=== PATIENT | female | born 1945 | race Caucasian/White ===

== ENCOUNTER → 2016-06-15 | Outpatient (CLI) | payer OTHER ==
[~2016-06-15] MED LIST: ADVIN25050 INH; ALL180 PO; ASPCH81X PO; ATOR-54 PO; CALCTAB5 PO; CIPR-255 PO; DULA0.5I INJ; FIBER CAP; GLC/500 PO; GLC500 PO; IPRA1AER2 INH; LOSA50TA6 PO; METR-163 PO; MULT-506 PO; OMEP40CA41 PO; OXYC-57 PO; PRLSR20 PO; PROM25TA PO; SERT-234 PO; SERT50TA PO; SIMV80TA2 PO; SULF800T23 PO; TEMA15CA4 PO; TEMA30CA4 PO; VITAMIN B 12
--- NOTE | 2016-06-15 08:51 | DIAGNOSTIC IMAGING REPORT ---
ABDOMEN COMPLETE (US) CLINICAL HISTORY: Abdominal pain diarrhea and bloating COMPARISON STUDY: 06/21/2009 FINDINGS: The pancreas appears normal as visualized. The gallbladder appears sonographically normal. There is a 5 mm cyst within the right hepatic lobe. The liver appears otherwise normal. There is minimal dilatation of the common bile duct which measures 7 mm. The spleen measures 9.1 cm in length. The right kidney measures 10.7 cm. The left kidney measures 10.8 cm. There is no hydronephrosis. There is an equivocal 5 mm hypoechoic focus within the upper pole the left kidney. There is no evidence of abdominal aortic dilatation. The IVC appear patent. IMPRESSION: 1. 7 mm common bile duct 2. Ultrasonographically normal gallbladder and pancreas Electronically signed by: Jagdeep Bridges M.D. 06/15/2016 8:49 AM Dictated Date/Time: 06/15/2016 8:46 AM
== END | disposition home or self-care (01) ==
LOC: C.ULTR 08:04
PROVIDERS: ATTEND Internal Medicine
DX: R10.9 Unspecified abdominal pain (principal); R14.0 Abdominal distension (gaseous); R19.7 Diarrhea, unspecified

== ENCOUNTER → 2016-07-07 | Outpatient (CLI) | payer OTHER ==
[~2016-07-07] MED LIST changes: +MethylPREDNISolone HOME PACK 16 MG TAB PO SCH; +OPTIRAY 320 IV PRN
--- NOTE | 2016-07-07 15:11 | DIAGNOSTIC IMAGING REPORT ---
CT SCAN OF THE ABDOMEN AND PELVIS WITH IV CONTRAST CLINICAL HISTORY: Generalized abdominal pain. Change in bowel habits. COMPARISON STUDY: Abdominal CT dated 05/11/2014. TECHNIQUE: Following the IV administration of 119 cc of Optiray 320, CT scan of the abdomen and pelvis is performed from the lung bases to the proximal femora. Images are reviewed in the axial, sagittal, and coronal planes. IV contrast was administered without complication. Automated dose control exposure was utilized. CT DOSE: 314.88 mGy.cm FINDINGS: Lung bases: The heart is normal in size and without pericardial effusion. There are coronary artery calcifications. The lung bases are clear. Liver: The contrast-enhanced liver is normal in size, contour, and attenuation. A subcentimeter hypodensity in the right lobe on image #144 likely represents a cyst but is too small for definitive characterization. There is no intrahepatic biliary ductal dilatation. The hepatic veins and portal veins are patent. Gallbladder: Unremarkable. Spleen: Normal in size and attenuation. Pancreas: Unremarkable. Adrenal glands: Unremarkable. Kidneys: The contrast enhanced kidneys demonstrate cortical atrophy and are without hydronephrosis. The kidneys enhance symmetrically. A subcentimeter cortical hypodensity in the left upper pole likely represents a cyst but is too small for definitive characterization. Abdominal vasculature: The abdominal aorta is normal in course and caliber noting moderate atherosclerotic calcification. Stomach and bowel: There is a large hiatal hernia, with approximately half of the stomach located in the thoracic cavity. The duodenum is normal in configuration. No bowel obstruction is seen. There is advanced colonic diverticulosis without CT evidence of acute diverticulitis. Mild diffuse wall thickening of the sigmoid colon is likely related to chronic diverticular disease. The appendix is well-visualized and normal. Peritoneum: There is no intraperitoneal free air or abdominal ascites. There is a small fat-containing umbilical hernia. Lymphadenopathy: None. Pelvic viscera: The bladder, uterus, and adnexa are normal as visualized. Skeletal structures: The skeletal structures are osteopenic. There is mild lumbosacral spondylosis. No lytic or blastic lesions are seen. IMPRESSION: 1. There are no acute infectious or inflammatory findings in the abdomen or pelvis. 2. Advanced colonic diverticulosis without CT evidence of acute diverticulitis. 3. Large hiatal hernia. 4. Additional findings as above. Electronically signed by: Ed Lobo M.D. 07/07/2016 3:10 PM Dictated Date/Time: 07/07/2016 2:52 PM
== END | disposition home or self-care (01) ==
LOC: C.CTS 13:41
PROVIDERS: ATTEND Internal Medicine
DX: R10.9 Unspecified abdominal pain (principal); R19.4 Change in bowel habit; K44.9 Diaphragmatic hernia without obstruction or gangrene; K57.30 Diverticulosis of large intestine without perforation or abscess without bleeding

== ENCOUNTER → 2016-07-17 | Outpatient (CLI) | payer OTHER ==
[~2016-07-17] MED LIST changes: -ADVIN25050 INH; -ALL180 PO; -CALCTAB5 PO; -FIBER CAP; -GLC500 PO; -MULT-506 PO; -MethylPREDNISolone HOME PACK 16 MG TAB PO SCH; -OPTIRAY 320 IV PRN; -OXYC-57 PO; -PRLSR20 PO; -PROM25TA PO; -SERT50TA PO; -SIMV80TA2 PO; -TEMA30CA4 PO; -VITAMIN B 12
--- NOTE | 2016-07-18 13:02 | MAMMOGRAPHY REPORT ---
BILATERAL DIGITAL SCREENING MAMMOGRAM WITH CAD: 07/17/2016 CLINICAL HISTORY: Routine screening. Patient has no complaints. TECHNIQUE: Bilateral CC and MLO views were obtained. Current study was also evaluated with a Comput er Aided Detection (CAD) system. COMPARISON: Comparison is made to exam dated: 05/01/2014 mammogram - [facility]. BREAST COMPOSITION: The tissue of both breasts is heterogeneously dense, which may obscure small ma sses. FINDINGS: There is stable asymmetry in the medial left breast. Benign appearing coarse calcificatio ns bilaterally. No new suspicious mass, architectural distortion or suspicious microcalcifications are seen. IMPRESSION: ACR BI-RADS CATEGORY 1: NEGATIVE There is no mammographic evidence of malignancy. A 1 year screening mammogram is recommended. The p atient will receive written notification of the results. Approximately 10% of breast cancers are not detected with mammography. A negative mammographic repor t should not delay biopsy if a clinically suggestive mass is present. Joslyn Moreau M.D. ay/:07/17/2016 15:08:01 Taper Machine: Marie Matais RT(R)(M)(BD), [facility] letter sent: Normal 1/2 BI-RADS Code: ACR BI-RADS Category 1: Negative
== END | disposition home or self-care (01) ==
LOC: C.MAMM 14:27
PROVIDERS: ATTEND Internal Medicine
DX: Z12.31 Encounter for screening mammogram for malignant neoplasm of breast (principal)

== ENCOUNTER → 2016-07-26 | Day surgery (SDC) | payer OTHER ==
[2016-07-13 08:56] VITALS: BMI 25.0
[~2016-07-26] VITALS: Ht 162.6 cm; Wt 68.2 kg
[~2016-07-26] MED LIST changes: +LIDOCAINE HCL 2% 2 ML VIAL (20MG/ML) ONE; +MIDAZOLAM HCL 1 MG/ML 2ML VIAL ONE; +ONDANSETRON INJ 2 MG/ML 2 ML VIAL ONE; +PROPOFOL IV EMULSION 10 MG/ML 20 ML VIAL IV ONE
[2016-07-26 08:22] VITALS: Ht 162.6 cm; Wt 68.2 kg
--- NOTE | 2016-07-26 08:43 | Endo History and Physical ---
History & Physical Date of Service: Jul 26, 2016. Chief Complaint: ABD. PAIN AND CHANGE IN BOWEL HABITS Referring Physician: DR. PADILLA History of Present Illness 70 yo CF who presents for Colonoscopy secondary to abdominal pain and change in bowel habits. Past Surgical History Hx Cardiac Surgery: No Hx Internal Defibrillator: No Hx Pacemaker: No Hx Abdominal Surgery: Yes (, TUBAL SX, COLON SURGERY ( REMOVAL OF POLYPS)) Hx of Implantable Prosthesis: No Hx Cancer Surgery: No Hx Thoracic Surgery: No Hx Orthopedic: Yes (RT ELBOW SX) Hx Urinary Tract Surgery: No Family History Colon CA, Esophogeal CA, Polyp Social History Smoking Status: Current Every Day Smoker Hx Substance Use: No Hx Alcohol Use: No Allergies Coded Allergies: No Known Allergies (Unverified , 07/26/16) Current Medications Reported Home Medications Medications Dose Route/Sig Max Daily Dose Days Date Category Combivent Respimat (Ipratropium-Albuterol) 1 Aer Aer 2 Puffs INH QID PRN 07/13/16 Reported Zoloft (Sertraline HCl) 100 Mg Tab 100 Mg PO QAM 07/13/16 Reported Aspirin Chewable (Aspirin) 81 Mg Chew 81 Mg PO QAM 07/13/16 Reported Lipitor (Atorvastatin) 20 Mg Tab 20 Mg PO HS 07/13/16 Reported Cozaar (Losartan Potassium) 50 Mg Tab 50 Mg PO QAM 07/13/16 Reported Glucophage (Metformin Hcl) 500 Mg Tab 2 Tab PO BID 07/13/16 Reported Prilosec (Omeprazole) 40 Mg Cap 40 Mg PO BID 07/13/16 Reported Restoril (Temazepam) 15 Mg Cap 15 Mg PO HS 07/13/16 Reported Vital Signs Weight (Kilograms): 68.18 Height (Feet): 5 Height (Inches): 4 Date Time Temp Pulse Resp B/P Pulse Ox O2 Delivery O2 Flow Rate FiO2 07/26/16 08:23 37.8 79 18 141/71 93 Room Air Physical Exam General Appearance: WD/WN, no apparent distress Respiratory/Chest: Auscultation: breath sounds normal Cardiovascular: Heart Auscultation: RRR Abdomen: Bowel Sounds: normal Inspection & Palpation: soft, non-distended, no tenderness, guarding & rebound Assessment and Plan Assessment: 70 yo CF who presents for Colonoscopy secondary to abdominal pain and change in bowel habits. Plan: Proceed with colonoscopy.
--- NOTE | 2016-07-26 10:11 | Discharge Instructions ---
Endoscopy Patient Instructions Date / Procedure(s) Performed Jul 26, 2016. Colonoscopy Allergy Information Coded Allergies: No Known Allergies (Unverified , 07/26/16) Discharge Date / Findings Jul 26, 2016. Colon polyps Diverticulosis Internal hemorrhoids Medication Instructions Stopped Medication(s): STOPPED METFORMIN AND ASPIRIN 3 DAYS AGO. OK to resume all medications today as prescribed Reported Home Medications Medications Dose Route/Sig Max Daily Dose Days Date Category Combivent Respimat (Ipratropium-Albuterol) 1 Aer Aer 2 Puffs INH QID PRN 07/13/16 Reported Zoloft (Sertraline HCl) 100 Mg Tab 100 Mg PO QAM 07/13/16 Reported Aspirin Chewable (Aspirin) 81 Mg Chew 81 Mg PO QAM 07/13/16 Reported Lipitor (Atorvastatin) 20 Mg Tab 20 Mg PO HS 07/13/16 Reported Cozaar (Losartan Potassium) 50 Mg Tab 50 Mg PO QAM 07/13/16 Reported Glucophage (Metformin Hcl) 500 Mg Tab 2 Tab PO BID 07/13/16 Reported Prilosec (Omeprazole) 40 Mg Cap 40 Mg PO BID 07/13/16 Reported Restoril (Temazepam) 15 Mg Cap 15 Mg PO HS 07/13/16 Reported Provider Instructions Activity Restrictions - No exercising or heavy lifting for 24 hours. - Do not drink alcohol the day of the procedure. - Do not drive a car or operate machinery until the day after the procedure. - Do not make any important decisions or sign important papers in 24 hours after the procedure. Following Day: - Return to full activity which may include returning to work/school. Diet Start your diet with liquids and light foods (jello, soup, juice, toast). Then eat your usual diet if not nauseated. Treatment For Common After Affects For mild abdominal pain, bloating, or excessive gas: - Rest - Eat lightly - Lie on right side Follow-Up Information Follow-up with DR. PADILLA as scheduled Anesthesia Information What You Should Know You have had a procedure that required some medicine to reduce anxiety and discomfort. This treatment is called moderate sedation. After receiving the treatment, you may be sleepy, but you will be able to breathe on your own. The effects of the treatment may last for several hours. Follow these instructions along with Activity/Diet recommendations noted above: * Do NOT do anything where dizziness or clumsiness would be dangerous. * Rest quietly at home today, then you can be up and about tomorrow. * Have a responsible person stay with you the rest of today. * You may have had an I.V. today. If so, you may take the dressing off later today. Recommendations Call your doctor if: * Trouble breathing * Continuous vomiting for more than 24 hours * Temperature above 101 degrees * Severe abdominal pain or bloating * Pain not relieved by pain medicine ordered * There is increased drainage or redness from any incision * A large amount of rectal bleeding greater than 2-3 tablespoons. (If you had a polyp/s removed or have hemorrhoids, a small amount of blood - from the rectum is to be expected.) * You have any unanswered questions or concerns. IN THE EVENT OF A SERIOUS EMERGENCY, GO TO THE NEAREST EMERGENCY ROOM Your discharge instructions were prepared by provider Isidoro London. Patient Instructions Signature Page Angeliquemai Romero Patient (or Guardian) Signature/Date: I have read and understand the instructions given to me by my caregivers. Caregiver/RN/Doctor Signature/Date: The above-named patient and/or guardian has received patient instructions on this date. + Original Patient Signature Page (only) stays with chart. Please make copy for patient.
--- NOTE | 2016-07-26 10:16 | GI REPORT ---
Procedure Date: 07/26/2016 9:33 AM Procedure: Colonoscopy Indications: Generalized abdominal pain, Change in bowel habits Medicines: Monitored Anesthesia Care Complications: No immediate complications. Estimated Blood Loss: Estimated blood loss: none. Procedure: Pre-Anesthesia Assessment: - Prior to the procedure, a History and Physical was performed, and patient medications and allergies were reviewed. The patient's tolerance of previous anesthesia was also reviewed. The risks and benefits of the procedure and the sedation options and risks were discussed with the patient. All questions were answered, and informed consent was obtained. Prior Anticoagulants: The patient has taken aspirin, last dose was 3 days prior to procedure. ASA Grade Assessment: III - A patient with severe systemic disease. After reviewing the risks and benefits, the patient was deemed in satisfactory condition to undergo the procedure. After I obtained informed consent, the scope was passed under direct vision. Throughout the procedure, the patient's blood pressure, pulse, and oxygen saturations were monitored continuously. The scope was introduced through the anus and advanced to the cecum, identified by appendiceal orifice and ileocecal valve. The colonoscopy was performed without difficulty. The patient tolerated the procedure well. The quality of the bowel preparation was fair. The ileocecal valve, appendiceal orifice, and rectum were photographed. Findings: Two sessile polyps were found in the sigmoid colon and in the transverse colon. The polyps were 5 to 7 mm in size. These polyps were removed with a hot snare. Resection and retrieval were complete. Multiple small-mouthed diverticula were found in the sigmoid colon. Non-bleeding internal hemorrhoids were found during retroflexion. The hemorrhoids were small. Impression: - Two 5 to 7 mm polyps in the sigmoid colon and in the transverse colon, removed with a hot snare. Resected and retrieved. - Diverticulosis in the sigmoid colon. - Non-bleeding internal hemorrhoids. Recommendation: - Resume previous diet. - Continue present medications. - Use original regular Metamucil one teaspoon PO daily. - Repeat colonoscopy for surveillance based on pathology results. - Return to primary care physician as previously scheduled. Isidoro London DO 07/26/2016 10:16:39 AM This report has been signed electronically. Note Initiated On: 07/26/2016 9:33 AM I attest to the content of the Intraoperative Record and orders documented therein, exceptions below
[2016-07-26 10:42] VITALS: BP 156/84; PULSE 87; O2SAT 93
--- NOTE | 2016-07-26 12:32 | Anesthesiology Progress Note ---
Anesthesia Post Op Note Date & Time Jul 26, 2016 at 12:32 Vital Signs Pain Intensity: 0 Vital Signs Past 12 Hours Date Time Temp Pulse Resp B/P Pulse Ox O2 Delivery O2 Flow Rate FiO2 07/26/16 10:42 87 18 156/84 93 Room Air 07/26/16 10:24 83 18 149/84 95 Room Air 07/26/16 10:09 86 18 132/71 92 Mask 9 07/26/16 08:23 37.8 79 18 141/71 93 Room Air Notes Mental Status: alert / awake / arousable Nausea / Vomiting: adequately controlled Pain: adequately controlled Airway Patency, RR, SpO2: stable & adequate BP & HR: stable & adequate Hydration State: stable & adequate Anesthetic Complications: no major complications apparent
== END | disposition home or self-care (01) ==
LOC: C.GI 08:04
PROVIDERS: ATTEND Internal Medicine
DX: R19.4 Change in bowel habit (principal); D12.3 Benign neoplasm of transverse colon; K63.5 Polyp of colon; K57.30 Diverticulosis of large intestine without perforation or abscess without bleeding; Z80.0 Family history of malignant neoplasm of digestive organs; K64.8 Other hemorrhoids; Z98.51 Tubal ligation status; F17.210 Nicotine dependence, cigarettes, uncomplicated; Z79.82 Long term (current) use of aspirin

== ENCOUNTER → 2016-08-25 | Outpatient (CLI) | payer OTHER ==
[~2016-08-25] MED LIST changes: -LIDOCAINE HCL 2% 2 ML VIAL (20MG/ML) ONE; -MIDAZOLAM HCL 1 MG/ML 2ML VIAL ONE; -ONDANSETRON INJ 2 MG/ML 2 ML VIAL ONE; -PROPOFOL IV EMULSION 10 MG/ML 20 ML VIAL IV ONE
== END | disposition home or self-care (01) ==
LOC: C.PAPS 14:41
PROVIDERS: ATTEND Obstetrics & Gynecology
DX: Z01.419 Encounter for gynecological examination (general) (routine) without abnormal findings (principal)

== ENCOUNTER → 2016-08-29 | Outpatient (CLI) | payer OTHER ==
[2016-08-29 12:22] LABS: ESTIMATED AVERAGE GLUCOSE 148 mg/dl; HA1C FLAG Normal (Normal)
[2016-08-29 12:36] LABS: BLOOD UREA NITROGEN 14 mg/dl (7-18); BUN/CREATININE RATIO 20.4 (10-20); CALCIUM 9.1 mg/dl (8.5-10.1); CARBON DIOXIDE 30 mmol/L (21-32); CHLORIDE 102 mmol/L (98-107); CREATININE 0.67 mg/dl (0.60-1.20); GLUCOSE 96 mg/dl (70-99); POTASSIUM 3.7 mmol/L (3.5-5.1); SODIUM 139 mmol/L (136-145)
[2016-08-29 13:22] LABS: RATIO 36.5 mcg/mg (0-30.0)
--- NOTE | 2016-09-05 08:50 | CODING QUERY MEDICAL NECESSITY ---
SUPPORTING DIAGNOSIS NEEDED Dr. Sampson, A supporting diagnosis is required for the test/procedure performed on this patient in order for us to be reimbursed by the patient's insurance. Please provide a supporting diagnosis for the following test/procedure listed below next to the test name along with your signature. *If there is no additional diagnosis for this patient that would support the following test/procedure please document that below next to the test/procedure. Test(s)/Procedure(s) that require a supporting diagnosis: * ([id number]) VITAMIN D ASSAY DIAGNOSIS: DATE OF SERVICE: 08/29/16 Provider Signature: Date: Thank you Brandyn Solo [facility] Information Management Once completed, please kindly fax back to [phone] For questions please call [phone]
== END | disposition home or self-care (01) ==
LOC: C.LAB1850 11:13
PROVIDERS: ATTEND Nurse Practitioner Adult Health
DX: E11.9 Type 2 diabetes mellitus without complications (principal); I10 Essential (primary) hypertension; E55.9 Vitamin D deficiency, unspecified

== ENCOUNTER → 2016-12-20 | Outpatient (CLI) | payer OTHER ==
[2016-12-20 09:44] LABS: BLOOD UREA NITROGEN 12 mg/dl (7-18); BUN/CREATININE RATIO 16.4 (10-20); CALCIUM 9.3 mg/dl (8.5-10.1); CARBON DIOXIDE 29 mmol/L (21-32); CHLORIDE 103 mmol/L (98-107); CREATININE 0.74 mg/dl (0.60-1.20); GLUCOSE 94 mg/dl (70-99); SODIUM 138 mmol/L (136-145)
[2016-12-20 09:57] LABS: ESTIMATED AVERAGE GLUCOSE 131 mg/dl; HA1C FLAG Normal (Normal)
== END | disposition home or self-care (01) ==
LOC: C.LAB 06:47
PROVIDERS: ATTEND Nurse Practitioner Adult Health
DX: E11.9 Type 2 diabetes mellitus without complications (principal); I10 Essential (primary) hypertension; M54.2 Cervicalgia; E55.9 Vitamin D deficiency, unspecified

== ENCOUNTER 2017-01-11 13:50 | Emergency (ER) | payer OTHER ==
[~2017-01-11] VITALS: Ht 162.6 cm; Wt 70.3 kg
[~2017-01-11 13:50] MED LIST changes: -CIPR-255 PO; -DULA0.5I INJ; -METR-163 PO; -SULF800T23 PO
[2017-01-11 13:55] VITALS: TEMP 36.9; Ht 162.6 cm; Wt 70.3 kg
[2017-01-11] MEDS ORDERED: SODIUM CHLORIDE 0.9% 1000ML 1,000 ML IV STA (15:13)
[2017-01-11] MEDS ORDERED: OPTIRAY 320 IV PRN (15:30)
--- NOTE | 2017-01-11 15:31 | EMERGENCY ROOM VISIT NOTE ---
History First contact with patient: 15:04 Chief Complaint: ABDOMINAL PAIN Stated Complaint: DIZZY, LEFT SIDE STOMACH PAIN, N, HEART RACING Nursing Triage Summary: pt states she has diverticultis and "I know when it flares up". Called office but they told her to go to ED. Associated nausea. LLQ pain 5/10 at rest History of Present Illness The patient is a 71 year old female who presents to the Emergency Room with complaints of left lower quadrant pain that started early this morning around 6 AM, woke her up from sleep. Patient states she has history of diverticulitis and this feels like previous times that has flared up. She did call her PCP today but they told her to come to the emergency department for further evaluation. She has not taken anything for the pain. She states she has chronic diarrhea, but denies any changes in her bowel habits, denies any bloody , coffee-ground, or black stools. She has some associated lightheadedness, chills, and nausea, but no vomiting. She denies any fevers, headache, chest pain, shortness of breath, urinary symptoms, or rash. She last ate at 12 PM today. Review of Systems A complete 10 point review of systems was reviewed with the patient with pertinent positives and negatives as per history of present illness. All else were negative. Social History Smoking Status: Current Every Day Smoker Current/Historical Medications Scheduled Aspirin (Aspirin Chewable), 81 MG PO QAM Atorvastatin (Lipitor), 20 MG PO HS Ciprofloxacin Hcl (Cipro), 500 MG PO BID Dulaglutide (Trulicity), 1 DOSE INJ WK Losartan Potassium (Cozaar), 50 MG PO QAM Metformin Hcl (Glucophage), 2 TAB PO BID Metronidazole (Flagyl), 500 MG PO TID Omeprazole (Prilosec), 40 MG PO BID Sertraline (Zoloft), 100 MG PO QAM Temazepam (Restoril), 15 MG PO HS Scheduled PRN Ipratropium-Albuterol (Combivent Respimat), 2 PUFFS INH QID PRN for Shortness of Breath Physical Exam Vital Signs Date Time Temp Pulse Resp B/P (MAP) Pulse Ox O2 Delivery O2 Flow Rate FiO2 01/11/17 19:01 88 16 121/72 98 01/11/17 17:45 72 14 134/76 99 Room Air 01/11/17 15:49 82 16 137/72 99 Room Air 01/11/17 13:55 36.9 106 18 111/59 99 Room Air Physical Exam CONSTITUTIONAL: No acute distress. Mildly dehydrated, but otherwise well appearing and well nourished. Alert and oriented X 4 with normal affect. HEENT: Normocephalic, atraumatic. Pupils equal, round and reactive to light, EOMI. TMs normal. Pharynx normal. Tacky mucous membranes. NECK: Supple, full active range of motion without discomfort. RESPIRATORY: Clear to auscultation bilaterally with no wheezing, crackles, rhonchi or stridor. Equal expansion bilaterally. CARDIOVASCULAR: Regular rate and rhythm with no murmurs, rubs or gallops. Normal peripheral perfusion. No edema. GASTROINTESTINAL: Moderate tenderness in the left lower quadrant and suprapubic region, positive guarding but no rebound tenderness. Soft, nondistended. Bowel sounds present in all quadrants. No CVA tenderness. MUSCULOSKELETAL: Full range of motion of all joints without discomfort. INTEGUMENTARY: No rash or other significant dermatologic conditions noted. NEUROLOGIC: Cranial nerves II-XII grossly intact. No focal neurologic deficits noted. Medical Decision & Procedures ER Provider Diagnostic Interpretation: ABD/PELVIS IV AND ORAL CONT CLINICAL HISTORY: 71 years-old Female presenting with LLQ and hx of diverticulitis. TECHNIQUE: Multidetector CT of the abdomen and pelvis was performed after the administration of oral and intravenous contrast. IV contrast: 118 mL of Optiray 320. A dose lowering technique was used consistent with the principles of ALARA (as low as reasonably achievable). COMPARISON: 07/07/2016. CT DOSE (mGy.cm): The estimated cumulative dose is 337.18 mGy.cm. 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 Lung bases: Lung bases clear. No pericardial or pleural effusion. Liver: Normal morphology. Subcentimeter hypodensity at the inferior right hepatic lobe, indeterminate but likely hepatic cyst or hamartoma. Patent hepatic vasculature. Biliary: No intrahepatic or extrahepatic biliary ductal dilatation. Normal gallbladder. Pancreas: Mild parenchymal atrophy. Spleen: Normal. Adrenal glands: Nonspecific nodular thickening of the left adrenal gland. Kidneys and ureters: No nephrolithiasis. No hydronephrosis. Subcentimeter hypodensity at the left upper pole indeterminate but likely simple cyst. Normal ureters. Bladder: Incompletely evaluated secondary to underdistention. Pelvic organs: Uterus and ovaries normal. Bowel: Noel colonic diverticulosis. Focal pericolonic inflammatory change at the junction of the descending and sigmoid colon consistent with diverticulitis. No convincing evidence of associated extraluminal gas. No adjacent fluid collection or gross evidence of fistulization. Normal appendix. No bowel obstruction. Large hiatal hernia. Peritoneal cavity: No free fluid or intraperitoneal gas. Vasculature: Atherosclerosis of the normal caliber abdominal aorta. IVC patent. Lymph nodes: No enlarged lymph nodes in the abdomen or pelvis. Abdominal wall: Normal. Musculoskeletal: Degenerative changes of the spine. IMPRESSION: 1. Evidence of uncomplicated diverticulitis at the junction of the descending and sigmoid colon. No evidence of perforation or associated abscess. Laboratory Results 01/11/17 15:30 Red Blood Count 4.26, Mean Corpuscular Volume 89.7, Mean Corpuscular Hemoglobin 31.5, Mean Corpuscular Hemoglobin Concent 35.1, Mean Platelet Volume 10.0, Neutrophils (%) (Auto) 75.3, Lymphocytes (%) (Auto) 17.6, Monocytes (%) (Auto) 6.0, Eosinophils (%) (Auto) 0.3, Basophils (%) (Auto) 0.3, Neutrophils # (Auto) 10.04, Lymphocytes # (Auto) 2.34, Monocytes # (Auto) 0.80, Eosinophils # (Auto) 0.04, Basophils # (Auto) 0.04 01/11/17 15:30 Test 01/11/17 00:00 01/11/17 15:30 01/11/17 15:45 Urine Color YELLOW Urine Appearance CLEAR (CLEAR) Urine pH 7.5 (4.5-7.5) Urine Specific [place] 1.016 (1.000-1.030) Urine Protein NEG (NEG) Urine Glucose (UA) NEG (NEG) Urine Ketones TRACE (NEG) Urine Occult Blood TRACE (NEG) Urine Nitrite NEG (NEG) Urine Bilirubin NEG (NEG) Urine Urobilinogen NEG (NEG) Urine Leukocyte Esterase TRACE (NEG) Urine WBC (Auto) 1-5 /hpf (0-5) Urine RBC (Auto) 5-10 /hpf (0-4) Urine Hyaline Casts (Auto) 1-5 /lpf (0-5) Urine Epithelial Cells (Auto) 20-30 /lpf (0-5) Urine Bacteria (Auto) NEG (NEG) White Blood Count 13.32 K/uL (4.8-10.8) Red Blood Count 4.26 M/uL (4.2-5.4) Hemoglobin 13.4 g/dL (12.0-16.0) Hematocrit 38.2 % (37-47) Mean Corpuscular Volume 89.7 fL (80-100) Mean Corpuscular Hemoglobin 31.5 pg (25-34) Mean Corpuscular Hemoglobin Concent 35.1 g/dl (32-36) Platelet Count 250 K/uL (130-400) Mean Platelet Volume 10.0 fL (7.4-10.4) Neutrophils (%) (Auto) 75.3 % Lymphocytes (%) (Auto) 17.6 % Monocytes (%) (Auto) 6.0 % Eosinophils (%) (Auto) 0.3 % Basophils (%) (Auto) 0.3 % Neutrophils # (Auto) 10.04 K/uL (1.4-6.5) Lymphocytes # (Auto) 2.34 K/uL (1.2-3.4) Monocytes # (Auto) 0.80 K/uL (0.11-0.59) Eosinophils # (Auto) 0.04 K/uL (0-0.5) Basophils # (Auto) 0.04 K/uL (0-0.2) RDW Standard Deviation 45.3 fL (36.4-46.3) RDW Coefficient of Variation 13.8 % (11.5-14.5) Immature Granulocyte % (Auto) 0.5 % Immature Granulocyte # (Auto) 0.06 K/uL (0.00-0.02) Anion Gap 6.0 mmol/L (3-11) Est Creatinine Clear Calc Drug Dose 59.4 ml/min Estimated GFR () 79.9 Estimated GFR (Non- 68.9 BUN/Creatinine Ratio 14.8 (10-20) Calcium Level 9.4 mg/dl (8.5-10.1) Total Bilirubin 0.3 mg/dl (0.2-1) Direct Bilirubin 0.1 mg/dl (0-0.2) Aspartate Amino Transf (AST/SGOT) 18 U/L (15-37) Alanine Aminotransferase (ALT/SGPT) 17 U/L (12-78) Alkaline Phosphatase 80 U/L (45-117) Total Protein 7.0 gm/dl (6.4-8.2) Albumin 3.4 gm/dl (3.4-5.0) Lipase 125 U/L (73-393) Bedside Lactic Acid Venous 1.25 mmol/L (0.90-1.70) Medications Administered Medications (Trade) Dose Ordered Sig/Chris Route Start Time Stop Time Status Last Admin Dose Admin Sodium Chloride 1,000 ml @ 999 mls/hr Q1H1M STAT IV 01/11/17 15:13 01/11/17 16:13 DC 01/11/17 15:49 999 MLS/HR Medical Decision CC: Patient presenting with complaint of left lower quadrant abdominal pain Interpretation of Labs: Leukocytosis with left shift, no anemia, normal platelets, no significant electrolyte abnormalities, normal renal function, normal liver enzymes and lipase, lactic acid within normal limits. No UTI. Differential Diagnosis: Includes, but not limited to diverticulitis, diverticulosis, intra-abdominal abscess, colitis, constipation, dehydration Medication Reconciliation: I attest that I have personally reviewed the patient' s current medication list. Vital signs review: I reviewed the patient's vital signs and interpret them as follows: T: Afebrile; BP: Normotensive; HR: Tachycardic; RR: Within normal limits; Pulse Ox: The normal limits on room air. Blood pressure screening: The patient was found to have normal blood pressure on screening and does not require follow-up for repeat blood pressure check. Summary: Patient was evaluated at bedside, history of physical exam performed. Patient is alert and in no acute distress, resting comfortably in the stretcher. Moderate tenderness in the left lower quadrant on abdominal exam. Orders were placed at bedside for labs, UA, IV fluids for hydration, CT abdomen/ pelvis with contrast to evaluate for diverticulitis and other intra-abdominal etiology. Patient was offered morphine for pain, which she declines. Patient discussed with Dr. Argueta, who also evaluated the patient and agrees with my assessment and plan. Labs reviewed as above, significant for leukocytosis. CT reviewed, shows acute diverticulitis without complication. Patient reassessed multiple times throughout ED stay, she states she feels much improved after IV fluids, tachycardia resolved. Her pain remains tolerable and she continues to decline anything for pain at this time. Patient was updated on all results and plan for discharge home on antibiotics. Patient is anxious to be discharged and did not wish to wait for her first dose of antibiotics here. Prescription was sent to the pharmacy for ciprofloxacin and Flagyl. Patient was instructed to follow closely with her PCP, and to return to the emergency department if her symptoms worsened in any way she verbalized understanding. Patient stable at time of discharge and ambulatory. Impression Primary Impression: Acute diverticulitis Departure Information Dispostion Home / Self-Care Condition GOOD Prescriptions Metronidazole (Flagyl) 500 Mg Tab 500 MG PO TID for Pain for 10 Days, #30 TAB For Initial Treatment Prov: Yessenia Jasmine CRNP 01/11/17 Ciprofloxacin Hcl (CIPRO) 500 Mg Tab 500 MG PO BID for 10 Days, #20 TAB Prov: Yessenia Jasmine CRNP 01/11/17 Referrals Sebastián Moise M.D. (PCP) Patient Instructions ED Diverticulitis, [facility] Additional Instructions You have been treated in the Emergency Department your Abdominal Pain. Laboratory results and imaging studies have ruled out any emergent causes for your abdominal pain which would warrant admission or surgery. Your CT scan today shows diverticulitis, which is an inflammation and infection of your bowels. You have been prescribed Ciprofloxacin and Flagyl to be taken for the next 10 days. These medications are antibiotics. All antibiotics have the potential to cause diarrhea. Stop this medication and contact a medical provider if you were to develop any significant adverse side effects including: wheezing, shortness of breath, passing out, vomiting, or a diffuse rash. Always take antibiotics as directed and COMPLETE the ENTIRE course regardless of the improvement of your symptoms. Do not drink any alcohol while you're taking his medications. For pain control, you can use the following [id number] medicines (if >12 yo): - Regular strength (325mg/tab) Tylenol (acetaminophen) 2 tabs every 6 hours as needed. Do not exceed 10 tablets in a 24 hour period. Avoid taking more than 3 grams (3000 mg) of Tylenol per day. This includes any other sources of acetaminophen you may take on a regular basis. - Regular strength (200 mg/tab) Advil (ibuprofen) 1-2 tabs every 4-6 hours as needed. Do not exceed a dose of 3200 mg per day. Drink plenty of water and stay well hydrated. As with any trip to the Emergency Department, you should follow-up with your Primary Care Provider in the next few days from today's visit. Return to the emergency department if your symptoms persist despite treatment plan outlined above or if the following symptoms occur: Severe worsening abdominal pain, fevers or chills, persistent nausea/vomiting or unable to keep down fluids, blood in your stool, or any other concerns.
[2017-01-11] MEDS ORDERED: DULA0.5I INJ (15:44)
[2017-01-11 15:46] LABS: BASO % 0.3 %; BASO ABS # 0.04 K/uL (0-0.2); COMPLETE YES; EOS % 0.3 %; HEMATOCRIT 38.2 % (37-47); IG% 0.5 %; LYMPH % 17.6 %; LYMPH ABS # 2.34 K/uL (1.2-3.4); MEAN CELL VOLUME 89.7 fL (80-100); MEAN CORPUSCULAR HEMOGLOBIN 31.5 pg (25-34); MEAN CORPUSCULAR HGB CONC 35.1 g/dl (32-36); NEUT % 75.3 %; PLATELET COUNT 250 K/uL (130-400); RED BLOOD COUNT 4.26 M/uL (4.2-5.4); WHITE BLOOD COUNT 13.32 K/uL (4.8-10.8)
[2017-01-11 15:51] LABS: URINE APPEARANCE CLEAR (CLEAR); URINE BILIRUBIN NEG (NEG); URINE COLOR YELLOW; URINE EPITHELIAL CELL AUTO 20-30 /lpf (0-5); URINE NITRITE NEG (NEG); URINE PH 7.5 (4.5-7.5); URINE SPECIFIC GRAVITY 1.016 (1.000-1.030); UROBILINOGEN NEG (NEG)
[2017-01-11 15:52] LABS: MANUAL MICROSCOPIC REQUIRED? NO; REVIEW REQ? NO; SULFASALICYLIC ACID NEG (NEG)
[2017-01-11 16:03] LABS: BUN/CREATININE RATIO 14.8 (10-20); CALCIUM 9.4 mg/dl (8.5-10.1); CREATININE 0.86 mg/dl (0.60-1.20)
--- NOTE | 2017-01-11 17:59 | DIAGNOSTIC IMAGING REPORT ---
ABD/PELVIS IV AND ORAL CONT CLINICAL HISTORY: 71 years-old Female presenting with LLQ and hx of diverticulitis. TECHNIQUE: Multidetector CT of the abdomen and pelvis was performed after the administration of oral and intravenous contrast. IV contrast: 118 mL of Optiray 320. A dose lowering technique was used consistent with the principles of ALARA (as low as reasonably achievable). COMPARISON: 07/07/2016. CT DOSE (mGy.cm): The estimated cumulative dose is 337.18 mGy.cm. FINDINGS: Insurance Sales Executive topogram: Unremarkable. Lung bases: Lung bases clear. No pericardial or pleural effusion. Liver: Normal morphology. Subcentimeter hypodensity at the inferior right hepatic lobe, indeterminate but likely hepatic cyst or hamartoma. Patent hepatic vasculature. Biliary: No intrahepatic or extrahepatic biliary ductal dilatation. Normal gallbladder. Pancreas: Mild parenchymal atrophy. Spleen: Normal. Adrenal glands: Nonspecific nodular thickening of the left adrenal gland. Kidneys and ureters: No nephrolithiasis. No hydronephrosis. Subcentimeter hypodensity at the left upper pole indeterminate but likely simple cyst. Normal ureters. Bladder: Incompletely evaluated secondary to underdistention. Pelvic organs: Uterus and ovaries normal. Bowel: Noel colonic diverticulosis. Focal pericolonic inflammatory change at the junction of the descending and sigmoid colon consistent with diverticulitis. No convincing evidence of associated extraluminal gas. No adjacent fluid collection or gross evidence of fistulization. Normal appendix. No bowel obstruction. Large hiatal hernia. Peritoneal cavity: No free fluid or intraperitoneal gas. Vasculature: Atherosclerosis of the normal caliber abdominal aorta. IVC patent. Lymph nodes: No enlarged lymph nodes in the abdomen or pelvis. Abdominal wall: Normal. Musculoskeletal: Degenerative changes of the spine. IMPRESSION: 1. Evidence of uncomplicated diverticulitis at the junction of the descending and sigmoid colon. No evidence of perforation or associated abscess. Electronically signed by: George Kerns M.D. 01/11/2017 5:58 PM Dictated Date/Time: 01/11/2017 5:50 PM
[2017-01-11] MEDS ORDERED: CIPR-255 PO (18:44)
[2017-01-11] MEDS ORDERED: METR-163 PO (18:44)
[2017-01-11 19:01] VITALS: BP 121/72; PULSE 88; O2SAT 98
--- NOTE | 2017-01-11 20:50 | EMERGENCY ROOM VISIT NOTE ---
ED Visit Note First contact with patient: 15:04 71-year-old female with abdominal pain was fully evaluated by Yessenia Jasmine NP. Please see her note. I also independently evaluated the patient. The patient appears to have diverticulitis. She is a good candidate for outpatient therapy. She will need to follow-up with her family physician.
== END 2017-01-11 19:01 | disposition home or self-care (01) ==
LOC: C.EDB 13:51 → C.EDC 19:01
DX: K57.92 Diverticulitis of intestine, part unspecified, without perforation or abscess without bleeding (principal); F17.210 Nicotine dependence, cigarettes, uncomplicated; Z79.82 Long term (current) use of aspirin; Z79.899 Other long term (current) drug therapy

== ENCOUNTER 2017-01-28 05:09 | Emergency (ER) | payer OTHER ==
[~2017-01-28] VITALS: Ht 162.6 cm; Wt 71.3 kg
[~2017-01-28 05:09] MED LIST changes: +CIPR-255 PO; +DULA0.5I INJ
[2017-01-28 05:11] VITALS: TEMP 36.7; Ht 162.6 cm; Wt 71.3 kg
[2017-01-28 06:02] LABS: BASO % 0.2 %; BASO ABS # 0.03 K/uL (0-0.2); COMPLETE YES; EOS % 1.3 %; HEMATOCRIT 37.2 % (37-47); IG% 0.3 %; LYMPH % 19.7 %; LYMPH ABS # 2.48 K/uL (1.2-3.4); MEAN CELL VOLUME 90.1 fL (80-100); MEAN CORPUSCULAR HEMOGLOBIN 30.3 pg (25-34); MEAN CORPUSCULAR HGB CONC 33.6 g/dl (32-36); MEAN PLATELET VOLUME 9.5 fL (7.4-10.4); MONO % 6.8 %; NEUT % 71.7 %; PLATELET COUNT 302 K/uL (130-400); RED BLOOD COUNT 4.13 M/uL (4.2-5.4); WHITE BLOOD COUNT 12.57 K/uL (4.8-10.8)
[2017-01-28 06:05] LABS: URINE APPEARANCE CLEAR (CLEAR); URINE BILIRUBIN NEG (NEG); URINE COLOR ORANGE; URINE EPITHELIAL CELL AUTO 20-30 /lpf (0-5); URINE NITRITE NEG (NEG); URINE PH 7.5 (4.5-7.5); UROBILINOGEN NEG (NEG)
[2017-01-28 06:09] LABS: CALCIUM 8.9 mg/dl (8.5-10.1); CREATININE 0.58 mg/dl (0.60-1.20); POTASSIUM 3.7 mmol/L (3.5-5.1)
[2017-01-28 06:22] LABS: MANUAL MICROSCOPIC REQUIRED? NO; REVIEW REQ? NO; SULFASALICYLIC ACID POS (NEG)
[2017-01-28] MEDS ORDERED: SULFAMETHOXAZOLE/TRIMETHOPRIM DS 800/160MG TAB PO STA (06:26)
[2017-01-28 06:29] VITALS: BP 167/82; PULSE 87; O2SAT 97
[2017-01-28] MEDS ORDERED: SULF800T23 PO (06:33)
--- NOTE | 2017-01-28 06:36 | EMERGENCY ROOM VISIT NOTE ---
History Report prepared by Kay: Fer Bronson Under the Supervision of: Dr. Vickie Swartz D.O. First contact with patient: 05:18 Chief Complaint: URINARY SYMPTOMS Stated Complaint: URINATING BLOOD,PAIN/BURNING History of Present Illness The patient is a 71 year old female who presents to the Emergency Room with complaints of persistent urinary symptoms beginning today. Her symptoms include hematuria, and burning with urination. She has a history of UTIs but has not had one for around 40 years. The patient also complains of chills, and back pain. She was seen in the ED recently and was diagnosed with diverticulitis. She was placed on Cipro and Flagyl which she finished about a week ago. The patient denies any abdominal pain, SOB, or cough. She states that she was drinking a large amount of water today and has been urinating frequently. She states that she has had some leg cramping but that this is normal for her. Source of History: patient Onset: Today Quality: other (urinary symptoms) Timing: other (persistent) Associated Symptoms: + chills, + back pain, No cough, No SOB, No abdominal pain Review of Systems See HPI for pertinent positives & negatives. A total of 10 systems reviewed and were otherwise negative. Past Medical & Surgical Medical Problems: (1) COPD (chronic obstructive pulmonary disease) (2) Diverticulitis (3) HTN (hypertension) Family History No pertinent family history stated. Social History Smoking Status: Current Some Day Smoker Alcohol Use: none Housing Status: lives with family Current/Historical Medications Scheduled Aspirin (Aspirin Chewable), 81 MG PO QAM Atorvastatin (Lipitor), 20 MG PO HS Dulaglutide (Trulicity), 1 DOSE INJ WK Losartan Potassium (Cozaar), 50 MG PO QAM Metformin Hcl (Glucophage), 2 TAB PO BID Omeprazole (Prilosec), 40 MG PO BID Sertraline (Zoloft), 100 MG PO QAM Sulfamethoxazole-Trimethoprim (Bactrim Ds 800MG/160MG), 1 TAB PO BID Temazepam (Restoril), 15 MG PO HS Scheduled PRN Ipratropium-Albuterol (Combivent Respimat), 2 PUFFS INH QID PRN for Shortness of Breath Allergies Coded Allergies: No Known Allergies (Unverified , 07/26/16) Physical Exam Vital Signs Date Time Temp Pulse Resp B/P (MAP) Pulse Ox O2 Delivery O2 Flow Rate FiO2 01/28/17 06:29 87 16 167/82 97 Room Air 01/28/17 05:11 36.7 86 19 150/91 95 Room Air Physical Exam HEENT: Head - normocephalic and atraumatic Pupils are equal, round, and reactive to light. Extraocular eye muscles are intact, and sclera are anicteric. Nose - moist nasal mucosa without discharge. Mouth - moist buccal mucosa. Oropharynx is nonerythematous and there is no tonsillar exudate or edema noted. Neck: Supple; no JVD, nuchal rigidity, cervical lymphadenopathy. Heart: Regular rate and rhythm. There is a normal S1 and S2 with no murmurs, clicks, or gallops appreciated. Lungs: Clear to auscultation bilaterally with no wheezes, rales, or rhonchi. Abdomen: Soft, completely nontender, nondistended, with good bowel sounds. There are no palpable pulsatile masses or hepatosplenomegaly. There is no guarding, rigidity, or rebound noted. Extremities: No evidence of cyanosis, clubbing, or edema. There are easily palpable peripheral pulses. Skin: warm and dry with good turgor and no rashes. Medical Decision & Procedures Laboratory Results 01/28/17 05:42 Red Blood Count 4.13, Mean Corpuscular Volume 90.1, Mean Corpuscular Hemoglobin 30.3, Mean Corpuscular Hemoglobin Concent 33.6, Mean Platelet Volume 9.5, Neutrophils (%) (Auto) 71.7, Lymphocytes (%) (Auto) 19.7, Monocytes (%) (Auto) 6.8, Eosinophils (%) (Auto) 1.3, Basophils (%) (Auto) 0.2, Neutrophils # (Auto) 9.01, Lymphocytes # (Auto) 2.48, Monocytes # (Auto) 0.85, Eosinophils # (Auto) 0.16, Basophils # (Auto) 0.03 01/28/17 05:42 Test 01/28/17 05:25 01/28/17 05:42 Urine Color ORANGE Urine Appearance CLEAR (CLEAR) Urine pH 7.5 (4.5-7.5) Urine Specific [place] 1.010 (1.000-1.030) Urine Protein 1+ (NEG) Urine Glucose (UA) NEG (NEG) Urine Ketones NEG (NEG) Urine Occult Blood 3+ (NEG) Urine Nitrite NEG (NEG) Urine Bilirubin NEG (NEG) Urine Urobilinogen NEG (NEG) Urine Leukocyte Esterase SMALL (NEG) Urine WBC (Auto) 10-30 /hpf (0-5) Urine RBC (Auto) 10-30 /hpf (0-4) Urine Hyaline Casts (Auto) 1-5 /lpf (0-5) Urine Epithelial Cells (Auto) 20-30 /lpf (0-5) Urine Bacteria (Auto) NEG (NEG) White Blood Count 12.57 K/uL (4.8-10.8) Red Blood Count 4.13 M/uL (4.2-5.4) Hemoglobin 12.5 g/dL (12.0-16.0) Hematocrit 37.2 % (37-47) Mean Corpuscular Volume 90.1 fL (80-100) Mean Corpuscular Hemoglobin 30.3 pg (25-34) Mean Corpuscular Hemoglobin Concent 33.6 g/dl (32-36) Platelet Count 302 K/uL (130-400) Mean Platelet Volume 9.5 fL (7.4-10.4) Neutrophils (%) (Auto) 71.7 % Lymphocytes (%) (Auto) 19.7 % Monocytes (%) (Auto) 6.8 % Eosinophils (%) (Auto) 1.3 % Basophils (%) (Auto) 0.2 % Neutrophils # (Auto) 9.01 K/uL (1.4-6.5) Lymphocytes # (Auto) 2.48 K/uL (1.2-3.4) Monocytes # (Auto) 0.85 K/uL (0.11-0.59) Eosinophils # (Auto) 0.16 K/uL (0-0.5) Basophils # (Auto) 0.03 K/uL (0-0.2) RDW Standard Deviation 45.2 fL (36.4-46.3) RDW Coefficient of Variation 13.7 % (11.5-14.5) Immature Granulocyte % (Auto) 0.3 % Immature Granulocyte # (Auto) 0.04 K/uL (0.00-0.02) Anion Gap 6.0 mmol/L (3-11) Est Creatinine Clear Calc Drug Dose 88.7 ml/min Estimated GFR () 109.0 Estimated GFR (Non- 94.0 BUN/Creatinine Ratio 21.0 (10-20) Calcium Level 8.9 mg/dl (8.5-10.1) Laboratory results per my review. Medications Administered Medications (Trade) Dose Ordered Sig/Chris Route Start Time Stop Time Status Last Admin Dose Admin Trimethoprim/ Sulfamethoxazole (Septra Ds 800/ 160MG Tab) 1 tab NOW STAT PO 01/28/17 06:26 01/28/17 06:28 DC 01/28/17 06:35 1 TAB Procedure Medications ordered: Septra Ds Tab PO. ED Course 0522: Past medical records reviewed. The patient was evaluated in room B6. A complete history and physical exam was performed. A urine specimen was obtained and labs were drawn as above. 0625: Upon reevaluation, the patient is resting comfortably. I discussed findings and results with her. She verbalized agreement of the treatment plan. She was given a dose of Bactrim prior to discharge. The patient was discharged home. Medical Decision The patient is a 71 year old female who presents to the ED with urinary symptoms. Differential diagnosis includes diverticular abscess, recurrent diverticulitis, sepsis, pyelonephritis, and cystitis . Laboratory Studies: Urine has 3+ blood, small leukocyte esterase, 10-30 white blood cells, 10-30 red blood cells, 20-30 epithelial cells. Normal renal function. Glucose 79. Mild leukocytosis with a white count of 12.5. Stable H&H. This is a 71-year-old female patient presents to the emergency department with dysuria and occasional flank pain. She recently finished a course of Cipro and Flagyl after diagnosis of diverticulitis. The abdominal pain associated with the diverticulitis has completely resolved and now she has developed urinary symptoms. The patient has slight leukocytosis on laboratory testing. She is afebrile. She has a normal appetite. The urine was sent for culture. She'll be started on oral Bactrim. She was encouraged to return to the emergency department immediately if she developed a fever, loss of appetite and vomiting. She was started on oral Bactrim and we will await the culture. Medication Reconcilliation Current Medication List: was personally reviewed by me Blood Pressure Screening Patient's blood pressure: Elevated blood pressure Blood pressure disposition: Referred to PCP Impression Primary Impression: Hemorrhagic cystitis Scribe Attestation The scribe's documentation has been prepared under my direction and personally reviewed by me in its entirety. I confirm that the note above accurately reflects all work, treatment, procedures, and medical decision making performed by me. Departure Information Dispostion Home / Self-Care Prescriptions Sulfamethoxazole-Trimethoprim (Bactrim Ds 800MG/160MG) 1 Tab Tab 1 TAB PO BID for 10 Days, #20 TAB Prov: Vickie Swartz D.O. 01/28/17 Referrals Sebastián Moise M.D. (PCP) Forms HOME CARE DOCUMENTATION FORM, IMPORTANT VISIT INFORMATION Patient Instructions [facility] Additional Instructions Rest. Take plenty of clear liquids Bactrim every 12 hours Return to the ER for worsening pain, fever, or vomiting
--- NOTE | 2017-01-30 12:08 | Pharmacy Progress Note ---
ED Pharmacist Culture FollowUp Date of Service: Jan 30, 2017. Patient was sent home with a prescription for Bactrim, which should cover the E. coli growing from the patient's urine culture.
== END 2017-01-28 06:38 | disposition home or self-care (01) ==
LOC: C.EDB 05:10
DX: N30.91 Cystitis, unspecified with hematuria (principal); Z87.440 Personal history of urinary (tract) infections; K57.92 Diverticulitis of intestine, part unspecified, without perforation or abscess without bleeding; J44.9 Chronic obstructive pulmonary disease, unspecified; I10 Essential (primary) hypertension; F17.210 Nicotine dependence, cigarettes, uncomplicated; Z79.82 Long term (current) use of aspirin; Z79.899 Other long term (current) drug therapy

== ENCOUNTER → 2017-09-05 | Outpatient (CLI) | payer OTHER ==
[~2017-09-05] MED LIST changes: +CHOL1000 PO; -CIPR-255 PO; +SACC250C11 PO
[2017-09-05 14:31] LABS: BASO % 0.3 %; BASO ABS # 0.03 K/uL (0-0.2); EOS % 1.9 %; EOS ABS # 0.18 K/uL (0-0.5); HEMATOCRIT 38.8 % (37-47); IG# 0.04 K/uL (0.00-0.02); LYMPH % 28.9 %; LYMPH ABS # 2.78 K/uL (1.2-3.4); MEAN CELL VOLUME 89.4 fL (80-100); MEAN CORPUSCULAR HGB CONC 33.5 g/dl (32-36); MEAN PLATELET VOLUME 9.5 fL (7.4-10.4); MONO % 7.7 %; MONO ABS # 0.74 K/uL (0.11-0.59); NEUT % 60.8 %; NEUT ABS # 5.86 K/uL (1.4-6.5); PLATELET COUNT 252 K/uL (130-400); RED CELL DISTRIBUTION WIDTH CV 14.3 % (11.5-14.5); RED CELL DISTRIBUTION WIDTH SD 47.2 fL (36.4-46.3); WHITE BLOOD COUNT 9.63 K/uL (4.8-10.8)
[2017-09-05 15:02] LABS: ALBUMIN 3.7 gm/dl (3.4-5.0); ALT/SGPT 18 U/L (12-78); BLOOD UREA NITROGEN 16 mg/dl (7-18); CALCIUM 8.6 mg/dl (8.5-10.1); CARBON DIOXIDE 30 mmol/L (21-32); CHOLESTEROL 170 mg/dl (0-200); CREATININE 0.76 mg/dl (0.60-1.20); GLUCOSE 82 mg/dl (70-99); POTASSIUM 3.6 mmol/L (3.5-5.1); SODIUM 139 mmol/L (136-145)
[2017-09-05 15:12] LABS: ALKALINE PHOSPHATASE 96 U/L (45-117); AST/SGOT 22 U/L (15-37); LDL CHOLESTEROL CALCULATED 89 mg/dl; TOTAL PROTEIN 7.2 gm/dl (6.4-8.2)
[2017-09-06 06:40] LABS: HEMOGLOBIN A1C 6.3 % (4.5-5.6)
== END | disposition home or self-care (01) ==
LOC: C.LAB1850 13:42
PROVIDERS: ATTEND Internal Medicine
DX: E11.9 Type 2 diabetes mellitus without complications (principal); E55.9 Vitamin D deficiency, unspecified

== ENCOUNTER → 2017-09-05 | Outpatient (CLI) | payer OTHER ==
--- NOTE | 2017-09-06 07:58 | MAMMOGRAPHY REPORT ---
BILATERAL DIGITAL SCREENING MAMMOGRAM TOMOSYNTHESIS WITH CAD: 09/05/2017 CLINICAL HISTORY: Routine screening. Patient has no complaints. TECHNIQUE: Breast tomosynthesis in addition to standard 2D mammography was performed. Current study was also evaluated with a Computer Aided Detection (CAD) system. COMPARISON: Comparison is made to exams dated: 07/17/2016 mammogram, 05/01/2014 mammogram - [facility], 01/23/2007, and 01/28/2008. BREAST COMPOSITION: The tissue of both breasts is heterogeneously dense, which may obscure small mas ses. FINDINGS: No suspicious masses, calcifications, or areas of architectural distortion are noted in ei ther breast. There has been no significant interval change compared to prior exams. Bilateral benign -appearing calcifications are again noted. IMPRESSION: ACR BI-RADS CATEGORY 2: BENIGN There is no mammographic evidence of malignancy. A 1 year screening mammogram is recommended. The pa tient will receive written notification of the results. Approximately 10% of breast cancers are not detected with mammography. A negative mammographic report should not delay biopsy if a clinically suggestive mass is present. Tawanna Austin M.D. /:09/05/2017 15:03:58 Sheet Metal Smith: Tisha TONYR, M, [facility] letter sent: Normal 1/2 BI-RADS Code: ACR BI-RADS Category 2: Benign
== END | disposition home or self-care (01) ==
LOC: C.MAMM 13:06
PROVIDERS: ATTEND Internal Medicine
DX: Z12.31 Encounter for screening mammogram for malignant neoplasm of breast (principal)

== ENCOUNTER 2017-10-15 09:54 | Inpatient (IN) | payer OTHER ==
[~2017-10-15] VITALS: Ht 160 cm; Wt 71.9 kg
[2017-10-15] MEDS ORDERED: ALBUT/IPRATROP 3MG/0.5MG NEB 3 ML VIAL INH ONE ×2 (10:15→14:15)
[2017-10-15] MEDS ORDERED: SODIUM CHLORIDE 0.9% 1000ML 1,000 ML IV STA (10:15)
[2017-10-15] MEDS ORDERED: DEXAMETHASONE **PF** INJ 10 MG/ML VIAL IV ONE (10:15)
--- NOTE | 2017-10-15 10:30 | EMERGENCY ROOM VISIT NOTE ---
History Report prepared by Kay: Tyrone Diaz Under the Supervision of: Dr. Shin Diaz M.D. First contact with patient: 10:12 Chief Complaint: SHORTNESS OF BREATH Stated Complaint: SOB, LUNG INFECTION History of Present Illness The patient is a 71 year old female who presents to the Emergency Room with complaints of persistent shortness of breath for the past week. The patient states that she was recently diagnosed with bronchitis, and she was prescribed with a Z pack, prednisone, and an inhaler, and she finished the medications a week ago. She states that she ran out of her inhaler. The patient reports that she has been wheezing, coughing up thick yellow sputum, and she had some chills. She denies any fevers or abdominal pain. The patient is a former smoker 6 months ago, and she states that she has COPD, emphysema, diverticulitis, and she is diabetic. The patient is not currently on any blood thinners, and she has no history of heart attacks. Source of History: patient Onset: a week ago Position: other (generalized) Quality: other (shortness of breath ) Timing: other (persistent) Associated Symptoms: + chills, + cough, No fevers, No abdominal pain Review of Systems See HPI for pertinent positives and negatives. A total of ten systems were reviewed and were otherwise negative. Past Medical & Surgical Medical Problems: (1) COPD (chronic obstructive pulmonary disease) (2) Diverticulitis (3) HTN (hypertension) Social History Smoking Status: Former Smoker Alcohol Use: none Housing Status: lives with family Current/Historical Medications Scheduled Aspirin (Aspirin Chewable), 81 MG PO QAM Atorvastatin (Lipitor), 20 MG PO HS Cholecalciferol (Vitamin D3), 1 TAB PO QAM Dulaglutide (Trulicity), 1 DOSE INJ WK Esomeprazole Magnesium (Nexium), 1 CAP PO DAILY Losartan Potassium (Cozaar), 50 MG PO QAM Metformin Hcl (Glucophage), 2 TAB PO BID Omeprazole (Prilosec), 40 MG PO BID Saccharomyces Boulardii (Probiotic), 1 TAB PO BID Sertraline (Zoloft), 100 MG PO QAM Temazepam (Restoril), 15 MG PO HS Scheduled PRN Ipratropium-Albuterol (Combivent Respimat), 2 PUFFS INH QID PRN for Shortness of Breath Allergies Uncoded Allergies: ADHESIVE TAPE (Allergy, Unknown, unknown, 10/15/17) BEXTRA TABLETS (Allergy, Unknown, unknown, 10/15/17) IODINE SOLUTION (Allergy, Unknown, unknown, 10/15/17) Physical Exam Vital Signs Date Time Temp Pulse Resp B/P (MAP) Pulse Ox O2 Delivery O2 Flow Rate FiO2 10/15/17 16:39 110 24 130/68 95 Nasal Cannula 2.0 10/15/17 14:51 118 20 85 Room Air 10/15/17 13:57 94 18 91 Nasal Cannula 2.0 10/15/17 13:45 101 10/15/17 13:38 114 83 10/15/17 13:06 90 Nasal Cannula 2.0 10/15/17 12:54 85 Room Air 10/15/17 12:54 101 20 146/81 90 10/15/17 11:20 82 18 93 Room Air 10/15/17 10:52 88 10/15/17 09:59 37.0 98 20 147/87 99 Room Air Physical Exam GENERAL: Awake, alert, mildly dyspneic-appearing, in no distress HENT: Normocephalic, atraumatic. Oropharynx unremarkable. EYES: Normal conjunctiva. Sclera non-icteric. NECK: Supple. No nuchal rigidity. FROM. No JVD. RESPIRATORY: Diffuse wheezes and rhonchi. CARDIAC: Regular rate, normal rhythm. Extremities warm and well perfused. Pulses equal. ABDOMEN: Soft, non-distended. No tenderness to palpation. No rebound or guarding. No masses. RECTAL: Deferred. MUSCULOSKELETAL: Chest examination reveals no tenderness. The back is symmetrical on inspection without obvious abnormality. There is no CVA tenderness to palpation. No joint edema. LOWER EXTREMITIES: Calves are equal size bilaterally and non-tender. No edema. No discoloration. NEURO: Normal sensorium. No sensory or motor deficits noted. SKIN: No rash or jaundice noted. Medical Decision & Procedures ER Provider Diagnostic Interpretation: Radiology results as stated below per my review and radiologist interpretation: SINGLE VIEW CHEST CLINICAL HISTORY: Atypical chest pain. FINDINGS: An AP, portable, upright chest radiograph is compared to study dated 08/25/2013. The cardiomediastinal heart is top normal for projection. A hiatal hernia is noted. There is mild bibasilar atelectasis. No airspace consolidation or large pleural effusion is identified. No pneumothorax is seen. The skeletal structures are osteopenic. The bony thorax is grossly intact. IMPRESSION: No acute cardiopulmonary abnormality. Electronically signed by: Ed Lobo M.D. 10/15/2017 10:41 AM Dictated Date/Time: 10/15/2017 10:40 AM Laboratory Results 10/15/17 10:47 Red Blood Count 4.26, Mean Corpuscular Volume 88.5, Mean Corpuscular Hemoglobin 29.3, Mean Corpuscular Hemoglobin Concent 33.2, Mean Platelet Volume 9.1, Neutrophils (%) (Auto) 72.8, Lymphocytes (%) (Auto) 17.2, Monocytes (%) (Auto) 6.7, Eosinophils (%) (Auto) 2.7, Basophils (%) (Auto) 0.2, Neutrophils # (Auto) 6.79, Lymphocytes # (Auto) 1.60, Monocytes # (Auto) 0.62, Eosinophils # (Auto) 0.25, Basophils # (Auto) 0.02 10/15/17 10:47 Test 10/15/17 10:47 White Blood Count 9.32 K/uL (4.8-10.8) Red Blood Count 4.26 M/uL (4.2-5.4) Hemoglobin 12.5 g/dL (12.0-16.0) Hematocrit 37.7 % (37-47) Mean Corpuscular Volume 88.5 fL (80-100) Mean Corpuscular Hemoglobin 29.3 pg (25-34) Mean Corpuscular Hemoglobin Concent 33.2 g/dl (32-36) Platelet Count 319 K/uL (130-400) Mean Platelet Volume 9.1 fL (7.4-10.4) Neutrophils (%) (Auto) 72.8 % Lymphocytes (%) (Auto) 17.2 % Monocytes (%) (Auto) 6.7 % Eosinophils (%) (Auto) 2.7 % Basophils (%) (Auto) 0.2 % Neutrophils # (Auto) 6.79 K/uL (1.4-6.5) Lymphocytes # (Auto) 1.60 K/uL (1.2-3.4) Monocytes # (Auto) 0.62 K/uL (0.11-0.59) Eosinophils # (Auto) 0.25 K/uL (0-0.5) Basophils # (Auto) 0.02 K/uL (0-0.2) RDW Standard Deviation 44.3 fL (36.4-46.3) RDW Coefficient of Variation 13.6 % (11.5-14.5) Immature Granulocyte % (Auto) 0.4 % Immature Granulocyte # (Auto) 0.04 K/uL (0.00-0.02) Anion Gap 5.0 mmol/L (3-11) Est Creatinine Clear Calc Drug Dose 74.2 ml/min Estimated GFR () 103.4 Estimated GFR (Non- 89.2 BUN/Creatinine Ratio 13.1 (10-20) Calcium Level 9.0 mg/dl (8.5-10.1) Magnesium Level 2.1 mg/dl (1.8-2.4) Total Bilirubin 0.4 mg/dl (0.2-1) Direct Bilirubin < 0.1 mg/dl (0-0.2) Aspartate Amino Transf (AST/SGOT) 14 U/L (15-37) Alanine Aminotransferase (ALT/SGPT) 13 U/L (12-78) Alkaline Phosphatase 87 U/L (45-117) Troponin I < 0.015 ng/ml (0-0.045) Total Protein 7.3 gm/dl (6.4-8.2) Albumin 3.0 gm/dl (3.4-5.0) Lipase 146 U/L (73-393) Laboratory results reviewed by me Medications Administered Medications (Trade) Dose Ordered Sig/Chris Route Start Time Stop Time Status Last Admin Dose Admin Sodium Chloride 1,000 ml @ 999 mls/hr Q1H1M STAT IV 10/15/17 10:15 10/15/17 11:15 DC 10/15/17 11:08 999 MLS/HR Dexamethasone Sodium Phosphate (Dexamethasone Inj Pf) 10 mg NOW ONCE IV 10/15/17 10:15 10/15/17 10:20 DC 10/15/17 11:08 10 MG Albuterol/ Ipratropium (Duoneb) 12 ml ONE ONCE INH 10/15/17 10:15 10/15/17 10:20 DC 10/15/17 11:20 12 ML Azithromycin (Zithromax Tab) 500 mg NOW STAT PO 10/15/17 12:18 10/15/17 12:19 DC 10/15/17 12:51 500 MG Albuterol/ Ipratropium (Duoneb) 12 ml ONE ONCE INH 10/15/17 14:15 10/15/17 14:16 DC 10/15/17 13:55 12 ML Nicotine (Nicoderm Cq 21MG Patch) 1 patch QAM STAT TD 10/15/17 16:11 10/15/17 16:12 DC 10/15/17 16:25 1 PATCH ECG Per My Interpretation Indication: SOB/dyspnea Rate (beats per minute): 85 Rhythm: normal sinus Findings: no acute ischemic change, other (normal axis, non-specific T-wave abnormality) ED Course 1012: The patient was evaluated in room A4. A complete history and physical exam was performed. 1234: I reevaluated the patient, and she was doing okay. 1555: Upon reexamination, the patient was doing okay. I discussed the test results and treatment plan with her. The patient will be evaluated for further management. 1608: I discussed the patient with Dr. Kuldeep OKEEFE Hospitalist - she will evaluate the patient for further treatment. Medical Decision I reviewed the patient's past medical history, medications, and the nursing notes as described above. Differential diagnosis: Etiologies such as infections, reactive airway disease, pneumonia, pneumothorax , COPD, CHF, cardiac ischemia, pulmonary embolism, musculoskeletal, gastrointestinal, as well as others were entertained. The patient is a 71-year-old woman with a past medical history of COPD who presents emergency department with worsening cough congestion shortness of breath in the setting of being treated for bronchitis last month per hpi. On arrival the patient is mildly dyspneic but no acute distress, afebrile stable vital signs. Chest x-ray negative for pneumonia. WBC within normal limits. Given the patient's productive sputum will treat with azithromycin. The patient was given steroids and continuous DuoNeb with some improvement however still dyspneic and then hypoxic on RA and would desaturate to the low 80s on room air with ambulation. I recommended admission for severe COPD exacerbation to the patient at this time however the patient was persistent that she did not want admission. We agreed to attempt another trial of the continuous neb with repeat ambulation. Subsequent repeat ambulation after her second hour of continuous DuoNeb again with desaturation to low 80s and symptomatic with dyspnea and lightheadedness. She was subsequently agreeable for admission. Case was discussed with [employer] hospitalist will evaluate the patient for admission. Medication Reconcilliation Current Medication List: was personally reviewed by me Blood Pressure Screening Patient's blood pressure: Elevated blood pressure Monitored by the hospitalist Consults Time Called: 1602 Consulting Physician: Dr. Kuldeep YU Hospitalist Returned Call: 1608 I discussed the patient with Dr. Kuldeep YU Hospitalist - she will evaluate the patient for further treatment. Impression Primary Impression: COPD with acute exacerbation Critical Care I have personally spent greater than 35 minutes of critical care time in the direct management of this patient. This includes bedside care, interpretation of diagnostic studies, and testing, discussion with consultants, patient, and family members, and other required patient management activities. This 35 minutes is in excess of all separately billable procedures. Scribe Attestation The scribe's documentation has been prepared under my direction and personally reviewed by me in its entirety. I confirm that the note above accurately reflects all work, treatment, procedures, and medical decision making performed by me. Departure Information Dispostion Being Evaluated By Hospitalist Referrals Sebastián Moise M.D. (PCP) Patient Instructions My [facility]
--- NOTE | 2017-10-15 10:42 | DIAGNOSTIC IMAGING REPORT ---
SINGLE VIEW CHEST CLINICAL HISTORY: Atypical chest pain. FINDINGS: An AP, portable, upright chest radiograph is compared to study dated 08/25/2013. The cardiomediastinal heart is top normal for projection. A hiatal hernia is noted. There is mild bibasilar atelectasis. No airspace consolidation or large pleural effusion is identified. No pneumothorax is seen. The skeletal structures are osteopenic. The bony thorax is grossly intact. IMPRESSION: No acute cardiopulmonary abnormality. Electronically signed by: Ed Lobo M.D. 10/15/2017 10:41 AM Dictated Date/Time: 10/15/2017 10:40 AM
[2017-10-15] MEDS ORDERED: ESOM20CA PO (10:45)
[2017-10-15 11:02] LABS: BASO % 0.2 %; BASO ABS # 0.02 K/uL (0-0.2); EOS % 2.7 %; EOS ABS # 0.25 K/uL (0-0.5); HEMATOCRIT 37.7 % (37-47); HEMOGLOBIN 12.5 g/dL (12.0-16.0); IG# 0.04 K/uL (0.00-0.02); LYMPH % 17.2 %; MEAN CELL VOLUME 88.5 fL (80-100); MEAN CORPUSCULAR HEMOGLOBIN 29.3 pg (25-34); MEAN CORPUSCULAR HGB CONC 33.2 g/dl (32-36); MEAN PLATELET VOLUME 9.1 fL (7.4-10.4); MONO % 6.7 %; MONO ABS # 0.62 K/uL (0.11-0.59); NEUT % 72.8 %; NEUT ABS # 6.79 K/uL (1.4-6.5); PLATELET COUNT 319 K/uL (130-400); RED CELL DISTRIBUTION WIDTH CV 13.6 % (11.5-14.5); RED CELL DISTRIBUTION WIDTH SD 44.3 fL (36.4-46.3); WHITE BLOOD COUNT 9.32 K/uL (4.8-10.8)
[2017-10-15 11:20] VITALS: PULSE 82; O2SAT 93
[2017-10-15 11:29] LABS: ALKALINE PHOSPHATASE 87 U/L (45-117); ALT/SGPT 13 U/L (12-78); AST/SGOT 14 U/L (15-37); BLOOD UREA NITROGEN 9 mg/dl (7-18); CARBON DIOXIDE 30 mmol/L (21-32); CREATININE 0.68 mg/dl (0.60-1.20); GLUCOSE 97 mg/dl (70-99); LIPASE 146 U/L (73-393); POTASSIUM 3.6 mmol/L (3.5-5.1); SODIUM 137 mmol/L (136-145); TOTAL PROTEIN 7.3 gm/dl (6.4-8.2)
[2017-10-15] MEDS ORDERED: AZITHROMYCIN 250 MG TAB PO STA (12:18)
[2017-10-15 13:57] VITALS: PULSE 94; O2SAT 91
[2017-10-15] MEDS ORDERED: NICOTINE 21 MG/24 HR TDSY TD STA (16:11)
--- NOTE | 2017-10-15 16:36 | History and Physical ---
History & Physical Date & Time of Service: October 15, 2017 at 16:31 Chief Complaint: Sob, Lung Infection Primary Care Physician: Sebastián Moise M.D. History of Present Illness Source: patient 71 yo female reports that she was at her usual state of health until 3 weeks ago. She was in [place] at the time and noticed some shortness of breath and wheezing, patient went to the Urgent Care in [place]. She was diagnosed with bronchitis. She was treated with z pack for 5 days. She noticed an improvement, and was able to drive back to her home. She then noticed that about 1 week and a half ago she again became ill. She states that she continues to smoke. She states she no longer has been taking long acting bronchodilators as they have caused thrush. She states she again is short of breath at rest, no sputum. No fever, chills. She decided to come to the hospital. Past Medical/Surgical History Medical Problems: (1) Acute diverticulitis (2) COPD (chronic obstructive pulmonary disease) (3) Diverticulitis (4) Hemorrhagic cystitis (5) HTN (hypertension) Family History 1. Family history of CABG in Father 2. Family history of Colon Cancer 3. Family history of cardiac disorder (Z82.49) 4. Family history of diabetes mellitus (Z83.3) 5. Family history of hypertension (Z82.49) 6. Family history of malignant neoplasm of breast (Z80.3) 7. Family history of Hyperlipidemia 8. Family history of prostate cancer (Z80.42) 9. Family history of Colon Cancer Social History Smoking Status: Current Every Day Smoker (5 pack year history) Alcohol Use: occasionally Drug Use: none Marital Status: single Housing status: lives alone Immunizations History of Influenza Vaccine: Unknown History of Tetanus Vaccine?: Unknown History of Pneumococcal: Unknown History of Hepatitis B Vaccine: Unknown Allergies Coded Allergies: Iodine (Verified Allergy, Unknown, Unknown reaction to iodine solution, ) Valdecoxib (Verified Allergy, Unknown, Unknown reaction, 10/15/17) Adhesives (Verified Adverse Reaction, Unknown, Tape - unknown reaction, ) Home Medications Scheduled Aspirin (Aspirin Chewable), 81 MG PO QAM Atorvastatin (Lipitor), 20 MG PO HS Cholecalciferol (Vitamin D3), 1 TAB PO QAM Dulaglutide (Trulicity), 1 DOSE INJ WK Esomeprazole Magnesium (Nexium), 1 CAP PO DAILY Losartan Potassium (Cozaar), 50 MG PO QAM Metformin Hcl (Glucophage), 2 TAB PO BID Omeprazole (Prilosec), 40 MG PO BID Saccharomyces Boulardii (Probiotic), 1 TAB PO BID Sertraline (Zoloft), 100 MG PO QAM Temazepam (Restoril), 15 MG PO HS Scheduled PRN Ipratropium-Albuterol (Combivent Respimat), 2 PUFFS INH QID PRN for Shortness of Breath Review of Systems Constitutional: No fever, No chills Eyes: No worsening of vision ENT: No hearing loss Respiratory: + cough, + wheezing, + dyspnea at rest Cardiovascular: No chest pain Abdomen: No pain Musculoskeletal: No joint pain Neurologic: No memory loss Psychiatric: No depression symptoms Endocrine: No fatigue Hematologic / Lymphatic: No abnormal bleeding/bruising Integumentary: No rash Allergic / Immunologic: No environmental allergies Physical Exam Vital Signs Date Time Temp Pulse Resp B/P (MAP) Pulse Ox O2 Delivery O2 Flow Rate FiO2 10/15/17 14:51 118 20 85 Room Air 10/15/17 13:57 94 18 91 Nasal Cannula 2.0 10/15/17 13:45 101 10/15/17 13:38 114 83 10/15/17 13:06 90 Nasal Cannula 2.0 10/15/17 12:54 85 Room Air 10/15/17 12:54 101 20 146/81 90 10/15/17 11:20 82 18 93 Room Air 10/15/17 10:52 88 10/15/17 09:59 37.0 98 20 147/87 99 Room Air General Appearance: WD/WN, no apparent distress Head: normocephalic Eyes: normal inspection ENT: normal ENT inspection Neck: supple, no adenopathy Respiratory/Chest: chest non-tender, + accessory muscle use, + wheezing Cardiovascular: regular rate, rhythm, no JVD Abdomen/GI: normal bowel sounds, non tender, soft Back: normal inspection, no CVA tenderness Extremities/Musculoskelatal: normal inspection Neurologic/Psych: alert, oriented x 3 Skin: normal color Lymphatic: no adenopathy Diagnostics Laboratory Results Results Past 24 Hours Test 10/15/17 10:47 Range/Units White Blood Count 9.32 4.8-10.8 K/uL Red Blood Count 4.26 4.2-5.4 M/uL Hemoglobin 12.5 12.0-16.0 g/dL Hematocrit 37.7 37-47 % Mean Corpuscular Volume 88.5 80-100 fL Mean Corpuscular Hemoglobin 29.3 25-34 pg Mean Corpuscular Hemoglobin Concent 33.2 32-36 g/dl Platelet Count 319 130-400 K/uL Mean Platelet Volume 9.1 7.4-10.4 fL Neutrophils (%) (Auto) 72.8 % Lymphocytes (%) (Auto) 17.2 % Monocytes (%) (Auto) 6.7 % Eosinophils (%) (Auto) 2.7 % Basophils (%) (Auto) 0.2 % Neutrophils # (Auto) 6.79 1.4-6.5 K/uL Lymphocytes # (Auto) 1.60 1.2-3.4 K/uL Monocytes # (Auto) 0.62 0.11-0.59 K/uL Eosinophils # (Auto) 0.25 0-0.5 K/uL Basophils # (Auto) 0.02 0-0.2 K/uL RDW Standard Deviation 44.3 36.4-46.3 fL RDW Coefficient of Variation 13.6 11.5-14.5 % Immature Granulocyte % (Auto) 0.4 % Immature Granulocyte # (Auto) 0.04 0.00-0.02 K/uL Sodium Level 137 136-145 mmol/L Potassium Level 3.6 3.5-5.1 mmol/L Chloride Level 102 98-107 mmol/L Carbon Dioxide Level 30 21-32 mmol/L Anion Gap 5.0 3-11 mmol/L Blood Urea Nitrogen 9 7-18 mg/dl Creatinine 0.68 0.60-1.20 mg/dl Est Creatinine Clear Calc Drug Dose 74.2 ml/min Estimated GFR () 103.4 Estimated GFR (Non- 89.2 BUN/Creatinine Ratio 13.1 10-20 Random Glucose 97 70-99 mg/dl Calcium Level 9.0 8.5-10.1 mg/dl Magnesium Level 2.1 1.8-2.4 mg/dl Total Bilirubin 0.4 0.2-1 mg/dl Direct Bilirubin < 0.1 0-0.2 mg/dl Aspartate Amino Transf (AST/SGOT) 14 15-37 U/L Alanine Aminotransferase (ALT/SGPT) 13 12-78 U/L Alkaline Phosphatase 87 45-117 U/L Troponin I < 0.015 0-0.045 ng/ml Total Protein 7.3 6.4-8.2 gm/dl Albumin 3.0 3.4-5.0 gm/dl Lipase 146 73-393 U/L Diagnostic Radiology SINGLE VIEW CHEST CLINICAL HISTORY: Atypical chest pain. FINDINGS: An AP, portable, upright chest radiograph is compared to study dated 08/25/2013. The cardiomediastinal heart is top normal for projection. A hiatal hernia is noted. There is mild bibasilar atelectasis. No airspace consolidation or large pleural effusion is identified. No pneumothorax is seen. The skeletal structures are osteopenic. The bony thorax is grossly intact. IMPRESSION: No acute cardiopulmonary abnormality. EKG Normal sinus rhythm Nonspecific T wave abnormality Abnormal ECG When compared with ECG of 25-AUG-2013 13:15, No significant change was found Confirmed by DIDIER KILPATRICK MD ([id number]) on 10/15/2017 4:38:12 PM Impression Assessment and Plan COPD exacerbation in a 71 yo female who is noncompliant with her medication and has a 55 pack year history of smoking. 1. COPD She states she will try to quit while in the hospital. Will restart a long acting beta agonist. Will continue short acting beta agonist. Will continue antibiotics. Given diagnosis of COPD, will hold off steroid inhaler but will continue with systemic steroids. will admit to [facility]. Will have likely need low dose ct scan as outpatient. 2. Hypercholesterolemia (E78.00) Atorvastatin will be continued 3. Hypertension (I10) will resume home meds and monitor 4. Type 2 diabetes mellitus (E11.9) will place on sliding scale with card ratio replacement. will hold off trulicty while here. 5. Vitamin D deficiency (E55.9) Takes once a week dosing. 6. 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 She states that she quit... today. Will try nicotine patches 21 mg daily. 7. DVT lovenox. Resuscitation Status VTE Prophylaxis Will order VTE Prophylaxis: Yes
[2017-10-15] MEDS ORDERED: GLUCAGON FOR INJ 1 MG VIAL SQ PRN (17:15)
[2017-10-15] MEDS ORDERED: DEXTROSE 50% 50 ML SYR IV PRN (17:15)
[2017-10-15] MEDS ORDERED: CARBOHYDRATES FOR HYPOGLYCEMIA PO PRN (17:15)
[2017-10-15] MEDS ORDERED: GLUCOSE 40% GEL 15 GM TUBE PO PRN (17:15)
[2017-10-15] MEDS ORDERED: GLUCOSE 10 TABS/TUBE PO PRN (17:15)
[2017-10-15 17:59] LABS: PTT PATIENT 26.8 SECONDS (21.0-31.0)
[2017-10-15 18:16] VITALS: BP 130/68; TEMP 37; O2SAT 94; Ht 160 cm; Wt 71.9 kg
[2017-10-15] MEDS ORDERED: PNEUMOCOCCAL POLYSACCHARIDES 25 MCG/0.5 ML VIAL/SYR IM. ONE (18:30)
[2017-10-15] MEDS ORDERED: PNEUMOCOCCAL ADMINISTRATION CHARGE ONE (18:30)
[2017-10-15 18:31] VITALS: BP 137/70; PULSE 111; TEMP 37.2; O2SAT 91
[2017-10-15] MEDS: CEFTRIAXONE SOD INJ 1 GM in DEXTROSE 5% ADD-VANTAGE 50ML 50 ML IV SCH (18:37)
[2017-10-15] MEDS: SACCHAROMYCES BOUL (FLORASTOR) 250 MG CAP PO SCH (20:27)
[2017-10-15] MEDS: ENOXAPARIN 40 MG/0.4 ML SYR SQ SCH (20:27)
[2017-10-15] MEDS: SALMETEROL XINAFOATE 50MCG 28 BLISTER INH INH SCH (20:28)
[2017-10-15] MEDS: PANTOprazole SOD 40 MG TAB PO SCH (20:28)
[2017-10-15] MEDS: ATORVASTATIN 20 MG TAB PO SCH (20:29)
[2017-10-15] MEDS: TEMAZEPAM 15 MG CAP PO SCH (20:31)
[2017-10-15] MEDS: INSULIN ASPART 100 UNITS/ML 3 ML PEN SC SCH (21:33)
[2017-10-16] VITALS: BP 139/74; PULSE 79; TEMP 36.9; O2SAT 93
[2017-10-16] MEDS: LEValbuterol HFA 15GM INHALER INH PRN ×2 (06:41→16:22)
[2017-10-16 07:36] VITALS: BP 154/77; PULSE 64; TEMP 36.9; O2SAT 95
[2017-10-16] MEDS: SERTRALINE HCL 100 MG TAB PO SCH (07:57)
[2017-10-16] MEDS: SALMETEROL XINAFOATE 50MCG 28 BLISTER INH INH SCH ×2 (07:57→20:13)
[2017-10-16] MEDS: AZITHROMYCIN 250 MG TAB PO SCH (07:58)
[2017-10-16] MEDS: SACCHAROMYCES BOUL (FLORASTOR) 250 MG CAP PO SCH ×2 (07:58→20:11)
[2017-10-16] MEDS: ASPIRIN 81 MG CHEW PO SCH (07:58)
[2017-10-16] MEDS: PANTOprazole SOD 40 MG TAB PO SCH ×2 (07:58→20:10)
[2017-10-16] MEDS: LOSARTAN POTASSIUM 50 MG TAB PO SCH (07:58)
[2017-10-16] MEDS ORDERED: ESOMEPRAZOLE MAGNESIUM PO SCH (08:00)
[2017-10-16] MEDS ORDERED: METHYLPREDNISOLONE IV 40 MG in SYRINGE 0 ML IV ONE (08:00)
[2017-10-16] MEDS: INSULIN ASPART 100 UNITS/ML 3 ML PEN SC SCH ×4 (08:05→21:00)
[2017-10-16] MEDS: NICOTINE 21 MG/24 HR TDSY TD SCH (08:53)
[2017-10-16 15:10] VITALS: BP 135/72; PULSE 88; TEMP 36.8; O2SAT 94
[2017-10-16 16:45] VITALS: O2SAT 95
[2017-10-16] MEDS: CEFTRIAXONE SOD INJ 1 GM in DEXTROSE 5% ADD-VANTAGE 50ML 50 ML IV SCH (17:27)
[2017-10-16] MEDS: ENOXAPARIN 40 MG/0.4 ML SYR SQ SCH (18:07)
[2017-10-16] MEDS: ATORVASTATIN 20 MG TAB PO SCH (20:10)
[2017-10-16] MEDS: TEMAZEPAM 15 MG CAP PO SCH (20:16)
--- NOTE | 2017-10-16 20:36 | Progress Note ---
Subjective Date of Service: October 16, 2017. Subjective Pt evaluation today including: conversation w/ patient, physical exam 71 yo female reports feeling better today. She noticed some wheezing in the morning but the steroid IV helped. Patient reports that she is close to her baseline Problem List Medical Problems: (1) Acute diverticulitis Status: Acute (2) COPD with acute exacerbation Status: Acute (3) Hemorrhagic cystitis Status: Acute Review of Systems Constitutional: No fever Eyes: No worsening of vision ENT: No hearing loss Respiratory: + cough, No wheezing, No shortness of breath Cardiac: No chest pain Abdomen: No pain Neurologic: No memory loss Psychiatric: No depression symptoms Endo: + fatigue Skin: No rash All Other Systems: Reviewed and Negative Medications Current Inpatient Medications Medications (Trade) Dose Ordered Sig/Chris Route Start Time Stop Time Status Last Admin Dose Admin Azithromycin (Zithromax Tab) 500 mg QAM PO 10/16/17 08:00 10/23/17 08:59 10/16/17 07:58 500 MG Ceftriaxone Sodium 1 gm/ Dextrose 50 ml @ 100 mls/hr Q24H IV 10/15/17 18:30 10/22/17 18:29 10/16/17 17:27 100 MLS/HR Salmeterol Xinafoate (Serevent Diskus Inh) 1 puffs BID INH 10/15/17 20:00 11/14/17 20:59 10/16/17 20:13 1 PUFFS Levalbuterol (Xopenex Hfa Inhaler) 2 puffs Q4H PRN INH 10/15/17 17:15 11/14/17 17:14 10/16/17 16:22 2 PUFFS Enoxaparin Sodium (Lovenox Inj) 40 mg Q24H SQ 10/15/17 19:00 11/14/17 18:59 10/16/17 18:07 40 MG Aspirin (Aspirin Chew) 81 mg QAM PO 10/16/17 08:00 11/15/17 08:59 10/16/17 07:58 81 MG Atorvastatin Calcium (Lipitor Tab) 20 mg HS PO 10/15/17 21:00 11/14/17 20:59 10/16/17 20:10 20 MG Losartan Potassium (coZAAR TAB) 50 mg QAM PO 10/16/17 08:00 6/21/18 08:59 10/16/17 07:58 50 MG Saccharomyces Boulardii (Florastor Cap) 250 mg BID PO 10/15/17 20:00 11/14/17 20:59 10/16/17 20:11 250 MG Sertraline HCl (Zoloft Tab) 100 mg QAM PO 10/16/17 08:00 11/15/17 08:59 10/16/17 07:57 100 MG Temazepam (Restoril Cap) 15 mg HS PO 10/15/17 21:00 11/14/17 20:59 10/16/17 20:16 15 MG Pantoprazole Sodium (Protonix Tab) 40 mg BID PO 10/15/17 20:00 11/14/17 20:59 10/16/17 20:10 40 MG Insulin Aspart (novoLOG ASPART) SLIDING SCALE If C... ACHS SC 10/15/17 21:00 11/14/17 20:59 10/16/17 17:30 9 UNITS Glucose (Glucose 40% Gel) 15-30 GRAMS 15 GRAMS... UD PRN PO 10/15/17 17:15 11/14/17 17:14 Glucose (Glucose Chew Tab) 4-8 Tablets 4 Tabl... UD PRN PO 10/15/17 17:15 11/14/17 17:14 Dextrose (Dextrose 50% 50ML Syringe) 25-50ML 25ML FOR ... UD PRN IV 10/15/17 17:15 11/14/17 17:14 Glucagon (Glucagon Inj) 1 mg UD PRN SQ 10/15/17 17:15 11/14/17 17:14 Carbohydrates (Carbohydrates For Hypoglycemia) 15-30 GRAMS 15 grams if BSG 54-69... UD PRN PO 10/15/17 17:15 11/14/17 17:14 Nicotine (Nicoderm Cq 21MG Patch) 1 patch QAM TD 10/16/17 08:00 11/15/17 07:59 10/16/17 08:53 1 PATCH Miscellaneous (Remove Nicoderm Patch) 1 ea HS N/A 10/16/17 21:00 11/15/17 20:59 10/16/17 20:12 1 EA Objective Vital Signs Date Time Temp Pulse Resp B/P (MAP) Pulse Ox O2 Delivery O2 Flow Rate FiO2 10/16/17 16:45 95 Room Air 10/16/17 16:00 Nasal Cannula 2.0 10/16/17 15:10 36.8 88 18 135/72 (93) 94 Nasal Cannula 2.0 10/16/17 08:30 Nasal Cannula 2.0 10/16/17 07:36 36.9 64 16 154/77 (102) 95 Nasal Cannula 2.0 10/16/17 00:10 Nasal Cannula 2.0 10/16/17 00:00 36.9 79 20 139/74 (95) 93 2.0 Physical Exam Comments: General Appearance: WD/WN, no apparent distress Head: normocephalic Eyes: normal inspection ENT: normal ENT inspection Neck: supple, no adenopathy Respiratory/Chest: chest non-tender, decreased wheezing Cardiovascular: regular rate, rhythm, no JVD Abdomen/GI: normal bowel sounds, non tender, soft Back: normal inspection, no CVA tenderness Extremities/Musculoskelatal: normal inspection Neurologic/Psych: alert, oriented x 3 Skin: normal color Lymphatic: no adenopathy Laboratory Results Last 24 Hours Test 10/15/17 20:33 10/16/17 07:47 10/16/17 11:47 10/16/17 16:38 Bedside Glucose 280 mg/dl 128 mg/dl 167 mg/dl 212 mg/dl Assessment and Plan COPD exacerbation in a 71 yo female who is noncompliant with her medication and has a 55 pack year history of smoking. 1. COPD exacerbation She states she will try to quit while in the hospital. Will continue a long acting beta agonist. Will continue short acting beta agonist. Will continue antibiotics. Given diagnosis of COPD, will hold off steroid inhaler but will continue with systemic steroids. Gave 40mg of solu-medrol today. This appeared to help with her symptoms. Her exam shows improvement. Patient will likely be discharged in AM. PATIENT ALSO CONTINUES TO require oxygen. May need 2 step in AM 2. Hypercholesterolemia (E78.00) Atorvastatin will be continued 3. Hypertension (I10) will resume home meds and monitor 4. Type 2 diabetes mellitus (E11.9) will place on sliding scale with card ratio replacement. will hold off trulicty while here. blood sugar appears to be controlled 5. Vitamin D deficiency (E55.9) Takes once a week dosing. 6. 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 She states that she quit...day of admission Will try nicotine patches 21 mg daily. 7. DVT lovenox. Continued [facility] stay due to: other (wheezing and shortness of breath)
[2017-10-17 00:39] VITALS: BP 134/67; PULSE 87; TEMP 36.8; O2SAT 93
[2017-10-17] MEDS: PANTOprazole SOD 40 MG TAB PO SCH (08:02)
[2017-10-17] MEDS: SALMETEROL XINAFOATE 50MCG 28 BLISTER INH INH SCH (08:02)
[2017-10-17] MEDS: LOSARTAN POTASSIUM 50 MG TAB PO SCH (08:02)
[2017-10-17] MEDS: SERTRALINE HCL 100 MG TAB PO SCH (08:03)
[2017-10-17] MEDS: SACCHAROMYCES BOUL (FLORASTOR) 250 MG CAP PO SCH (08:03)
[2017-10-17] MEDS: ASPIRIN 81 MG CHEW PO SCH (08:03)
[2017-10-17] MEDS: AZITHROMYCIN 250 MG TAB PO SCH (08:03)
[2017-10-17] MEDS: NICOTINE 21 MG/24 HR TDSY TD SCH (08:03)
[2017-10-17 08:14] VITALS: BP 155/91; PULSE 75; TEMP 36.8; O2SAT 92
[2017-10-17 08:30] VITALS: O2SAT 92
[2017-10-17] MEDS: INSULIN ASPART 100 UNITS/ML 3 ML PEN SC SCH ×2 (08:43→12:45)
[2017-10-17] MEDS ORDERED: AZIT-57 PO (12:15)
[2017-10-17] MEDS ORDERED: NICO21DI4 TD (12:15)
[2017-10-17] MEDS ORDERED: PRED10TA PO (12:15)
[2017-10-17] MEDS ORDERED: SRVDIN50 INH (12:15)
--- NOTE | 2017-10-17 12:19 | Discharge Instructions ---
Discharge Instructions Date of Service October 17, 2017. Admission Reason for Admission: Copd With Acute Exacerbation Discharge Discharge Diagnosis / Problem: COPD with acute exacerbation Discharge Goals Goal(s): Decrease discomfort, Improve function Activity Recommendations Activity Limitations: resume your previous activity . Instructions / Follow-Up Instructions / Follow-Up Followup with Pulmonary in next 1-2 weeks Followup with PCP in next 1-2 weeks Continue the antibiotic until finished. Continue standard breathing treatment as needed. Try not to smoke as that will make you likely to get sick and come back to hospital. Remember to keep on trying to quit. Current Hospital Diet Patient's current hospital diet: Diabetes Type 2 Diet Discharge Diet Recommended Diet: Diabetes Type 2 Diet Pending Studies Studies pending at discharge: no Laboratory Results Hemoglobin A1c Test 09/05/17 13:48 Range/Units Estimated Average Glucose 134 mg/dl Hemoglobin A1c 6.3 H 4.5-5.6 % Lipid Panel Test 09/05/17 13:48 Range/Units Triglycerides Level 111 0-150 mg/dl Cholesterol Level 170 0-200 mg/dl HDL Cholesterol 59 mg/dl Cholesterol/HDL Ratio 2.9 LDL Cholesterol, Calculated 89 mg/dl Medical Emergencies . Who to Call and When: Medical Emergencies: If at any time you feel your situation is an emergency, please call 911 immediately. . Non-Emergent Contact Non-Emergency issues call your: Primary Care Provider Call Non-Emergent contact if: you have any medication questions . . "Provider Documentation" section prepared by Vitor Fan. .
[2017-10-17 12:30] VITALS: BP 155/91; PULSE 75; TEMP 36.8; O2SAT 92
--- NOTE | 2017-10-17 20:59 | Discharge Summary ---
Discharge Summary Date of Service October 17, 2017. Discharge Summary Admission Date: October 15, 2017 at 17:11 Discharge Date: October 17, 2017 Immunizations: Have You Had Influenza Vaccine: Unknown History of Tetanus Vaccine?: Unknown History of Pneumococcal: Unknown History of Hepatitis B Vaccine: Unknown Hospital Course COPD exacerbation in a 71 yo female who is noncompliant with her medication and has a 55 pack year history of smoking. 1. COPD exacerbation She states she will try to quit while in the hospital. Will continue a long acting beta agonist. Will continue short acting beta agonist. Will continue antibiotics. Given diagnosis of COPD, will hold off steroid inhaler but will continue with systemic steroids. Gave 40mg of solu-medrol today. This appeared to help with her symptoms. Her exam shows improvement. Patient will likely be discharged in AM. PATIENT ALSO CONTINUES TO require oxygen. May need 2 step in AM 2. Hypercholesterolemia (E78.00) Atorvastatin will be continued 3. Hypertension (I10) will resume home meds and monitor 4. Type 2 diabetes mellitus (E11.9) will place on sliding scale with card ratio replacement. will hold off trulicty while here. blood sugar appears to be controlled 5. Vitamin D deficiency (E55.9) Takes once a week dosing. 6. 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 She states that she quit... today. Will try nicotine patches 21 mg daily. 7. DVT lovenox. This includes examination of the patient, discharge planning, medication reconciliation, and communication with other providers. Discharge Instructions Please refer to the electronic Patient Visit Report (Discharge Instructions) for additional information.
== END 2017-10-17 12:50 | disposition home or self-care (01) | DRG 192 ==
LOC: C.EDB 09:55 → C.4E 17:11 → ENRESERV 17:32
PROVIDERS: ADMIT Internal Medicine Sports Medicine; ATTEND Internal Medicine Sports Medicine
DX: J44.1 Chronic obstructive pulmonary disease with (acute) exacerbation (principal); I10 Essential (primary) hypertension; E78.00 Pure hypercholesterolemia, unspecified; E11.9 Type 2 diabetes mellitus without complications; E55.9 Vitamin D deficiency, unspecified; F17.200 Nicotine dependence, unspecified, uncomplicated; Z79.82 Long term (current) use of aspirin; Z79.84 Long term (current) use of oral hypoglycemic drugs; Z79.899 Other long term (current) drug therapy; Z91.14 Patient's other noncompliance with medication regimen; Z82.49 Family history of ischemic heart disease and other diseases of the circulatory system; Z83.3 Family history of diabetes mellitus

== ENCOUNTER → 2017-12-17 | Outpatient (CLI) | payer OTHER ==
[~2017-12-17] MED LIST changes: +AZIT-57 PO; +ESOM20CA PO; +NICO21DI4 TD; +SRVDIN50 INH
--- NOTE | 2017-12-24 07:56 | POLYSOMNOGRAPH REPORT ---
CLINICAL DATA: The patient is a 71-year-old female with a history of snoring and excessive daytime somnolence. Her [place] sleepiness scale score was 20. She has a history of COPD. Her BMI is 27.55. On the evening of 12/17/2017, a home sleep apnea test was performed using the [employer] type 3 monitor. RECORDING RESULTS: Total recording time was 10 hours. The patient's estimated sleep time was 9.1 hours. RESPIRATORY DATA: The patient had a total of 205 respiratory events including 25 obstructive apneas, 1 central apnea, and 179 hypopneas. Hypopneas were scored according to the 4% desaturation rule. The maximum respiratory event was 46 seconds. The RENATE was 22.5. This represents moderate sleep apnea. OXIMETRY DATA: The mean saturation for the night was 90%. The minimum saturation was 76%. There was a total of 113 minutes with saturations less than 89%. HEART RATE DATA: The lowest heart rate was 38. This may be technical. The mean heart rate was 73 beats per minute. SNORING DATA: Snoring was present throughout the test. IMPRESSION: Moderate obstructive sleep apnea. RECOMMENDATIONS: 1. It is suggested that the patient be given a trial of nasal CPAP. This could be done by auto CPAP or by referral to the sleep lab for an in-lab titration. 2. It is advised that the patient avoid sleeping in the supine position. Typically, there are more respiratory events while supine. 3. Weight loss is advised in light of the mild elevation of body mass index at 27.55. 4. The patient should be advised of the appropriate principles of sleep hygiene including having a regular sleep-wake schedule and allowing approximately 7.5-8 hours of sleep time per night.
== END | disposition home or self-care (01) ==
LOC: C.NEUR 09:58
PROVIDERS: ATTEND Physician Assistant
DX: G47.19 Other hypersomnia (principal); Z87.891 Personal history of nicotine dependence

== ENCOUNTER 2021-07-17 15:49 | Inpatient (IN) ==
--- NOTE | 2021-07-17 16:05 | Emergency Department Note ---
Impression & Plan Hypoxia ADMIT ED Provider Note HPI: The patient is a 75-year-old female who presents to the emergency department with a chief complaint of upper back pain, diminished appetite, states she was diagnosed with COVID-19 4 days ago. Patient states that overnight she developed some chills, states she had nausea, states she had some upper back pain and coughing that has worsened acutely. Patient states she did have some shortness of breath. On arrival here to the ED the patient has borderline oxygen saturations at 91%, she does not display any increased work of breathing, she has had a dry cough. Patient states she is vaccinated against COVID-19 x3. Patient denies any nausea or vomiting, she is otherwise hemodynamically stable on arrival. ROS: -Pulmonary: Cough, COVID-19 infection -General: Generalized weakness -GI: Diminished appetite -MSK: Upper back pain *10 point review systems was conducted and is otherwise negative unless stated above *Outpatient medications and allergy history reviewed PE: General: Alert, NAD HEENT: Normocephalic, atraumatic Eyes: Extraocular eye movement is intact, no scleral erythema Pulmonary: Diminished air movement bilaterally without wheezing or crackles Cardio: Regular rate and rhythm GI: Abdomen is soft, nontender : No suprapubic tenderness MSK: No evidence of trauma or malformation of the extremities, no edema Skin: No evidence of rash Neuro: Alert, no focal deficits Psychiatric: Cooperative fiscal manager: - An order was placed for continuous cardiac monitoring - Patient was noted to be in sinus rhythm with rate of 95 EKG: Rate: 98 Rhythm: Sinus rhythm Intervals: Within normal limits ST changes: No ST elevation Time: 1606 Medical Decision Making: Patient presented to the emergency department with diminished appetite, generalized weakness, she has had some upper back pain. On arrival to the ED the patient has some borderline oxygen saturations, she has a cough and some mild shortness of breath. IV was established, lab work obtained, patient has some slight leukopenia on her lab work, procalcitonin is mildly elevated, CT angiography of the chest does not show any evidence of dissection or pulmonary embolism, there is evidence of multiple groundglass opacities throughout the bilateral lung garibay consistent with a viral pneumonia. I suspect this is the source of her symptoms as well as her shortness of breath. While here in the ED the patient did have a desaturation to 85% was placed on 2 L nasal cannula oxygen with good improvement. I suspect that her hypoxia is secondary to COVID- 19 pneumonia. Patient is vaccinated x3, not considered a candidate for monoclon al antibody therapy at this time. Case was discussed with the on-call hospitalist, Dr. Skinner, and the patient was admitted to the hospitalist service for further care for hypoxia and COVID-19 pneumonia. * CRITICAL CARE TIME: ( 35 ) minutes -Stabilization of hypoxia requiring supplemental oxygen to maintain oxygen saturations greater than 90%, time spent at the bedside, interpretation of diagnostic studies, discussion with other physicians and arrangement of admi ssion Diagnosis: 1. Hypoxia 2. COVID-19 pneumonia 3. Hypokalemia 4. History of smoking/tobacco cessation counseling 5. Upper back pain Disposition: Admission Cyrus Cooney DO Emergency Medicine Past Med/Surg History Medical History Anemia Atherosclerosis of aorta Atherosclerosis of arteries of extremities Depression Diabetes mellitus, type 2 Diverticulitis of colon GERD (gastroesophageal reflux disease) Hiatal hernia History of anesthesia reaction History of bronchitis History of colon polyps Hyperlipidemia Hypertension Multiple pulmonary nodules Obstructive sleep apnea of adult Osteoarthritis Pulmonary emphysema Restless legs Sensorineural hearing loss (SNHL) of both ears Urinary incontinence Surgical History History of bilateral tubal ligation History of carpal tunnel release of both wrists History of section x2 History of colonoscopy 07/26/2016, sigmoid tics and tubular adenoma, recheck rec 1 year due to fair prep History of dilatation and curettage History of esophagogastroduodenoscopy (EGD) History of open reduction and internal fixation (ORIF) procedure left wrist--hardware removed History of phacoemulsification of cataract of both eyes with intraocular lens implantation History of tooth extraction all upper teeth removed History of vocal cord polypectomy x2 Family History Mother Family hx of colon cancer Family history of diabetes mellitus Hyperlipemia Hypertension Diabetes Colorectal cancer Family history of CABG Myocardial infarction Brother Family hx of colon cancer Liver cancer Colorectal cancer Father No problems noted. Other Breast cancer Lung cancer No family history of adverse response to anesthesia Prostate cancer Denies family history of Ovarian cancer Social History Smoking Status: Current every day smoker Tobacco Type: Cigarettes Age Started Using Tobacco: 17; packs per day: 0.5; Years Smoked: 56; Cigarettes Per Day: 10, using patch and trying to quit; Second Hand Exposure: Yes (IN CHILDHOOD); Hx Alcohol Use: No Hx Substance Use: No Preferred Language: Frisian Communication Ability: Effective Visual Impairment: No Limitations Hearing Ability: Normal Geotechnical Laboratory Technician Required: No Beliefs That Will Affect Care: None marital status: Current Living Situation: Family Current Living Situation Comment: Son lives with her current occupational status: retired current occupation: retired from career with [employer], assisted living Feels Safe at Home: Yes Childhood Exposure to Second-Hand Smoke: Yes Dental Care, Regularly: No Physical Activity Frequency: Does not Exercise Seatbelt Use: always Sunscreen Use: No Assistive Devices: Denture - Upper and Nebulizer Allergies Allergies Allergy/AdvReac Type Severity Reaction Status Date / Time No Known Allergies Allergy Verified 07/17/21 16:48 Home Meds Home Medications Medication Instructions Recorded Confirmed Lactobacills gasseri-Bifidobac 1 cap PO QAM 12/11/18 07/17/21 bifidum,longum 1.5 billion cell capsule (Probiotic Colon Care) aspirin 81 mg tablet,delayed 81 mg PO QAM 12/11/18 07/17/21 release ascorbic acid (vitamin C) 500 mg 500 mg PO Q2D 07/29/19 07/17/21 tablet (Vitamin C) cholecalciferol (vitamin D3) 50 2,000 units PO Q2D tab 07/29/19 07/17/21 mcg (2,000 unit) tablet semaglutide (Ozempic) 0.5 mg SUBCUT WK 07/17/21 07/17/21 Previous Rx's Medication Instructions Recorded ipratropium 0.5 mg-albuterol 3 mg 3 ml INH Q4 PRN #180 ml 04/02/20 (2.5 mg base)/3 mL nebulization soln metformin 500 mg tablet,extended 1,000 mg PO BID #360 tab 06/15/20 release 24 hr duloxetine 60 mg capsule,delayed 60 mg PO DAILY #90 cap 07/26/20 release atorvastatin 40 mg tablet 40 mg PO DAILY #90 tab 09/24/20 esomeprazole magnesium 40 mg 40 mg PO BID PRN #180 cap 09/24/20 capsule,delayed release albuterol sulfate 90 mcg/actuation 1 inh INH QID PRN #18 gm 09/28/20 aerosol inhaler (ProAir HFA) umeclidinium 62.5 mcg-vilanterol 1 inh INHALATION DAILY #3 inhaler 09/30/20 25 mcg/actuation powdr for inhalation (Anoro Ellipta) losartan 100 mg tablet 100 mg PO QAM #90 tab 12/08/20 nicotine 21 mg/24 hr daily 1 patch TRANSDERMAL DAILY #28 ea 01/13/21 transdermal patch metoprolol succinate 25 mg 25 mg PO DAILY #90 tab 02/09/21 tablet,extended release 24 hr potassium chloride 10 mEq 10 meq PO DAILY #90 tab 02/09/21 tablet,extended release Accu-Chek Carmen Plus test strp #100 ea NS 03/16/21 (blood sugar diagnostic) ferrous sulfate 325 mg (65 mg 325 mg PO Q OTHER DAY #30 tab 03/16/21 iron) tablet CPAP Supplies #1 ea 04/11/21 molnupiravir 200 mg capsule (EUA) 800 mg PO Q12H 5 Days #40 cap 07/14/21 Results & Data (ED) Vital Signs Vital Signs - 24 hr 07/17/21 16:16 07/17/21 17:27 Temperature 37.2 C Temperature Source Oral Pulse Rate 91 H Respiratory Rate 20 Blood Pressure 114/78 Blood Pressure Mean 90 Blood Pressure Position Sitting Pulse Oximetry 92 85 L Oxygen Delivery Method Room Air Room Air Sepsis Recent Fever Within 48 Hours Yes Sepsis New/Unexplained Change in Mental Status No Sepsis Action Taken by Nursing No Action Required Oxygen Flow Rate - Titration 3 Pulse Oximetry Post Tiitration 95 Laboratory Data Result diagrams: 07/17/21 16:06 07/17/21 16:06 Lab Results 07/17/21 07/17/21 07/17/21 Range/Units 16:06 16:06 16:06 WBC 4.67 L (4.8-10.8) K/uL RBC 4.99 (4.2-5.4) M/uL Hgb 15.4 (12.0-16.0) g/dL Hct 45.1 (37-47) % MCV 90.4 (80-100) fL MCH 30.9 (25-34) pg MCHC 34.1 (32-36) g/dL RDW Std Deviation 45.1 (36.4-46.3) fL RDW Coeff of Robert 13.6 (11.5-14.5) % Plt Count 177 (130-400) K/uL MPV 10.5 H (7.4-10.4) fL Immature Gran % (Auto) 0.2 % Neut % (Auto) 76.1 % Lymph % (Auto) 14.3 % Rosebud % (Auto) 9.2 % Eos % (Auto) 0.0 % Baso % (Auto) 0.2 % Neut # (Auto) 3.55 (1.4-6.5) K/uL Lymph # (Auto) 0.67 L (1.2-3.4) K/uL Rosebud # (Auto) 0.43 (0.11-0.59) K/uL Eos # (Auto) 0.00 (0-0.5) K/uL Baso # (Auto) 0.01 (0-0.2) K/uL Immature Gran # (Auto) 0.01 (0.00-0.02) K/uL PT 9.8 (9.0-12.0) Seconds INR 1.0 (0.9-1.1) APTT 24.2 (21.0-31.0) Seconds PTT Ratio 0.9 VBG pH (7.36-7.41) VBG pCO2 (38-50) mmHg VBG pO2 mmHg VBG HCO3 mmol/L VBG O2 Saturation % VBG Base Excess mEq/L Barometric Pressure mm/Hg Sodium 133 L (136-145) mmol/L Potassium 3.3 L (3.5-5.1) mmol/L Chloride 97 L (98-107) mmol/L Carbon Dioxide 27 (21-32) mmol/L Anion Gap 9 (3-11) BUN 15 (6-23) mg/dl Creatinine 0.89 (0.6-1.2) mg/dl Est Cr Clr Drug Dosing Not Reportable Est GFR ( Amer) 74.5 ml/min Est GFR (Non-Af Amer) 64.3 ml/min BUN/Creatinine Ratio 16.9 (10-20) Glucose 138 H (70-99(Fasting)) mg/dl Calcium 8.5 (8.5-10.1) mg/dl Total Bilirubin 0.3 (0.2-1.0) mg/dl AST 20 (13-39) U/L ALT 9 (7-52) U/L Alkaline Phosphatase 70 (34-104) U/L Troponin I < 0.03 (0-0.04) ng/ml Total Protein 7.1 (6.0-8.3) gm/dl Albumin 4.0 (3.4-5.0) gm/dl Globulin 3.1 (2.5-4.0) gm/dl Albumin/Globulin Ratio 1.3 (0.9-2) Lipase 21 (11-82) U/L Procalcitonin (0-0.5) ng/ml 07/17/21 07/17/21 Range/Units 16:06 16:22 WBC (4.8-10.8) K/uL RBC (4.2-5.4) M/uL Hgb (12.0-16.0) g/dL Hct (37-47) % MCV (80-100) fL MCH (25-34) pg MCHC (32-36) g/dL RDW Std Deviation (36.4-46.3) fL RDW Coeff of Robert (11.5-14.5) % Plt Count (130-400) K/uL MPV (7.4-10.4) fL Immature Gran % (Auto) % Neut % (Auto) % Lymph % (Auto) % Rosebud % (Auto) % Eos % (Auto) % Baso % (Auto) % Neut # (Auto) (1.4-6.5) K/uL Lymph # (Auto) (1.2-3.4) K/uL Rosebud # (Auto) (0.11-0.59) K/uL Eos # (Auto) (0-0.5) K/uL Baso # (Auto) (0-0.2) K/uL Immature Gran # (Auto) (0.00-0.02) K/uL PT (9.0-12.0) Seconds INR (0.9-1.1) APTT (21.0-31.0) Seconds PTT Ratio VBG pH 7.41 (7.36-7.41) VBG pCO2 49 (38-50) mmHg VBG pO2 23 mmHg VBG HCO3 30 mmol/L VBG O2 Saturation < 60.0 % VBG Base Excess 4.4 mEq/L Barometric Pressure 736.3 mm/Hg Sodium (136-145) mmol/L Potassium (3.5-5.1) mmol/L Chloride (98-107) mmol/L Carbon Dioxide (21-32) mmol/L Anion Gap (3-11) BUN (6-23) mg/dl Creatinine (0.6-1.2) mg/dl Est Cr Clr Drug Dosing Est GFR ( Amer) ml/min Est GFR (Non-Af Amer) ml/min BUN/Creatinine Ratio (10-20) Glucose (70-99(Fasting)) mg/dl Calcium (8.5-10.1) mg/dl Total Bilirubin (0.2-1.0) mg/dl AST (13-39) U/L ALT (7-52) U/L Alkaline Phosphatase (34-104) U/L Troponin I (0-0.04) ng/ml Total Protein (6.0-8.3) gm/dl Albumin (3.4-5.0) gm/dl Globulin (2.5-4.0) gm/dl Albumin/Globulin Ratio (0.9-2) Lipase (11-82) U/L Procalcitonin 0.38 (0-0.5) ng/ml Administered Medications Discontinued Medications Ioversol (Optiray 320 125ml) 120 ml IV ONCE ONE Stop: 07/17/21 17:09 Last Admin: 07/17/21 17:09 Dose: 120 ml Documented by: [id number] Imaging Data Radiologist's Impression: Chest CTA 07/17/21 16:03 CT angio chest PE protocol CT DOSE: 307.36 mGy.cm HISTORY: 75 years-old Female with PE. Acute shortness of breath with cough. COVID Positive. TECHNIQUE: Multiple CTA images of the chest were obtained after the intravenous administration of 120 ml Optiray. Coronal and sagittal MIPS were obtained from the axial data set and were submitted for review. All measurements were obtained according to NASCET criteria. A dose lowering technique was utilized adhering to the principles of ALARA. COMPARISON: Chest CT 12/15/2020 FINDINGS: CTA: The heart is upper limits of normal in size. No pericardial effusion. Moderate coronary artery calcifications. Atherosclerosis of the thoracic aorta without aneurysm. Calcified plaque at the origin of the left subclavian artery results in greater than 50% stenosis. Unremarkable pulmonary artery. No pulmonary emboli are identified. CT CHEST: Unremarkable pulmonary artery. No adenopathy. Unchanged ill-defined 8 mm groundglass nodule of the left upper lobe on image 200. No pneumothorax, pleural effusion or overt pulmonary edema. 2.8 cm thin-walled cyst of the left lower lobe. Mild patchy subpleural predominant bilateral groundglass opacities. Mild bibasilar mucous plugging. Large hiatal hernia with mid to distal esophageal wall thickening. Adrenal hyperplasia. Colonic diverticulosis. Hepatic steatosis. No acute fracture. Degenerative changes of the shoulders and spine. IMPRESSION: 1. No pulmonary emboli. 2. Mild patchy bilateral subpleural predominant groundglass opacities are suggestive of viral pneumonia. 3. Large hiatal hernia. 4. Atherosclerotic plaque at the origin of the left subclavian artery results in greater than 50% stenosis. 5. Additional findings as above. ACT 112: Negative or not required by law. The above report was generated using voice recognition software. It may contain grammatical, syntax or spelling errors. Electronically signed by: Sam Palacio M.D. 07/17/2021 5:24 PM Discharge Plan Visit Data Chief Complaint: Back Injury/Pain Stated Complaint: Back Pain ED Provider: Cyrus Cooney Discharge Problem: Hypoxia Forms Stand Alone Forms: [facility] Prescriptions Prescriptions: No Action metformin 500 mg tablet extended release 24 hr 1,000 mg PO BID Qty: 360 RF: 3 duloxetine 60 mg capsule,delayed release(DR/EC) 60 mg PO DAILY Qty: 90 RF: 3 atorvastatin 40 mg tablet 40 mg PO DAILY Qty: 90 RF: 3 esomeprazole magnesium 40 mg capsule,delayed release(DR/EC) 40 mg PO BID PRN (Reason: Heartburn) Qty: 180 RF: 3 albuterol sulfate [ProAir HFA] 90 mcg/actuation HFA aerosol inhaler 1 inh INH QID PRN (Reason: shortness of breath or wheezing) Qty: 18 RF: 11 Anoro Ellipta 62.5-25 mcg/actuation blister with device 1 inh inhalation DAILY Qty: 3 RF: 3 losartan 100 mg tablet 100 mg PO QAM Qty: 90 RF: 3 nicotine 21 mg/24 hr patch 24 hour 1 patch transdermal DAILY Qty: 28 RF: 1 ferrous sulfate 325 mg (65 mg iron) tablet 325 mg PO Q OTHER DAY Qty: 30 RF: 6 (DME) Accu-Chek Carmen Plus test strp Strip See Rx Instructions .Route Qty: 100 RF: 3 (DME) CPAP Supplies Misc See Rx Instructions .Route Qty: 1 RF: 0 molnupiravir 200 mg capsule 800 mg PO Q12H 5 Days Qty: 40 RF: 0 cholecalciferol (vitamin D3) 50 mcg (2,000 unit) tablet 2,000 units PO Q2D RF: 0 ipratropium-albuterol 0.5 mg-3 mg(2.5 mg base)/3 mL solution for nebulization 3 ml INH Q4 PRN (Reason: Shortness Of Breath) Qty: 180 RF: 3 metoprolol succinate 25 mg tablet extended release 24 hr 25 mg PO DAILY Qty: 90 RF: 3 potassium chloride 10 mEq tablet extended release 10 meq PO DAILY Qty: 90 RF: 3 aspirin 81 mg Tablet,Delayed Release (Dr/Ec) 81 mg PO QAM RF: 0 Probiotic Colon Care 1.5 billion cell Capsule 1 cap PO QAM RF: 0 ascorbic acid (vitamin C) [Vitamin C] 500 mg tablet 500 mg PO Q2D RF: 0 Ozempic 0.25 mg or 0.5 mg(2 mg/1.5 mL) pen injector 0.5 mg subcut WK RF: 0 Referrals Referrals: Alta Valencia CRNP [Primary Care Provider] -
[2021-07-17 16:14] LABS: Basophils # (auto) 0.01 K/uL (0-0.2); Basophils % (auto) 0.2 %; Hematocrit (blood only) 45.1 % (37-47); Hemoglobin 15.4 g/dL (12.0-16.0); Immature Granulocytes # (auto) 0.01 K/uL (0.00-0.02); Immature Granulocytes % (auto) 0.2 %; Lymphocytes # (auto) 0.67 K/uL (1.2-3.4); Lymphocytes % (auto) 14.3 %; Mean Corpuscular Hemoglobin 30.9 pg (25-34); Mean Corpuscular Hgb Conc 34.1 g/dL (32-36); Mean Corpuscular Volume 90.4 fL (80-100); Mean Platelet Volume 10.5 fL (7.4-10.4); Monocytes # (auto) 0.43 K/uL (0.11-0.59); Monocytes % (auto) 9.2 %; Neutrophils # (auto) 3.55 K/uL (1.4-6.5); Neutrophils % (auto) 76.1 %; Platelet Count 177 K/uL (130-400); RDW Coefficient of Variation 13.6 % (11.5-14.5); RDW Standard Deviation 45.1 fL (36.4-46.3); Red Blood Count 4.99 M/uL (4.2-5.4); White Blood Count 4.67 K/uL (4.8-10.8)
[2021-07-17 16:27] LABS: Partial Thromboplastin Ratio 0.9; Partial Thromboplastin Time 24.2 Seconds (21.0-31.0); Prothrombin Time 9.8 Seconds (9.0-12.0)
[2021-07-17 16:32] LABS: Base Excess VBG 4.4 mEq/L; HCO3 VBG 30 mmol/L; PCO2 VBG 49 mmHg (38-50); PO2 VBG 23 mmHg; pH VBG 7.41 (7.36-7.41)
[2021-07-17 16:33] LABS: Oxygen Saturation VBG < 60.0 %
[2021-07-17 16:34] LABS: Troponin I < 0.03 ng/ml (0-0.04)
[2021-07-17 16:35] LABS: Alanine Aminotransferase 9 U/L (7-52); Albumin Globulin Ratio 1.3 (0.9-2); Alkaline Phosphatase 70 U/L (34-104); Anion Gap 9 (3-11); Aspartate Aminotransferase 20 U/L (13-39); BUN Creatinine Ratio 16.9 (10-20); Bilirubin,Total 0.3 mg/dl (0.2-1.0); Blood Urea Nitrogen 15 mg/dl (6-23); Calcium 8.5 mg/dl (8.5-10.1); Carbon Dioxide 27 mmol/L (21-32); Chloride 97 mmol/L (98-107); Est GFR (African American) 74.5 ml/min; Est GFR (Non-African American) 64.3 ml/min; Globulin 3.1 gm/dl (2.5-4.0); Glucose 138 mg/dl (70-99(Fasting)); Lipase 21 U/L (11-82); Potassium 3.3 mmol/L (3.5-5.1); Sodium 133 mmol/L (136-145); Total Protein 7.1 gm/dl (6.0-8.3)
[2021-07-17] MEDS ORDERED: OPTIRAY 320 125ml IV ONE (17:08)
--- NOTE | 2021-07-17 17:25 | CT Scan Report ---
CT angio chest PE protocol CT DOSE: 307.36 mGy.cm HISTORY: 75 years-old Female with PE. Acute shortness of breath with cough. COVID Positive. TECHNIQUE: Multiple CTA images of the chest were obtained after the intravenous administration of 120 ml Optiray. Coronal and sagittal MIPS were obtained from the axial data set and were submitted for review. All measurements were obtained according to NASCET criteria. A dose lowering technique was u tilized adhering to the principles of ALARA. COMPARISON: Chest CT 12/15/2020 FINDINGS: CTA: The heart is upper limits of normal in size. No pericardial effusion. Moderate coronary artery calcif ications. Atherosclerosis of the thoracic aorta without aneurysm. Calcified plaque at the origin of t he left subclavian artery results in greater than 50% stenosis. Unremarkable pulmonary artery. No pul monary emboli are identified. CT CHEST: Unremarkable pulmonary artery. No adenopathy. Unchanged ill-defined 8 mm groundglass nodule of the le ft upper lobe on image 200. No pneumothorax, pleural effusion or overt pulmonary edema. 2.8 cm thin-w alled cyst of the left lower lobe. Mild patchy subpleural predominant bilateral groundglass opacities . Mild bibasilar mucous plugging. Large hiatal hernia with mid to distal esophageal wall thickening. Adrenal hyperplasia. Colonic diverticulosis. Hepatic steatosis. No acute fracture. Degenerative walsh es of the shoulders and spine. IMPRESSION: 1. No pulmonary emboli. 2. Mild patchy bilateral subpleural predominant groundglass opacities are suggestive of viral pneumon ia. 3. Large hiatal hernia. 4. Atherosclerotic plaque at the origin of the left subclavian artery results in greater than 50% el nosis. 5. Additional findings as above. ACT 112: Negative or not required by law. The above report was generated using voice recognition software. It may contain grammatical, syntax o r spelling errors. Electronically signed by: Sam Palacio M.D. 07/17/2021 5:24 PM
[2021-07-17] MEDS ORDERED: dexAMETHasone 8 MG in SYRINGE 0 ML IV ONE (17:35)
[2021-07-17] MEDS ORDERED: POTASSIUM CHLORIDE PWD 20 MEQ PACK PO ONE (17:36)
--- NOTE | 2021-07-17 18:03 | History & Physical Report ---
Date of Service July 17, 2021 Assessment & Plan (1) Pneumonia due to COVID-19 virus: Plan: Diagnosed with Covid on 07/13, symptoms first started on 07/12 with fever/chills, cough, shortness of breath, nausea/vomiting/diarrhea, poor appetite She is fully vaccinated and boosted, but has underlying DM 2, COPD, HTN as risk factors for severe disease She took 3 days of Molnupiravir prior to admission Presented with mid back pain had CTA of the chest which was negative for PE but did show some mostly subpleural multifocal pneumonia consistent with viral pneumonia Procalcitonin negative, with leukopenia and acute respiratory failure with hypoxia, requiring 3 L nasal cannula keep pulse ox greater than 90% -Admit to medical floor with telemetry on Covid precautions -Continue dexamethasone 6 mg IV once daily x10-day course, first dose given in ER -Stop Molnupiravir as there is not yet any evidence of benefit in hospitalized patients -Start Remdesivir x5-day course -Start DuoNebs scheduled every 6 hours -Start incentive spirometry and flutter valve -Continue supplemental O2 to keep pulse ox greater than 90% -Prone positioning as able to at least 3 times a day -Acetaminophen as needed for fevers or back pain (2) Hypoxia: Plan: As above, with acute respiratory failure with hypoxia secondary to Covid-19 pneumonia as well as COPD exacerbation Pulse ox 85% on room air on arrival Continue steroids, supplemental O2, pulmonary toilet (3) Hyponatremia: Plan: Secondary to dehydration from nausea/vomiting/diarrhea Give 1 L of normal saline +20 mEq potassium chloride Follow BMP in the morning (4) Nausea vomiting and diarrhea: Plan: Secondary to Covid-19 Antiemetics as needed Give IV fluid hydration x1 L as above Make PPI scheduled rather than as needed as on home medication reconciliation (5) Back pain: Plan: No abnormalities of spine and CT chest negative for PE Now completely resolved Could be musculoskeletal? Check UA for blood or infection Tylenol as needed (6) Hypokalemia: Plan: Secondary to GI losses, but also has chronic hypokalemia for which she takes potassium chloride at home Was given 40 mEq p.o. potassium chloride in the ER and will continue replacement and her IV fluids Follow BMP, magnesium in the morning (7) COPD, moderate: Plan: With acute exacerbation secondary to COVID-19 pneumonia Continue dexamethasone, scheduled nebulizers, home Umeclidinium/Vilanterol inhaler Flutter valve (8) HTN (hypertension): Plan: Blood pressures here are controlled Continue home losartan and metoprolol (9) Hypercholesteremia: Plan: Continue home statin (10) Obstructive sleep apnea of adult: Plan: Uses nasal prong CPAP-asked her to bring this in from home (11) Iron deficiency anemia: Plan: Continue home ferrous sulfate Hemoglobin here is normal (12) Smoking: Plan: She is currently trying to quit and is wearing a nicotine patch Continue nicotine patch 21 mg daily Encouraged smoking cessation (13) Type 2 diabetes mellitus: Plan: Last hemoglobin A1c several days ago on outpatient labs very well controlled at 6.6% Is on home Ozempic and Metformin-both will be held this admission Will be on steroids Start NPH 6 units once daily in the morning with her dexamethasone Start NovoLog supplemental insulin Accu-Cheks before meals and at bedtime ADA diet (14) Vitamin D deficiency: Plan: Continue home vitamin D supplement (15) Anxiety and depression: Plan: Stable Continue home duloxetine Plan: DVT prophylaxis-Lovenox 40 mg SQ once daily, SCDs Disposition-admit to medical floor telemetry, Covid unit Her decision makers would be her son and her [id number] DNR/DNI as per discussion with patient History of Present Illness Chief Complaint: Shortness of breath, generalized weakness, upper back pain, Covid-19 Primary Care Provider: KAIT Grimm This patient is a 75-year-old female with history of COPD, HTN, DM 2, hyperlipidemia, depression with anxiety, CAMRYN, current smoker, who was recently diagnosed with Covid-19 four days ago after having fevers and chest pressure, headache, dizziness, and scratchy throat. She has also been having nonbloody emesis as well as frequent loose stools that are also nonbloody, no melena. She has not eaten much at all in the last 3 to 4 days. She is fully vaccinated and boosted. She was prescribed Molnupiravir as an outpatient by her PCP for the Covid which she took for 3 days, but then stopped as she thought perhaps it was causing her the significant diarrhea. She presents back to the ER today with complaint of 24 hours of mid back pain that was constant and severe, low appetite, shortness of breath, and was found to be hypoxic with a pulse ox of 85% on room air. She had a CT angiogram of the chest which was negative for PE or dissection but did show bilateral viral appearing pneumonia. She was placed on 2 L nasal cannula and had improvement in her oxygen saturation. At the time I saw her, she reported that the back pain was now completely resolved. Her labs were notable for mild hyponatremia and hypokalemia, and leukopenia with lymphopenia. A procalcitonin was negative, lipase negative, troponin negative, LFTs normal. A VBG was also performed and was normal. In the ER, she was given a dose of IV dexamethasone as well as potassium chloride 40 mEq p.o. x1. She will be admitted for Covid-19 pneumonia, and acute respiratory failure with hypoxia. Allergies Allergy/AdvReac Type Severity Reaction Status Date / Time No Known Allergies Allergy Verified 07/17/21 16:48 Home Medications Medication Instructions Recorded Confirmed Type Lactobacills gasseri-Bifidobac 1 cap PO QAM 12/11/18 07/17/21 History bifidum,longum 1.5 billion cell capsule (Probiotic Colon Care) aspirin 81 mg tablet,delayed 81 mg PO QAM 12/11/18 07/17/21 History release ascorbic acid (vitamin C) 500 mg 500 mg PO Q2D 07/29/19 07/17/21 History tablet (Vitamin C) cholecalciferol (vitamin D3) 50 2,000 units PO Q2D tab 07/29/19 07/17/21 Histor y mcg (2,000 unit) tablet ipratropium 0.5 mg-albuterol 3 mg 3 ml INH Q4 PRN #180 ml 04/02/20 07/17/21 Rx (2.5 mg base)/3 mL nebulization soln metformin 500 mg tablet,extended 1,000 mg PO BID #360 tab 06/15/20 07/17/21 Rx release 24 hr duloxetine 60 mg capsule,delayed 60 mg PO DAILY #90 cap 07/26/20 07/17/21 Rx release atorvastatin 40 mg tablet 40 mg PO DAILY #90 tab 09/24/20 07/17/21 Rx esomeprazole magnesium 40 mg 40 mg PO BID PRN #180 cap 09/24/20 07/17/21 Rx capsule,delayed release albuterol sulfate 90 mcg/actuation 1 inh INH QID PRN #18 gm 09/28/20 07/17/21 Rx aerosol inhaler (ProAir HFA) umeclidinium 62.5 mcg-vilanterol 1 inh INHALATION DAILY #3 inhaler 09/30/20 07/17/21 Rx 25 mcg/actuation powdr for inhalation (Anoro Ellipta) losartan 100 mg tablet 100 mg PO QAM #90 tab 12/08/20 07/17/21 Rx nicotine 21 mg/24 hr daily 1 patch TRANSDERMAL DAILY #28 ea 01/13/21 07/17/21 Rx transdermal patch metoprolol succinate 25 mg 25 mg PO DAILY #90 tab 02/09/21 07/17/21 Rx tablet,extended release 24 hr potassium chloride 10 mEq 10 meq PO DAILY #90 tab 02/09/21 07/17/21 Rx tablet,extended release Accu-Chek Carmen Plus test strp #100 ea NS 03/16/21 07/12/21 Rx (blood sugar diagnostic) ferrous sulfate 325 mg (65 mg 325 mg PO Q OTHER DAY #30 tab 03/16/21 07/17/21 Rx iron) tablet CPAP Supplies #1 ea 04/11/21 07/12/21 Rx molnupiravir 200 mg capsule (EUA) 800 mg PO Q12H 5 Days #40 cap 07/14/21 07/17/21 Rx semaglutide (Ozempic) 0.5 mg SUBCUT WK 07/17/21 07/17/21 History Past Med/Surg History Medical History Anemia Atherosclerosis of aorta Atherosclerosis of arteries of extremities Depression Diabetes mellitus, type 2 Diverticulitis of colon GERD (gastroesophageal reflux disease) Hiatal hernia History of anesthesia reaction difficulty waking History of bronchitis last winter 2018 History of colon polyps Hyperlipidemia Hypertension Multiple pulmonary nodules Obstructive sleep apnea of adult cpap Osteoarthritis Pulmonary emphysema Restless legs Sensorineural hearing loss (SNHL) of both ears Urinary incontinence Surgical History History of bilateral tubal ligation History of carpal tunnel release of both wrists History of section x2 History of colonoscopy 07/26/2016, sigmoid tics and tubular adenoma, recheck rec 1 year due to fair prep History of dilatation and curettage History of esophagogastroduodenoscopy (EGD) History of open reduction and internal fixation (ORIF) procedure left wrist--hardware removed History of phacoemulsification of cataract of both eyes with intraocular lens implantation History of tooth extraction all upper teeth removed History of vocal cord polypectomy x2 Family History Mother Family hx of colon cancer Family history of diabetes mellitus Hyperlipemia Hypertension Diabetes Colorectal cancer Family history of CABG Myocardial infarction Brother Family hx of colon cancer 2 Liver cancer Colorectal cancer Father No problems noted. Other Breast cancer Lung cancer No family history of adverse response to anesthesia Prostate cancer Denies family history of Ovarian cancer Social History Smoking Status: Current every day smoker Tobacco Type: Cigarettes Age Started Using Tobacco: 17; packs per day: 0.5; Years Smoked: 56; Cigarettes Per Day: 10, using patch and trying to quit; Second Hand Exposure: Yes (IN CHILDHOOD); Hx Alcohol Use: No Hx Substance Use: No Preferred Language: Romanian Communication Ability: Effective Visual Impairment: No Limitations Hearing Ability: Normal Computer Forensics Technician Required: No Beliefs That Will Affect Care: None marital status: Current Living Situation: Family Current Living Situation Comment: Son lives with her current occupational status: retired current occupation: retired from career with [employer], assisted living Feels Safe at Home: Yes Childhood Exposure to Second-Hand Smoke: Yes Dental Care, Regularly: No Physical Activity Frequency: Does not Exercise Seatbelt Use: always Sunscreen Use: No Assistive Devices: Denture - Upper and Nebulizer Review of Systems Review of Systems: All systems reviewed & are unremarkable except as noted in HPI & below Positive fevers and chills, sore throat, no chest pain, mild shortness of breath and cough. Positive nausea/vomiting/diarrhea, all nonbloody. Physical Exam Constitutional: WD/WN, vitals as above Eyes: PERRL, conjunctivae normal, anicteric sclerae ENMT: external ear and nose normal, oropharynx normal (Except dry mucous membranes) Neck: trachea midline, no thyromegaly Respiratory: normal respiratory effort and + cough Cardiovascular: RRR, no murmur, no edema Vessels: dorsalis pedis pulses present Chest (Breasts): Chest: normal inspection of chest Gastrointestinal (Abdomen): normal bowel sounds, soft, nontender, no hepatosplenomegaly Musculoskeletal: Extremities: extremities normal to inspection; no cyanosis and no clubbing Skin: no rashes, warm and dry Neurologic: moves all extremities and awake; no focal motor deficits Psychiatric: A+Ox3, euthymic affect Lymphatic: no lymphedema Results & Data Results & Data ([facility]) Vital Signs (Past 12 Hours) Vital Signs Temp Pulse Resp BP Pulse Ox 07/17/21 17:27 85 L 07/17/21 16:16 37.2 C 91 H 20 114/78 92 Laboratory Results 07/17/21 07/17/21 07/17/21 Range/Units 16:22 16:06 16:06 WBC (4.8-10.8) K/uL RBC (4.2-5.4) M/uL Hgb (12.0-16.0) g/dL Hct (37-47) % MCV (80-100) fL MCH (25-34) pg MCHC (32-36) g/dL RDW Std Deviation (36.4-46.3) fL RDW Coeff of Robert (11.5-14.5) % Plt Count (130-400) K/uL MPV (7.4-10.4) fL Immature Gran % (Auto) % Neut % (Auto) % Lymph % (Auto) % Caswell % (Auto) % Eos % (Auto) % Baso % (Auto) % Neut # (Auto) (1.4-6.5) K/uL Lymph # (Auto) (1.2-3.4) K/uL Caswell # (Auto) (0.11-0.59) K/uL Eos # (Auto) (0-0.5) K/uL Baso # (Auto) (0-0.2) K/uL Immature Gran # (Auto) (0.00-0.02) K/uL PT (9.0-12.0) Seconds INR (0.9-1.1) APTT (21.0-31.0) Seconds PTT Ratio VBG pH 7.41 (7.36-7.41) VBG pCO2 49 (38-50) mmHg VBG pO2 23 mmHg VBG HCO3 30 mmol/L VBG O2 Saturation < 60.0 % VBG Base Excess 4.4 mEq/L Barometric Pressure 736.3 mm/Hg Sodium 133 L (136-145) mmol/L Potassium 3.3 L (3.5-5.1) mmol/L Chloride 97 L (98-107) mmol/L Carbon Dioxide 27 (21-32) mmol/L Anion Gap 9 (3-11) BUN 15 (6-23) mg/dl Creatinine 0.89 (0.6-1.2) mg/dl Est Cr Clr Drug Dosing Not Reportable Est GFR ( Amer) 74.5 ml/min Est GFR (Non-Af Amer) 64.3 ml/min BUN/Creatinine Ratio 16.9 (10-20) Glucose 138 H (70-99(Fasting)) mg/dl Calcium 8.5 (8.5-10.1) mg/dl Total Bilirubin 0.3 (0.2-1.0) mg/dl AST 20 (13-39) U/L ALT 9 (7-52) U/L Alkaline Phosphatase 70 (34-104) U/L Troponin I < 0.03 (0-0.04) ng/ml Total Protein 7.1 (6.0-8.3) gm/dl Albumin 4.0 (3.4-5.0) gm/dl Globulin 3.1 (2.5-4.0) gm/dl Albumin/Globulin Ratio 1.3 (0.9-2) Lipase 21 (11-82) U/L Procalcitonin 0.38 (0-0.5) ng/ml 07/17/21 07/17/21 Range/Units 16:06 16:06 WBC 4.67 L (4.8-10.8) K/uL RBC 4.99 (4.2-5.4) M/uL Hgb 15.4 (12.0-16.0) g/dL Hct 45.1 (37-47) % MCV 90.4 (80-100) fL MCH 30.9 (25-34) pg MCHC 34.1 (32-36) g/dL RDW Std Deviation 45.1 (36.4-46.3) fL RDW Coeff of Robert 13.6 (11.5-14.5) % Plt Count 177 (130-400) K/uL MPV 10.5 H (7.4-10.4) fL Immature Gran % (Auto) 0.2 % Neut % (Auto) 76.1 % Lymph % (Auto) 14.3 % Caswell % (Auto) 9.2 % Eos % (Auto) 0.0 % Baso % (Auto) 0.2 % Neut # (Auto) 3.55 (1.4-6.5) K/uL Lymph # (Auto) 0.67 L (1.2-3.4) K/uL Caswell # (Auto) 0.43 (0.11-0.59) K/uL Eos # (Auto) 0.00 (0-0.5) K/uL Baso # (Auto) 0.01 (0-0.2) K/uL Immature Gran # (Auto) 0.01 (0.00-0.02) K/uL PT 9.8 (9.0-12.0) Seconds INR 1.0 (0.9-1.1) APTT 24.2 (21.0-31.0) Seconds PTT Ratio 0.9 VBG pH (7.36-7.41) VBG pCO2 (38-50) mmHg VBG pO2 mmHg VBG HCO3 mmol/L VBG O2 Saturation % VBG Base Excess mEq/L Barometric Pressure mm/Hg Sodium (136-145) mmol/L Potassium (3.5-5.1) mmol/L Chloride (98-107) mmol/L Carbon Dioxide (21-32) mmol/L Anion Gap (3-11) BUN (6-23) mg/dl Creatinine (0.6-1.2) mg/dl Est Cr Clr Drug Dosing Est GFR ( Amer) ml/min Est GFR (Non-Af Amer) ml/min BUN/Creatinine Ratio (10-20) Glucose (70-99(Fasting)) mg/dl Calcium (8.5-10.1) mg/dl Total Bilirubin (0.2-1.0) mg/dl AST (13-39) U/L ALT (7-52) U/L Alkaline Phosphatase (34-104) U/L Troponin I (0-0.04) ng/ml Total Protein (6.0-8.3) gm/dl Albumin (3.4-5.0) gm/dl Globulin (2.5-4.0) gm/dl Albumin/Globulin Ratio (0.9-2) Lipase (11-82) U/L Procalcitonin (0-0.5) ng/ml Diagnostic Findings Chest CTA 07/17/21 16:03 CT angio chest PE protocol CT DOSE: 307.36 mGy.cm HISTORY: 75 years-old Female with PE. Acute shortness of breath with cough. COVID Positive. TECHNIQUE: Multiple CTA images of the chest were obtained after the intravenous administration of 120 ml Optiray. Coronal and sagittal MIPS were obtained from the axial data set and were submitted for review. All measurements were obtained according to NASCET criteria. A dose lowering technique was utilized adhering to the principles of ALARA. COMPARISON: Chest CT 12/15/2020 FINDINGS: CTA: The heart is upper limits of normal in size. No pericardial effusion. Moderate coronary artery calcifications. Atherosclerosis of the thoracic aorta without aneurysm. Calcified plaque at the origin of the left subclavian artery results in greater than 50% stenosis. Unremarkable pulmonary artery. No pulmonary emboli are identified. CT CHEST: Unremarkable pulmonary artery. No adenopathy. Unchanged ill-defined 8 mm groundglass nodule of the left upper lobe on image 200. No pneumothorax, pleural effusion or overt pulmonary edema. 2.8 cm thin-walled cyst of the left lower lobe. Mild patchy subpleural predominant bilateral groundglass opacities. Mild bibasilar mucous plugging. Large hiatal hernia with mid to distal esophageal wall thickening. Adrenal hyperplasia. Colonic diverticulosis. Hepatic steatosis. No acute fracture. Degenerative changes of the shoulders and spine. IMPRESSION: 1. No pulmonary emboli. 2. Mild patchy bilateral subpleural predominant groundglass opacities are suggestive of viral pneumonia. 3. Large hiatal hernia. 4. Atherosclerotic plaque at the origin of the left subclavian artery results in greater than 50% stenosis. 5. Additional findings as above. ACT 112: Negative or not required by law. The above report was generated using voice recognition software. It may contain grammatical, syntax or spelling errors. Electronically signed by: Sam Palacio M.D. 07/17/2021 5:24 PM ECG Additional Comments: ECG on 07/17/2021 at 1606 with sinus rhythm with PACs, rate 98, Q waves in inferior leads unchanged from previous Code Status & VTE Plan Code Status DNR/DNI as per discussion with patient at the time of admission VTE Prophylaxis Plan VTE Prophylaxis will be ordered: Yes PG Care Time/CCT Total # of Minutes Spent Total Time Spent with Patient: Total time spent is greater than 50% in coordination of care (as documented) at patient's floor/unit and/or counseling patient: Coding Level of Care Code 90007 Initial Inpt Care Lvl 3 Diagnoses Anxiety and depression F41.9; F32.9 COPD, moderate J44.9 HTN (hypertension) I10 Hypercholesteremia E78.00 Hypokalemia E87.6 Hypoxia R09.02 Obstructive sleep apnea of adult G47.33 Iron deficiency anemia D50.9 Smoking F17.200 Type 2 diabetes mellitus E11.9 Vitamin D deficiency E55.9 Pneumonia due to COVID-19 virus U07.1; J12.82 Hyponatremia E87.1 Back pain M54.9 Nausea vomiting and diarrhea R11.2; R19.7
[2021-07-17] MEDS ORDERED: REMDESIVIR 200 MG in SODIUM CHLORIDE 0.9% 210 ML IV STA (18:30)
[2021-07-17] MEDS ORDERED: ALBUT/IPRATROP 3MG/0.5MG NEB 3 ML VIAL NEB STA (18:57)
[2021-07-17] MEDS ORDERED: NSS + 20MEQ KCL 20 MEQ/1,000 ML BAG IV SCH (19:01)
[2021-07-17] MEDS ORDERED: GLUCOSE 40% GEL 15 GM TUBE PO PRN (19:47)
[2021-07-17] MEDS ORDERED: GLUCOSE 10 TABS/TUBE PO PRN (19:47)
[2021-07-17] MEDS ORDERED: CARBOHYDRATES FOR HYPOGLYCEMIA PO PRN (19:47)
[2021-07-17] MEDS ORDERED: ONDANSETRON INJ 2 MG/ML 2 ML VIAL IV PRN (19:47)
[2021-07-17] MEDS ORDERED: DEXTROSE 50% 50 ML SYRINGE IV PRN (19:47)
[2021-07-17] MEDS ORDERED: GLUCAGON FOR INJ 1 MG VIAL SQ PRN (19:47)
[2021-07-17] MEDS ORDERED: ACETAMINOPHEN 325 MG TAB PO PRN (19:47)
[2021-07-17] MEDS ORDERED: POLYETHYLENE (MIRALAX) 17 GM PACK PO PRN (19:47)
[2021-07-17] MEDS ORDERED: ASCORBIC ACID 500 MG TAB PO SCH (20:00)
[2021-07-17] MEDS ORDERED: FERROUS SULFATE 325 MG TAB PO SCH (20:00)
[2021-07-17] MEDS ORDERED: CHOLECALCIFEROL 1,000 UNITS 25 MCG TAB PO SCH (20:00)
[2021-07-17] MEDS: ALBUT/IPRATROP 3MG/0.5MG NEB 3 ML VIAL INH SCH (20:06)
[2021-07-17] MEDS: INSULIN ASPART PER UNIT SC SCH (20:13)
[2021-07-17 20:39] LABS: Appearance Urine Clear (Clear); Bacteria Urine Automated Negative (Negative); Bilirubin Urine Negative (Negative); Blood Urine 1+ (Negative); Color Urine Yellow; Epithelial Cell Urine Auto >30 /lpf (0-5); Glucose Urine UA Negative (Negative); Ketones Urine Trace (Negative); Leukocyte Esterase Urine Negative (Negative); Nitrite Urine Negative (Negative); Protein Urine 1+ (Negative); Specific Gravity Urine > 1.045 (1.000-1.030); Urobilinogen Urine Negative (Negative); pH Urine 6.5 (4.5-7.5)
[2021-07-17] MEDS: PANTOprazole 40 MG TAB PO SCH (21:22)
[2021-07-17] MEDS: ENOXAPARIN INJ 40 MG/0.4 ML SYR SQ SCH (21:22)
[2021-07-18] MEDS: ALBUT/IPRATROP 3MG/0.5MG NEB 3 ML VIAL INH SCH ×4 (00:29→19:30)
[2021-07-18 06:34] LABS: Hematocrit (blood only) 41.9 % (37-47); Immature Granulocytes # (auto) 0.01 K/uL (0.00-0.02); Immature Granulocytes % (auto) 0.3 %; Lymphocytes # (auto) 0.86 K/uL (1.2-3.4); Lymphocytes % (auto) 29.8 %; Mean Corpuscular Hemoglobin 30.4 pg (25-34); Mean Corpuscular Hgb Conc 33.4 g/dL (32-36); Mean Corpuscular Volume 90.9 fL (80-100); Monocytes % (auto) 6.9 %; Neutrophils # (auto) 1.82 K/uL (1.4-6.5); Platelet Count 162 K/uL (130-400); RDW Coefficient of Variation 13.7 % (11.5-14.5); RDW Standard Deviation 45.5 fL (36.4-46.3); Red Blood Count 4.61 M/uL (4.2-5.4); White Blood Count 2.89 K/uL (4.8-10.8)
[2021-07-18 07:10] LABS: Albumin Globulin Ratio 1.2 (0.9-2); Albumin Level 3.5 gm/dl (3.4-5.0); BUN Creatinine Ratio 24.7 (10-20); Bilirubin,Total 0.2 mg/dl (0.2-1.0); C Reactive Protein 2.68 mg/dl (0-0.5); Est GFR (African American) 94.7 ml/min; Est GFR (Non-African American) 81.7 ml/min; Globulin 2.9 gm/dl (2.5-4.0); Magnesium 1.9 mg/dl (1.7-2.4); Potassium 4.1 mmol/L (3.5-5.1); Total Protein 6.4 gm/dl (6.0-8.3)
--- NOTE | 2021-07-18 07:51 | Hospitalist Progress Note ---
Date of Service July 18, 2021 Assessment & Plan (1) Pneumonia due to COVID-19 virus: Plan: Diagnosed with Covid on 07/13, symptoms first started on 07/12 with fever/chills, cough, shortness of breath, nausea/vomiting/diarrhea, poor appetite She is fully vaccinated and boosted, but has underlying DM 2, COPD, HTN as risk factors for severe disease She took 3 days of Molnupiravir prior to admission Presented with mid back pain had CTA of the chest which was negative for PE but did show some mostly subpleural multifocal pneumonia consistent with viral pneumonia Procalcitonin negative, with leukopenia and acute respiratory failure with hypoxia, requiring 3 L nasal cannula keep pulse ox greater than 90% -Admit to medical floor with telemetry on Covid precautions -Continue dexamethasone 6 mg IV once daily x10-day course, first dose given in ER 07/17/21 -Stop Molnupiravir as there is not yet any evidence of benefit in hospitalized patients -Start Remdesivir x5-day course LD 07/21/21 -Start DuoNebs scheduled every 6 hours -Start incentive spirometry and flutter valve -Continue supplemental O2 to keep pulse ox greater than 90% -Prone positioning as able to at least 3 times a day -Acetaminophen as needed for fevers or back pain (2) Hypoxia: Plan: acute respiratory failure with hypoxia secondary to Covid-19 pneumonia as well as COPD exacerbation Pulse ox 85% on room air on arrival Continue steroids, supplemental O2, pulmonary toilet (3) Hyponatremia: Plan: Secondary to dehydration from nausea/vomiting/diarrhea Give 1 L of normal saline +20 mEq potassium chloride Follow BMP in the morning (4) Nausea vomiting and diarrhea: Plan: Secondary to Covid-19 Antiemetics as needed Give IV fluid hydration x1 L as above Make PPI scheduled rather than as needed as on home medication reconciliation (5) Back pain: Plan: No abnormalities of spine and CT chest negative for PE Now completely resolved Could be musculoskeletal? urine culture will be ordered Tylenol as needed (6) Hypokalemia: Plan: Secondary to GI losses, but also has chronic hypokalemia for which she takes potassium chloride at home Was given 40 mEq p.o. potassium chloride in the ER and will continue replacement and her IV fluids replete (7) COPD, moderate: Plan: With acute exacerbation secondary to COVID-19 pneumonia Continue dexamethasone, scheduled nebulizers, home Umeclidinium/Vilanterol inhaler Flutter valve (8) HTN (hypertension): Plan: Blood pressures here are controlled Continue home losartan and metoprolol (9) Hypercholesteremia: Plan: Continue home statin (10) Obstructive sleep apnea of adult: Plan: Uses nasal prong CPAP-asked her to bring this in from home (11) Iron deficiency anemia: Plan: Continue home ferrous sulfate Hemoglobin is normal (12) Smoking: Plan: She is currently trying to quit and is wearing a nicotine patch Continue nicotine patch 21 mg daily Encouraged smoking cessation (13) Type 2 diabetes mellitus: Plan: Last hemoglobin A1c several days ago on outpatient labs very well controlled at 6.6% Is on home Ozempic and Metformin-both will be held this admission Will be on steroids Start NPH 6 units once daily in the morning with her dexamethasone Start NovoLog supplemental insulin Accu-Cheks before meals and at bedtime ADA diet (14) Vitamin D deficiency: Plan: Continue home vitamin D supplement (15) Anxiety and depression: Plan: Stable Continue home duloxetine Plan: DVT prophylaxis-Lovenox 40 mg SQ once daily, SCDs Disposition-admit to medical floor telemetry, Covid unit Her decision makers would be her son and her [id number] DNR/DNI as per discussion with patient Admission and Anticipated Discharge Date Admission Date: July 17, 2021 Subjective pt is fatigued and tired, she is on room air but is very short of breath walking across the room. Review of Systems Review of Systems: Mild distress and marked fatigue no headache, no visual changes no speech or swallowing issues no chest pain, pressure or palpitations no shortness of breath, cough or wheezes no abdominal pain, nausea or vomiting, diarrhea or constipation no dysuria, hematuria or frequency no focal joint pain or swelling no back pain, CVA tenderness or radicular pain no bruising, bleeding or rashes no focal signs of weakness or numbness or altered sensation no complaints of anxiety or depression.. Results & Data Results & Data ([facility]) Vital Signs (Past 12 Hours) Vital Signs Temp Pulse Pulse Resp BP BP Pulse Ox 07/18/21 07:30 72 16 98 07/18/21 03:53 168/79 H 07/18/21 03:37 97.9 F 69 13 94 07/18/21 03:13 76 15 95 02/21/22 00:33 74 18 92 07/17/21 23:14 97.7 F 77 16 144/77 H 96 07/17/21 22:19 94 H 07/17/21 22:15 99 H 18 95 07/17/21 20:07 88 18 95 07/17/21 19:48 99.1 F 95 H 24 137/77 143/102 H 94 PG Care Time/CCT Total # of Minutes Spent Total Time Spent with Patient: Total time spent is greater than 50% in coordination of care (as documented) at patient's floor/unit and/or counseling patient: Coding Level of Care Code 70805 Subseq Hosp Care Lvl 2 Diagnoses Pneumonia due to COVID-19 virus U07.1; J12.82 Hypoxia R09.02 Hyponatremia E87.1 Nausea vomiting and diarrhea R11.2; R19.7 Back pain M54.9 Hypokalemia E87.6 COPD, moderate J44.9 HTN (hypertension) I10 Hypercholesteremia E78.00 Obstructive sleep apnea of adult G47.33 Iron deficiency anemia D50.9 Smoking F17.200 Type 2 diabetes mellitus E11.9 Vitamin D deficiency E55.9 Anxiety and depression F41.9; F32.9
[2021-07-18] MEDS: INSULIN ASPART PER UNIT SC SCH ×4 (08:24→20:40)
[2021-07-18] MEDS: ASPIRIN 81 MG ECTAB PO SCH (08:34)
[2021-07-18] MEDS: POTASSIUM CHLORIDE 10 MEQ TABCR PO SCH (08:34)
[2021-07-18] MEDS: PANTOprazole 40 MG TAB PO SCH ×2 (08:35→20:18)
[2021-07-18] MEDS: LOSARTAN POTASSIUM 50 MG TAB PO SCH (08:35)
[2021-07-18] MEDS: ADVANCED PROBIOTIC 1250 MG CAPSULE PO SCH (08:35)
[2021-07-18] MEDS: ATORVASTATIN 40 MG TAB PO SCH (08:35)
[2021-07-18] MEDS: METOPROLOL SUCC 25MG EXT REL TAB PO SCH (08:35)
[2021-07-18] MEDS: DULoxetine HCL 60 MG CAP PO SCH (08:35)
[2021-07-18] MEDS: dexAMETHasone 6 MG in SYRINGE 0 ML IV SCH (08:36)
[2021-07-18] MEDS: UMECLIDINIUM/VILANTEROL 62.5/25MCG 7 PUFFS/INHALER INH SCH (08:36)
[2021-07-18] MEDS: NICOTINE 21 MG/24 HR TDSY TD SCH (08:36)
[2021-07-18] MEDS: INSULIN HUMAN NPH SC SCH (09:30)
--- NOTE | 2021-07-18 10:25 | Electrocardiogram Report ---
Test Reason : Blood Pressure : / mmHG Vent. Rate : 098 BPM Atrial Rate : 098 BPM P-R Int : 176 ms QRS Dur : 080 ms QT Int : 384 ms P-R-T Axes : 018 010 092 degrees QTc Int : 490 ms Sinus rhythm with Premature atrial complexes and Premature ventricular complexes possible Inferior infarct , age undetermined Nonspecific ST abnormality Abnormal ECG When compared with ECG of 14-MAR-2021 14:03, Premature ventricular complexes are now Present Premature atrial complexes are now Present Confirmed by Saad Dong ([id number]) on 07/18/2021 10:25:24 AM Referred By: REFERRED SELF Confirmed By:Dangelo Dong
[2021-07-18] MEDS ORDERED: REMDESIVIR 100 MG in SODIUM CHLORIDE 0.9% 230 ML IV SCH (20:00)
[2021-07-18] MEDS: ENOXAPARIN INJ 40 MG/0.4 ML SYR SQ SCH (20:17)
[2021-07-19] MEDS: ALBUT/IPRATROP 3MG/0.5MG NEB 3 ML VIAL INH SCH ×2 (00:30→07:41)
[2021-07-19] MEDS: INSULIN ASPART PER UNIT SC SCH ×2 (08:20→12:39)
[2021-07-19] MEDS: dexAMETHasone 6 MG in SYRINGE 0 ML IV SCH (08:35)
[2021-07-19] MEDS: POTASSIUM CHLORIDE 10 MEQ TABCR PO SCH (08:36)
[2021-07-19] MEDS: DULoxetine HCL 60 MG CAP PO SCH (08:36)
[2021-07-19] MEDS: ATORVASTATIN 40 MG TAB PO SCH (08:36)
[2021-07-19] MEDS: ADVANCED PROBIOTIC 1250 MG CAPSULE PO SCH (08:36)
[2021-07-19] MEDS: ASPIRIN 81 MG ECTAB PO SCH (08:36)
[2021-07-19] MEDS: LOSARTAN POTASSIUM 50 MG TAB PO SCH (08:36)
[2021-07-19] MEDS: NICOTINE 21 MG/24 HR TDSY TD SCH (08:36)
[2021-07-19] MEDS: PANTOprazole 40 MG TAB PO SCH (08:36)
[2021-07-19] MEDS: METOPROLOL SUCC 25MG EXT REL TAB PO SCH (08:36)
[2021-07-19] MEDS: UMECLIDINIUM/VILANTEROL 62.5/25MCG 7 PUFFS/INHALER INH SCH (08:37)
[2021-07-19] MEDS: INSULIN HUMAN NPH SC SCH (09:07)
--- NOTE | 2021-07-19 14:33 | Discharge Summary ---
Date of Service July 19, 2021 Admission HPI Per Admitting Provider This patient is a 75-year-old female with history of COPD, HTN, DM 2, hyperlipidemia, depression with anxiety, CAMRYN, current smoker, who was recently diagnosed with Covid-19 four days ago after having fevers and chest pressure, headache, dizziness, and scratchy throat. She has also been having nonbloody emesis as well as frequent loose stools that are also nonbloody, no melena. She has not eaten much at all in the last 3 to 4 days. She is fully vaccinated and boosted. She was prescribed Molnupiravir as an outpatient by her PCP for the Covid which she took for 3 days, but then stopped as she thought perhaps it was causing her the significant diarrhea. She presents back to the ER today with complaint of 24 hours of mid back pain that was constant and severe, low appetite, shortness of breath, and was found to be hypoxic with a pulse ox of 85% on room air. She had a CT angiogram of the chest which was negative for PE or dissection but did show bilateral viral appearing pneumonia. She was placed on 2 L nasal cannula and had improvement in her oxygen saturation. At the time I saw her, she reported that the back pain was now completely resolved. Her labs were notable for mild hyponatremia and hypokalemia, and leukopenia with lymphopenia. A procalcitonin was negative, lipase negative, troponin negative, LFTs normal. A VBG was also performed and was normal. In the ER, she was given a dose of IV dexamethasone as well as potassium chloride 40 mEq p.o. x1. She will be admitted for Covid-19 pneumonia, and acute respiratory failure with hypoxia. Principal Diagnosis covid pneumonia hyponatremia hypokalemia nausea/vomiting/diarrhea back pain Discharge Exam The patient appeared well Vital signs as documented. Lungs are clear to auscultation and appear unlabored Cardiac exam, Rhythm is regular.. No murmurs, rubs or gallops. Abdominal exam reveals normal bowel sounds, soft non tender, no masses Extremities are nonedematous and both pedal pulses are normal. Neurologic exam is alert and oriented, no focal loss of strength or sensation Skin is without bruises or rashes Psychologically is without concerns for anxiety or depression. Discharge Data Allergies Allergy/AdvReac Type Severity Reaction Status Date / Time No Known Allergies Allergy Verified 07/17/21 16:48 Ordered Studies 07/17/21 16:03 CT angio chest PE protocol Stat Hospital Course (1) Pneumonia due to COVID-19 virus: Diagnosed with Covid on 07/13, symptoms first started on 07/12 with fever/chills, cough, shortness of breath, nausea/vomiting/diarrhea, poor appetite She is fully vaccinated and boosted, but has underlying DM 2, COPD, HTN as risk factors for severe disease She took 3 days of Molnupiravir prior to admission Presented with mid back pain had CTA of the chest which was negative for PE but did show some mostly subpleural multifocal pneumonia consistent with viral pneumonia Procalcitonin negative, with leukopenia and acute respiratory failure with hypoxia, Pt has been off oxygen for >24 hours, doing well, no return of N/v/d and eating well, will not need remdesivir and will complete course of dexamethasone at home (2) Hypoxia: acute respiratory failure with hypoxia secondary to Covid-19 pneumonia as well as COPD exacerbation Pulse ox 85% on room air on arrival Continue steroids, no longer need for supplemental oxygen , will dc to home (3) Hyponatremia: Secondary to dehydration from nausea/vomiting/diarrhea Give 1 L of normal saline +20 mEq potassium chloride resolved (4) Nausea vomiting and diarrhea: Secondary to Covid-19 resolved (5) Back pain: greatly lessened, CT on presentation did not, musculoskeletal abnormalities or vascular abnormalities, did show changes consistent with viral pneumonia (6) Hypokalemia: resolved (7) COPD, moderate: With acute exacerbation secondary to COVID-19 pneumonia Continue dexamethasone, scheduled nebulizers, home Umeclidinium/Vilanterol inhaler Flutter valve (8) HTN (hypertension): Blood pressures here are controlled Continue home losartan and metoprolol (9) Hypercholesteremia: Continue home statin (10) Obstructive sleep apnea of adult: Uses nasal prong CPAP-asked her to bring this in from home (11) Iron deficiency anemia: Continue home ferrous sulfate Hemoglobin is normal (12) Smoking: She is currently trying to quit and is wearing a nicotine patch Continue nicotine patch 21 mg daily Encouraged smoking cessation (13) Type 2 diabetes mellitus: Last hemoglobin A1c several days ago on outpatient labs very well controlled at 6.6% Is on home Ozempic and Metformin (14) Vitamin D deficiency: Continue home vitamin D supplement (15) Anxiety and depression: Stable Continue home duloxetine Was erroneously made a DNR she wishes to be a full code Total Time Total Time Spent Total Time Spent (In Minutes): It required greater than 30 minutes to prepare this patient for discharge Discharge Plan Discharge Items Patient Disposition: Home - Self-Care Reason For Visit: COVID-19 PNA, HYPOXIA Discharge Diagnosis: covid pneumonia fatigue Activity: Per Instructions section Non-emergency contact: Primary Care Provider Call non-emergency contact if: your symptoms worsen Follow-up/Referrals: Alta Valencia CRNP [Primary Care Provider] - 08/01/21 2:00 pm Diet: Regular Addtl Attending Provider Instructions: You have been diagnosed with covid infection, it would be recommended that you quarantine yourself for 10 days from your first test or first symptoms, and if at the 10th day you have no symptoms the you can come off quarantine but use c ommon sense precautions. Quarantine means attempting to stay away from people who have not had an active covid infection in the past, and if you have to be around others to wear a mask even if you are indoors, do not share a room to sleep in with others until you are out of quarantine. If you still have symptoms at the 10th day, continue to quarantine until you are symptom free for 48 hours watch your carbohydrate(sugar) intake while on dexamethasone as it tends to make your blood sugar go up, you will only be on this for about an additional week so dietary restriction may be all you need to help control your blood sugar in addition to your home medications are usually used to control your blood sugar Congratulations on trying to stop smoking continue to give it a good effort if you can only help you in the future Pending Studies at Discharge: No Stand-Alone Forms: My [facility], Smoking Cessation Medications and DC Order Prescriptions: New dexamethasone [Decadron] 6 mg tablet 6 mg PO DAILY Qty: 8 RF: 0 Continued metformin 500 mg tablet extended release 24 hr 1,000 mg PO BID Qty: 360 RF: 3 duloxetine 60 mg capsule,delayed release(DR/EC) 60 mg PO DAILY Qty: 90 RF: 3 atorvastatin 40 mg tablet 40 mg PO DAILY Qty: 90 RF: 3 esomeprazole magnesium 40 mg capsule,delayed release(DR/EC) 40 mg PO BID PRN (Reason: Heartburn) Qty: 180 RF: 3 albuterol sulfate [ProAir HFA] 90 mcg/actuation HFA aerosol inhaler 1 inh INH QID PRN (Reason: shortness of breath or wheezing) Qty: 18 RF: 11 Anoro Ellipta 62.5-25 mcg/actuation blister with device 1 inh inhalation DAILY Qty: 3 RF: 3 losartan 100 mg tablet 100 mg PO QAM Qty: 90 RF: 3 nicotine 21 mg/24 hr patch 24 hour 1 patch transdermal DAILY Qty: 28 RF: 1 ferrous sulfate 325 mg (65 mg iron) tablet 325 mg PO Q OTHER DAY Qty: 30 RF: 6 (DME) Accu-Chek Carmen Plus test strp Strip See Rx Instructions .Route Qty: 100 RF: 3 (DME) CPAP Supplies Misc See Rx Instructions .Route Qty: 1 RF: 0 cholecalciferol (vitamin D3) 50 mcg (2,000 unit) tablet 2,000 units PO Q2D RF: 0 ipratropium-albuterol 0.5 mg-3 mg(2.5 mg base)/3 mL solution for nebulization 3 ml INH Q4 PRN (Reason: Shortness Of Breath) Qty: 180 RF: 3 metoprolol succinate 25 mg tablet extended release 24 hr 25 mg PO DAILY Qty: 90 RF: 3 potassium chloride 10 mEq tablet extended release 10 meq PO DAILY Qty: 90 RF: 3 aspirin 81 mg Tablet,Delayed Release (Dr/Ec) 81 mg PO QAM RF: 0 Probiotic Colon Care 1.5 billion cell Capsule 1 cap PO QAM RF: 0 ascorbic acid (vitamin C) [Vitamin C] 500 mg tablet 500 mg PO Q2D RF: 0 Ozempic 0.25 mg or 0.5 mg(2 mg/1.5 mL) pen injector 0.5 mg subcut WK RF: 0 Discontinued molnupiravir 200 mg capsule 800 mg PO Q12H 5 Days Qty: 40 RF: 0 Discharge Orders: Discharge Order (Routine); Ordered 07/19/21 Ordered By: Isaac Cary Admission Data Admit Date/Time: 07/17/21 18:30 Attending Provider: Isaac Cary Admit Provider: Elena Skinner Primary Care Provider: Alta Valencia Other Interventions: Discharge Summary Assessment (RN) Last Done: 07/19/21 13:54 Coding Level of Care Code D/C DAY MANAGEMENT >30 MINS Diagnoses Pneumonia due to COVID-19 virus U07.1; J12.82 Hypoxia R09.02 Hyponatremia E87.1 Nausea vomiting and diarrhea R11.2; R19.7 Back pain M54.9 Hypokalemia E87.6 COPD, moderate J44.9 HTN (hypertension) I10 Hypercholesteremia E78.00 Obstructive sleep apnea of adult G47.33 Iron deficiency anemia D50.9 Smoking F17.200 Type 2 diabetes mellitus E11.9 Vitamin D deficiency E55.9 Anxiety and depression F41.9; F32.9
== END 2021-07-19 14:47 | disposition home or self-care (01) | DRG 177 ==
LOC: ED 15:49 → 2E 18:30 → SUATTDRO 18:30 → 2E 19:10

== ENCOUNTER 2022-10-09 11:24 | Inpatient (IN) ==
--- NOTE | 2022-10-09 12:35 | Emergency Department Note ---
Impression & Plan Acute hypoxemic respiratory failure, Acute exacerbation of chronic obstructive pulmonary disease, Encounter for smoking cessation counseling, Hypomagnesemia ED Provider Note NAME: GUEVARA HARRINGTON AGE: 76 SEX: F : 1945 ARRIVES VIA: Walk-In INFORMANT: Patient, ED PROVIDER(S): David Ruiz MD CHIEF COMPLAINT: Shortness of breath, weakness MEDICAL DECISION MAKING: Patient presents due to concern for shortness of breath and associated weakness. IV was established blood work was obtained. The patient was ordered magnesium, methylprednisolone, IV fluids, and DuoNeb treatments. The patient's Blood work shows a normal white count H&H and platelet count. Kidney function is unremarkable. Mild hypokalemia 3.4 but the patient's magnesium virtually undetectable. Patient was ordered additional 2 g of magnesium per pharmacy. LFTs unremarkable. Patient's bio fire is positive for parainfluenza 3. I did reassess the patient and stated that given the patient's significant hypomagnesemia believe the patient should be admitted the patient also had associated hypoxia on 2 L nasal cannula. Patient was ordered addit ional DuoNeb treatments. I did speak the on-call hospital service William Frost PA-C and the patient was admitted by Dr. Fan I counseled patient on smoking cessation for 3 minutes. Treatment options discussed and resources provided. Patient was receptive. Prior /Outside records reviewed: I did review a diabetes visit from Myah chan from October 07 patient does have a known history of type 2 diabetes hypertension hypercholesterolemia. Differential diagnosis: Reactive airway disease, pneumonia, pneumothorax, COPD, CHF, infections, cardiac ischemia, pulmonary embolism, musculoskeletal, gastrointestinal, as well as other pathologies. Diagnostics, as interpreted by me: ECG: Sinus, rate of 86, normal intervals normal axis no ST elevations. T wave version in V2. Cardiac monitoring: An order was placed for continuous cardiac monitoring. The monitor shows a rate of 82 with sinus rhythm. Patient was placed on pulse oximetry Medical decision rules: none Imaging studies: See below I reviewed the patient's chest x-ray which shows no obvious pneumothorax. HPI: Patient presents due to concern for shortness of breath. The patient does complain of exertional dyspnea and associated weakness ongoing the last 2 days. The patient does still smoke. The patient does not use any oxygen at home. The patient has had productive cough states is relatively scant and slightly disc olored yellow. Patient denies any falls or trauma. Patient does have BAL but no orthopnea. Patient denies any leg swelling or calf pain. No history of DVT or PE. Patient did use her inhalers did have some mild improvement in symptoms but seem to be getting worse. The patient also relates that she was recently on steroids for history of sciatica and had completed this course about a day befor e she was feeling unwell. No recent falls or trauma. No nausea vomiting or diarrhea. PAST MEDICAL HISTORY: See Below PAST SURGICAL HISTORY: See Below SOCIAL HISTORY: See Below HOME MEDICATIONS: See Below ALLERGIES: See Below VITALS: See Below PHYSICAL EXAMINATION: GENERAL: NAD, wearing a mask, non-toxic. EYE EXAM: Normal conjunctiva. PERRL, no anisocoria and EOM's grossly intact w/o pain. NECK: Supple, no nuchal rigidity, no adenopathy, non-tender. No signs of meningismus. FROM of the neck with good chin to chest and neck extension. No stridor. LUNGS: Bibasilar crackles with associated scant expiratory wheezes. Normal chest wall mechanics. HEART: NSR, no MRG. ABDOMEN: Abdomen soft, non-tender, no masses, no rebound or guarding. BACK: No CVA TTP. SKIN: No rashes and no bruising. UPPER EXTREMITIES: Upper extremities are grossly normal. LOWER EXTREMITIES: Grossly normal, no edema. Negative Homans' sign bilaterally. NEURO EXAM: A&O x3, cranial nerves II-XII grossly intact, normal speech, moves all 4 extremities. Past Med/Surg History Medical History Anemia Atherosclerosis of aorta Atherosclerosis of arteries of extremities COPD (chronic obstructive pulmonary disease) PFTs 2019 with FEV1 70% Depression Diabetes mellitus, type 2 Diverticulitis of colon GERD (gastroesophageal reflux disease) Hiatal hernia History of anesthesia reaction difficulty waking History of bronchitis last winter 2018 History of colon polyps Hyperlipidemia Hypertension Multiple pulmonary nodules Obstructive sleep apnea of adult cpap Osteoarthritis Pneumonia due to COVID-19 virus Admitted [facility] 06/2021. No chronic symptoms or radiographic sequela Pulmonary emphysema Restless legs Sensorineural hearing loss (SNHL) of both ears Urinary incontinence Surgical History History of bilateral tubal ligation History of carpal tunnel release of both wrists History of section x2 History of colonoscopy 07/26/2016, sigmoid tics and tubular adenoma, recheck rec 1 year due to fair prep History of dilatation and curettage History of esophagogastroduodenoscopy (EGD) History of open reduction and internal fixation (ORIF) procedure left wrist--hardware removed History of phacoemulsification of cataract of both eyes with intraocular lens implantation History of tooth extraction all upper teeth removed History of vocal cord polypectomy x2 Family History Mother Family hx of colon cancer Family history of diabetes mellitus Hyperlipemia Hypertension Diabetes Colorectal cancer Family history of CABG Myocardial infarction Brother Family hx of colon cancer 2 Liver cancer Colorectal cancer Father No problems noted. Other Breast cancer Lung cancer No family history of adverse response to anesthesia Prostate cancer Denies family history of Ovarian cancer Social History Smoking Status: Current every day smoker Tobacco Type: Cigarettes Age Started Using Tobacco: 17; packs per day: 0.5; Cigarettes Per Day: "a couple a day"; Second Hand Exposure: Yes; Do You Dip or Chew Tobacco: No; Tobacco Cessation Education Requested by Patient: No Hx Alcohol Use: No Hx Substance Use: No Preferred Language: Macedonian Communication Ability: Effective Visual Impairment: No Limitations Hearing Ability: Normal Ent Consultant Required: No Beliefs That Will Affect Care: Buddhism Buddhism Beliefs: Christian marital status: Current Living Situation: Alone Current Living Situation Comment: Son lives with patient but he travels a lot for work there 1 week a month current occupational status: retired current occupation: retired from career with [employer], assisted living How many Children do You have: 3 Feels Safe at Home: Yes Safety Concerns: Feels Safe At This Time Childhood Exposure to Second-Hand Smoke: Yes Diet: regular Dental Care, Regularly: No Physical Activity Frequency: Does not Exercise Seatbelt Use: always Sunscreen Use: No Assistive Devices: CPAP, Denture - Upper and Glasses Allergies Allergies Allergy/AdvReac Type Severity Reaction Status Date / Time No Known Allergies Allergy Verified 10/09/22 15:17 Home Meds Home Medications Medication Instructions Recorded Confirmed Lactobacills gasseri-Bifidobac 1 cap PO QAM 12/11/18 10/09/22 bifidum,longum 1.5 billion cell capsule (Probiotic Colon Care) aspirin 81 mg tablet,delayed 81 mg PO QAM 12/11/18 10/09/22 release ascorbic acid (vitamin C) 500 mg 500 mg PO Q2D 07/29/19 10/09/22 tablet (Vitamin C) cholecalciferol (vitamin D3) 50 2,000 units PO Q2D 07/29/19 10/09/22 mcg (2,000 unit) tablet nicotine 21 mg/24 hr daily 1 patch transdermal DAILY PRN 04/27/22 10/09/22 transdermal patch Smoking Cessation Previous Rx's Medication Instructions Recorded ipratropium 0.5 mg-albuterol 3 mg 3 ml inhalation Q4 PRN Shortness 04/02/20 (2.5 mg base)/3 mL nebulization Of Breath #180 mL soln albuterol sulfate 90 mcg/actuation 1 inh inhalation QID PRN shortness 09/28/20 aerosol inhaler (ProAir HFA) of breath or wheezing #18 grams ferrous sulfate 325 mg (65 mg 325 mg PO Q OTHER DAY #30 tabs 03/16/21 iron) tablet CPAP Supplies #1 ea 04/11/21 umeclidinium 62.5 mcg-vilanterol 1 inh inhalation DAILY #3 Inhalers 10/12/21 25 mcg/actuation powdr for inhalation (Anoro Ellipta) esomeprazole magnesium 40 mg 40 mg PO BID PRN Heartburn #180 10/28/21 capsule,delayed release caps losartan 100 mg tablet 100 mg PO QAM #90 tabs 12/20/21 metformin 500 mg tablet,extended 1,000 mg PO BID #360 tabs 02/19/22 release 24 hr semaglutide 1 mg/dose (4 mg/3 mL) 1 mg (0.75 mL) subcut WK #3 mL 06/29/22 subcutaneous pen injector ezetimibe 10 mg tablet 10 mg PO DAILY #30 tabs 07/26/22 metoprolol succinate 25 mg 25 mg PO DAILY #90 tabs 08/01/22 tablet,extended release 24 hr atorvastatin 40 mg tablet 40 mg PO DAILY #90 tabs 08/11/22 Accu-Chek Guide Glucose Meter #1 ea 08/24/22 (blood-glucose meter) Accu-Chek Guide test strips (blood #100 ea 08/24/22 sugar diagnostic) gabapentin 300 mg capsule 300 mg PO TID PRN back and leg 09/28/22 pain #90 caps tizanidine 2 mg tablet 2 mg PO HS PRN muscle spasticity 09/28/22 #30 tabs Results & Data (ED) Vital Signs Vital Signs - 24 hr 10/09/22 11:58 10/09/22 13:00 10/09/22 13:50 Temperature 37.3 C Temperature Source Temporal Artery Scan Pulse Rate 96 H 92 H Pulse Rate from SpO2 Sensor Respiratory Rate 18 Respiratory Effort / Characteristics Non-Labored Spontaneous Respiratory Depth Normal Respiratory Pattern Regular Blood Pressure 144/86 H Blood Pressure Mean 105 Blood Pressure Position Sitting Pulse Oximetry 92 88 L Oxygen Delivery Method Room Air Room Air Oxygen Flow Rate 0 Sepsis Recent Fever Within 48 Hours No Sepsis New/Unexplained Change in Mental Status N/A Sepsis Action Taken by Nursing No Action Required Oxygen Flow Rate - Titration Pulse Oximetry Post Tiitration 10/09/22 13:50 10/09/22 12:58 10/09/22 13:00 Temperature Temperature Source Pulse Rate 92 H 94 H Pulse Rate from SpO2 Sensor 94 H 94 H Respiratory Rate 20 19 Respiratory Effort / Characteristics Respiratory Depth Respiratory Pattern Blood Pressure Blood Pressure Mean Blood Pressure Position Pulse Oximetry 88 L 95 95 Oxygen Delivery Method Room Air Oxygen Flow Rate 0 Sepsis Recent Fever Within 48 Hours Sepsis New/Unexplained Change in Mental Status Sepsis Action Taken by Nursing Oxygen Flow Rate - Titration 2 Pulse Oximetry Post Tiitration 94 10/09/22 13:28 10/09/22 13:28 10/09/22 13:30 Temperature Temperature Source Pulse Rate 92 H Pulse Rate from SpO2 Sensor 92 H Respiratory Rate 19 Respiratory Effort / Characteristics Respiratory Depth Respiratory Pattern Blood Pressure 140/77 147/98 H Blood Pressure Mean 98 114 Blood Pressure Position Pulse Oximetry 95 Oxygen Delivery Method Oxygen Flow Rate Sepsis Recent Fever Within 48 Hours Sepsis New/Unexplained Change in Mental Status Sepsis Action Taken by Nursing Oxygen Flow Rate - Titration Pulse Oximetry Post Tiitration 10/09/22 13:30 10/09/22 14:00 10/09/22 14:00 Temperature Temperature Source Pulse Rate 94 H 94 H Pulse Rate from SpO2 Sensor 94 H 94 H Respiratory Rate 23 24 Respiratory Effort / Characteristics Respiratory Depth Respiratory Pattern Blood Pressure 150/88 H Blood Pressure Mean 108 Blood Pressure Position Pulse Oximetry 96 94 Oxygen Delivery Method Nasal Cannula Oxygen Flow Rate Sepsis Recent Fever Within 48 Hours Sepsis New/Unexplained Change in Mental Status Sepsis Action Taken by Nursing Oxygen Flow Rate - Titration Pulse Oximetry Post Tiitration 10/09/22 14:30 10/09/22 14:30 10/09/22 15:00 Temperature Temperature Source Pulse Rate 99 H Pulse Rate from SpO2 Sensor 99 H Respiratory Rate 22 Respiratory Effort / Characteristics Respiratory Depth Respiratory Pattern Blood Pressure 155/113 H 146/68 H Blood Pressure Mean 127 94 Blood Pressure Position Pulse Oximetry 92 Oxygen Delivery Method Nasal Cannula Oxygen Flow Rate 2 Sepsis Recent Fever Within 48 Hours Sepsis New/Unexplained Change in Mental Status Sepsis Action Taken by Nursing Oxygen Flow Rate - Titration Pulse Oximetry Post Tiitration 10/09/22 15:00 Temperature Temperature Source Pulse Rate 97 H Pulse Rate from SpO2 Sensor 97 H Respiratory Rate 22 Respiratory Effort / Characteristics Respiratory Depth Respiratory Pattern Blood Pressure Blood Pressure Mean Blood Pressure Position Pulse Oximetry 97 Oxygen Delivery Method Oxygen Flow Rate Sepsis Recent Fever Within 48 Hours Sepsis New/Unexplained Change in Mental Status Sepsis Action Taken by Nursing Oxygen Flow Rate - Titration Pulse Oximetry Post Tiitration Home Medications Current Medication List: was personally reviewed by me Laboratory Data Attestation: I reviewed the patient's lab results. 10/09/22 12:19 10/09/22 12:19 Lab Results 10/09/22 10/09/22 10/09/22 Range/Units 12:14 12:19 12:19 WBC 7.34 (4.8-10.8) K/ul RBC 4.56 (4.20-5.40) M/uL Hgb 13.9 (12.0-16.0) g/dl Hct 41.6 (37.0-47.0) % MCV 91.2 (80.0-100.0) fL MCH 30.5 (25.0-34.0) pg MCHC 33.4 (32.0-36.0) g/dL RDW Std Deviation 43.9 (36.4-46.3) fL RDW Coeff of Robert 13.1 (11.5-14.5) % Plt Count 219 (130-400) K/uL MPV 9.7 (9.4-12.4) fL Immature Gran % (Auto) 0.3 % Neut % (Auto) 64.0 % Lymph % (Auto) 24.9 % [place] % (Auto) 7.8 % Eos % (Auto) 2.6 % Baso % (Auto) 0.4 % Neut # (Auto) 4.70 (1.40-6.50) K/uL Lymph # (Auto) 1.83 (1.2-3.4) K/uL [place] # (Auto) 0.57 (0.11-0.59) K/uL Eos # (Auto) 0.19 (0-0.50) K/uL Baso # (Auto) 0.03 (0-0.2) K/uL Immature Gran # (Auto) 0.02 (0.01-0.20) K/uL Sodium 136 (136-145) mmol/L Potassium 3.4 L (3.5-5.1) mmol/L Chloride 99 (98-107) mmol/L Carbon Dioxide 31 (21-32) mmol/L Anion Gap 6 (3-11) BUN 12 (6-23) mg/dl Creatinine 0.56 L (0.6-1.2) mg/dl Est Cr Clr Drug Dosing 82.6 ml/min Est GFR ( Amer) 106.5 ml/min Est GFR (Non-Af Amer) 91.9 ml/min BUN/Creatinine Ratio 21.4 H (10-20) Glucose 88 (70-99(Fasting)) mg/dl Calcium 8.6 (8.6-10.3) mg/dl Magnesium < 0.5 L* (1.7-2.4) mg/dl Total Bilirubin 0.3 (0.2-1.0) mg/dl AST 18 (13-39) U/L ALT 8 (7-52) U/L Alkaline Phosphatase 73 (34-104) U/L Total Protein 6.7 (6.0-8.3) gm/dl Albumin 3.9 (3.4-5.0) gm/dl Globulin 2.8 (2.5-4.0) gm/dl Albumin/Globulin Ratio 1.4 (0.9-2) Adenovirus (PCR) Not Detected (NotDetected) B. pertussis DNA (PCR) Not Detected (NotDetected) B.parapertussis DNA PCR Not Detected (NotDetected) C. pneumoniae DNA (PCR) Not Detected (NotDetected) Coronavirus OC43 (PCR) Not Detected (NotDetected) Coronavirus HKU1 (PCR) Not Detected (NotDetected) Coronavirus 229E (PCR) Not Detected (NotDetected) SARS-CoV-2 (PCR) Not Detected (NotDetected) Coronavirus NL63 (PCR) Not Detected (NotDetected) Human Metapneumovir PCR Not Detected (NotDetected) Influenza Type A (PCR) Not Detected (NotDetected) Influenza Type B (PCR) Not Detected (NotDetected) M. pneumoniae (PCR) Not Detected (NotDetected) Parainfluenza 1 (PCR) Not Detected (NotDetected) Parainfluenza 2 (PCR) Not Detected (NotDetected) Parainfluenza 3 (PCR) DETECTED A* (NotDetected) Parainfluenza 4 (PCR) Not Detected (NotDetected) RSV (PCR) Not Detected (NotDetected) Entero/Rhino (PCR) Not Detected (NotDetected) Administered Medications Guaifenesin (Guaifenesin Sugar Free 200 Mg/10 Ml Udc) 200 mg PO Q6H TOÑO Stop: 11/08/22 16:59 Last Admin: 10/09/22 18:27 Dose: 200 mg Documented By: OMAR Magnesium Sulfate/Dextrose (Magnesium Sulfate / D5w) 1 gm in 100 mls @ 50 mls/h r IV Q2H TOÑO Stop: 10/09/22 23:59 Last Admin: 10/09/22 18:31 Dose: 50 mls/hr Documented By: OMAR Insulin Aspart (Insulin Aspart Per Unit Charge) 0 units SC ACHS TOÑO Stop: 11/08/22 16:29 Last Admin: 10/09/22 17:08 Dose: 7 units Documented By: MARYJO Co-signed By: Discontinued Medications Albuterol (Albut/Ipratrop 3mg/0.5mg Neb 3 Ml Vial) 6 ml INH NOW STA Stop: 10/09/22 13:02 Last Admin: 10/09/22 13:28 Dose: 6 ml Documented By: MARYJO Albuterol (Albut/Ipratrop 3mg/0.5mg Neb 3 Ml Vial) 6 ml NEB NOW STA; Protocol Stop: 10/09/22 14:33 Last Admin: 10/09/22 14:59 Dose: 6 ml Documented By: MARYJO Diphenhydramine HCl (Diphenhydramine 50 Mg/Ml Vial) 25 mg IV NOW STA Stop: 10/09/22 16:01 Last Admin: 10/09/22 16:31 Dose: 25 mg Documented By: MARLENE Sodium Chloride (Nss 1000ml) 1,000 mls @ 999 mls/hr IV .Q1H1M TOÑO Stop: 10/09/22 14:15 Last Infusion: 10/09/22 15:01 Dose: 0 mls/hr Documented By: Admin: 10/09/22 13:28 Dose: 999 mls/hr Documented By: MARYJO Magnesium Sulfate/Dextrose (Magnesium Sulfate / D5w) 1 gm in 100 mls @ 200 mls/hr IV NOW STA Stop: 10/09/22 13:34 Last Infusion: 10/09/22 15:02 Dose: 0 mls/hr Documented By: Admin: 10/09/22 13:28 Dose: 200 mls/hr Documented By: MARYJO Magnesium Sulfate/Dextrose (Magnesium Sulfate / D5w) 1 gm in 100 mls @ 200 mls/hr IV NOW STA Stop: 10/09/22 14:11 Last Infusion: 10/09/22 15:01 Dose: 0 mls/hr Documented By: Admin: 10/09/22 14:10 Dose: 200 mls/hr Documented By: MARYJO Magnesium Sulfate/Dextrose (Magnesium Sulfate / D5w) 1 gm in 100 mls @ 50 mls/hr IV Q1H TOÑO Stop: 10/09/22 16:44 Last Infusion: 10/09/22 16:33 Dose: 0 mls/hr Documented By: Admin: 10/09/22 15:48 Dose: 50 mls/hr Documented By: Infusion: 10/09/22 15:48 Dose: 50 mls/hr Documented By: Admin: 10/09/22 14:59 Dose: 50 mls/hr Documented By: MARYJO Azithromycin 500 mg/ Dextrose 255 mls @ 127.5 mls/hr IV NOW STA Stop: 10/09/22 17:42 Last Infusion: 10/09/22 18:31 Dose: 0 mls/hr Documented By: Admin: 10/09/22 16:31 Dose: 127.5 mls/hr Documented By: QGV Menthol (Cough Drop (Sugar Free) Jovanny 24 Jovanny/1 Box) 1 jovanny BUCCAL NOW STA Stop: 10/09/22 17:47 Last Admin: 10/09/22 18:27 Dose: 1 jovanny Documented By: OMAR Methylprednisolone (Methylprednisolone 125 Mg/2 Ml Vial) 125 mg IV NOW STA Stop: 10/09/22 13:02 Last Admin: 10/09/22 13:28 Dose: 125 mg Documented By: MARYJO Potassium Chloride (Potassium Chloride Crtab 20 Meq Tabcr) 40 meq PO NOW STA Stop: 10/09/22 13:06 Last Admin: 10/09/22 13:28 Dose: 40 meq Documented By: MARYJO Umeclidinium/Vilanterol (Umeclidinium/Vilanterol 62.5/25mcg 7 Puffs/Inhaler) 1 puffs INH DAILY TOÑO Stop: 11/08/22 16:14 Last Admin: 10/09/22 16:33 Dose: Not Given Documented By: QGV Imaging Data Radiologist's Impression: Chest X-Ray 10/09/22 12:12 SINGLE VIEW CHEST CLINICAL HISTORY: Dyspnea FINDINGS: An AP, portable, upright chest radiograph is compared to study dated 02/13/2022 and correlated with chest CT dated 06/30/2022. The heart is mildly enlarged noting atherosclerotic calcification of the thoracic aorta. The pulmonary vasculature is noncongested. A hiatal hernia is noted. Chronic interstitial thickening similar to previous. There is bibasilar scarring/atelectasis. No airspace consolidation or large pleural effusion is identified. No pneumothorax is seen. The skeletal structures are osteopenic. The bony thorax is grossly intact. IMPRESSION: No acute cardiopulmonary abnormality. ACT 112: Negative or not required by law. Electronically signed by: Ed Lobo M.D. 10/09/2022 12:47 PM Discharge Plan Visit Data Chief Complaint: Shortness of Breath/Dyspnea Stated Complaint: SOB; VOMITING; GENERAL WEAKNESS ED Provider: David Ruiz Discharge Problem: Acute hypoxemic respiratory failure, Acute exacerbation of chronic obstructive pulmonary disease, Encounter for smoking cessation counseling, Hypomagnesemia Patient Disposition: Admitted As Inpatient Discharge Instructions Interventions: ED Discharge Assessment Last Done: 10/09/22 17:32
[2022-10-09 12:41] LABS: Basophils # (auto) 0.03 K/uL (0-0.2); Basophils % (auto) 0.4 %; Eosinophils # (auto) 0.19 K/uL (0-0.50); Eosinophils % (auto) 2.6 %; Hematocrit (blood only) 41.6 % (37.0-47.0); Hemoglobin 13.9 g/dl (12.0-16.0); Immature Granulocytes # (auto) 0.02 K/uL (0.01-0.20); Immature Granulocytes % (auto) 0.3 %; Lymphocytes # (auto) 1.83 K/uL (1.2-3.4); Lymphocytes % (auto) 24.9 %; Mean Corpuscular Hemoglobin 30.5 pg (25.0-34.0); Mean Corpuscular Hgb Conc 33.4 g/dL (32.0-36.0); Mean Corpuscular Volume 91.2 fL (80.0-100.0); Mean Platelet Volume 9.7 fL (9.4-12.4); Monocytes # (auto) 0.57 K/uL (0.11-0.59); Monocytes % (auto) 7.8 %; Platelet Count 219 K/uL (130-400); RDW Coefficient of Variation 13.1 % (11.5-14.5); RDW Standard Deviation 43.9 fL (36.4-46.3); Red Blood Count 4.56 M/uL (4.20-5.40); White Blood Count 7.34 K/ul (4.8-10.8)
--- NOTE | 2022-10-09 12:48 | XRay Report ---
SINGLE VIEW CHEST CLINICAL HISTORY: Dyspnea FINDINGS: An AP, portable, upright chest radiograph is compared to study dated 02/13/2022 and correlat ed with chest CT dated 06/30/2022. The heart is mildly enlarged noting atherosclerotic calcification of the thoracic aorta. The pulmonary vasculature is noncongested. A hiatal hernia is noted. Chronic int erstitial thickening similar to previous. There is bibasilar scarring/atelectasis. No airspace consol idation or large pleural effusion is identified. No pneumothorax is seen. The skeletal structures are osteopenic. The bony thorax is grossly intact. IMPRESSION: No acute cardiopulmonary abnormality. ACT 112: Negative or not required by law. Electronically signed by: Ed Lobo M.D. 10/09/2022 12:47 PM
[2022-10-09 12:58] LABS: Alanine Aminotransferase 8 U/L (7-52); Albumin Globulin Ratio 1.4 (0.9-2); Albumin Level 3.9 gm/dl (3.4-5.0); Alkaline Phosphatase 73 U/L (34-104); Anion Gap 6 (3-11); Aspartate Aminotransferase 18 U/L (13-39); BUN Creatinine Ratio 21.4 (10-20); Bilirubin,Total 0.3 mg/dl (0.2-1.0); Blood Urea Nitrogen 12 mg/dl (6-23); Calcium 8.6 mg/dl (8.6-10.3); Carbon Dioxide 31 mmol/L (21-32); Chloride 99 mmol/L (98-107); Creatinine Clr Calc Pharmacy 82.6 ml/min; Est GFR (African American) 106.5 ml/min; Est GFR (Non-African American) 91.9 ml/min; Globulin 2.8 gm/dl (2.5-4.0); Glucose 88 mg/dl (70-99(Fasting)); Potassium 3.4 mmol/L (3.5-5.1); Sodium 136 mmol/L (136-145); Total Protein 6.7 gm/dl (6.0-8.3)
[2022-10-09] MEDS ORDERED: ALBUT/IPRATROP 3MG/0.5MG NEB 3 ML VIAL INH STA (13:01)
[2022-10-09] MEDS ORDERED: methylPREDNISolone 125 MG/2 ML VIAL IV STA (13:01)
[2022-10-09] MEDS ORDERED: POTASSIUM CHLORIDE CRTAB 20 MEQ TABCR PO STA (13:05)
[2022-10-09] MEDS ORDERED: MAGNESIUM SULFATE / D5W 1 GM/100 ML BAG IV STA ×2 (13:05→13:42)
[2022-10-09] MEDS ORDERED: SODIUM CHLORIDE 0.9% 1000ML 1,000 ML IV SCH (13:15)
[2022-10-09 13:40] LABS: Adenovirus PCR Not Detected (NotDetected); Bordetella parapertussis PCR Not Detected (NotDetected); Bordetella pertussis PCR Not Detected (NotDetected); Chlamydia pneumoniae PCR Not Detected (NotDetected); Coronavirus 229E PCR Not Detected (NotDetected); Coronavirus CoV-2 (COVID19)PCR Not Detected (NotDetected); Coronavirus HKU1 PCR Not Detected (NotDetected); Coronavirus NL63 PCR Not Detected (NotDetected); Coronavirus OC43PCR Not Detected (NotDetected); Human Metapneumovirus PCR Not Detected (NotDetected); Influenza A PCR Not Detected (NotDetected); Influenza B PCR Not Detected (NotDetected); Mycoplasma pneumoniae PCR Not Detected (NotDetected); Parainfluenza Virus 1 PCR Not Detected (NotDetected); Parainfluenza Virus 2 PCR Not Detected (NotDetected); Parainfluenza Virus 4 PCR Not Detected (NotDetected); Respiratory Syncytial VirusPCR Not Detected (NotDetected); Rhinovirus/Enterovirus PCR Not Detected (NotDetected)
[2022-10-09 13:44] LABS: Parainfluenza Virus 3 PCR DETECTED (NotDetected)
[2022-10-09 13:45] LABS: Magnesium < 0.5 mg/dl (1.7-2.4)
[2022-10-09] MEDS ORDERED: ALBUT/IPRATROP 3MG/0.5MG NEB 3 ML VIAL NEB STA (14:32)
[2022-10-09] MEDS: MAGNESIUM SULFATE / D5W 1 GM/100 ML BAG IV SCH ×5 (14:59→23:18)
[2022-10-09] MEDS ORDERED: AZITHROMYCIN 500 MG in DEXTROSE 5% 250 ML IV STA (15:43)
[2022-10-09] MEDS ORDERED: DEXTROSE 50% 50 ML SYRINGE IV PRN (15:46)
[2022-10-09] MEDS ORDERED: GLUCAGON FOR INJ 1 MG VIAL SQ PRN (15:46)
[2022-10-09] MEDS ORDERED: GLUCOSE 40% GEL 15 GM TUBE PO PRN (15:46)
[2022-10-09] MEDS ORDERED: GLUCOSE 10 TAB/TUBE PO PRN (15:46)
[2022-10-09] MEDS ORDERED: CARBOHYDRATES FOR HYPOGLYCEMIA PO PRN (15:46)
[2022-10-09] MEDS ORDERED: diphenhydrAMINE 50 MG/ML VIAL IV STA (16:00)
--- NOTE | 2022-10-09 16:04 | History & Physical Report ---
Date of Service October 09, 2022 Assessment & Plan (1) Acute respiratory failure with hypoxia: Plan: -Admit to med/tele on pulse oximetry -Currently stable on 4L NC, typically not on home O2 -Appears that she is having an acute COPD exacerbation due to her parainfluenza virus infection and continued tobacco abuse -S/P 125 mg IV solu-medrol in the ED, will continue with 60 mg IV daily tomorrow -Will start her on daily IV azithromycin for atypical coverage, QTc WNL -Scheduled DuoNebs, will start BID formoterol and budesonide nebs, incentive spirometry, flutter therapy -PRN Robitussin -Low suspicion for PE at this time as she is without chest pain, is not tach ycardic, and has other causes for her hypoxia for now, if she does not improve or continues to decline would obtain CTA chest with PE protocol -BL SCD's and SQ lovenox for DVT PPX -AM CBC, BMP, Mag, (2) COPD exacerbation: Plan: -See acute hypoxic repiratory failure (3) Parainfluenza infection: Plan: -See acute hypoxic respiratory failure (4) Hypomagnesemia: Plan: -Noted to be < 0.5 today -Unsure of the cause at this time, she is not on diuretics, does not have a good diet/appetite per the patient, likely due to poor oral intake -S/P 4 gm IV mag-sulfate in the ED, will continue with an additional 3 bags on transfer as she is likely very depleted -Continue to monitor on tele and monitor daily mag levels, will likely need continued aggressive repletion (5) Hypokalemia: Plan: -Noted to be 3.4 today, likely due to her severe hypomagnesemia -S/P 40 meq PO KCL in the ED, monitor am K level (6) Type 2 diabetes mellitus: Plan: -Hold metformin -Monitor BSG ACHS, goal is 100-140 -5 units lantus BID, CF of 50 and CR of 15, adjust regimen as needed (7) Hypercholesteremia: Plan: -Continue statin (8) Obstructive sleep apnea of adult: Plan: -HS CPAP ordered (9) Tobacco abuse: Plan: -Continue to stress smoking cessation -Patient not interested in nicotine patch at this time Plan The patient was discussed with Dr. Fna at the time of the admission History of Present Illness Chief Complaint: SOB Primary Care Provider: KAIT Grimm Angelique 76 year old female with a history of COPD, current tobacco abuse, CAMRYN on HS CPAP, anxiety, Type II diabetes, Hypertension, and hyperlipidemia who presented to the [facility] ED on 10/09/22 with 3 days of progressive SOB/dyspnea. In the ED the patient was found to be afebrile, hemodynamically stable, but hypoxic at 85% on RA. Labs were remarkable for a potassium of 3.4, mag of < 0.5, and parainfluenza virus positive. Chest xray was negative for acute findings. Prior to admission the patient was given2 duoneb treatments, 125 mg IV solu-medrol, a total of 4 gm IV mag-sulfate, 40 meq PO KCL, and 1L NSS bolus. At the time of the exam the patient was sitting in bed in no acute distress, currently saturating at 92% of 4L NC, she fell into the low 80's when I turned her to RA. She started to develop increased cough with increased sputum production and increased BAL approximately 3 days ago. She is still smoking approximately 1/2 PPD and does not have an interest in quitting at this time. She denies recent fever or chills, chest pain, abd pain, dysuria, hematuria, melena, LE Swelling, and recent trauma. She did take some amoxicillin she had previously as she thought she may be developing pneumonia, she experienced 2 episodes of nausea and vomiting after but denies aspiration. She fills a little better at this time, she did noticed improvement after the nebulizer treatments. We discussed code status, she is a full code and would want her brother to make medical decisions for her if she could not make them herself. Please refer to Dr. Fan's attestation for any changes to the treatment plan Allergies Allergy/AdvReac Type Severity Reaction Status Date / Time No Known Allergies Allergy Verified 10/09/22 15:17 Home Medications Medication Instructions Recorded Confirmed Type Lactobacills gasseri-Bifidobac 1 cap PO QAM 12/11/18 10/09/22 History bifidum,longum 1.5 billion cell capsule (Probiotic Colon Care) aspirin 81 mg tablet,delayed 81 mg PO QAM 12/11/18 10/09/22 History release ascorbic acid (vitamin C) 500 mg 500 mg PO Q2D 07/29/19 10/09/22 History tablet (Vitamin C) cholecalciferol (vitamin D3) 50 2,000 units PO Q2D 07/29/19 10/09/22 History mcg (2,000 unit) tablet ipratropium 0.5 mg-albuterol 3 mg 3 ml inhalation Q4 PRN Shortness 04/02/20 10/09/22 Rx (2.5 mg base)/3 mL nebulization Of Breath #180 mL soln albuterol sulfate 90 mcg/actuation 1 inh inhalation QID PRN shortness 09/28/20 10/09/22 Rx aerosol inhaler (ProAir HFA) of breath or wheezing #18 grams ferrous sulfate 325 mg (65 mg 325 mg PO Q OTHER DAY #30 tabs 03/16/21 10/09/22 Rx iron) tablet CPAP Supplies #1 ea 04/11/21 09/28/22 Rx umeclidinium 62.5 mcg-vilanterol 1 inh inhalation DAILY #3 Inhalers 10/12/21 10/09/22 Rx 25 mcg/actuation powdr for inhalation (Anoro Ellipta) esomeprazole magnesium 40 mg 40 mg PO BID PRN Heartburn #180 10/28/21 10/09/22 Rx capsule,delayed release caps losartan 100 mg tablet 100 mg PO QAM #90 tabs 12/20/21 10/09/22 Rx metformin 500 mg tablet,extended 1,000 mg PO BID #360 tabs 02/19/22 10/09/22 Rx release 24 hr nicotine 21 mg/24 hr daily 1 patch transdermal DAILY PRN 04/27/22 10/09/22 History transdermal patch Smoking Cessation semaglutide 1 mg/dose (4 mg/3 mL) 1 mg (0.75 mL) subcut WK #3 mL 06/29/22 10/09/22 Rx subcutaneous pen injector ezetimibe 10 mg tablet 10 mg PO DAILY #30 tabs 07/26/22 10/09/22 Rx metoprolol succinate 25 mg 25 mg PO DAILY #90 tabs 08/01/22 10/09/22 Rx tablet,extended release 24 hr atorvastatin 40 mg tablet 40 mg PO DAILY #90 tabs 08/11/22 10/09/22 Rx Accu-Chek Guide Glucose Meter #1 ea 08/24/22 09/28/22 Rx (blood-glucose meter) Accu-Chek Guide test strips (blood #100 ea 08/24/22 09/28/22 Rx sugar diagnostic) gabapentin 300 mg capsule 300 mg PO TID PRN back and leg 09/28/22 10/09/22 Rx pain #90 caps tizanidine 2 mg tablet 2 mg PO HS PRN muscle spasticity 09/28/22 10/09/22 Rx #30 tabs Past Med/Surg History Medical History Anemia Atherosclerosis of aorta Atherosclerosis of arteries of extremities COPD (chronic obstructive pulmonary disease) Depression Diabetes mellitus, type 2 Diverticulitis of colon GERD (gastroesophageal reflux disease) Hiatal hernia History of anesthesia reaction History of bronchitis History of colon polyps Hyperlipidemia Hypertension Multiple pulmonary nodules Obstructive sleep apnea of adult Osteoarthritis Pneumonia due to COVID-19 virus Pulmonary emphysema Restless legs Sensorineural hearing loss (SNHL) of both ears Urinary incontinence Surgical History History of bilateral tubal ligation History of carpal tunnel release of both wrists History of section History of colonoscopy History of dilatation and curettage History of esophagogastroduodenoscopy (EGD) History of open reduction and internal fixation (ORIF) procedure History of phacoemulsification of cataract of both eyes with intraocular lens implantation History of tooth extraction History of vocal cord polypectomy Family History Mother Family hx of colon cancer Family history of diabetes mellitus Hyperlipemia Hypertension Diabetes Colorectal cancer Family history of CABG Myocardial infarction Brother Family hx of colon cancer Liver cancer Colorectal cancer Father No problems noted. Other Breast cancer Lung cancer No family history of adverse response to anesthesia Prostate cancer Denies family history of Ovarian cancer Social History Smoking Status: Current every day smoker Tobacco Type: Cigarettes Age Started Using Tobacco: 17; packs per day: 0.5; Cigarettes Per Day: "a couple a day"; Second Hand Exposure: Yes (IN CHILDHOOD); Do You Dip or Chew Tobacco: No; Hx Alcohol Use: No Hx Substance Use: No Preferred Language: Nepali Communication Ability: Effective Visual Impairment: No Limitations Hearing Ability: Normal Trauma Nurse Required: No Beliefs That Will Affect Care: None marital status: Current Living Situation: Family Current Living Situation Comment: son lives with her current occupational status: retired current occupation: retired from career with [employer], assisted living How many Children do You have: 3 Feels Safe at Home: No Is there a partner from a previous relationship who is making you feel unsafe now?: No Childhood Exposure to Second-Hand Smoke: Yes Diet: regular Dental Care, Regularly: No Physical Activity Frequency: Does not Exercise Seatbelt Use: always Sunscreen Use: No Assistive Devices: CPAP and Nebulizer Physical Exam Physical Exam: Physical Exam: General: In no acute distress, stated age, chronically ill-appearing HEENT: Normocephalic, atraumatic, no scleral icterus, pupils around round, symmetrical, and reactive to light, NC currently in place, moist mucus membranes, trachea midline, no thyromegaly Chest/Pulm: No respiratory distress, symmetrical chest expansion, expiratory wheezing noted throughout Cardiac: RRR, no murmurs noted Abdomen: Negative for ascites and bruising, normoactive bowel sounds, soft, non-tender to palpation throughout Musculoskeletal: Symmetrical and without signs of acute trauma, upper and lower extremities with full ROM, no atrophy, spasticity, or flaccidity Extremities: Radial, dorsalis pedis, and posterior tibial pulses are intact and symmetrical, no edema noted in the BL LE's Skin: Warm, dry, no rashes , lesions, or scars noted Neuro: Alert and oriented to person, place, month, year, and president, no focal defects, no tremors noted Psych: No acute distress, calm and cooperative during the exam Results & Data Results & Data Vital Signs (Past 12 Hours) Vital Signs Temp Pulse Resp BP Pulse Ox O2 Del Method O2 Flow Rate 10/09/22 15:00 97 H 22 97 10/09/22 15:00 146/68 H 10/09/22 14:30 99 H 22 92 Nasal Cannula 2 10/09/22 14:30 155/113 H 10/09/22 14:00 94 H 24 94 Nasal Cannula 10/09/22 14:00 150/88 H 10/09/22 13:30 94 H 23 96 10/09/22 13:30 147/98 H 10/09/22 13:28 140/77 10/09/22 13:28 92 H 19 95 10/09/22 13:00 94 H 19 95 10/09/22 12:58 92 H 20 95 10/09/22 13:50 88 L Room Air 0 10/09/22 13:50 88 L Room Air 0 10/09/22 13:00 92 H 10/09/22 11:58 37.3 C 96 H 18 144/86 H 92 Room Air Laboratory Results Abnormal lab results 10/09/22 10/09/22 Range/Units 12:14 12:19 Potassium 3.4 L (3.5-5.1) mmol/L Creatinine 0.56 L (0.6-1.2) mg/dl BUN/Creatinine Ratio 21.4 H (10-20) Magnesium < 0.5 L* (1.7-2.4) mg/dl Parainfluenza 3 (PCR) DETECTED A* (NotDetected) Diagnostic Findings Chest X-Ray 10/09/22 12:12 SINGLE VIEW CHEST CLINICAL HISTORY: Dyspnea FINDINGS: An AP, portable, upright chest radiograph is compared to study dated 02/13/2022 and correlated with chest CT dated 06/30/2022. The heart is mildly enlarged noting atherosclerotic calcification of the thoracic aorta. The pulmonary vasculature is noncongested. A hiatal hernia is noted. Chronic interstitial thickening similar to previous. There is bibasilar scarring /atelectasis. No airspace consolidation or large pleural effusion is identified. No pneumothorax is seen. The skeletal structures are osteopenic. The bony thorax is grossly intact. IMPRESSION: No acute cardiopulmonary abnormality. ACT 112: Negative or not required by law. Electronically signed by: Ed Lobo M.D. 10/09/2022 12:47 PM ECG Additional Comments: Sinus rhythm with Premature atrial complexes Inferior infarct (cited on or before 17-JUL-2021) Anteroseptal infarct , age undetermined Abnormal ECG When compared with ECG of 17-JUL-2021 16:06, Premature ventricular complexes are no longer Present Anteroseptal infarct is now Present QT has shortened Code Status & VTE Plan Code Status FUll code VTE Prophylaxis Plan VTE Prophylaxis will be ordered: Yes PG Care Time/CCT Total # of Minutes Spent Total Time Spent with Patient: Total time spent is greater than 50% in coordination of care (as documented) at patient's floor/unit and/or counseling patient: C[place] [address] INT INP/OBS CARE MIN Patient Type Established History Comprehensive Exam Comprehensive Medical Decision Making High Complexity Diagnoses Acute respiratory failure with hypoxia J96.01 COPD exacerbation J44.1 Parainfluenza infection B34.8 Hypomagnesemia E83.42 Hypokalemia E87.6 Type 2 diabetes mellitus E11.9 Hypercholesteremia E78.00 Obstructive sleep apnea of adult G47.33 Tobacco abuse Z72.0
[2022-10-09] MEDS ORDERED: UMECLIDINIUM/VILANTEROL 62.5/25MCG 7 PUFFS/INHALER INH SCH (16:15)
[2022-10-09] MEDS ORDERED: guaiFENesin SUGAR FREE 200 MG/10 ML UDC PO SCH (17:00)
[2022-10-09] MEDS: INSULIN ASPART PER UNIT CHARGE SC SCH ×2 (17:08→22:15)
--- NOTE | 2022-10-09 17:08 | Electrocardiogram Report ---
Test Reason : Blood Pressure : / mmHG Vent. Rate : 086 BPM Atrial Rate : 086 BPM P-R Int : 176 ms QRS Dur : 072 ms QT Int : 358 ms P-R-T Axes : 114 005 102 degrees QTc Int : 428 ms Sinus rhythm with Premature atrial complexes possible Inferior infarct (cited on or before 17-JUL-2021) Abnormal ECG When compared with ECG of 17-JUL-2021 16:06, Premature ventricular complexes are no longer Present QT has shortened Confirmed by Saad Dong ([id number]) on 10/09/2022 5:08:38 PM Referred By: Confirmed By:Dangelo Dong
[2022-10-09] MEDS ORDERED: GABAPENTIN 300 MG CAP PO PRN (17:38)
[2022-10-09] MEDS ORDERED: ACETAMINOPHEN 325 MG TAB PO PRN (17:38)
[2022-10-09] MEDS ORDERED: tiZANidine HCL 4 MG TABLET PO PRN (17:38)
[2022-10-09] MEDS ORDERED: COUGH DROP (SUGAR FREE) LOZ 24 LOZ/1 BOX BUCCAL STA (17:46)
[2022-10-09 19:37] LABS: Appearance Urine Clear (Clear); Bacteria Urine Automated Negative (Negative); Bilirubin Urine Negative (Negative); Blood Urine Trace (Negative); Cast Urine Automated 0 /lpf (0-5); Color Urine Yellow; Epithelial Cell Urine Auto 0-5 /lpf (0-5); Glucose Urine UA 3+ (Negative); Ketones Urine Negative (Negative); Leukocyte Esterase Urine Negative (Negative); Nitrite Urine Negative (Negative); Protein Urine Negative (Negative); RBC Urine Automated 0-4 /hpf (0-4); Specific Gravity Urine 1.015 (1.000-1.030); Urobilinogen Urine Negative (Negative); WBC Urine Automated 0 /hpf (0-5)
[2022-10-09] MEDS: FORMOTEROL 20 MCG/2 ML VIAL NEB SCH (19:44)
[2022-10-09] MEDS: ALBUT/IPRATROP 3MG/0.5MG NEB 3 ML VIAL NEB SCH (19:46)
[2022-10-09] MEDS: BUDESONIDE 0.5 MG/2 ML VIAL (PULMICORT) NEB SCH (19:46)
[2022-10-09] MEDS: LANTUS PER UNIT CHARGE SQ SCH (22:12)
[2022-10-09] MEDS: ENOXAPARIN INJ 40 MG/0.4 ML SYR SQ SCH (22:16)
[2022-10-10] MEDS: PANTOprazole 40 MG TAB PO PRN ×2 (02:44→09:06)
[2022-10-10 06:36] LABS: Basophils # (auto) 0.02 K/uL (0-0.2); Basophils % (auto) 0.2 %; Hematocrit (blood only) 37.6 % (37.0-47.0); Hemoglobin 12.6 g/dl (12.0-16.0); Immature Granulocytes # (auto) 0.05 K/uL (0.01-0.20); Immature Granulocytes % (auto) 0.4 %; Lymphocytes # (auto) 0.91 K/uL (1.2-3.4); Mean Corpuscular Hemoglobin 30.9 pg (25.0-34.0); Mean Corpuscular Hgb Conc 33.5 g/dL (32.0-36.0); Mean Corpuscular Volume 92.2 fL (80.0-100.0); Mean Platelet Volume 10.2 fL (9.4-12.4); Monocytes # (auto) 0.59 K/uL (0.11-0.59); Monocytes % (auto) 5.2 %; Neutrophils # (auto) 9.83 K/uL (1.40-6.50); Neutrophils % (auto) 86.2 %; Platelet Count 210 K/uL (130-400); RDW Coefficient of Variation 13.2 % (11.5-14.5); RDW Standard Deviation 44.5 fL (36.4-46.3); Red Blood Count 4.08 M/uL (4.20-5.40)
[2022-10-10 06:59] LABS: BUN Creatinine Ratio 20.4 (10-20); Calcium 8.3 mg/dl (8.6-10.3); Creatinine Clr Calc Pharmacy 85.6 ml/min; Est GFR (African American) 107.7 ml/min; Magnesium 2.7 mg/dl (1.7-2.4); Potassium 3.9 mmol/L (3.5-5.1)
[2022-10-10] MEDS: FORMOTEROL 20 MCG/2 ML VIAL NEB SCH ×2 (06:59→19:27)
[2022-10-10] MEDS: BUDESONIDE 0.5 MG/2 ML VIAL (PULMICORT) NEB SCH ×2 (06:59→19:27)
[2022-10-10] MEDS: ALBUT/IPRATROP 3MG/0.5MG NEB 3 ML VIAL NEB SCH ×4 (06:59→19:27)
[2022-10-10] MEDS ORDERED: methylPREDNISolone 60 MG in SYRINGE 0 ML IV SCH ×2 (09:00)
[2022-10-10] MEDS ORDERED: FERROUS SULFATE 325 MG TAB PO SCH (09:00)
[2022-10-10] MEDS: LOSARTAN POTASSIUM 50 MG TAB PO SCH (09:07)
[2022-10-10] MEDS: METOPROLOL SUCC 25MG EXT REL TAB PO SCH (09:07)
[2022-10-10] MEDS: ASPIRIN 81 MG ECTAB PO SCH (09:08)
[2022-10-10] MEDS: guaiFENesin 600 MG TABCR PO SCH ×2 (09:08→21:08)
[2022-10-10] MEDS: EZETIMIBE 10 MG TABLET PO SCH (09:08)
[2022-10-10] MEDS: ATORVASTATIN 40 MG TAB PO SCH (09:09)
[2022-10-10] MEDS: UMECLIDINIUM/VILANTEROL 62.5/25MCG 7 PUFFS/INHALER INH SCH (09:09)
[2022-10-10] MEDS: INSULIN ASPART PER UNIT CHARGE SC SCH ×4 (09:10→21:08)
[2022-10-10] MEDS: LANTUS PER UNIT CHARGE SQ SCH ×2 (09:10→21:09)
[2022-10-10] MEDS: methylPREDNISolone 40 MG in SYRINGE 0 ML IV SCH ×2 (09:10→16:35)
--- NOTE | 2022-10-10 15:31 | Hospitalist Progress Note ---
Date of Service October 10, 2022 Assessment & Plan (1) Acute respiratory failure with hypoxia: Plan: Continue to treat suspected viral pneumonia and exacerbation of COPD. Oxygen per nasal cannula to maintain saturation greater than 90%. Wean oxygen off as tolerated. (2) COPD exacerbation: Plan: Parenteral steroid therapy. Nebulizers. (3) Parainfluenza infection: Plan: Continue parenteral steroid therapy (4) Hypomagnesemia: Plan: Corrected with parenteral replacement. Serial labs (5) Hypokalemia: Plan: Corrected with oral replacement. Serial labs (6) Type 2 diabetes mellitus: Plan: Diabetic diet. Basal Lantus therapy replaces her metformin while hospitalized. Sliding scale coverage as needed (7) Hypercholesteremia: Plan: Stable. Continue statin (8) Obstructive sleep apnea of adult: Plan: Stable. HS CPAP ordered (9) Tobacco abuse: Plan: Smoking cessation recommended. Patient not interested in nicotine patch at this time Plan Anticipate eventual discharge to home. Hopefully tomorrow, October 11 Admission and Anticipated Discharge Date Admission Date: October 09, 2022 Subjective Alert and oriented. No distress. She is feeling better overall. Hypomagnesemia and hypokalemia have been corrected. She remains on 4 L of oxygen. She does not require oxygen at home. Parenteral steroid dosage increased to more appropriate levels for suspected viral pneumonia. Glucose 133. Hopefully home tomorrow, October 11, if oxygen can be weaned off. Review of Systems Review of Systems: Constitutional-no fever or chills ENT-no blurred vision, no double vision, no epistaxis, no sore throat Respiratory-nonproductive cough. Wheezing. Shortness of breath. No hemoptysis Cardiac-no palpitations, no chest pain, no syncope GI-no nausea, vomiting, diarrhea, melena, hematochezia -no urinary retention, no urinary incontinence, no dysuria, no hematuria Musculoskeletal-no joint pain, no muscle tenderness Skin-no bruising, no rashes, no pruritus Neuro-no isolated weakness, no paresthesia, no weakness Psych-no depression, no anxiety Physical Exam Physical Exam: General-alert and oriented x3, no fevers, no chills HEENT-head atraumatic and normocephalic, pupils equal and reactive to light, extraocular muscles intact Neck-no lymphadenopathy or thyromegaly, trachea midline Chest-diminished breath sounds bilaterally. Scattered rhonchi. Bilateral end expiratory wheezes. Cardiac-regular rate and rhythm, normal S1 and S2 Abdomen-normal bowel sounds, nontender, no hepatosplenomegaly Extremities-no cyanosis, clubbing, or edema Neuro-cranial nerves II through XII intact, motor and sensory function within normal limits, strength symmetrical , no focal deficits Psych-normal affect, normal mood Results & Data Results & Data Vital Signs (Past 12 Hours) Vital Signs Temp Pulse Pulse Resp BP Pulse Ox O2 Del Method 10/10/22 15:11 37.0 C 84 20 145/80 H 93 Nasal Cannula 10/10/22 11:22 37.4 C 76 20 159/90 H 93 Nasal Cannula 10/10/22 07:00 79 10/10/22 11:13 95 H 18 96 Nasal Cannula 10/10/22 09:30 Nasal Cannula 10/10/22 08:09 36.8 C 79 20 155/87 H 94 Nasal Cannula 10/10/22 06:59 97 H 18 95 Oxymask 10/10/22 03:59 36.8 C 80 18 168/84 H 94 Oxymask O2 Flow Rate 10/10/22 15:11 4 10/10/22 11:22 4 10/10/22 07:00 10/10/22 11:13 4 10/10/22 09:30 4 10/10/22 08:09 4 10/10/22 06:59 4 10/10/22 03:59 4 Laboratory Results 10/10/22 05:39 10/10/22 05:39 PG Care Time/CCT Total # of Minutes Spent Total Time Spent with Patient: Total time spent is greater than 50% in coordination of care (as documented) at patient's floor/unit and/or counseling patient: Coding Level of Care Code 21658 SUB INP/OBS CARE 3/50MIN Diagnoses Acute respiratory failure with hypoxia J96.01 COPD exacerbation J44.1 Parainfluenza infection B34.8 Hypomagnesemia E83.42 Hypokalemia E87.6 Type 2 diabetes mellitus E11.9 Hypercholesteremia E78.00 Obstructive sleep apnea of adult G47.33 Tobacco abuse Z72.0
[2022-10-10] MEDS ORDERED: AZITHROMYCIN 500 MG in DEXTROSE 5% 250 ML IV SCH (16:00)
[2022-10-10] MEDS: ENOXAPARIN INJ 40 MG/0.4 ML SYR SQ SCH (16:59)
[2022-10-11] MEDS: methylPREDNISolone 40 MG in SYRINGE 0 ML IV SCH ×2 (01:26→08:57)
[2022-10-11] MEDS: BUDESONIDE 0.5 MG/2 ML VIAL (PULMICORT) NEB SCH (07:13)
[2022-10-11] MEDS: FORMOTEROL 20 MCG/2 ML VIAL NEB SCH (07:13)
[2022-10-11] MEDS: ALBUT/IPRATROP 3MG/0.5MG NEB 3 ML VIAL NEB SCH ×2 (07:13→10:52)
[2022-10-11] MEDS: INSULIN ASPART PER UNIT CHARGE SC SCH ×2 (08:05→11:47)
[2022-10-11] MEDS: LANTUS PER UNIT CHARGE SQ SCH (08:06)
[2022-10-11] MEDS: guaiFENesin 600 MG TABCR PO SCH (08:08)
[2022-10-11] MEDS: EZETIMIBE 10 MG TABLET PO SCH (08:08)
[2022-10-11] MEDS: LOSARTAN POTASSIUM 50 MG TAB PO SCH (08:09)
[2022-10-11] MEDS: ASPIRIN 81 MG ECTAB PO SCH (08:09)
[2022-10-11] MEDS: METOPROLOL SUCC 25MG EXT REL TAB PO SCH (08:09)
[2022-10-11] MEDS: UMECLIDINIUM/VILANTEROL 62.5/25MCG 7 PUFFS/INHALER INH SCH (08:10)
[2022-10-11] MEDS: ATORVASTATIN 40 MG TAB PO SCH (08:10)
[2022-10-11 08:54] LABS: Hemoglobin 13.4 g/dl (12.0-16.0); Mean Corpuscular Hemoglobin 30.3 pg (25.0-34.0); Mean Corpuscular Hgb Conc 32.7 g/dL (32.0-36.0); Mean Corpuscular Volume 92.8 fL (80.0-100.0); Mean Platelet Volume 10.2 fL (9.4-12.4); Platelet Count 239 K/uL (130-400); RDW Standard Deviation 44.1 fL (36.4-46.3); Red Blood Count 4.42 M/uL (4.20-5.40); White Blood Count 12.36 K/ul (4.8-10.8)
[2022-10-11 09:06] LABS: BUN Creatinine Ratio 28.6 (10-20); Creatinine Clr Calc Pharmacy 95.2 ml/min; Est GFR (African American) 111.2 ml/min; Magnesium 2.3 mg/dl (1.7-2.4); Potassium 3.8 mmol/L (3.5-5.1)
[2022-10-11 09:18] LABS: Basophils # (auto) 0.01 K/uL (0-0.2); Basophils % (auto) 0.1 %; Immature Granulocytes # (auto) 0.08 K/uL (0.01-0.20); Immature Granulocytes % (auto) 0.6 %; Lymphocytes # (auto) 0.82 K/uL (1.2-3.4); Lymphocytes % (auto) 6.6 %; Monocytes # (auto) 0.26 K/uL (0.11-0.59); Monocytes % (auto) 2.1 %; Neutrophils # (auto) 11.19 K/uL (1.40-6.50); Neutrophils % (auto) 90.6 %
--- NOTE | 2022-10-11 11:28 | Discharge Summary ---
Date of Service October 11, 2022 Admission HPI Per Admitting Provider Angelique 76 year old female with a history of COPD, current tobacco abuse, CAMRYN on HS CPAP, anxiety, Type II diabetes, Hypertension, and hyperlipidemia who presented to the [facility] ED on 10/09/22 with 3 days of progressive SOB/dyspnea. In the ED the patient was found to be afebrile, hemodynamically stable, but hypoxic at 85% on RA. Labs were remarkable for a potassium of 3.4, mag of < 0.5, and parainfluenza virus positive. Chest xray was negative for acute findings. Prior to admission the patient was given2 duoneb treatments, 125 mg IV solu-medrol, a total of 4 gm IV mag-sulfate, 40 meq PO KCL, and 1L NSS bolus. At the time of the exam the patient was sitting in bed in no acute distress, currently saturating at 92% of 4L NC, she fell into the low 80's when I turned her to RA. She started to develop increased cough with increased sputum production and increased BAL approximately 3 days ago. She is still smoking approximately 1/2 PPD and does not have an interest in quitting at this time. She denies recent fever or chills, chest pain, abd pain, dysuria, hematuria, melena, LE Swelling, and recent trauma. She did take some amoxicillin she had previously as she thought she may be developing pneumonia, she experienced 2 episodes of nausea and vomiting after but denies aspiration. She fills a little better at this time, she did noticed improvement after the nebulizer treatments. We discussed code status, she is a full code and would want her brother to make medical decisions for her if she could not make them herself. Please refer to Dr. Fan's attestation for any changes to the treatment plan Principal Diagnosis Parainfluenza viral syndrome, acute exacerbation COPD, transient acute hypoxic respiratory failure, hypomagnesemia, hypokalemia Discharge Exam General-alert and oriented x3, no fevers, no chills HEENT-head atraumatic and normocephalic, pupils equal and reactive to light, extraocular muscles intact Neck-no lymphadenopathy or thyromegaly, trachea midline Chest-diminished breath sounds bilaterally. Scattered rhonchi resolved. Bilateral end expiratory wheezes are nearly resolved. Cardiac-regular rate and rhythm, normal S1 and S2 Abdomen-normal bowel sounds, nontender, no hepatosplenomegaly Extremities-no cyanosis, clubbing, or edema Neuro-cranial nerves II through XII intact, motor and sensory function within normal limits, strength symmetrical , no focal deficits Psych-normal affect, normal mood Discharge Data Allergies Allergy/AdvReac Type Severity Reaction Status Date / Time No Known Allergies Allergy Verified 10/09/22 15:17 Consultations 10/09/22 14:33 ED Decision to Admit Stat Hospital Course (1) Acute respiratory failure with hypoxia: Treated for suspected viral pneumonia and exacerbation of COPD. Oxygen per nasal cannula has been weaned off. (2) COPD exacerbation: Much improved with parenteral steroid therapy. Will discharge on a prednisone taper. Continue inhalers at home. (3) Parainfluenza infection: Treated with parenteral steroid therapy while hospitalized (4) Hypomagnesemia: Corrected with parenteral replacement. Serial labs (5) Hypokalemia: Corrected with oral replacement. Serial labs (6) Type 2 diabetes mellitus: Diabetic diet. Basal Lantus therapy replaces her metformin while hospitalized. Resume her usual regimen at discharge. Sliding scale coverage as needed (7) Hypercholesteremia: Stable. Continue statin (8) Obstructive sleep apnea of adult: Stable. HS CPAP ordered (9) Tobacco abuse: Smoking cessation recommended. Patient not interested in nicotine patch at this time Plan Discharge to home today, October 11. Oxygen has been weaned off. Total Time Total Time Spent Total Time Spent (In Minutes): 40 minutes Discharge Plan Discharge Items Patient Disposition: Home - Self-Care Reason For Visit: SOB Discharge Diagnosis: Viral respiratory infection, acute exacerbation COPD, transient hypoxic respiratory failure, hypomagnesemia, hypokalemia Non-emergency contact: Primary Care Provider Call non-emergency contact if: you have any medication questions and your symptoms worsen Follow-up/Referrals: Alta Valencia CRNP [Primary Care Provider] - 10/19/22 3:00 pm Diet: Carb Consistent or DM2 Addtl Attending Provider Instructions: Take prednisone in a tapering dose fashion as directed. All other medications remain the same Pending Studies at Discharge: No Stand-Alone Forms: [email or web address], Smoking Cessation Medications and DC Order Prescriptions: New prednisone 10 mg tablet See Rx Instructions .ROUTE .COMPLEX Qty: 12 0RF Rx Instructions: 10 mg orally 3 times a day for 2 days, then 10 mg twice a day for 2 days, then 10 mg once a day for 2 days, then stop Continued albuterol sulfate [ProAir HFA] 90 mcg/actuation HFA aerosol inhaler 1 inh INH QID PRN (Reason: shortness of breath or wheezing) Qty: 18 11RF ferrous sulfate 325 mg (65 mg iron) tablet 325 mg PO Q OTHER DAY Qty: 30 6RF (DME) CPAP Supplies Misc See Rx Instructions .Route Qty: 1 0RF Rx Instructions: CPAP mask please try nasal [id number]: CAMRYN J47.33 Anoro Ellipta 62.5-25 mcg/actuation blister with device 1 inh inhalation DAILY Qty: 3 3RF esomeprazole magnesium 40 mg capsule,delayed release(DR/EC) 40 mg PO BID PRN (Reason: Heartburn) Qty: 180 3RF losartan 100 mg tablet 100 mg PO QAM Qty: 90 3RF metformin 500 mg tablet extended release 24 hr 1,000 mg PO BID Qty: 360 3RF semaglutide 1 mg/dose (4 mg/3 mL) pen injector 1 mg subcut WK Qty: 3 5RF Rx Instructions: TAKES ON THURSDAYS ezetimibe 10 mg tablet 10 mg PO DAILY Qty: 30 4RF metoprolol succinate 25 mg tablet extended release 24 hr 25 mg PO DAILY Qty: 90 3RF atorvastatin 40 mg tablet 40 mg PO DAILY Qty: 90 3RF nicotine 21 mg/24 hr patch 24 hour 1 patch transdermal DAILY PRN (Reason: Smoking Cessation) cholecalciferol (vitamin D3) 50 mcg (2,000 unit) tablet 2,000 units PO Q2D Rx Instructions: 2,000 units PO every other day; ipratropium-albuterol 0.5 mg-3 mg(2.5 mg base)/3 mL solution for nebulization 3 ml INH Q4 PRN (Reason: Shortness Of Breath) Qty: 180 3RF (DME) blood-glucose meter [Accu-Chek Guide Glucose Meter] [facility] [place] Rx Instructions .Route Qty: 1 0RF Rx Instructions: Use to test blood sugar once daily (DME) Accu-Chek Guide test strips Strip See Rx Instructions .Route Qty: 100 3RF Rx Instructions: Test blood sugar once daily gabapentin 300 mg capsule 300 mg PO TID PRN (Reason: back and leg pain) Qty: 90 0RF tizanidine 2 mg tablet 2 mg PO HS PRN (Reason: muscle spasticity) Qty: 30 0RF aspirin 81 mg Tablet,Delayed Release (Dr/Ec) 81 mg PO QAM Probiotic Colon Care 1.5 billion cell Capsule 1 cap PO QAM ascorbic acid (vitamin C) [Vitamin C] 500 mg tablet 500 mg PO Q2D Rx Instructions: 500 mg PO every other day; Discharge Orders: Discharge Order (Routine); Ordered 10/11/22 Ordered By: Kenroy Young Admission Data Admit Date/Time: 10/09/22 15:43 Attending Provider: Kenroy Young Admit Provider: Vtior Fan Primary Care Provider: Alta Valencia Other Providers: Vitor Fan Coding Level of Care Code 56407 INP/OBS DISCH >30 MIN Diagnoses Acute respiratory failure with hypoxia J96.01 COPD exacerbation J44.1 Parainfluenza infection B34.8 Hypomagnesemia E83.42 Hypokalemia E87.6 Type 2 diabetes mellitus E11.9 Hypercholesteremia E78.00 Obstructive sleep apnea of adult G47.33 Tobacco abuse Z72.0
== END 2022-10-11 12:21 | disposition home or self-care (01) | DRG 189 ==
LOC: ED 11:24 → SUATTDRO 15:43 → 2W 15:43

== ENCOUNTER 2023-09-14 23:00 | Observation (INO) ==
--- NOTE | 2023-09-15 00:51 | Emergency Department Note ---
Impression & Plan Chest pain, Dyspnea, S/P cardiac catheterization, COPD (chronic obstructive pulmonary disease) ED Provider Note ED Provider Note NAME: GUEVARA HARRINGTON AGE:77 SEX: Female : 1945 ARRIVES VIA: Private vehicle INFORMANT: Patient ED PROVIDER(s): Guevara Lange DO CHIEF COMPLAINT: Chest pain, shortness of breath HPI: This is a 77-year-old female who presents emergency department due to concern for chest pain and shortness of breath. Patient underwent cardiac catheterization earlier today with placement of 2 stents and states she was discharged around 3 PM this afternoon. Patient states she went home and had some mild nausea however was able to eat dinner and felt fine until she went to bed. She states that she tried to lay down to go to sleep and began noticing left-sided and central chest pain. She states it was sharp for a few minutes and then became more dull. She states she then felt shortness of breath. Patient states she does have history of COPD/emphysema. She denies any recurrent nausea, accompanying dizziness, radiation of the pain. She did not take anything at home. She was however concerned and came in for additional evaluation. Patient was started on additional new medication which she did take as prescribed. PAST MEDICAL HISTORY:See Below PAST SURGICAL HISTORY:See Below FAMILY HISTORY:See Below SOCIAL HISTORY:See Below HOME MEDICATIONS:See Below ALLERGIES:See Below VITALS:See Below PHYSICAL EXAMINATION: GENERAL: alert, well appearing, well nourished, no distress, non-toxic EYE EXAM: normal conjunctiva, PERRL and EOM's grossly intact OROPHARYNX: no exudate, no erythema, lips, buccal mucosa, and tongue normal and mucous membranes are moist NECK: supple, no nuchal rigidity, no adenopathy, non-tender LUNGS: Clear to auscultation. Normal chest wall mechanics, no w/r/r HEART: no murmurs, S1 normal and S2 normal ABDOMEN: abdomen soft, non-tender, normo-active bowel sounds, no masses, no rebound or guarding. BACK: Back is symmetrical on inspection and there is no deformity, no midline tenderness, no CVA tenderness. SKIN: no rashes, petechiae, orbruising UPPER EXTREMITIES: upper extremities are grossly normal. FROM, nml pulses b/l. LOWER EXTREMITIES: No pitting edema. FROM, nml pulses b/l. NEURO EXAM: Normal sensorium, cranial nerves II-XII grossly intact, normal speech, no facial droop,nogross weakness of arms, no gross weakness of legs. Gross sensation intact. No ataxia. Vital Signs: reviewed and remarkable Differential Diagnosis: acute coronary syndrome, pericarditis, pulmonary embolus, aortic dissection, pneumonia, pneumothorax, musculoskeletal pain, shingles, GERD, GI bleed, as well as others were considered MEDICAL DECISION MAKING: This is a 77-year-old female who presents emergency department with with concern for chest pain and shortness of breath that began tonight. Patient with cardiac catheterization earlier yesterday and placement of 2 stents. She was afebrile vital signs stable. Labs drawn and sent, IV established, EKG and chest x-ray performed at bedside interpreted me and patient monitor on telemetry. Patient was given IV Pepcid, IV Tylenol with some improvement. Patient felt her shortness of breath could also be due to her history of COPD. She was not hypoxic and had no increased work of breathing. She declined a nebulizer treatment. Patient's labs reassuring. She was sent for CT angiography to rule out additional pathology and this was also reassuring. Patient's chest pain did resolve here. She had no acutely concerning EKG changes. Due to concern for risk of CAD as well as risk of complication status post catheterization, case discussed with hospitalist team. They did wish for a troponin to be added, knowing that it would be elevated from the recent procedure but wanting to trend it. They also request that I speak with Dr. Dolan who performed her catheterization. I did speak with cardiology who will see her this morning. Consultation(s): 0416: Discussed with Dr. Dhaliwal, and any hospitalist team. Would like a troponin added. Also would like consultation with cardiology. 0528: Discussed with Dr. Dolan, cardiology. ER Treatment Provided: See below 0425: Updated patient at bedside. Chest pain and shortness of breath now improved after medications. We discussed CT results. Diagnostics Interpreted By Me: -ECG: NSR at 81 with 1st degree AV block,nml axis, nml QRS/QTc, no acute ST/T wave changes -Cardiac Monitoring: An order was placed for continuous cardiac monitoring. The monitor shows a rate of 78 with normal sinus rhythm. -Laboratory studies: As stated above and show below. -Imaging studies: X-ray Chest: A single view study of the chest was reviewed and was negative for cardiomegaly, focal infiltrate, effusion, pulmonary edema, or wide mediastinum. Triage Nursing Note Reviewed Prior/Outside Records Reviewed -cardiac catheterization from yesterday reviewed Past Med/Surg History Medical History Tobacco abuse > 50 pack year hx. Everyday smoker 10/2022 Obstructive sleep apnea of adult cpap COPD (chronic obstructive pulmonary disease) PFTs 2019 with FEV1 70% Pneumonia due to COVID-19 virus Admitted [facility] 06/2021. No chronic symptoms or radiographic sequela Atherosclerosis of aorta Atherosclerosis of arteries of extremities Diverticulitis of colon Restless legs Sensorineural hearing loss (SNHL) of both ears History of bronchitis last winter 2018 Multiple pulmonary nodules Pulmonary emphysema Type 2 diabetes mellitus Hypercholesteremia History of colon polyps History of anesthesia reaction difficulty waking Hiatal hernia Osteoarthritis Urinary incontinence GERD (gastroesophageal reflux disease) Diabetes mellitus, type 2 Anemia Depression Hypertension Hyperlipidemia Surgical History History of dilatation and curettage History of bilateral tubal ligation History of open reduction and internal fixation (ORIF) procedure left wrist--hardware removed History of vocal cord polypectomy x2 History of carpal tunnel release of both wrists History of section x2 History of colonoscopy 07/26/2016, sigmoid tics and tubular adenoma, recheck rec 1 year due to fair prep History of esophagogastroduodenoscopy (EGD) History of tooth extraction all upper teeth removed History of phacoemulsification of cataract of both eyes with intraocular lens implantation Family History Mother Family hx of colon cancer Family history of diabetes mellitus Hyperlipemia Hypertension Diabetes Colorectal cancer Family history of CABG Myocardial infarction Brother Family hx of colon cancer 2 Liver cancer Colorectal cancer Father No problems noted. Other Breast cancer Lung cancer No family history of adverse response to anesthesia Prostate cancer Denies family history of Ovarian cancer Social History Smoking Status: Current every day smoker Tobacco Type: Cigarettes Age Started Using Tobacco: 17; packs per day: 0.5; Second Hand Exposure: Yes; Do You Dip or Chew Tobacco: No; Hx Alcohol Use: No Hx Substance Use: No Preferred Language: Romanian Communication Ability: Effective Visual Impairment: No Limitations Hearing Ability: Normal Window Shade Ring Coverer Required: No Beliefs That Will Affect Care: None marital status: Current Living Situation: Alone Current Living Situation Comment: Son lives with patient but he travels a lot for work there 1 week a month current occupational status: retired current occupation: retired from career with [employer], assisted living How many Children do You have: 3 Feels Safe at Home: Yes Safety Concerns: Feels Safe At This Time Childhood Exposure to Second-Hand Smoke: Yes Diet: regular caffeine: Yes Dental Care, Regularly: No Physical Activity Frequency: 1-2 Times per Week Seatbelt Use: always Sunscreen Use: No Assistive Devices: CPAP and Nebulizer Allergies Allergies Allergy/AdvReac Type Severity Reaction Status Date / Time No Known Allergies Allergy Verified 09/15/23 01:04 Home Meds Home Medications Medication Instructions Recorded Confirmed Lactobacills gasseri-Bifidobac 1 cap PO QAM 12/11/18 09/15/23 bifidum,longum 1.5 billion cell capsule (Probiotic Colon Care) aspirin 81 mg tablet,delayed 81 mg PO QAM 12/11/18 09/15/23 release ascorbic acid (vitamin C) 500 mg 500 mg PO Q2D 07/29/19 09/15/23 tablet (Vitamin C) cholecalciferol (vitamin D3) 50 2,000 units PO Q2D 07/29/19 09/15/23 mcg (2,000 unit) tablet Previous Rx's Medication Instructions Recorded ipratropium 0.5 mg-albuterol 3 mg 3 ml inhalation Q4 PRN Shortness 04/02/20 (2.5 mg base)/3 mL nebulization Of Breath #180 mL soln ferrous sulfate 325 mg (65 mg 325 mg PO Q OTHER DAY #30 tabs 03/16/21 iron) tablet CPAP Supplies #1 ea 04/11/21 Accu-Chek Guide Glucose Meter #1 ea 08/24/22 (blood-glucose meter) albuterol sulfate 90 mcg/actuation 1 inh inhalation QID PRN shortness 11/02/22 aerosol inhaler (ProAir HFA) of breath or wheezing #18 grams esomeprazole magnesium 40 mg 40 mg PO BID PRN Heartburn #180 12/21/22 capsule,delayed release caps Accu-Chek Guide test strips (blood #100 ea 12/28/22 sugar diagnostic) losartan 100 mg tablet 100 mg PO QAM #90 tabs 02/14/23 dextromethorphan-guaifenesin ER 60 1 tab PO Q12H #60 tabs 07/04/23 mg-1,200 mg tab,extend release,12hr (Mucinex DM) nicotine 14 mg/24 hr daily 1 patch transdermal Q24H #28 ea 07/04/23 transdermal patch rosuvastatin 40 mg tablet 40 mg PO DAILY #30 tabs 07/09/23 ezetimibe 10 mg tablet 10 mg PO DAILY #30 tabs 07/20/23 metformin 500 mg tablet,extended 1,000 mg (2 x 500 mg) PO BID #360 07/20/23 release 24 hr tabs umeclidinium 62.5 mcg-vilanterol 1 inh inhalation DAILY #3 Inhalers 07/23/23 25 mcg/actuation powdr for inhalation (Anoro Ellipta) metoprolol succinate 25 mg 50 mg (2 x 25 mg) PO DAILY #90 tabs 08/31/23 tablet,extended release 24 hr semaglutide 1 mg/dose (4 mg/3 mL) 1 mg (0.75 mL) subcut WK #3 mL 09/09/23 subcutaneous pen injector ticagrelor 90 mg tablet (Brilinta) 90 mg PO BID #180 tabs 09/14/23 Results & Data (ED) Vital Signs Vital Signs - 24 hr 09/15/23 07:16 09/15/23 08:14 Pulse Rate [Apical] 63 70 Respiratory Rate 16 16 Blood Pressure [Right Arm] 185/100 H 148/91 H Blood Pressure Mean [Right Arm] 128 110 Pulse Oximetry 97 97 Oxygen Delivery Method Room Air Room Air Laboratory Data 09/15/23 10:24 09/15/23 10:24 Lab Results 09/15/23 Range/Units 01:15 WBC 8.45 (4.8-10.8) K/ul RBC 4.07 L (4.20-5.40) M/uL Hgb 12.2 (12.0-16.0) g/dl Hct 37.2 (37.0-47.0) % MCV 91.4 (80.0-100.0) fL MCH 30.0 (25.0-34.0) pg MCHC 32.8 (32.0-36.0) g/dL RDW Std Deviation 42.5 (36.4-46.3) fL RDW Coeff of Robert 12.9 (11.5-14.5) % Plt Count 202 (130-400) K/uL MPV 9.9 (9.4-12.4) fL Immature Gran % (Auto) 0.4 % Neut % (Auto) 69.3 % Lymph % (Auto) 19.3 % [place] % (Auto) 8.3 % Eos % (Auto) 2.2 % Baso % (Auto) 0.5 % Neut # (Auto) 5.86 (1.40-6.50) K/uL Lymph # (Auto) 1.63 (1.20-3.40) K/uL [place] # (Auto) 0.70 H (0.11-0.59) K/uL Eos # (Auto) 0.19 (0.00-0.50) K/uL Baso # (Auto) 0.04 (0.00-0.20) K/uL Immature Gran # (Auto) 0.03 (0.01-0.20) K/uL PT 10.6 (9.0-12.0) Seconds INR 1.0 (0.9-1.1) Sodium 138 (136-145) mmol/L Potassium 3.2 L (3.5-5.1) mmol/L Chloride 105 (98-107) mmol/L Carbon Dioxide 26 (21-32) mmol/L Anion Gap 7 (3-11) BUN 16 (6-23) mg/dl Creatinine 0.66 (0.6-1.2) mg/dl Est Cr Clr Drug Dosing 65.0 ml/min Est GFR ( Amer) 100.2 ml/min Est GFR (Non-Af Amer) 86.4 ml/min BUN/Creatinine Ratio 24.2 H (10-20) Glucose 107 H (70-99(Fasting)) mg/dl Calcium 9.3 (8.6-10.3) mg/dl Magnesium 2.0 (1.7-2.4) mg/dl Total Bilirubin 0.4 (0.2-1.0) mg/dl AST 26 (13-39) U/L ALT 7 (7-52) U/L Alkaline Phosphatase 56 (34-104) U/L Troponin I High Sens 3493.3 H* (0-14) pg/ml Total Protein 6.3 (6.0-8.3) gm/dl Albumin 3.8 (3.4-5.0) gm/dl Globulin 2.5 (2.5-4.0) gm/dl Albumin/Globulin Ratio 1.5 (0.9-2) Lipase 29 (11-82) U/L TSH 2.250 (0.300-4.500) uIu/ml Administered Medications Ascorbic Acid (Ascorbic Acid 500 Mg Tab) 500 mg PO Q2D@0900 [facility] Stop: 10/15/23 09:46 Last Admin: 09/15/23 11:03 Dose: 500 mg Documented By: COURTNEY Aspirin (Aspirin 81 Mg Ectab) [facility] Stop: 10/15/23 09:46 Last Admin: 09/15/23 11:05 Dose: 81 mg Documented By: COURTNEY Ezetimibe (Ezetimibe 10 Mg Tab) 10 mg PO DAILY [facility] Stop: 10/15/23 09:46 Last Admin: 09/15/23 11:03 Dose: 10 mg Documented By: COURTNEY Losartan Potassium (Losartan Potassium 50 Mg Tab) 100 mg PO QAM [facility] Stop: 10/15/23 09:46 Last Admin: 09/15/23 11:04 Dose: 100 mg Documented By: COURTNEY Metoprolol Succinate (Metoprolol Succ 50mg Ext Rel Tab) 50 mg PO DAILY [facility] Stop: 10/15/23 09:46 Last Admin: 09/15/23 11:02 Dose: 50 mg Documented By: COURTNEY Nicotine (Nicotine 14 Mg/24 Hr Patch) 1 patch TD Q24H [facility] Stop: 10/15/23 10:14 Last Admin: 09/15/23 11:05 Dose: 1 patch Documented By: COURTNEY Rosuvastatin Calcium (Rosuvastatin Calcium 20 Mg Tab) 40 mg PO DAILY [facility] Stop: 10/15/23 09:46 Last Admin: 09/15/23 11:04 Dose: 40 mg Documented By: COURTNEY Umeclidinium/Vilanterol (Umeclidinium/Vilanterol 62.5/25mcg 7 Puffs/Inhaler) 1 puffs INH DAILY TOÑO Stop: 10/15/23 09:46 Last Admin: 09/15/23 11:02 Dose: 1 puffs Documented By: COURTNEY Discontinued Medications Clopidogrel Bisulfate (Clopidogrel Bisulfate 300 Mg Tab) 300 mg PO NOW STA Stop: 09/15/23 09:07 Last Admin: 09/15/23 09:43 Dose: 300 mg Documented By: MARCO Sodium Chloride (Nss) 1,000 mls @ 125 mls/hr IV .Q8H TOÑO Stop: 10/15/23 00:44 Last Admin: 09/15/23 19:57 Dose: Not Given Documented By: Infusion: 09/15/23 14:13 Dose: Infused Documented By: Infusion: 09/15/23 09:43 Dose: Infused Documented By: Admin: 09/15/23 01:38 Dose: 125 mls/hr Documented By: NIDA Pantoprazole Sodium 40 mg/ (Syringe) 10 mls @ 5 mls/min IV NOW ONE Stop: 09/15/23 03:26 Last Admin: 09/15/23 04:01 Dose: 5 mls/min Documented By: NIDA Acetaminophen (Ofirmev) 1,000 mg in 100 mls @ 400 mls/hr IV NOW STA Stop: 09/15/23 03:39 Last Infusion: 09/15/23 04:01 Dose: Infused Documented By: Admin: 09/15/23 03:40 Dose: 400 mls/hr Documented By: NIDA Potassium Chloride (K Roly / Wtr) 10 meq in 100 mls @ 100 mls/hr IV ONE ONE Stop: 09/15/23 07:44 Last Infusion: 09/15/23 07:55 Dose: Infused Documented By: Admin: 09/15/23 06:55 Dose: 100 mls/hr Documented By: NIDA Ioversol (Optiray 320 125ml) 117 ml IV ONCE ONE Stop: 09/15/23 02:17 Last Admin: 09/15/23 02:16 Dose: 117 ml Documented By: CAMERONW Potassium Chloride (Potassium Chloride Crtab 20 Meq Tabcr) 40 meq PO NOW STA Stop: 09/15/23 03:20 Last Admin: 09/15/23 03:40 Dose: 40 meq Documented By: NAW Imaging Data Radiologist's Impression: Chest CTA 09/15/23 00:40 Exam(s): CTA CHEST IV Amt: 117 ml opti 320 EXAM: CT Angiography Chest With Intravenous Contrast CLINICAL HISTORY: Pulmonary embolus. TECHNIQUE: Axial computed tomographic angiography images of the chest with intravenous contrast. MIPS images were created and reviewed. CTDI is 20. 85 mGy and DLP is 663 mGy-cm. Automated exposure control was utilized for the study. A dose lowering technique was utilized adhering to the principles of ALARA. MIP reconstructed images were created and reviewed. COMPARISON: CTA chest 07/17/2021 FINDINGS: Pulmonary arteries: Unremarkable. No pulmonary embolus. Aorta: Mild atherosclerosis. No thoracic aortic aneurysm. Lungs: Interseptal thickening could relate to atelectasis and/or pulmonary edema. Emphysema. No mass. Pleural space: Unremarkable. No significant effusion. No pneumothorax. Heart: Unremarkable. No cardiomegaly. No significant pericardial effusion. No evidence of RV dysfunction. Mediastinum: Large hiatal hernia. Bones/joints: There are degenerative changes of the spine. No acute fracture. Soft tissues: Unremarkable. Lymph nodes: Unremarkable. No enlarged lymph nodes. IMPRESSION: 1. No pulmonary embolus. 2. Interseptal thickening could relate to atelectasis and/or pulmonary edema. 3. Emphysema. 4. Large hiatal hernia. Electronically signed by: Deborah Gonzalez MD 09/15/23 03:21 AM Discharge Plan Visit Data Chief Complaint: Cardiac Assessment Stated Complaint: Chest Pain, Chest Pressure, SOB ED Provider: Guevara Lange Discharge Problem: Chest pain, Dyspnea, S/P cardiac catheterization, COPD (chronic obstructive pulmonary disease) Patient Disposition: Admitted As Inpatient Discharge Instructions Interventions: ED Discharge Assessment Last Done: 09/15/23 08:14
[2023-09-15 01:31] LABS: Basophils # (auto) 0.04 K/uL (0.00-0.20); Basophils % (auto) 0.5 %; Eosinophils # (auto) 0.19 K/uL (0.00-0.50); Eosinophils % (auto) 2.2 %; Hematocrit (blood only) 37.2 % (37.0-47.0); Hemoglobin 12.2 g/dl (12.0-16.0); Immature Granulocytes # (auto) 0.03 K/uL (0.01-0.20); Immature Granulocytes % (auto) 0.4 %; Lymphocytes # (auto) 1.63 K/uL (1.20-3.40); Lymphocytes % (auto) 19.3 %; Mean Corpuscular Hgb Conc 32.8 g/dL (32.0-36.0); Mean Corpuscular Volume 91.4 fL (80.0-100.0); Mean Platelet Volume 9.9 fL (9.4-12.4); Monocytes % (auto) 8.3 %; Neutrophils # (auto) 5.86 K/uL (1.40-6.50); Neutrophils % (auto) 69.3 %; Platelet Count 202 K/uL (130-400); RDW Coefficient of Variation 12.9 % (11.5-14.5); RDW Standard Deviation 42.5 fL (36.4-46.3); Red Blood Count 4.07 M/uL (4.20-5.40); White Blood Count 8.45 K/ul (4.8-10.8)
[2023-09-15] MEDS: SODIUM CHLORIDE 0.9% 1,000 ML IV SCH (01:38)
[2023-09-15 01:44] LABS: Albumin Globulin Ratio 1.5 (0.9-2); Albumin Level 3.8 gm/dl (3.4-5.0); BUN Creatinine Ratio 24.2 (10-20); Bilirubin,Total 0.4 mg/dl (0.2-1.0); Calcium 9.3 mg/dl (8.6-10.3); Est GFR (African American) 100.2 ml/min; Est GFR (Non-African American) 86.4 ml/min; Globulin 2.5 gm/dl (2.5-4.0); Potassium 3.2 mmol/L (3.5-5.1); Total Protein 6.3 gm/dl (6.0-8.3)
[2023-09-15 01:53] LABS: Prothrombin Time 10.6 Seconds (9.0-12.0)
[2023-09-15 01:59] LABS: Thyroid Stimulating Hormone 2.25 uIu/ml (0.300-4.500)
[2023-09-15] MEDS: OPTIRAY 320 125ml IV ONE (02:16)
--- NOTE | 2023-09-15 03:21 | CT Scan Report ---
Exam(s): CTA CHEST IV Amt: 117 ml opti 320 EXAM: CT Angiography Chest With Intravenous Contrast CLINICAL HISTORY: Pulmonary embolus. TECHNIQUE: Axial computed tomographic angiography images of the chest with intravenous contrast. MIPS images were created and reviewed. CTDI is 20. 85 mGy and DLP is 663 mGy-cm. Automated exposure control was utilized for the study. A dose lowering technique was utilized adhering to the principles of ALARA. MIP reconstructed images were created and reviewed. COMPARISON: CTA chest 07/17/2021 FINDINGS: Pulmonary arteries: Unremarkable. No pulmonary embolus. Aorta: Mild atherosclerosis. No thoracic aortic aneurysm. Lungs: Interseptal thickening could relate to atelectasis and/or pulmonary edema. Emphysema. No mass. Pleural space: Unremarkable. No significant effusion. No pneumothorax. Heart: Unremarkable. No cardiomegaly. No significant pericardial effusion. No evidence of RV dysfunction. Mediastinum: Large hiatal hernia. Bones/joints: There are degenerative changes of the spine. No acute fracture. Soft tissues: Unremarkable. Lymph nodes: Unremarkable. No enlarged lymph nodes. IMPRESSION: 1. No pulmonary embolus. 2. Interseptal thickening could relate to atelectasis and/or pulmonary edema. 3. Emphysema. 4. Large hiatal hernia. Electronically signed by: Deborah Gonzalez MD 09/15/23 03:21 AM
[2023-09-15] MEDS: ACETAMINOPHEN 1,000 MG/100 ML VIAL IV STA (03:40)
[2023-09-15] MEDS: POTASSIUM CHLORIDE CRTAB 20 MEQ TABCR PO STA (03:40)
[2023-09-15] MEDS: PANTOprazole 40 MG in SYRINGE 0 ML IV ONE (04:01)
--- NOTE | 2023-09-15 06:07 | History & Physical Report ---
Date of Service September 15, 2023 Assessment & Plan (1) Chest pain: (2) Dyspnea: (3) Tobacco abuse: (4) Obstructive sleep apnea of adult: (5) COPD exacerbation: (6) Anxiety: (7) Chest pressure: (8) HTN (hypertension): (9) Anxiety and depression: (10) Controlled type 2 diabetes mellitus with microalbuminuria: (11) Status post coronary artery stent placement: (12) CAD (coronary artery disease): (13) Hypokalemia: Plan Substernal chest pain/pressure/shortness of breath/dyspnea on exertion- Tolerated recent procedure of coronary stent placement Differential including recurrent cardiac source, GERD/hiatal hernia source, and/or COPD exacerbation associated tobacco use CAD/recent drug-eluting stent placement in diagonal earlier in the day- The patient will be admitted to telemetry for serial cardiac enzymes, serial EKG's, cardiac rhythm monitoring Continue aspirin 81 mg daily, Brilinta 90 mg p.o. twice daily, losartan 100 mg daily, metoprolol succinate 50 mg daily Consult placed to interventional cardiology Dr. Dolan Hypokalemia- Potassium 3.2 on admission Was given potassium chloride 40 mEq in the ED, will give an additional 10 mEq IV rider COPD exacerbation/tobacco use- Cessation counseling Continue usual inhalers Continue nicotine patch Large hiatal hernia/presumptive GERD- Continue esomeprazole/pantoprazole, change from twice daily as needed to twice daily She did receive pantoprazole 40 mg IV in the ED Diabetes mellitus- Semaglutide as an outpatient Hold metformin for [address] on Accu-Cheks with NovoLog SSI History of Present Illness Chief Complaint: The patient presents to the emergency department with acute onset of substernal chest tightness/squeezing that began after she got home from her cardiac catheterization, which worsened as she was attempting to lie backwards, and since that time has spontaneously resolved while in the emergency department. She reports that she has been coughing more forcefully associated with her COPD over the past several days as well. Primary Care Provider: KAIT Grimm The patient is a 77-year-old female with a past medical history including tobacco abuse, CAMRYN, piriformis syndrome, history of acute hypoxemic respiratory failure, right hip DJD, COPD, hypertension, multiple pulmonary nodules, anxiety and depression, insomnia, chronic bronchitis, does mellitus type II and frequent PVCs. The patient underwent a cardiac catheterization by Dr. Dolan earlier in the day today, and had successful PCI with 2 overlapping drug-eluting stents placed in a large diagonal. She was started on dual antiplatelet therapy with aspirin 81 mg daily and Brilinta 90 mg twice daily. She tolerated the procedure well, and was doing fine until she was sitting in her chair at home, and had the above symptoms develop. He was tolerating the chest squeezing somewhat, but when she laid back and was not able to gather her breath, she panicked, and her son called EMS, who then brought her to the ED for assessment. Allergies Allergy/AdvReac Type Severity Reaction Status Date / Time No Known Allergies Allergy Verified 09/15/23 01:04 Home Medications Medication Instructions Recorded Confirmed Type Lactobacills gasseri-Bifidobac 1 cap PO QAM 12/11/18 09/15/23 History bifidum,longum 1.5 billion cell capsule (Probiotic Colon Care) aspirin 81 mg tablet,delayed 81 mg PO QAM 12/11/18 09/15/23 History release ascorbic acid (vitamin C) 500 mg 500 mg PO Q2D 07/29/19 09/15/23 History tablet (Vitamin C) cholecalciferol (vitamin D3) 50 2,000 units PO Q2D 07/29/19 09/15/23 History mcg (2,000 unit) tablet ipratropium 0.5 mg-albuterol 3 mg 3 ml inhalation Q4 PRN Shortness 04/02/20 09/15/23 Rx (2.5 mg base)/3 mL nebulization Of Breath #180 mL soln ferrous sulfate 325 mg (65 mg 325 mg PO Q OTHER DAY #30 tabs 03/16/21 09/15/23 Rx iron) tablet CPAP Supplies #1 ea 04/11/21 09/14/23 Rx Accu-Chek Guide Glucose Meter #1 ea 08/24/22 09/14/23 Rx (blood-glucose meter) albuterol sulfate 90 mcg/actuation 1 inh inhalation QID PRN shortness 11/02/22 09/15/23 Rx aerosol inhaler (ProAir HFA) of breath or wheezing #18 grams esomeprazole magnesium 40 mg 40 mg PO BID PRN Heartburn #180 12/21/22 09/15/23 Rx capsule,delayed release caps Accu-Chek Guide test strips (blood #100 ea 12/28/22 09/14/23 Rx sugar diagnostic) losartan 100 mg tablet 100 mg PO QAM #90 tabs 02/14/23 09/15/23 Rx dextromethorphan-guaifenesin ER 60 1 tab PO Q12H #60 tabs 07/04/23 09/15/23 Rx mg-1,200 mg tab,extend release,12hr (Mucinex DM) nicotine 14 mg/24 hr daily 1 patch transdermal Q24H #28 ea 07/04/23 09/15/23 Rx transdermal patch rosuvastatin 40 mg tablet 40 mg PO DAILY #30 tabs 07/09/23 09/15/23 Rx ezetimibe 10 mg tablet 10 mg PO DAILY #30 tabs 07/20/23 09/15/23 Rx metformin 500 mg tablet,extended 1,000 mg (2 x 500 mg) PO BID #360 07/20/23 09/15/23 Rx release 24 hr tabs umeclidinium 62.5 mcg-vilanterol 1 inh inhalation DAILY #3 Inhalers 07/23/23 09/15/23 Rx 25 mcg/actuation powdr for inhalation (Anoro Ellipta) metoprolol succinate 25 mg 50 mg (2 x 25 mg) PO DAILY #90 tabs 08/31/23 09/15/23 Rx tablet,extended release 24 hr semaglutide 1 mg/dose (4 mg/3 mL) 1 mg (0.75 mL) subcut WK #3 mL 09/09/23 09/15/23 Rx subcutaneous pen injector ticagrelor 90 mg tablet (Brilinta) 90 mg PO BID #180 tabs 09/14/23 09/15/23 Rx Past Med/Surg History Medical History Tobacco abuse > 50 pack year hx. Everyday smoker 10/2022 Obstructive sleep apnea of adult cpap COPD (chronic obstructive pulmonary disease) PFTs 2019 with FEV1 70% Pneumonia due to COVID-19 virus Admitted [facility] 06/2021. No chronic symptoms or radiographic sequela Atherosclerosis of aorta Atherosclerosis of arteries of extremities Diverticulitis of colon Restless legs Sensorineural hearing loss (SNHL) of both ears History of bronchitis last winter 2018 Multiple pulmonary nodules Pulmonary emphysema Type 2 diabetes mellitus Hypercholesteremia History of colon polyps History of anesthesia reaction difficulty waking Hiatal hernia Osteoarthritis Urinary incontinence GERD (gastroesophageal reflux disease) Diabetes mellitus, type 2 Anemia Depression Hypertension Hyperlipidemia Surgical History History of dilatation and curettage History of bilateral tubal ligation History of open reduction and internal fixation (ORIF) procedure left wrist--hardware removed History of vocal cord polypectomy x2 History of carpal tunnel release of both wrists History of section x2 History of colonoscopy 07/26/2016, sigmoid tics and tubular adenoma, recheck rec 1 year due to fair prep History of esophagogastroduodenoscopy (EGD) History of tooth extraction all upper teeth removed History of phacoemulsification of cataract of both eyes with intraocular lens implantation Family History Mother Family hx of colon cancer Family history of diabetes mellitus Hyperlipemia Hypertension Diabetes Colorectal cancer Family history of CABG Myocardial infarction Brother Family hx of colon cancer 2 Liver cancer Colorectal cancer Father No problems noted. Other Breast cancer Lung cancer No family history of adverse response to anesthesia Prostate cancer Denies family history of Ovarian cancer Social History Smoking Status: Current every day smoker Tobacco Type: Cigarettes Age Started Using Tobacco: 17; packs per day: 0.5; Second Hand Exposure: Yes; Do You Dip or Chew Tobacco: No; Hx Alcohol Use: No Hx Substance Use: No Preferred Language: Maori Communication Ability: Effective Visual Impairment: No Limitations Hearing Ability: Normal Outside Deliverer Required: No Beliefs That Will Affect Care: None marital status: Current Living Situation: Alone Current Living Situation Comment: Son lives with patient but he travels a lot for work there 1 week a month current occupational status: retired current occupation: retired from career with [employer], assisted living How many Children do You have: 3 Feels Safe at Home: Yes Childhood Exposure to Second-Hand Smoke: Yes Diet: regular caffeine: Yes Dental Care, Regularly: No Physical Activity Frequency: 1-2 Times per Week Seatbelt Use: always Sunscreen Use: No Assistive Devices: CPAP and Nebulizer Review of Systems Review of Systems: The patient denies palpitations, lower extremity swelling, sore throat, fevers, chills, sweats, fatigue, nausea, vomiting, diarrhea , constipation, abdominal pain, pelvic pain, blood in urine or stool, dysuria, urinary frequency or urgency, lightheadedness, dizziness, memory loss, loss of consciousness, rash, abnormal bruising or bleeding, imbalance, focal or generalized weakness, numbness or tingling in arms or legs, generalized arthralgias or myalgias, back or neck pain, or night sweats. The review of systems is otherwise negative other than for that already noted above, and at least 10 systems have been reviewed. Physical Exam Physical Exam: The patient is awake, alert and oriented 3, well developed and well nourished, normocephalic and atraumatic, lying in bed and in no acute distress. HEENT--PERRL, EOMI, mucous membranes and oropharynx normal Neck--supple. No JVD. No bruits. Thyroid normal, trachea midline, no adenopathy. Heart--normal S1 and S2. No murmurs, rubs or gallops. Lungs--few coarse breath sounds bilaterally, no respiratory distress, no accessory muscle use. Abdomen--normal bowel sounds and soft. Nontender. Nondistended, no hernias or masses, no organomegaly. Extremities--no cyanosis or clubbing. No edema. Dermatologic--expected mild bruising at right upper extremity catheterization site Neurologic--cranial nerves II through XII grossly intact. Rheumatologic--normal range of motion. Psychiatric--normal affect. Results & Data Results & Data Vital Signs (Past 12 Hours) Vital Signs Temp Pulse Resp BP Pulse Ox O2 Del Method 09/15/23 03:36 177/95 H 94 09/15/23 03:30 199/133 H 94 09/15/23 03:00 178/107 H 91 09/15/23 02:00 70 19 189/89 H 94 09/15/23 01:30 73 17 163/111 H 96 Room Air 09/15/23 01:00 69 20 158/79 H 92 09/15/23 00:30 71 25 H 159/99 H 96 09/15/23 00:00 70 20 153/86 H 91 09/14/23 23:25 78 09/14/23 23:17 71 12 158/105 H 92 09/14/23 23:15 17 96 Room Air 0419/24 23:15 96 Room Air 09/14/23 23:15 36.6 C 65 17 168/105 H 96 Room Air Laboratory Results Laboratory Results WBC 8.45 K/ul (4.8-10.8) 09/15/23 01:15 RBC 4.07 M/uL (4.20-5.40) L 09/15/23 01:15 Hgb 12.2 g/dl (12.0-16.0) 09/15/23 01:15 Hct 37.2 % (37.0-47.0) 09/15/23 01:15 MCV 91.4 fL (80.0-100.0) 09/15/23 01:15 MCH 30.0 pg (25.0-34.0) 09/15/23 01:15 MCHC 32.8 g/dL (32.0-36.0) 09/15/23 01:15 RDW Std Deviation 42.5 fL (36.4-46.3) 09/15/23 01:15 RDW Coeff of Robert 12.9 % (11.5-14.5) 09/15/23 01:15 Plt Count 202 K/uL (130-400) 09/15/23 01:15 MPV 9.9 fL (9.4-12.4) 09/15/23 01:15 Immature Gran % (Auto) 0.4 % 09/15/23 01:15 Neut % (Auto) 69.3 % 09/15/23 01:15 Lymph % (Auto) 19.3 % 09/15/23 01:15 [place] % (Auto) 8.3 % 09/15/23 01:15 Eos % (Auto) 2.2 % 09/15/23 01:15 Baso % (Auto) 0.5 % 09/15/23 01:15 Neut # (Auto) 5.86 K/uL (1.40-6.50) 09/15/23 01:15 Lymph # (Auto) 1.63 K/uL (1.20-3.40) 09/15/23 01:15 [place] # (Auto) 0.70 K/uL (0.11-0.59) H 09/15/23 01:15 Eos # (Auto) 0.19 K/uL (0.00-0.50) 09/15/23 01:15 Baso # (Auto) 0.04 K/uL (0.00-0.20) 09/15/23 01:15 Immature Gran # (Auto) 0.03 K/uL (0.01-0.20) 09/15/23 01:15 PT 10.6 Seconds (9.0-12.0) 09/15/23 01:15 INR 1.0 (0.9-1.1) 09/15/23 01:15 Sodium 138 mmol/L (136-145) 09/15/23 01:15 Potassium 3.2 mmol/L (3.5-5.1) L 09/15/23 01:15 Chloride 105 mmol/L (98-107) 09/15/23 01:15 Carbon Dioxide 26 mmol/L (21-32) 09/15/23 01:15 Anion Gap 7 (3-11) 09/15/23 01:15 BUN 16 mg/dl (6-23) 09/15/23 01:15 Creatinine 0.66 mg/dl (0.6-1.2) 09/15/23 01:15 Est Cr Clr Drug Dosing 65.0 ml/min 09/15/23 01:15 Est GFR ( Amer) 100.2 ml/min 09/15/23 01:15 Est GFR (Non-Af Amer) 86.4 ml/min 09/15/23 01:15 BUN/Creatinine Ratio 24.2 (10-20) H 09/15/23 01:15 Glucose 107 mg/dl (70-99(Fasting)) H 09/15/23 01:15 Calcium 9.3 mg/dl (8.6-10.3) 09/15/23 01:15 Magnesium 2.0 mg/dl (1.7-2.4) 09/15/23 01:15 Total Bilirubin 0.4 mg/dl (0.2-1.0) 09/15/23 01:15 AST 26 U/L (13-39) 09/15/23 01:15 ALT 7 U/L (7-52) 09/15/23 01:15 Alkaline Phosphatase 56 U/L (34-104) 09/15/23 01:15 Total Protein 6.3 gm/dl (6.0-8.3) 09/15/23 01:15 Albumin 3.8 gm/dl (3.4-5.0) 09/15/23 01:15 Globulin 2.5 gm/dl (2.5-4.0) 09/15/23 01:15 Albumin/Globulin Ratio 1.5 (0.9-2) 09/15/23 01:15 Lipase 29 U/L (11-82) 09/15/23 01:15 TSH 2.250 uIu/ml (0.300-4.500) 09/15/23 01:15 Impressions Chest CTA 09/15/23 00:40 Exam(s): CTA CHEST IV Amt: 117 ml opti 320 EXAM: CT Angiography Chest With Intravenous Contrast CLINICAL HISTORY: Pulmonary embolus. TECHNIQUE: Axial computed tomographic angiography images of the chest with intravenous contrast. MIPS images were created and reviewed. CTDI is 20. 85 mGy and DLP is 663 mGy-cm. Automated exposure control was utilized for the study. A dose lowering technique was utilized adhering to the principles of ALARA. MIP reconstructed images were created and reviewed. COMPARISON: CTA chest 07/17/2021 FINDINGS: Pulmonary arteries: Unremarkable. No pulmonary embolus. Aorta: Mild atherosclerosis. No thoracic aortic aneurysm. Lungs: Interseptal thickening could relate to atelectasis and/or pulmonary edema. Emphysema. No mass. Pleural space: Unremarkable. No significant effusion. No pneumothorax. Heart: Unremarkable. No cardiomegaly. No significant pericardial effusion. No evidence of RV dysfunction. Mediastinum: Large hiatal hernia. Bones/joints: There are degenerative changes of the spine. No acute fracture. Soft tissues: Unremarkable. Lymph nodes: Unremarkable. No enlarged lymph nodes. IMPRESSION: 1. No pulmonary embolus. 2. Interseptal thickening could relate to atelectasis and/or pulmonary edema. 3. Emphysema. 4. Large hiatal hernia. Electronically signed by: Deborah Gonzalez MD 09/15/23 03:21 AM Code Status & VTE Plan Code Status Full code PG Care Time/CCT Total # of Minutes Spent Total Time Spent with Patient: Total time spent is greater than 50% in coordination of care (as documented) at patient's floor/unit and/or counseling patient: Coding Level of Care Code 29060 INT INP/OBS CARE 3/75MIN Diagnoses Chest pain R07.9 Dyspnea R06.00 Tobacco abuse Z72.0 Obstructive sleep apnea of adult G47.33 COPD exacerbation J44.1 Anxiety F41.9 Chest pressure R07.89 HTN (hypertension) I10 Anxiety and depression F41.9; F32.9 Controlled type 2 diabetes mellitus with microalbuminuria E11.29; R80.9 Status post coronary artery stent placement Z95.5 CAD (coronary artery disease) I25.10 Hypokalemia E87.6
[2023-09-15 06:25] LABS: Troponin I High Sensitivity 3493.3 pg/ml (0-14)
[2023-09-15] MEDS: POTASSIUM CHLORIDE / WTR 10 MEQ/100 ML PLCT IV ONE (06:55)
[2023-09-15] MEDS: CLOPIDOGREL BISULFATE 300 MG TAB PO STA (09:43)
[2023-09-15] MEDS ORDERED: MoRPHine SULFATE 2 MG/ML CARP IV PRN (09:47)
[2023-09-15] MEDS ORDERED: NITROGLYCERIN SL 0.4 MG/TAB TAB SL PRN (09:47)
[2023-09-15] MEDS ORDERED: ALBUT/IPRATROP 3MG/0.5MG NEB 3 ML VIAL INH PRN (09:47)
[2023-09-15] MEDS ORDERED: ONDANSETRON INJ 2 MG/ML 2 ML VIAL IV PRN (09:47)
[2023-09-15] MEDS ORDERED: ALBUTEROL HFA 8 GM INHALER INH PRN (09:47)
[2023-09-15 10:52] LABS: Basophils # (auto) 0.05 K/uL (0.00-0.20); Basophils % (auto) 0.6 %; Eosinophils # (auto) 0.15 K/uL (0.00-0.50); Eosinophils % (auto) 1.9 %; Hematocrit (blood only) 37.6 % (37.0-47.0); Hemoglobin 12.8 g/dl (12.0-16.0); Immature Granulocytes # (auto) 0.02 K/uL (0.01-0.20); Immature Granulocytes % (auto) 0.3 %; Lymphocytes # (auto) 1.49 K/uL (1.20-3.40); Lymphocytes % (auto) 18.9 %; Mean Corpuscular Hemoglobin 30.8 pg (25.0-34.0); Mean Corpuscular Volume 90.4 fL (80.0-100.0); Mean Platelet Volume 9.8 fL (9.4-12.4); Monocytes # (auto) 0.46 K/uL (0.11-0.59); Monocytes % (auto) 5.8 %; Neutrophils # (auto) 5.71 K/uL (1.40-6.50); Neutrophils % (auto) 72.5 %; Platelet Count 206 K/uL (130-400); RDW Coefficient of Variation 13.1 % (11.5-14.5); Red Blood Count 4.16 M/uL (4.20-5.40); White Blood Count 7.88 K/ul (4.8-10.8)
[2023-09-15] MEDS: UMECLIDINIUM/VILANTEROL 62.5/25MCG 7 PUFFS/INHALER INH SCH (11:02)
[2023-09-15] MEDS: METOPROLOL SUCC 50MG EXT REL TAB PO SCH (11:02)
[2023-09-15] MEDS: EZETIMIBE 10 MG TAB PO SCH (11:03)
[2023-09-15] MEDS: ASCORBIC ACID 500 MG TAB PO SCH (11:03)
[2023-09-15] MEDS: LOSARTAN POTASSIUM 50 MG TAB PO SCH (11:04)
[2023-09-15] MEDS: ROSUVASTATIN CALCIUM 20 MG TAB PO SCH (11:04)
[2023-09-15] MEDS: NICOTINE 14 MG/24 HR PATCH TD SCH (11:05)
[2023-09-15] MEDS: ASPIRIN 81 MG ECTAB PO SCH (11:05)
[2023-09-15 11:09] LABS: BUN Creatinine Ratio 21.6 (10-20); Calcium 8.9 mg/dl (8.6-10.3); Creatinine Clr Calc Pharmacy 84.1 ml/min; Est GFR (Non-African American) 94.1 ml/min; Potassium 3.7 mmol/L (3.5-5.1)
[2023-09-15 11:19] LABS: Troponin I High Sensitivity 2990.3 pg/ml (0-14)
--- NOTE | 2023-09-15 15:01 | Cardiology Consultation ---
Date of Consultation September 15, 2023 Assessment & Plan (1) CAD (coronary artery disease): Status post PCI with 2 small caliber overlapped drug-eluting stents to the diagonal branch. Eventually good angiographic results after second stent placed. MELO-3 flow. No evidence of dissection or perforation. She will remain on dual antiplatelet therapy for 1 to 2 years. I feel that some of her acute onset dyspnea and anxiety which resolved relatively quickly is secondary to the Brilinta. It is reasonable at this time to stop the Brilinta and changed to Plavix which is often better tolerated. Loading dose 300 mg followed by 75 mg p.o. daily. Also, the patient's troponin was elevated but is trending downward. There are no EKG changes to suggest ischemia and there are no wall motion abnormalities on the echo to suggest ischemia. She also has a large hiatal hernia based on the CT scan. I wonder if what she experienced was esophageal spasm and chest pain associated with the hiatal hernia rather than acute ischemic incident. The elevated troponin trending downward is likely residual from the PCI yesterday given that it required a second stent implantation. In any case, we should continue to follow the troponin and see if she has any recurrence of symptoms. She will remain on guideline directed medical therapy for secondary prevention including; low-dose aspirin, high intensity statin therapy, beta-les, and angiotensin receptor les. We need to better control her blood pressure spikes as she remains well above target at this time. I may add amlodipine for the possibility of esophageal spasm and to help with blood pressure. 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 High intensity statin therapy ongoing with Zetia 10 mg daily and Crestor 40 mg daily. No changes at this time. (3) HTN (hypertension): Blood pressure is above target. She will continue with losartan 100 mg daily, metoprolol succinate ER 50 mg daily, and I will add amlodipine 5 mg plus or minus isosorbide mononitrate 30 mg. Plan Because of recent cath the patient should not restart the metformin until 48 hours have passed since her last contrast dose. She had a CT scan. We will also need to follow her renal function. History of Present Illness Reason for Consultation: Chest pain Elevated troponin Recent stent Attending Physician: Benedicto Dhaliwal MD History of Present Illness 77-year-old female known to me from recent evaluation and procedure. Yesterday, she came as an outpatient for symptoms including dyspnea, chest discomfort, frequent PVCs, and an abnormal stress test suggesting ramus or large diagonal territory ischemia. She underwent diagnostic coronary angiography which showed essentially normal coronaries except for a large diagonal which had a mid vessel stenosis of 95%. She underwent PCI with implantation of 2 overlapped drug- eluting stents to this area. Of note, the vessel was slightly small for the stent and there was haziness and concern for proximal edge injury to the endothe lium. Therefore a second stent was placed over this area with good angiographic results and restorationist of MELO-3 flow. Patient was started on aspirin and Brilinta and her chronic cardiac meds were continued. She was subsequently discharged home. The case had been performed via right radial artery access and she had a hematoma which was controlled and not bleeding. Last night, patient tells me about an hour after taking her Brilinta while she was sitting she had sudden onset squeezing in her chest while she was sitting. This lasted maybe a minute and she was very anxious and concerned. She became short of breath which lasted a few more minutes and then the symptoms resolved. She had read about the shortness of breath with Brilinta but her family convinced her to come to the emergency department. Her EKG in the emergency department showed no ischemic changes. Her troponin was elevated. She was provided medications. An echocardiogram was done earlier today. When I saw her, she reported no recurrence of the chest pain or shortness of breath. She was hungry as she had been made n.p.o. but had no other complaints. Her right radial access site was not causing any discomfort. She thought that she might be able to go home but I convinced her that we should complete workup. She voices no other complaints or concerns at this time. She has not had any recent syncope, near syncope, orthopnea, PND, racing heartbeat, palpitations, or edema. It is noted that her blood pressure has spiked several times. Allergies Allergy/AdvReac Type Severity Reaction Status Date / Time No Known Allergies Allergy Verified 09/15/23 01:04 Home Medications Medication Instructions Recorded Confirmed Type Lactobacills gasseri-Bifidobac 1 cap PO QAM 12/11/18 09/15/23 History bifidum,longum 1.5 billion cell capsule (Probiotic Colon Care) aspirin 81 mg tablet,delayed 81 mg PO QAM 12/11/18 09/15/23 History release ascorbic acid (vitamin C) 500 mg 500 mg PO Q2D 07/29/19 09/15/23 History tablet (Vitamin C) cholecalciferol (vitamin D3) 50 2,000 units PO Q2D 07/29/19 09/15/23 History mcg (2,000 unit) tablet ipratropium 0.5 mg-albuterol 3 mg 3 ml inhalation Q4 PRN Shortness 04/02/20 09/15/23 Rx (2.5 mg base)/3 mL nebulization Of Breath #180 mL soln ferrous sulfate 325 mg (65 mg 325 mg PO Q OTHER DAY #30 tabs 03/16/21 09/15/23 Rx iron) tablet CPAP Supplies #1 ea 04/11/21 09/14/23 Rx Accu-Chek Guide Glucose Meter #1 ea 08/24/22 09/14/23 Rx (blood-glucose meter) albuterol sulfate 90 mcg/actuation 1 inh inhalation QID PRN shortness 11/02/22 09/15/23 Rx aerosol inhaler (ProAir HFA) of breath or wheezing #18 grams esomeprazole magnesium 40 mg 40 mg PO BID PRN Heartburn #180 12/21/22 09/15/23 Rx capsule,delayed release caps Accu-Chek Guide test strips (blood #100 ea 12/28/22 09/14/23 Rx sugar diagnostic) losartan 100 mg tablet 100 mg PO QAM #90 tabs 02/14/23 09/15/23 Rx dextromethorphan-guaifenesin ER 60 1 tab PO Q12H #60 tabs 07/04/23 09/15/23 Rx mg-1,200 mg tab,extend release,12hr (Mucinex DM) nicotine 14 mg/24 hr daily 1 patch transdermal Q24H #28 ea 07/04/23 09/15/23 Rx transdermal patch rosuvastatin 40 mg tablet 40 mg PO DAILY #30 tabs 07/09/23 09/15/23 Rx ezetimibe 10 mg tablet 10 mg PO DAILY #30 tabs 07/20/23 09/15/23 Rx metformin 500 mg tablet,extended 1,000 mg (2 x 500 mg) PO BID #360 07/20/23 09/15/23 Rx release 24 hr tabs umeclidinium 62.5 mcg-vilanterol 1 inh inhalation DAILY #3 Inhalers 07/23/23 09/15/23 Rx 25 mcg/actuation powdr for inhalation (Anoro Ellipta) metoprolol succinate 25 mg 50 mg (2 x 25 mg) PO DAILY #90 tabs 08/31/23 09/15/23 Rx tablet,extended release 24 hr semaglutide 1 mg/dose (4 mg/3 mL) 1 mg (0.75 mL) subcut WK #3 mL 09/09/23 09/15/23 Rx subcutaneous pen injector ticagrelor 90 mg tablet (Brilinta) 90 mg PO BID #180 tabs 09/14/23 09/15/23 Rx Patient History Medical History Tobacco abuse > 50 pack year hx. Everyday smoker 10/2022 Obstructive sleep apnea of adult cpap COPD (chronic obstructive pulmonary disease) PFTs 2019 with FEV1 70% Pneumonia due to COVID-[address] [facility] 06/2021. No chronic symptoms or radiographic sequela Atherosclerosis of aorta Atherosclerosis of arteries of extremities Diverticulitis of colon Restless legs Sensorineural hearing loss (SNHL) of both ears History of bronchitis last winter 2018 Multiple pulmonary nodules Pulmonary emphysema Type 2 diabetes mellitus Hypercholesteremia History of colon polyps History of anesthesia reaction difficulty waking Hiatal hernia Osteoarthritis Urinary incontinence GERD (gastroesophageal reflux disease) Diabetes mellitus, type 2 Anemia Depression Hypertension Hyperlipidemia Surgical History History of dilatation and curettage History of bilateral tubal ligation History of open reduction and internal fixation (ORIF) procedure left wrist--hardware removed History of vocal cord polypectomy x2 History of carpal tunnel release of both wrists History of section x2 History of colonoscopy 07/26/2016, sigmoid tics and tubular adenoma, recheck rec 1 year due to fair prep History of esophagogastroduodenoscopy (EGD) History of tooth extraction all upper teeth removed History of phacoemulsification of cataract of both eyes with intraocular lens implantation Family History Mother Family hx of colon cancer Family history of diabetes mellitus Hyperlipemia Hypertension Diabetes Colorectal cancer Family history of CABG Myocardial infarction Brother Family hx of colon cancer 2 Liver cancer Colorectal cancer Father No problems noted. Other Breast cancer Lung cancer No family history of adverse response to anesthesia Prostate cancer Denies family history of Ovarian cancer Social History Smoking Status: Current every day smoker Tobacco Type: Cigarettes Age Started Using Tobacco: 17; packs per day: 0.5; Second Hand Exposure: Yes; Do You Dip or Chew Tobacco: No; Hx Alcohol Use: No Hx Substance Use: No Preferred Language: French Communication Ability: Effective Visual Impairment: No Limitations Hearing Ability: Normal [employer] Required: No Beliefs That Will Affect Care: None marital status: Current Living Situation: Alone Current Living Situation Comment: Son lives with patient but he travels a lot for work there 1 week a month current occupational status: retired current occupation: retired from career with [employer], assisted living How many Children do You have: 3 Feels Safe at Home: Yes Safety Concerns: Feels Safe At This Time Childhood Exposure to Second-Hand Smoke: Yes Diet: regular caffeine: Yes Dental Care, Regularly: No Physical Activity Frequency: 1-2 Times per Week Seatbelt Use: always Sunscreen Use: No Assistive Devices: CPAP and Nebulizer Review of Systems Review of Systems: Negative except as per HPI Physical Exam Constitutional: WD/WN, vitals as above ENMT: Oral mucosa is pink moist and intact Neck: No JVD Respiratory: Clear to auscultation bilaterally. No wheezing, rhonchi, or rales. Cardiovascular: Regular rate and rhythm. S4 gallop. No rubs or murmurs appreciated. No edema. Musculoskeletal: no cyanosis or clubbing, extremities motor strength 5/5 (Righ t radial access C/D/I. Good distal perfusion) Neurologic: Anxious. Cognition is intact. Speech is fluent. No focal deficits. Psychiatric: A+Ox3, euthymic affect Results & Data Vital Signs (Past 12 Hours) Vital Signs Temp Pulse Pulse Resp BP BP Pulse Ox 09/15/23 11:30 36.4 C L 94 H 16 170/81 H 94 09/15/23 11:30 67 20 176/97 H 97 09/15/23 11:00 67 09/15/23 11:00 09/15/23 11:00 74 19 172/89 H 97 09/15/23 10:30 70 24 149/77 H 96 09/15/23 09:57 68 16 176/81 H 96 09/15/23 09:39 82 16 178/91 H 96 09/15/23 08:14 70 16 148/91 H 97 09/15/23 07:16 63 16 185/100 H 97 09/15/23 06:11 66 09/15/23 04:01 75 185/153 H 95 09/15/23 03:36 177/95 H 94 09/15/23 03:30 199/133 H 94 09/15/23 03:00 178/107 H 91 O2 Del Method 09/15/23 11:30 Room Air 09/15/23 11:30 Room Air 09/15/23 11:00 09/15/23 11:00 Room Air 09/15/23 11:00 Room Air 09/15/23 10:30 Room Air 09/15/23 09:57 Room Air 09/15/23 09:39 Room Air 09/15/23 08:14 Room Air 09/15/23 07:16 Room Air 09/15/23 06:11 09/15/23 04:01 Room Air 09/15/23 03:36 09/15/23 03:30 09/15/23 03:00 PG Care Time/CCT Total # of Minutes Spent Total Time Spent with Patient: Total time spent is greater than 50% in coordination of care (as documented) at patient's floor/unit and/or counseling patient: Coding Level of Care Code 79213 INT INP/OBS CARE 3/75MIN Diagnoses CAD (coronary artery disease) I25.10 Atherogenic dyslipidemia E78.5 HTN (hypertension) I10 Time Spent (min) 80
--- NOTE | 2023-09-15 18:39 | Communication Note ---
Date of Service: September 15, 2023 77 y/o with COPD and CAD underwent PCI with 2 stents to diagonal 09/[address] Dolan Admitted with chest tightness, dyspnea Troponin elevation likely related to PCI and downtrending EKG stable and No rwma's on Echo 09/14 - nl EF, aortic sclerosis, unchanged On exam she's sitting up in bed pleasant, has bibasilar coarse crackles but no wheezing, CTA anteriorly, no leg edema or JVD Agree with Dr. Dolan's assessment that this may be brillinta side effect, she feels better less dyspnea today and was changed to plavix with loading dose this am Continuing ASA/plavix, metoprolol recently increased, atorvastatin changed to rosuvastatin, BP high in ED and overnight but improved this afternoon may need additional agent
[2023-09-16] MEDS: CLOPIDOGREL BISULFATE 75 MG TAB PO SCH (09:13)
--- NOTE | 2023-09-16 17:52 | Discharge Summary ---
Date of Service September 16, 2023 Admission HPI Per Admitting Provider The patient is a 77-year-old female with a past medical history including tobacco abuse, CAMRYN, piriformis syndrome, history of acute hypoxemic respiratory failure, right hip DJD, COPD, hypertension, multiple pulmonary nodules, anxiety and depression, insomnia, chronic bronchitis, does mellitus type II and frequent PVCs. The patient underwent a cardiac catheterization by Dr. Dolan earlier in the day today, and had successful PCI with 2 overlapping drug-eluting stents placed in a large diagonal. She was started on dual antiplatelet therapy with aspirin 81 mg daily and Brilinta 90 mg twice daily. She tolerated the procedure well, and was doing fine until she was sitting in her chair at home, and had the above symptoms develop. He was tolerating the chest squeezing somewhat, but when she laid back and was not able to gather her breath, she panicked, and her son called EMS, who then brought her to the ED for assessment. Principal Diagnosis CAD with recent PCI, chest pressure / dyspnea likely related to Brilinta Discharge Exam PHYSICAL EXAMINATION Last 24h vital signs reviewed, see documentation in flowsheet General: comfortable appearing, no distress HEENT: Normocephalic, atraumatic, pupils round and equal, sclerae anicteric, no conjunctival injection, moist mucus membranes Lungs: Normal respiratory effort. Clear to auscultation bilaterally except very mild crackles in both bases improved from yesterday. No wheezing Heart: Regular rate and rhythm, no murmurs. No JVD Abdomen: Soft, nontender, nondistended. Bowel sounds present. Extremities: Warm, dry, well-perfused. No extremity edema. Neuro: Alert and oriented x 4, face symmetric, moves 4 extremities well Psych: Normal affect and behavior Discharge Data Allergies Allergy/AdvReac Type Severity Reaction Status Date / Time No Known Allergies Allergy Verified 09/15/23 01:04 Consultations 09/15/23 06:08 ED Decision to Admit Stat 09/15/23 09:47 Consult Cardiology Routine Ordered Studies 09/15/23 00:40 CT angio chest PE protocol Stat Chest CTA 09/15/23 00:40 Exam(s): CTA CHEST IV Amt: 117 ml opti 320 EXAM: CT Angiography Chest With Intravenous Contrast CLINICAL HISTORY: Pulmonary embolus. TECHNIQUE: Axial computed tomographic angiography images of the chest with intravenous contrast. MIPS images were created and reviewed. CTDI is 20. 85 mGy and DLP is 663 mGy-cm. Automated exposure control was utilized for the study. A dose lowering technique was utilized adhering to the principles of ALARA. MIP reconstructed images were created and reviewed. COMPARISON: CTA chest 07/17/2021 FINDINGS: Pulmonary arteries: Unremarkable. No pulmonary embolus. Aorta: Mild atherosclerosis. No thoracic aortic aneurysm. Lungs: Interseptal thickening could relate to atelectasis and/or pulmonary edema. Emphysema. No mass. Pleural space: Unremarkable. No significant effusion. No pneumothorax. Heart: Unremarkable. No cardiomegaly. No significant pericardial effusion. No evidence of RV dysfunction. Mediastinum: Large hiatal hernia. Bones/joints: There are degenerative changes of the spine. No acute fracture. Soft tissues: Unremarkable. Lymph nodes: Unremarkable. No enlarged lymph nodes. IMPRESSION: 1. No pulmonary embolus. 2. Interseptal thickening could relate to atelectasis and/or pulmonary edema. 3. Emphysema. 4. Large hiatal hernia. Electronically signed by: Deborah Gonzalez MD 09/15/23 03:21 AM Hospital Course (1) Chest pain: (2) Dyspnea: (3) Tobacco abuse: (4) Obstructive sleep apnea of adult: (5) Anxiety: (6) Chest pressure: (7) HTN (hypertension): (8) Anxiety and depression: (9) Controlled type 2 diabetes mellitus with microalbuminuria: (10) Status post coronary artery stent placement: (11) CAD (coronary artery disease): (12) Hypokalemia: Plan 77 y/o with COPD and CAD underwent PCI with 2 stents to diagonal 09/[address] Dolan Next day admitted with chest tightness, dyspnea Dr. Dolan consulted Troponin elevation related to PCI and continued downtrending, no concerning EKG changes, CTA chest negative for PE No rwma's on Echo 09/14 - nl EF, aortic sclerosis, unchanged CP resolved and dyspnea improved to near her baseline from COPD Agree with Dr. Dolan's assessment that this was likely Brilinta side effect, she feels better and was changed to plavix with loading dose 09/14 Continuing ASA/plavix, metoprolol recently increased, atorvastatin changed to rosuvastatin, ezetimibe, BP high in ED and first night but normal today on metoprolol and resumption of losartan Hypokalemia- Potassium 3.2 on admission - replaced COPD not in exacerbation I provided tobacco cessation counseling 09/15 - she is using nicotine replacement. Had side effects to varenicline and bupropion in past Continue usual inhalers Continue nicotine patch Large hiatal hernia/presumptive GERD- Continue PPI but changed esomeprazole to pantoprazole because of drug interaction with plavix Diabetes mellitus- Semaglutide and metformin as an outpatient Total Time Total Time Spent Total Time Spent (In Minutes): less than 30 minutes Discharge Plan Discharge Items Patient Disposition: Home - Self-Care Reason For Visit: CHEST PAIN AFTER CATH Discharge Diagnosis: chest pain and dyspnea - likely reaction to Brilinta Activity: Resume your previous activity Non-emergency contact: Primary Care Provider and [employer] Call non-emergency contact if: you have any medication questions and your symptoms worsen Follow-up/Referrals: Shaheen Dolan MD, PhD [Physician] - Alta Valecnia CRNP [Primary Care Provider] - 09/17/23 2:00 pm Diet: Heart Healthy Addtl Attending Provider Instructions: You were evaluated for chest pain and shortness of breath There was no evidence of heart attack or stent complication We think this was probably a side effect of Brillinta. Brillinta was stopped and changed to Plavix (clopidogrel) a similar medication Keep taking baby aspirin daily -you need to be on both aspirin and plavix for 1-[address] Dolan - do not stop these except under the direction of a care program resident (or run out) There is a drug interaction between esomeprazole (Nexium) and plavix - you should stop taking esomeprazole, I gave you a prescription for pantoprazole (protonix) instead - does not interact with plavix Call your doctor if you get new concerning rash, abnormal bleeding, or low urine output Monitor your BP with your home cuff and take a log of this to your doctor appointments - it is normal today with your new metoprolol dose and your losartan Follow up with Dr. Dolan as scheduled It was a pleasure taking care of you in the hospital Yessenia Burns MD Pending Studies at Discharge: No Stand-Alone Forms: My two.42.solutions, Smoking Cessation Medications and DC Order Prescriptions: New clopidogrel 75 mg Tablet 75 mg PO QAM Qty: 30 1RF pantoprazole 40 mg tablet,delayed release (DR/EC) 40 mg PO BID PRN (Reason: heartburn) Qty: 60 0RF Continued ferrous sulfate 325 mg (65 mg iron) tablet 325 mg PO Q OTHER DAY Qty: 30 6RF (DME) CPAP Supplies Misc See Rx Instructions .Route Qty: 1 0RF Rx Instructions: CPAP mask please try nasal [id number]: CAMRYN J47.33 (DME) Accu-Chek Guide test strips Strip See Rx Instructions .Route Qty: 100 3RF Rx Instructions: Test blood sugar once daily losartan 100 mg tablet 100 mg PO QAM Qty: 90 3RF ezetimibe 10 mg tablet 10 mg PO DAILY Qty: 30 4RF metformin 500 mg tablet extended release 24 hr 1,000 mg PO BID Qty: 360 3RF Hold Instructions: Resume on 09/17/23. begin am dose Rx Instructions: ON HOLD 09/11-09/16/23RESUME ON 09/17/23. Anoro Ellipta 62.5-25 mcg/actuation blister with device 1 inh inhalation DAILY Qty: 3 3RF semaglutide 1 mg/dose (4 mg/3 mL) pen injector 1 mg subcut WK Qty: 3 2RF Rx Instructions: TAKES ON THURSDAYS albuterol sulfate [ProAir HFA] 90 mcg/actuation HFA aerosol inhaler 1 inh INH QID PRN (Reason: shortness of breath or wheezing) Qty: 18 11RF cholecalciferol (vitamin D3) 50 mcg (2,000 unit) tablet 2,000 units PO Q2D Rx Instructions: 2,000 units PO every other day; ipratropium-albuterol 0.5 mg-3 mg(2.5 mg base)/3 mL solution for nebulization 3 ml INH Q4 PRN (Reason: Shortness Of Breath) Qty: 180 3RF nicotine 14 mg/24 hr patch 24 hour 1 patch transdermal Q24H Qty: 28 3RF dextromethorphan-guaifenesin [Mucinex DM] 60-1,200 mg tablet extended release 12 hr 1 tab PO Q12H Qty: 60 3RF (DME) blood-glucose meter [Accu-Chek Guide Glucose Meter] Misc See Rx Instructions .Route Qty: 1 0RF Rx Instructions: Use to test blood sugar once daily rosuvastatin 40 mg tablet 40 mg PO DAILY Qty: 30 11RF metoprolol succinate 25 mg tablet extended release 24 hr 50 mg PO DAILY Qty: 90 3RF aspirin 81 mg Tablet,Delayed Release (Dr/Ec) 81 mg PO QAM Probiotic Colon Care 1.5 billion cell Capsule 1 cap PO QAM ascorbic acid (vitamin C) [Vitamin C] 500 mg tablet 500 mg PO Q2D Rx Instructions: 500 mg PO every other day; Discontinued esomeprazole magnesium 40 mg capsule,delayed release(DR/EC) 40 mg PO BID PRN (Reason: Heartburn) Qty: 180 3RF Brilinta 90 mg Tablet 90 mg PO BID Qty: 180 3RF Discharge Orders: Discharge Order (Routine); Ordered 09/16/23 Ordered By: Yessenia Burns Admission Data Admit Date/Time: 09/15/23 09:34 Attending Provider: Yessenia Burns Admit Provider: Ed Witt Primary Care Provider: Alta Valencia Other Providers: Benedicto Dhaliwal; Shaheen Dolan Other Interventions: Discharge Summary Assessment (RN) Last Done: 09/16/23 11:51 Coding Level of Care Code 94146 IN/OBS DISCH 30 MIN/LESS Diagnoses Chest pain R07.9 Dyspnea R06.00 Tobacco abuse Z72.0 Obstructive sleep apnea of adult G47.33 Anxiety F41.9 Chest pressure R07.89 HTN (hypertension) I10 Anxiety and depression F41.9; F32.9 Controlled type 2 diabetes mellitus with microalbuminuria E11.29; R80.9 Status post coronary artery stent placement Z95.5 CAD (coronary artery disease) I25.10 Hypokalemia E87.6
--- NOTE | 2023-09-16 22:06 | Electrocardiogram Report ---
Test Reason : Blood Pressure : / mmHG Vent. Rate : 076 BPM Atrial Rate : 076 BPM P-R Int : 208 ms QRS Dur : 086 ms QT Int : 406 ms P-R-T Axes : 028 010 045 degrees QTc Int : 456 ms Sinus rhythm with Premature ventricular complexes Possible Anterior infarct (cited on or before 14-SEP-2023) Abnormal ECG When compared with ECG of 14-SEP-2023 12:53, T wave inversion no longer evident in Inferior leads Confirmed by Ozzie Mohan ([id number]) on 09/16/2023 10:06:14 PM Referred By: REFERRED SELF Confirmed By:Ozzie Mohan
--- NOTE | 2023-09-17 05:51 | Electrocardiogram Report ---
Test Reason : Blood Pressure : / mmHG Vent. Rate : 069 BPM Atrial Rate : 069 BPM P-R Int : 196 ms QRS Dur : 082 ms QT Int : 402 ms P-R-T Axes : 005 005 080 degrees QTc Int : 430 ms Sinus rhythm with marked sinus arrhythmia Septal infarct (cited on or before 14-SEP-2023) Abnormal ECG When compared with ECG of 14-SEP-2023 23:14, (unconfirmed) Premature ventricular complexes are no longer Present Confirmed by Ozzie Mohan ([id number]) on 09/17/2023 5:51:39 AM Referred By: REFERRED SELF Confirmed By:Ozzie Mohan
== END 2023-09-16 13:09 | disposition home or self-care (01) ==
LOC: SUATTDRO → ED 23:00 → EDINP 23:00 → 2S 09-15 08:14 → SUATTDRO 09-15 09:34 → 2S 09-15 11:59

== ENCOUNTER 2025-02-27 10:28 | Inpatient (IN) ==
--- NOTE | 2025-02-27 11:52 | Emergency Department Note ---
Impression & Plan Acute dyspnea, Hypoxia, Infection due to parainfluenza virus 4, Acute hypokalemia ED Provider Note HISTORY OF PRESENT ILLNESS: Patient is a 79-year-old female presenting with shortness of breath. Patient reports that she has been having increasing shortness of breath for the last 3 days. She states she has had a cough productive of a thick sputum. She states that she think she has bronchitis, as these are her symptoms she normally gets. Denies any fevers or chills. Denies any DVT or PE history. She is on aspirin and Plavix for history of a cardiac stent. She does report some substernal chest pressure today. She was seen by her primary care provider and referred to the emergency department. Patient does not wear any supplemental oxygen at baseline. She denies any recent antibiotic or steroid use. ROS: as above PHYSICAL EXAM: Constitutional: Patient appears in no acute distress. HENT: Head: Normocephalic and atraumatic. Eyes: EOMI, PERRL Mouth/Throat: Mucous membranes moist. Neck: Trachea midline. Neck supple. Cardiovascular: RRR, No murmurs, rubs or gallops. Intact distal pulses. Pulmonary/Chest: No respiratory distress. Breath sounds clear and equal bilaterally. Coarse expiratory wheezes bilaterally. Abdominal: Abdomen soft, no tenderness, rebound or guarding. Musculoskeletal: No edema, tenderness or deformity noted. Skin: Warm and dry. No rash, erythema, pallor or cyanosis Psychiatric: Appropriate mood and affect for situation. Neurological: Alert and keenly responsive. CN II-XII grossly intact, moving all extremities equally and fully. MDM: - Vitals signs showed hypoxia. Patient placed on 2 L supplemental oxygen. - History obtained via patient. History as above. - Chronic conditions affecting care: HTN; HLD; copd; DM-2; depression - Differential diagnoses include, but are not limited to: Congestive heart failure; acute coronary syndrome; COPD/asthma exacerbation; pulmonary edema; pulmonary embolism; pneumonia; pneumothorax; viral syndrome - Order placed for continuous cardiac monitoring. At this time, monitor showed rate of 91 bpm with normal sinus rhythm, per my interpretation. - External medical records reviewed. Primary care visit note dated 02/02/2025 was reviewed. Patient was seen for routine follow-up for her chronic medical problems. Blood glucose meter and laboratory workup was ordered at that visit. - EKG image interpreted by myself showed normal sinus rhythm. Rate 90 bpm. QT 366. No acute ischemic changes. - Laboratory workup interpreted by myself showed normal WBC; normal PT/INR; slight hypokalemia (K 3.3); normal troponin - CXR image reviewed and interpreted by myself is new for pneumonia, per my interpretation. - Viral respiratory panel positive for parainfluenza virus type IV. - Patient given a duoneb treatment in the ER. Given 1L NS and 4 mg IV zofran. On reassessment, patient's nausea has improved and on repeat auscultation, her wheezing has improved. - Unfortunately, the patient saturations are 91 to 92% on 3 L nasal cannula. She does not wear any supplemental oxygen at baseline. Given her new oxygen requirement, will discuss case with hospitalist service. - Discussion was had with case monitor about patient's case and need for admission - Hospitalist consulted for admission - Patient admitted to [facility] hospitalist service for further evaluation and management. ASSESSMENT AND PLAN: Diagnosis: Acute dyspnea; parainfluenza virus; acute hypokalemia; hypoxia Plan: Admit Past Med/Surg History Problem List (Updated 02/27/25 @ 14:34 by Grecia Metz MD) Acute hypokalemia (Acute) Infection due to parainfluenza virus 4 (Acute) Hypoxia (Acute) Acute dyspnea (Acute) Urge and stress incontinence (Chronic) Frequent UTI (Chronic) Vitamin B12 deficiency Sacroiliitis Depression Hypertension Type 2 diabetes mellitus Abnormal chest CT CAD (coronary artery disease) Status post coronary artery stent placement Dyspnea (Acute) Thoracic back pain Atherogenic dyslipidemia Constipation Fall Chest pain Piriformis syndrome Tobacco abuse > 50 pack year hx. Everyday smoker 10/2022 Lumbar radiculopathy Low back pain Right knee DJD Trochanteric bursitis of right hip Degenerative joint disease of right hip COPD (chronic obstructive pulmonary disease) PFTs 2019 with FEV1 70% Hypoxia (Acute) Frequent PVCs Controlled type 2 diabetes mellitus with microalbuminuria Bronchitis with acute wheezing Cough Insomnia History of colon polyps Encounter for pre-operative examination Iron deficiency anemia Sleep apnea Smoking (Acute) Tubular adenoma of colon (Acute 07/2016) Urge and stress incontinence (Acute) Vitamin D deficiency (Acute) Anxiety and depression Multiple pulmonary nodules Pulmonary emphysema Obstructive sleep apnea of adult cpap Ground glass opacity present on imaging of lung Hypoxia HTN (hypertension) (Chronic) Medical History Microscopic hematuria Acute hypoxemic respiratory failure Piriformis syndrome Anxiety and depression History of COVID-19 History of fall On anticoagulant therapy History of vitamin D deficiency Urge and stress incontinence Trochanteric bursitis of right hip Pulmonary emphysema Multiple pulmonary nodules Spinal stenosis Lumbar radiculopathy Low back pain Iron deficiency anemia Dyspnea Degenerative joint disease COPD (chronic obstructive pulmonary disease) Constipation History of chest pain Productive cough Obstructive sleep apnea CAD (coronary artery disease) Pneumonia due to COVID-19 virus Atherosclerosis of aorta Atherosclerosis of arteries of extremities Diverticulitis of colon Restless legs Sensorineural hearing loss (SNHL) of both ears History of bronchitis Hypercholesteremia History of colon polyps History of anesthesia reaction Hiatal hernia Osteoarthritis GERD (gastroesophageal reflux disease) Surgical History History of heart artery stent History of cardiac cath History of dilatation and curettage History of bilateral tubal ligation History of open reduction and internal fixation (ORIF) procedure History of vocal cord polypectomy History of carpal tunnel release of both wrists History of section History of colonoscopy History of esophagogastroduodenoscopy (EGD) History of tooth extraction History of phacoemulsification of cataract of both eyes with intraocular lens implantation Family History Mother Family hx of colon cancer Family history of diabetes mellitus Hyperlipemia Hypertension Diabetes Colorectal cancer Family history of CABG Myocardial infarction Brother Family hx of colon cancer Liver cancer Colorectal cancer Father No problems noted. Other Breast cancer Lung cancer No family history of adverse response to anesthesia Prostate cancer Denies family history of Ovarian cancer Social History Smoking Status: Current every day smoker Tobacco Type: Cigarettes Age Started Using Tobacco: 17; packs per day: 0.5; Cigarettes Per Day: 1/2 pack; Second Hand Exposure: No; Do You Dip or Chew Tobacco: No; Hx Alcohol Use: No Hx Substance Use: No Preferred Language: Niuean Communication Ability: Effective Visual Impairment: No Limitations Hearing Ability: Normal Sheriff Officer Required: No Beliefs That Will Affect Care: None marital status: Current Living Situation: Family Current Living Situation Comment: Son current occupational status: retired current occupation: retired from career with [employer], assisted living How many Children do You have: 3 Feels Safe at Home: Yes Childhood Exposure to Second-Hand Smoke: Yes Diet: regular caffeine: Yes Dental Care, Regularly: No Physical Activity Frequency: 1-2 Times per Week Seatbelt Use: always Sunscreen Use: No Assistive Devices: CPAP, Denture - Upper and Glasses Allergies Allergies Allergy/AdvReac Type Severity Reaction Status Date / Time No Known Allergies Allergy Verified 02/02/25 09:33 Home Meds Home Medications Medication Instructions Recorded Confirmed Lactobacills gasseri-Bifidobac 1 cap PO QAM 12/11/18 02/27/25 bifidum,longum 1.5 billion cell capsule (Probiotic Colon Care) aspirin 81 mg tablet,delayed 81 mg PO QAM 12/11/18 02/27/25 release ascorbic acid (vitamin C) 500 mg 500 mg PO Q OTHER DAY 07/29/19 02/27/25 tablet (Vitamin C) cholecalciferol (vitamin D3) 50 2,000 units PO Q OTHER DAY 07/29/19 02/27/25 mcg (2,000 unit) tablet dextromethorphan-guaifenesin ER 60 1 tab PO Q12H PRN Congestion 09/17/23 02/27/25 mg-1,200 mg tab,extend release,12hr (Mucinex DM) mecobalamin (vitamin B12) 1,000 1,000 mcg PO .qod 10/14/24 02/27/25 mcg chewable tablet Previous Rx's Medication Instructions Recorded CPAP Supplies #1 ea 04/11/21 lancets 33 gauge #100 ea 01/02/24 lancing device with lancets kit #1 ea 01/02/24 (OneTouch Delica Plus Lancing Device kit) losartan 100 mg tablet 100 mg PO QAM #90 tabs 04/02/24 albuterol sulfate 90 mcg/actuation 1 inh inhalation QID PRN shortness 04/14/24 aerosol inhaler of breath or wheezing #18 grams rosuvastatin 40 mg tablet (Crestor) 40 mg PO QPM #90 tabs 07/26/24 metformin 500 mg tablet,extended 1,000 mg (2 x 500 mg) PO BID #360 03/06/25 release 24 hr tabs umeclidinium 62.5 mcg-vilanterol 1 inh inhalation QAM #180 ea 08/01/24 25 mcg/actuation powdr for inhalation (Anoro Ellipta) clopidogrel 75 mg tablet (Plavix) 75 mg PO QAM #90 tabs 08/06/24 metoprolol succinate 25 mg 50 mg (2 x 25 mg) PO QAM #180 tabs 10/06/24 tablet,extended release 24 hr (Toprol XL) pantoprazole 40 mg tablet,delayed 40 mg PO BID heartburn #180 tabs 10/06/24 release amlodipine 5 mg tablet 5 mg PO DAILY #30 tabs 12/16/24 ezetimibe 10 mg tablet (Zetia) 10 mg PO QAM #30 tabs 12/16/24 Ozempic 1 mg/dose (4 mg/3 mL) 1 mg (0.75 mL) subcut WK #3 mL 01/20/25 subcutaneous pen injector (semaglutide) blood sugar diagnostic (True #100 ea 02/02/25 Metrix Glucose Test Strip) blood-glucose meter (True Metrix #1 ea 02/02/25 Glucose Meter) Results & Data (ED) Vital Signs Vital Signs - 24 hr 02/27/25 11:02 02/27/25 11:09 02/27/25 11:50 Temperature 36.8 C Temperature Source Oral Pulse Rate 99 H Pulse Rate [Apical] Pulse Rhythm Pulse Rhythm [Apical] Pulse Strength [Apical] Respiratory Rate 18 Respiratory Effort / Characteristics Non-Labored Spontaneous Respiratory Depth Normal Normal Respiratory Pattern Regular Blood Pressure 129/74 Blood Pressure [Right Arm] Blood Pressure Mean 92 Blood Pressure Mean [Right Arm] Blood Pressure Position Sitting Blood Pressure Position [Right Arm] Pulse Oximetry 88 L 88 L Oxygen Delivery Method Room Air Room Air Nasal Cannula Oxygen Flow Rate 2 Sepsis Recent Fever Within 48 Hours No Sepsis New/Unexplained Change in Mental Status No Sepsis Action Taken by Nursing No Action Required Oxygen Flow Rate - Titration 2 Pulse Oximetry Post Tiitration 91 02/27/25 11:50 02/27/25 11:50 02/27/25 12:30 Temperature Temperature Source Pulse Rate 90 87 Pulse Rate [Apical] 94 H Pulse Rhythm Regular Pulse Rhythm [Apical] Regular Pulse Strength [Apical] Normal Respiratory Rate Respiratory Effort / Characteristics Non-Labored Spontaneous Respiratory Depth Normal Respiratory Pattern Regular Blood Pressure Blood Pressure [Right Arm] 129/81 Blood Pressure Mean Blood Pressure Mean [Right Arm] 97 Blood Pressure Position Blood Pressure Position [Right Arm] Sitting Pulse Oximetry 92 92 Oxygen Delivery Method Nasal Cannula Nasal Cannula Oxygen Flow Rate 2 2 Sepsis Recent Fever Within 48 Hours Sepsis New/Unexplained Change in Mental Status Sepsis Action Taken by Nursing Oxygen Flow Rate - Titration Pulse Oximetry Post Tiitration 02/27/25 13:02 Temperature Temperature Source Pulse Rate Pulse Rate [Apical] 88 Pulse Rhythm Pulse Rhythm [Apical] Regular Pulse Strength [Apical] Normal Respiratory Rate 19 Respiratory Effort / Characteristics Non-Labored Spontaneous Respiratory Depth Normal Respiratory Pattern Regular Blood Pressure Blood Pressure [Right Arm] 116/79 Blood Pressure Mean Blood Pressure Mean [Right Arm] 91 Blood Pressure Position Blood Pressure Position [Right Arm] Sitting Pulse Oximetry 95 Oxygen Delivery Method Nasal Cannula Oxygen Flow Rate 3 Sepsis Recent Fever Within 48 Hours Sepsis New/Unexplained Change in Mental Status Sepsis Action Taken by Nursing Oxygen Flow Rate - Titration Pulse Oximetry Post Tiitration Laboratory Data 02/27/25 11:50 02/27/25 11:50 Lab Results 02/27/25 02/27/25 Range/Units 11:47 11:50 WBC 6.68 (4.8-10.8) K/ul RBC 5.00 (4.20-5.40) M/uL Hgb 16.0 (12.0-16.0) g/dl Hct 45.6 (37.0-47.0) % MCV 91.2 (80.0-100.0) fL MCH 32.0 (25.0-34.0) pg MCHC 35.1 (32.0-36.0) g/dL RDW Std Deviation 41.2 (36.4-46.3) fL RDW Coeff of Robert 12.3 (11.5-14.5) % Plt Count 168 (130-400) K/uL MPV 10.4 (9.4-12.4) fL Immature Gran % (Auto) 0.3 % Neut % (Auto) 81.3 % Lymph % (Auto) 10.8 % [place] % (Auto) 7.5 % Eos % (Auto) 0.0 % Baso % (Auto) 0.1 % Neut # (Auto) 5.43 (1.40-6.50) K/uL Lymph # (Auto) 0.72 L (1.20-3.40) K/uL [place] # (Auto) 0.50 (0.11-0.59) K/uL Eos # (Auto) 0.00 (0.00-0.50) K/uL Baso # (Auto) 0.01 (0.00-0.20) K/uL Immature Gran # (Auto) 0.02 (0.01-0.20) K/uL PT 10.4 (9.0-12.0) Seconds INR 1.0 (0.9-1.1) Sodium 135 L (136-145) mmol/L Potassium 3.3 L (3.5-5.1) mmol/L Chloride 97 L (98-107) mmol/L Carbon Dioxide 30 (21-32) mmol/L Anion Gap 8 (3-11) BUN 13 (6-23) mg/dl Creatinine 0.66 (0.6-1.2) mg/dl Est Cr Clr Drug Dosing 59.0 ml/min eGFR 90.29 BUN/Creatinine Ratio 19.7 (10-20) Glucose 104 H (70-99(Fasting)) mg/dl Calcium 9.3 (8.6-10.3) mg/dl Magnesium 1.9 (1.7-2.4) mg/dl Total Bilirubin 0.4 (0.2-1.0) mg/dl AST 17 (13-39) U/L ALT 9 (7-52) U/L Alkaline Phosphatase 75 (34-104) U/L Troponin I High Sens 12.6 (0-14) pg/ml Total Protein 7.3 (6.0-8.3) gm/dl Albumin 4.2 (3.4-5.0) gm/dl Globulin 3.1 (2.5-4.0) gm/dl Albumin/Globulin Ratio 1.4 (0.9-2) Adenovirus (PCR) Not Detected (NotDetected) B. pertussis DNA (PCR) Not Detected (NotDetected) B.parapertussis DNA PCR Not Detected (NotDetected) C. pneumoniae DNA (PCR) Not Detected (NotDetected) Coronavirus OC43 (PCR) Not Detected (NotDetected) Coronavirus HKU1 (PCR) Not Detected (NotDetected) Coronavirus 229E (PCR) Not Detected (NotDetected) SARS-CoV-2 (PCR) Not Detected (NotDetected) Coronavirus NL63 (PCR) Not Detected (NotDetected) Human Metapneumovir PCR Not Detected (NotDetected) Influenza Type A (PCR) Not Detected (NotDetected) Influenza Type B (PCR) Not Detected (NotDetected) M. pneumoniae (PCR) Not Detected (NotDetected) Parainfluenza 1 (PCR) Not Detected (NotDetected) Parainfluenza 2 (PCR) Not Detected (NotDetected) Parainfluenza 3 (PCR) Not Detected (NotDetected) Parainfluenza 4 (PCR) DETECTED A (NotDetected) RSV (PCR) Not Detected (NotDetected) Entero/Rhino (PCR) Not Detected (NotDetected) Administered Medications Discontinued Medications Albuterol (Albut/Ipratrop 3mg/0.5mg Neb 3 Ml Vial) 3 ml NEB NOW STA; Protocol Stop: 02/27/25 11:30 Last Admin: 02/27/25 12:13 Dose: 3 ml Documented By: RUFINA Acetaminophen (Ofirmev) 1,000 mg in 100 mls @ 400 mls/hr IV NOW STA Stop: 02/27/25 11:41 Last Admin: 02/27/25 12:11 Dose: Not Given Documented By: RUFINA Sodium Chloride (Nss) 1,000 mls @ 999 mls/hr IV .Q1H1M ONE Stop: 02/27/25 12:27 Last Infusion: 02/27/25 13:47 Dose: Infused Documented By: NRJulianna Admin: 02/27/25 12:13 Dose: 999 mls/hr Documented By: RUFINA Ondansetron HCl (Ondansetron Inj 2 Mg/Ml 2 Ml Vial) 4 mg IV NOW STA Stop: 02/27/25 11:28 Last Admin: 02/27/25 12:11 Dose: Not Given Documented By: RUFINA Ondansetron HCl (Ondansetron Inj 2 Mg/Ml 2 Ml Vial) 4 mg IV NOW STA Stop: 02/27/25 11:32 Last Admin: 02/27/25 12:13 Dose: 4 mg Documented By: RUFINA Imaging Data Radiologist's Impression: Chest X-Ray 02/27/25 11:28 XR chest 1V portable CLINICAL HISTORY: Dyspnea COMPARISON STUDY: 10/09/2022 FINDINGS: Stable moderate cardiomegaly without pulmonary vascular congestion. No consolidation or pleural effusion seen. No pneumothorax. Stable large hiatal hernia. IMPRESSION: No acute findings. ACT 112: Negative or not required by law. Electronically signed by: Luis A Eller M.D. 02/27/2025 12:30 PM Discharge Plan Visit Data Chief Complaint: Respiratory Problems Stated Complaint: RESPIRATORY ISSUES, REF BY DOC ED Provider: Grecia Metz Discharge Problem: Acute dyspnea, Hypoxia, Infection due to parainfluenza virus 4, Acute hypokalemia Condition: Fair Forms Stand Alone Forms: My [facility] [employer] Interactive Prescriptions Prescriptions: No Action (DME) CPAP Supplies Misc See Rx Instructions .Route Qty: 1 0RF Rx Instructions: CPAP mask please try nasal [id number]: CAMRYN J47.33 (DME) lancing device with lancets [Seedfuseuch Delica Plus Lanc Dev] Kit See Rx Instructions .Route Qty: 1 1RF Rx Instructions: use to test blood sugar as directed (DME) lancets 33 gauge misc See Rx Instructions .ROUTE .MEDSUPPLY Qty: 100 3RF Rx Instructions: use to test blood sugar QD losartan 100 mg tablet 100 mg PO QAM Qty: 90 3RF albuterol sulfate 90 mcg/actuation HFA aerosol inhaler 1 inh INH QID PRN (Reason: shortness of breath or wheezing) Qty: 18 11RF rosuvastatin [Crestor] 40 mg tablet 40 mg PO QPM Qty: 90 3RF metformin 500 mg tablet extended release 24 hr 1,000 mg PO BID Qty: 360 3RF Hold Instructions: Resume on 09/17/23. begin am dose Anoro Ellipta 62.5-25 mcg/actuation blister with device 1 inh inhalation QAM Qty: 180 2RF clopidogrel [Plavix] 75 mg tablet 75 mg PO QAM Qty: 90 3RF pantoprazole 40 mg tablet,delayed release (DR/EC) 40 mg PO BID Qty: 180 3RF metoprolol succinate [Toprol XL] 25 mg tablet extended release 24 hr 50 mg PO QAM Qty: 180 3RF amlodipine 5 mg tablet 5 mg PO DAILY Qty: 30 2RF ezetimibe [Zetia] 10 mg tablet 10 mg PO QAM Qty: 30 5RF Ozempic 1 mg/dose (4 mg/3 mL) pen injector 1 mg subcut WK Qty: 3 2RF Rx Instructions: TAKES ON THURSDAYS cholecalciferol (vitamin D3) 50 mcg (2,000 unit) tablet 2,000 units PO Q OTHER DAY Patient Comments: takes in the afternoon Rx Instructions: 2,000 units PO every other day; dextromethorphan-guaifenesin [Mucinex DM] 60-1,200 mg tablet extended release 12 hr 1 tab PO Q12H PRN (Reason: Congestion) mecobalamin (vitamin B12) 1,000 mcg tablet,chewable 1,000 mcg PO .qod (DME) True Metrix Glucose Test Strip Strip See Rx Instructions .Route Qty: 100 5RF Rx Instructions: As directed to test blood surgar daily (DME) blood-glucose meter [True Metrix Glucose Meter] Misc See Rx Instructions .Route Qty: 1 0RF Rx Instructions: As directed to test blood sugar daily aspirin 81 mg Tablet,Delayed Release (Dr/Ec) 81 mg PO QAM Probiotic Colon Care 1.5 billion cell Capsule 1 cap PO QAM ascorbic acid (vitamin C) [Vitamin C] 500 mg tablet 500 mg PO Q OTHER DAY Patient Comments: takes in the afternoon Rx Instructions: 500 mg PO every other day; Referrals Referrals: Alta Valencia CRNP [Primary Care Provider] -
[2025-02-27] MEDS: ACETAMINOPHEN 1,000 MG/100 ML VIAL IV STA (12:11)
[2025-02-27] MEDS: ONDANSETRON INJ 2 MG/ML 2 ML VIAL IV STA ×2 (12:11→12:13)
[2025-02-27] MEDS: ALBUT/IPRATROP 3MG/0.5MG NEB 3 ML VIAL NEB STA (12:13)
[2025-02-27] MEDS: SODIUM CHLORIDE 0.9% 1,000 ML IV ONE (12:13)
[2025-02-27 12:25] LABS: Hematocrit (blood only) 45.6 % (37.0-47.0); Hemoglobin 16.0 g/dl (12.0-16.0); Immature Granulocytes # (auto) 0.02 K/uL (0.01-0.20); Immature Granulocytes % (auto) 0.3 %; Mean Corpuscular Hemoglobin 32.0 pg (25.0-34.0); Mean Corpuscular Volume 91.2 fL (80.0-100.0); Platelet Count 168 K/uL (130-400); RDW Standard Deviation 41.2 fL (36.4-46.3); Red Blood Count 5.00 M/uL (4.20-5.40); White Blood Count 6.68 K/ul (4.8-10.8)
--- NOTE | 2025-02-27 12:31 | XRay Report ---
XR chest 1V portable CLINICAL HISTORY: Dyspnea COMPARISON STUDY: 10/09/2022 FINDINGS: Stable moderate cardiomegaly without pulmonary vascular congestion. No consolidation or ple ural effusion seen. No pneumothorax. Stable large hiatal hernia. IMPRESSION: No acute findings. ACT 112: Negative or not required by law. Electronically signed by: Luis A Eller M.D. 02/27/2025 12:30 PM
[2025-02-27 12:40] LABS: Alanine Aminotransferase 9.0 U/L (7-52); Albumin Globulin Ratio 1.4 (0.9-2); Albumin Level 4.2 gm/dl (3.4-5.0); Alkaline Phosphatase 75.0 U/L (34-104); Anion Gap 8.0 (3-11); Bilirubin,Total 0.4 mg/dl (0.2-1.0); Blood Urea Nitrogen 13.0 mg/dl (6-23); Calcium 9.3 mg/dl (8.6-10.3); Carbon Dioxide 30.0 mmol/L (21-32); Chloride 97.0 mmol/L (98-107); Creatinine Clr Calc Pharmacy 59.0 ml/min; Globulin 3.1 gm/dl (2.5-4.0); Glucose 104.0 mg/dl (70-99(Fasting)); Magnesium 1.9 mg/dl (1.7-2.4); Potassium 3.3 mmol/L (3.5-5.1); Sodium 135.0 mmol/L (136-145); Total Protein 7.3 gm/dl (6.0-8.3)
[2025-02-27 12:49] LABS: INR 1.0 (0.9-1.1); Prothrombin Time 10.4 Seconds (9.0-12.0)
[2025-02-27 13:13] LABS: Chlamydia pneumoniae PCR Not Detected (NotDetected); Coronavirus 229E PCR Not Detected (NotDetected); Coronavirus CoV-2 (COVID19)PCR Not Detected (NotDetected); Coronavirus HKU1 PCR Not Detected (NotDetected); Coronavirus NL63 PCR Not Detected (NotDetected); Coronavirus OC43PCR Not Detected (NotDetected); Human Metapneumovirus PCR Not Detected (NotDetected); Parainfluenza Virus 1 PCR Not Detected (NotDetected); Parainfluenza Virus 2 PCR Not Detected (NotDetected); Parainfluenza Virus 3 PCR Not Detected (NotDetected); Parainfluenza Virus 4 PCR DETECTED (NotDetected); Respiratory Syncytial VirusPCR Not Detected (NotDetected); Rhinovirus/Enterovirus PCR Not Detected (NotDetected)
[2025-02-27] MEDS: POTASSIUM CHLORIDE CRTAB 20 MEQ TABCR PO STA (14:33)
[2025-02-27] MEDS ORDERED: ONDANSETRON INJ 2 MG/ML 2 ML VIAL IV PRN (14:42)
[2025-02-27] MEDS ORDERED: POLYETHYLENE (MIRALAX) 17 GM PACK PO PRN (14:42)
[2025-02-27] MEDS ORDERED: MELATONIN 3 MG TAB PO PRN (14:42)
--- NOTE | 2025-02-27 15:04 | History & Physical Report ---
Date of Service February 27, 2025 Assessment & Plan (1) Infection due to parainfluenza virus 4: (2) Acute hypokalemia: (3) Hypoxia: (4) Acute exacerbation of chronic obstructive pulmonary disease: (5) Type 2 diabetes mellitus: (6) Hypertension: Plan This is a 79 year old female with past medical history of depression, HTN, type 2DM, CAD who presented to the ED on 02/27/2025 for flu like symptoms & shortness of breath. While in the ED, she was found to be hypoxic & placed on oxygen w/ improvement of O2 sat. She was on 5L at time of my encounter. She was given a duoneb that improved her symptoms. Her CXR was negative. CBC w/o leukocytosis or anemia. BMP w/ K mildly low at 3.3, s/p repletion. Respiratory biofire + for parainfluenza. CXR negative for pneumonia. #Acute COPD exacerbation secondary to parainfluenza 4 virus w/ ~ 4 days of SOB, wheezing prior to arrival. CXR negative for pneumonia. s/p Duoneb in ED --> Switch to Xopenex nebs q6h scheduled Supportive care w/ Mucinex prn for cough/congestion. Continue home inhaler Continue O2 as necessary to keep O2 > 90%; wean when able. Isolation precautions. CRP pending AM CBC, BMP. #Hypokalemia K 3.3 on admission, s/p 20meq PO repletion. Repeat BMP in AM #Type 2 DM On Metformin + Ozempic outpatient. --> hold while inpatient Most recent A1c 6.2% on 01/15/2025 Novolog sliding scale while inpatient, adjust as necessary #HTN Continue Amlodipine, Losartan, and Metoprolol BPs normotensive on admission #Hx of cardiac stent Continue ASA + Plavix #HLD - statin + Zetia DVT prophylaxis: Lovenox Code: full Case discussed w/ Dr. Fan at time of admission. History of Present Illness Primary Care Provider: KAIT Grimm This is a 79 year old female with past medical history of depression, HTN, type 2DM, CAD who presented to the ED on 02/27/2025 for flu like symptoms & shortness of breath. Angelique was seen & examined this afternoon. She reports that she began with flu like symptoms about 4 days prior to arrival. She states her son was sick at home & she has been shopping in public as well. She reports her shortness of breath worsened along with her wheezing which is what prompted her to come to the ER. She does use Anoro daily at home for her COPD. She states she does not have a rescue inhaler. She states that she does have a nebulizer at home but has not been using them. She reports nausea and poor appetitie. She has not vomited but states that if she was eating, she felt she may have vomited. She has had loose stool. Denies any abdominal pain. Denies any urinary related symptoms. She has not had fevers or chills. Denies any LE edema or muscle aches. While in the ED, she was found to be hypoxic & placed on oxygen w/ improvement of O2 sat. She was on 5L at time of my encounter. She was given a duoneb that improved her symptoms. Her CXR was negative. CBC w/o leukocytosis or anemia. BMP w/ K mildly low at 3.3, s/p repletion. Respiratory biofire + for parainfluenza. CXR negative for pneumonia. Code discussion did take place with the patient and she does confirm that she is a full code. Allergies Allergy/AdvReac Type Severity Reaction Status Date / Time No Known Allergies Allergy Verified 02/02/25 09:33 Home Medications Medication Instructions Recorded Confirmed Type Lactobacills gasseri-Bifidobac 1 cap PO QAM 12/11/18 03/03/25 History bifidum,longum 1.5 billion cell capsule (Probiotic Colon Care) aspirin 81 mg tablet,delayed 81 mg PO QAM 12/11/18 03/03/25 History release ascorbic acid (vitamin C) 500 mg 500 mg PO Q OTHER DAY 07/29/19 03/03/25 History tablet (Vitamin C) cholecalciferol (vitamin D3) 50 2,000 units PO Q OTHER DAY 07/29/19 03/03/25 History mcg (2,000 unit) tablet CPAP Supplies #1 ea 04/11/21 03/03/25 Rx dextromethorphan-guaifenesin ER 60 1 tab PO Q12H PRN Congestion 09/17/23 03/03/25 History mg-1,200 mg tab,extend release,12hr (Mucinex DM) lancets 33 gauge #100 ea 01/02/24 03/03/25 Rx lancing device with lancets kit #1 ea 01/02/24 03/03/25 Rx (OneTouch Delica Plus Lancing Device kit) losartan 100 mg tablet 100 mg PO QAM #90 tabs 04/02/24 03/03/25 Rx albuterol sulfate 90 mcg/actuation 1 inh inhalation QID PRN shortness 04/14/24 03/03/25 Rx aerosol inhaler of breath or wheezing #18 grams rosuvastatin 40 mg tablet (Crestor) 40 mg PO QPM #90 tabs 07/26/24 03/03/25 Rx metformin 500 mg tablet,extended 1,000 mg (2 x 500 mg) PO BID #360 07/31/24 03/03/25 Rx release 24 hr tabs umeclidinium 62.5 mcg-vilanterol 1 inh inhalation QAM #180 ea 08/01/24 03/03/25 Rx 25 mcg/actuation powdr for inhalation (Anoro Ellipta) clopidogrel 75 mg tablet (Plavix) 75 mg PO QAM #90 tabs 08/06/24 03/03/25 Rx metoprolol succinate 25 mg 50 mg (2 x 25 mg) PO QAM #180 tabs 10/06/24 03/03/25 Rx tablet,extended release 24 hr (Toprol XL) pantoprazole 40 mg tablet,delayed 40 mg PO BID heartburn #180 tabs 10/06/24 03/03/25 Rx release mecobalamin (vitamin B12) 1,000 1,000 mcg PO .qod 10/14/24 03/03/25 History mcg chewable tablet amlodipine 5 mg tablet 5 mg PO DAILY #30 tabs 12/16/24 03/03/25 Rx ezetimibe 10 mg tablet (Zetia) 10 mg PO QAM #30 tabs 12/16/24 03/03/25 Rx Ozempic 1 mg/dose (4 mg/3 mL) 1 mg (0.75 mL) subcut WK #3 mL 01/20/25 03/03/25 Rx subcutaneous pen injector (semaglutide) blood sugar diagnostic (True #100 ea 02/02/25 03/03/25 Rx Metrix Glucose Test Strip) blood-glucose meter (True Metrix #1 ea 02/02/25 03/03/25 Rx Glucose Meter) Past Med/Surg History Problem List (Updated 03/05/25 @ 00:08 by Teresa Eddy) Acute hypokalemia (Acute) Infection due to parainfluenza virus 4 (Acute) Hypoxia (Acute) Acute dyspnea (Acute) Urge and stress incontinence (Chronic) Frequent UTI (Chronic) Vitamin B12 deficiency Sacroiliitis Depression Hypertension Type 2 diabetes mellitus Abnormal chest CT CAD (coronary artery disease) Status post coronary artery stent placement Dyspnea (Acute) Thoracic back pain Atherogenic dyslipidemia Constipation Fall Chest pain Piriformis syndrome Tobacco abuse > 50 pack year hx. Everyday smoker 10/2022 Lumbar radiculopathy Low back pain Right knee DJD Trochanteric bursitis of right hip Degenerative joint disease of right hip COPD (chronic obstructive pulmonary disease) PFTs 2019 with FEV1 70% Hypoxia (Acute) Frequent PVCs Controlled type 2 diabetes mellitus with microalbuminuria Bronchitis with acute wheezing Cough Insomnia History of colon polyps Encounter for pre-operative examination Iron deficiency anemia Sleep apnea Smoking (Acute) Tubular adenoma of colon (Acute 07/2016) Urge and stress incontinence (Acute) Vitamin D deficiency (Acute) Anxiety and depression Multiple pulmonary nodules Pulmonary emphysema Obstructive sleep apnea of adult cpap Ground glass opacity present on imaging of lung Hypoxia HTN (hypertension) (Chronic) Medical History Microscopic hematuria Acute hypoxemic respiratory failure Piriformis syndrome Anxiety and depression History of COVID-19 History of fall On anticoagulant therapy History of vitamin D deficiency Urge and stress incontinence Trochanteric bursitis of right hip Pulmonary emphysema Multiple pulmonary nodules Spinal stenosis Lumbar radiculopathy Low back pain Iron deficiency anemia Dyspnea Degenerative joint disease COPD (chronic obstructive pulmonary disease) Constipation History of chest pain Productive cough Obstructive sleep apnea CAD (coronary artery disease) Pneumonia due to COVID-19 virus Atherosclerosis of aorta Atherosclerosis of arteries of extremities Diverticulitis of colon Restless legs Sensorineural hearing loss (SNHL) of both ears History of bronchitis Hypercholesteremia History of colon polyps History of anesthesia reaction Hiatal hernia Osteoarthritis GERD (gastroesophageal reflux disease) Surgical History History of heart artery stent History of cardiac cath History of dilatation and curettage History of bilateral tubal ligation History of open reduction and internal fixation (ORIF) procedure History of vocal cord polypectomy History of carpal tunnel release of both wrists History of section History of colonoscopy History of esophagogastroduodenoscopy (EGD) History of tooth extraction History of phacoemulsification of cataract of both eyes with intraocular lens implantation Family History Mother Family hx of colon cancer Family history of diabetes mellitus Hyperlipemia Hypertension Diabetes Colorectal cancer Family history of CABG Myocardial infarction Brother Family hx of colon cancer Liver cancer Colorectal cancer Father No problems noted. Other Breast cancer Lung cancer No family history of adverse response to anesthesia Prostate cancer Denies family history of Ovarian cancer Social History Smoking Status: Current every day smoker Tobacco Type: Cigarettes Age Started Using Tobacco: 17; packs per day: 0.5; Cigarettes Per Day: 1/2 pack; Second Hand Exposure: No; Do You Dip or Chew Tobacco: No; Hx Alcohol Use: No Hx Substance Use: No Preferred Language: Chinese Communication Ability: Effective Visual Impairment: No Limitations Hearing Ability: Normal County Court Judge Required: No Beliefs That Will Affect Care: None marital status: Current Living Situation: Family Current Living Situation Comment: Home with son current occupational status: retired current occupation: retired from career with [employer], assisted living How many Children do You have: 3 Feels Safe at Home: Yes Childhood Exposure to Second-Hand Smoke: Yes Diet: regular caffeine: Yes Dental Care, Regularly: No Physical Activity Frequency: 1-2 Times per Week Seatbelt Use: always Sunscreen Use: No Assistive Devices: None Review of Systems Review of Systems: All systems reviewed & are unremarkable except as noted in HPI & below Physical Exam Physical Exam: General: NAD, VS: BP 116/79; P88; R19; T36.8C Resp: normal respiratory effort, expiratory wheeze in b/l lung garibay. CV: RRR, no murmur Abd: normal bowel sounds, non tender, soft Extremities: Moves all extremities, no edema Neuro: A&O x3, Skin: intact, no lesions noted Results & Data Results & Data Vital Signs (Past 12 Hours) Vital Signs Temp Pulse Pulse Resp BP BP Pulse Ox 02/27/25 13:02 88 19 116/79 95 02/27/25 12:30 87 02/27/25 11:50 90 92 02/27/25 11:50 94 H 129/81 92 02/27/25 11:50 02/27/25 11:09 88 L 02/27/25 11:02 36.8 C 99 H 18 129/74 88 L O2 Del Method O2 Flow Rate 02/27/25 13:02 Nasal Cannula 3 02/27/25 12:30 02/27/25 11:50 Nasal Cannula 2 02/27/25 11:50 Nasal Cannula 2 02/27/25 11:50 Nasal Cannula 2 02/27/25 11:09 Room Air 02/27/25 11:02 Room Air Supervising Physician Co-Signing Physician Notes During face to face encounter, I obtained a history and physical examination, discussed plan of care with patient and answered any questions. I discussed plan of care with BIGG Lopez. I reviewed above note and agree with it except for the following: Patient will be admitted for COPD exacerbation secondary to parainfluenza. Patient with wheezing. Will hold corticosteroids for today as no signs of eopsinophilia. will monitor her for clinical improvement. PG Care Time/CCT Total # of Minutes Spent Total Time Spent with Patient: Total time spent is greater than 50% in coordination of care (as documented) at patient's floor/unit and/or counseling patient: Coding Level of Care Code 72283 INT INP/OBS CARE MIN Diagnoses Infection due to parainfluenza virus 4 B34.8 Acute hypokalemia E87.6 Hypoxia R09.02 Acute exacerbation of chronic obstructive pulmonary disease J44.1 Type 2 diabetes mellitus E11.9 Hypertension I10
[2025-02-27] MEDS: LEVALBUTEROL 0.31MG/3 ML VIAL NEB ONE (15:11)
[2025-02-27] MEDS ORDERED: GLUCOSE 40% GEL 15 GM TUBE PO PRN (16:00)
[2025-02-27] MEDS ORDERED: GLUCAGON FOR INJ 1 MG VIAL SQ PRN (16:00)
[2025-02-27] MEDS ORDERED: GLUCOSE 10 TAB/TUBE PO PRN (16:00)
[2025-02-27] MEDS ORDERED: CARBOHYDRATES FOR HYPOGLYCEMIA PO PRN (16:00)
[2025-02-27] MEDS ORDERED: DEXTROSE 50% 50 ML SYRINGE IV PRN (16:00)
[2025-02-27] MEDS: INSULIN ASPART PER UNIT CHARGE SC SCH (16:56)
[2025-02-27 18:34] LABS: Appearance Urine Clear (Clear); Bacteria Urine Automated None Seen (None Seen); Cast Urine Automated 0-2 /lpf (0-2); Epithelial Cell Urine Auto 0-2 /hpf (0-2); Glucose Urine UA Negative (Negative); WBC Urine Automated 0-5 /hpf (0-5)
--- NOTE | 2025-02-27 18:53 | Electrocardiogram Report ---
Test Reason : Blood Pressure : */* mmHG Vent. Rate : 90 BPM Atrial Rate : 90 BPM P-R Int : 192 ms QRS Dur : 90 ms QT Int : 366 ms P-R-T Axes : 101 19 74 degrees QTcB Int : 447 ms Sinus rhythm with Premature atrial complexes Abnormal ECG When compared with ECG of 16-Sep-2023 06:03, Premature atrial complexes are now Present Confirmed by Saad Dong ([id number] on 02/27/2025 6:53:15 PM Referred By: Alta Valencia Confirmed By: Saad Dogn
[2025-02-27] MEDS: ACETAMINOPHEN 325 MG TAB PO PRN (19:51)
[2025-02-27] MEDS: guaiFENesin 600 MG TABCR PO PRN (19:51)
[2025-02-27] MEDS: ROSUVASTATIN CALCIUM 20 MG TAB PO SCH (19:53)
[2025-02-27] MEDS: LEVALBUTEROL 0.31MG/3 ML VIAL NEB SCH (20:29)
[2025-02-27] MEDS ORDERED: LEVALBUTEROL 0.31MG/3 ML VIAL NEB SCH (21:00)
[2025-02-28 06:47] LABS: Hematocrit (blood only) 41.0 % (37.0-47.0); Hemoglobin 13.2 g/dl (12.0-16.0); Mean Corpuscular Hemoglobin 30.2 pg (25.0-34.0); Mean Corpuscular Volume 93.8 fL (80.0-100.0); Platelet Count 143 K/uL (130-400); RDW Standard Deviation 43.0 fL (36.4-46.3); Red Blood Count 4.37 M/uL (4.20-5.40); White Blood Count 5.81 K/ul (4.8-10.8)
[2025-02-28 07:24] LABS: Anion Gap 6.0 (3-11); Blood Urea Nitrogen 12.0 mg/dl (6-23); Calcium 8.6 mg/dl (8.6-10.3); Carbon Dioxide 29.0 mmol/L (21-32); Chloride 102.0 mmol/L (98-107); Creatinine Clr Calc Pharmacy 73.5 ml/min; Glucose 88.0 mg/dl (70-99(Fasting)); Magnesium 1.9 mg/dl (1.7-2.4); Potassium 3.4 mmol/L (3.5-5.1); Sodium 137.0 mmol/L (136-145)
[2025-02-28] MEDS: UMECLIDINIUM/VILANTEROL 62.5/25MCG 7 PUFFS/INHALER INH SCH (08:35)
[2025-02-28] MEDS: POTASSIUM CHLORIDE CRTAB 20 MEQ TABCR PO STA (08:36)
[2025-02-28] MEDS: LOSARTAN POTASSIUM 50 MG TAB PO SCH (08:36)
[2025-02-28] MEDS: guaiFENesin 600 MG TABCR PO SCH (08:36)
[2025-02-28] MEDS: ENOXAPARIN INJ 40 MG/0.4 ML SYR SQ SCH (08:36)
[2025-02-28] MEDS: EZETIMIBE 10 MG TAB PO SCH (08:37)
[2025-02-28] MEDS: CLOPIDOGREL BISULFATE 75 MG TAB PO SCH (08:37)
[2025-02-28] MEDS: CHOLECALCIFEROL 25 MCG (1000 UNITS) TAB PO SCH (08:37)
[2025-02-28] MEDS: METOPROLOL SUCC 50MG EXT REL TAB PO SCH (08:37)
[2025-02-28] MEDS: ASPIRIN 81 MG ECTAB PO SCH (08:38)
--- NOTE | 2025-02-28 11:56 | Hospitalist Progress Note ---
Date of Service February 28, 2025 Assessment & Plan (1) Infection due to parainfluenza virus 4: (2) Acute hypokalemia: (3) Hypoxia: (4) Acute exacerbation of chronic obstructive pulmonary disease: (5) Type 2 diabetes mellitus: (6) Hypertension: Plan This is a 79 year old female with past medical history of depression, HTN, type 2DM, CAD who presented to the ED on 02/27/2025 for flu like symptoms & shortness of breath. #Acute COPD exacerbation secondary to parainfluenza 4 virus w/ ~ 4 days of SOB, wheezing prior to arrival. CXR negative for pneumonia. CBC w/o leukocytosis. BMP w/ stable renal function. CRP 0.54 --> 0.94 Xopenex nebs q6h scheduled Continue home inhaler; Scheduled Mucinex; Incentive spirometer Continue 40mg IV Solu-Medrol Continue O2 as necessary to keep O2 > 90%; wean when able. --> currently on 3L nasal cannula @ rest. Isolation precautions. AM CBC, BMP. #Hypokalemia K 3.3 on admission Improvement to 3.4, additional 20meq KCl given Repeat BMP in AM #Type 2 DM On Metformin + Ozempic outpatient. --> hold while inpatient Most recent A1c 6.2% on 01/15/2025 Novolog sliding scale while inpatient, adjust as necessary #HTN Continue Amlodipine, Losartan, and Metoprolol BPs normotensive on admission #Hx of cardiac stent Continue ASA + Plavix #HLD - statin + Zetia DVT prophylaxis: Lovenox Code: full Admission and Anticipated Discharge Date Admission Date: February 27, 2025 Bon Merino was seen & examined this morning. She reports she is feeling a little better today. Reports being fatigued. She states her wheezing has improved this morning. SHe is still coughing & does have SOB. Slowly being weaned off oxygen. Physical Exam Physical Exam: General: NAD, VS : BP 117/67; P 76; T37.2C Resp: normal respiratory effort, rhonchi throughout all lung garibay. Minimal expiratory wheeze CV: RRR, no murmur Extremities: Moves all extremities, no edema Neuro: A&O x3 Skin: intact, no lesions noted Results & Data Results & Data Vital Signs (Past 12 Hours) Vital Signs Temp Pulse Pulse Resp BP Pulse Ox O2 Del Method 02/28/25 11:16 37.2 C 66 18 117/67 94 Nasal Cannula 02/28/25 09:33 Nasal Cannula 02/28/25 07:54 37.3 C 93 H 19 149/83 H 93 Nasal Cannula, Nebulizer 02/28/25 07:39 88 18 93 Nasal Cannula 02/28/25 07:12 88 02/28/25 05:15 36.9 C 02/28/25 03:45 37.4 C 92 H 20 146/73 H 92 Nasal Cannula 02/28/25 00:31 37.4 C 86 20 156/74 H 93 Nasal Cannula 02/28/25 00:07 87 19 95 Nasal Cannula O2 Flow Rate 02/28/25 11:16 3 02/28/25 09:33 4 02/28/25 07:54 4 02/28/25 07:39 4 02/28/25 07:12 02/28/25 05:15 02/28/25 03:45 2 02/28/25 00:31 2 02/28/25 00:07 3 PG Care Time/CCT Total # of Minutes Spent Total Time Spent with Patient: Total time spent is greater than 50% in coordination of care (as documented) at patient's floor/unit and/or counseling patient: Coding Level of Care Code 95253 SUB INP/OBS CARE 235MIN Diagnoses Infection due to parainfluenza virus 4 B34.8 Acute hypokalemia E87.6 Hypoxia R09.02 Acute exacerbation of chronic obstructive pulmonary disease J44.1 Type 2 diabetes mellitus E11.9 Hypertension I10
[2025-03-01 07:31] LABS: Hematocrit (blood only) 40.6 % (37.0-47.0); Hemoglobin 13.4 g/dl (12.0-16.0); Mean Corpuscular Hemoglobin 30.5 pg (25.0-34.0); Mean Corpuscular Volume 92.5 fL (80.0-100.0); Platelet Count 163 K/uL (130-400); RDW Standard Deviation 41.1 fL (36.4-46.3); Red Blood Count 4.39 M/uL (4.20-5.40); White Blood Count 6.95 K/ul (4.8-10.8)
[2025-03-01 07:52] LABS: Anion Gap 6.0 (3-11); Blood Urea Nitrogen 15.0 mg/dl (6-23); Calcium 9.1 mg/dl (8.6-10.3); Carbon Dioxide 32.0 mmol/L (21-32); Chloride 101.0 mmol/L (98-107); Creatinine Clr Calc Pharmacy 66.1 ml/min; Glucose 98.0 mg/dl (70-99(Fasting)); Magnesium 1.9 mg/dl (1.7-2.4); Potassium 3.2 mmol/L (3.5-5.1); Sodium 139.0 mmol/L (136-145)
[2025-03-01] MEDS: POTASSIUM CHLORIDE CRTAB 20 MEQ TABCR PO STA (08:56)
[2025-03-01] MEDS ORDERED: CHOLECALCIFEROL 25 MCG (1000 UNITS) TAB PO SCH (09:00)
--- NOTE | 2025-03-01 11:26 | Hospitalist Progress Note ---
Date of Service March 01, 2025 Assessment & Plan (1) Infection due to parainfluenza virus 4: (2) Acute hypokalemia: (3) Hypoxia: (4) Acute exacerbation of chronic obstructive pulmonary disease: (5) Type 2 diabetes mellitus: (6) Hypertension: Plan This is a 79 year old female with past medical history of depression, HTN, type 2DM, CAD who presented to the ED on 02/27/2025 for flu like symptoms & shortness of breath. #Acute COPD exacerbation secondary to parainfluenza 4 virus w/ ~ 4 days of SOB, wheezing prior to arrival. CXR negative for pneumonia. CBC w/o leukocytosis. BMP w/ stable renal function. CRP downtrending at 0.69 Albuterol nebs q6h scheduled --> pt does have nebulizer @ home & needs refill on albuterol nebs @ dc. Continue home inhaler; Scheduled Mucinex; Incentive spirometer Continue 40mg IV Solu-Medrol -->transition to prednisone taper on dc Continue O2 as necessary to keep O2 > 90%; wean when able. --> currently between 1L to room air @ rest. Hopeful for home dc w/o oxygen, may require 2 step dependent on O2 sats. Isolation precautions. AM CBC, BMP. #Hypokalemia K 3.3 on admission 3.2 Repeat BMP in AM #Type 2 DM On Metformin + Ozempic outpatient. --> hold while inpatient Most recent A1c 6.2% on 01/15/2025 Novolog sliding scale while inpatient, adjust as necessary #HTN Continue Amlodipine, Losartan, and Metoprolol BPs normotensive on admission #Hx of cardiac stent- Continue ASA + Plavix #HLD - statin + Zetia DVT prophylaxis: Lovenox Code: full Anticipate discharge home 03/02. Admission and Anticipated Discharge Date Admission Date: February 27, 2025 Bon Merino was seen & examined this morning. She reports to be feeling better today. She states she was able to wash her face this morning in the bathroom & upon walking back to her bed she did feel winded. She reports her cough is improving, she is coughing up sputum on occasion. Physical Exam Physical Exam: General: NAD, VS: BP 139/72; P66; R16; T36.9C Resp: normal respiratory effort, scattered rhonchi, improved CV: RRR, no murmur Extremities: Moves all extremities, no edema Neuro: A&O x3 Skin: intact, no lesions noted Results & Data Results & Data Vital Signs (Past 12 Hours) Vital Signs Temp Pulse Pulse Resp BP Pulse Ox O2 Del Method 03/01/25 08:21 Nasal Cannula 03/01/25 07:55 36.9 C 60 18 129/75 92 Room Air 03/01/25 07:21 59 L 18 95 Nasal Cannula 03/01/25 06:53 64 03/01/25 02:56 36.9 C 61 20 157/72 H 93 Nasal Cannula 03/01/25 00:16 76 17 91 Nasal Cannula O2 Flow Rate 03/01/25 08:21 2 03/01/25 07:55 03/01/25 07:21 1.5 03/01/25 06:53 03/01/25 02:56 2 03/01/25 00:16 2 PG Care Time/CCT Total # of Minutes Spent Total Time Spent with Patient: Total time spent is greater than 50% in coordination of care (as documented) at patient's floor/unit and/or counseling patient: Coding Level of Care Code 76626 SUB INP/OBS CARE 2/35MIN Diagnoses Infection due to parainfluenza virus 4 B34.8 Acute hypokalemia E87.6 Hypoxia R09.02 Acute exacerbation of chronic obstructive pulmonary disease J44.1 Type 2 diabetes mellitus E11.9 Hypertension I10
[2025-03-01] MEDS: ALBUTEROL 0.083% NEBU SOLN 3 ML VIAL NEB SCH (12:53)
[2025-03-02 07:36] LABS: Anion Gap 6.0 (3-11); Blood Urea Nitrogen 13.0 mg/dl (6-23); Calcium 9.0 mg/dl (8.6-10.3); Carbon Dioxide 32.0 mmol/L (21-32); Chloride 104.0 mmol/L (98-107); Creatinine Clr Calc Pharmacy 60.0 ml/min; Glucose 94.0 mg/dl (70-99(Fasting)); Potassium 3.7 mmol/L (3.5-5.1); Sodium 142.0 mmol/L (136-145)
[2025-03-02 10:49] VITALS: BP 129/74; PULSE 67; RESP 18; TEMP 99; O2SAT 98
--- NOTE | 2025-03-02 11:27 | Discharge Summary ---
Discharge Summary Date of Service March 02, 2025 Principal Dx & Hospital Course #1 = Principal Diagnosis (1) Infection due to parainfluenza virus 4: (2) Acute hypokalemia: (3) Hypoxia: (4) Acute exacerbation of chronic obstructive pulmonary disease: (5) Type 2 diabetes mellitus: (6) Hypertension: Plan This is a 79 year old female with past medical history of depression, HTN, type 2DM, CAD who presented to the ED on 02/27/2025 for flu like symptoms & shortness of breath. #Acute COPD exacerbation secondary to parainfluenza 4 virus w/ ~ 4 days of SOB, wheezing prior to arrival. CXR negative for pneumonia. CBC w/o leukocytosis. BMP w/ stable renal function. CRP downtrending at 0.69 Albuterol nebs q6h scheduled --> pt does have nebulizer @ home & needs refill on albuterol nebs @ dc. Continue home inhaler; Scheduled Mucinex; Incentive spirometer Continue 40mg IV Solu-Medrol -->transition to prednisone taper on dc Continue O2 as necessary to keep O2 > 90%; wean when able. --> currently between 1L to room air @ rest. Hopeful for home dc w/o oxygen, may require 2 step dependent on O2 sats. Isolation precautions. AM CBC, BMP. #Hypokalemia K 3.3 on admission 3.2 Repeat BMP in AM #Type 2 DM On Metformin + Ozempic outpatient. --> hold while inpatient Most recent A1c 6.2% on 01/15/2025 Novolog sliding scale while inpatient, adjust as necessary #HTN Continue Amlodipine, Losartan, and Metoprolol BPs normotensive on admission #Hx of cardiac stent- Continue ASA + Plavix #HLD - statin + Zetia DVT prophylaxis: Lovenox Code: full Anticipate discharge home 03/02. Admission HPI Per Admitting Provider This is a 79 year old female with past medical history of depression, HTN, type 2DM, CAD who presented to the ED on 02/27/2025 for flu like symptoms & shortness of breath. Angelique was seen & examined this afternoon. She reports that she began with flu like symptoms about 4 days prior to arrival. She states her son was sick at home & she has been shopping in public as well. She reports her shortness of breath worsened along with her wheezing which is what prompted her to come to the ER. She does use Anoro daily at home for her COPD. She states she does not have a rescue inhaler. She states that she does have a nebulizer at home but has not been using them. She reports nausea and poor appetitie. She has not vomited but states that if she was eating, she felt she may have vomited. She has had loose stool. Denies any abdominal pain. Denies any urinary related symptoms. She has not had fevers or chills. Denies any LE edema or muscle aches. While in the ED, she was found to be hypoxic & placed on oxygen w/ improvement of O2 sat. She was on 5L at time of my encounter. She was given a duoneb that improved her symptoms. Her CXR was negative. CBC w/o leukocytosis or anemia. BMP w/ K mildly low at 3.3, s/p repletion. Respiratory biofire + for parainfluenza. CXR negative for pneumonia. Code discussion did take place with the patient and she does confirm that she is a full code. Discharge Plan Discharge Items Patient Disposition: Home - Self-Care Reason For Visit: SOB Discharge Diagnosis: SOB Condition on Discharge: Fair Activity: Resume your previous activity Non-emergency contact: Primary Care Provider Call non-emergency contact if: you have any medication questions Follow-up/Referrals: Alta Valencia CRNP [Primary Care Provider] - 03/09/25 2:00 pm Diet: Carb Consistent or DM2 and Heart Healthy Addtl Attending Provider Instructions: You have been hospitalized for an acute medical problem. During your stay at [facility], we have made an effort to correct the problem that brought you to the hospital while keeping you as comfortable as possible. Medications were used to bring your condition under control and your discharge instructions will include directions for any medications you should take after leaving the hospital. Please make sure you see your Primary Care Provider as part of your follow up plan. Recommend followup with PCP in 1-2 weeks. Pending Studies at Discharge: No Stand-Alone Forms: My [facility] diaDexus, Smoking Cessation Medications and DC Order Prescriptions: Continued (DME) CPAP Supplies Misc See Rx Instructions .Route Qty: 1 0RF Rx Instructions: CPAP mask please try nasal [id number]: CAMRYN J47.33 (DME) lancing device with lancets [OneTouch Delica Plus Lanc Dev] Kit See Rx Instructions .Route Qty: 1 1RF Rx Instructions: use to test blood sugar as directed (DME) lancets 33 gauge misc See Rx Instructions .ROUTE .MEDSUPPLY Qty: 100 3RF Rx Instructions: use to test blood sugar QD losartan 100 mg tablet 100 mg PO QAM Qty: 90 3RF albuterol sulfate 90 mcg/actuation HFA aerosol inhaler 1 inh INH QID PRN (Reason: shortness of breath or wheezing) Qty: 18 11RF rosuvastatin [Crestor] 40 mg tablet 40 mg PO QPM Qty: 90 3RF metformin 500 mg tablet extended release 24 hr 1,000 mg PO BID Qty: 360 3RF Hold Instructions: Resume on 09/17/23. begin am dose Anoro Ellipta 62.5-25 mcg/actuation blister with device 1 inh inhalation QAM Qty: 180 2RF clopidogrel [Plavix] 75 mg tablet 75 mg PO QAM Qty: 90 3RF pantoprazole 40 mg tablet,delayed release (DR/EC) 40 mg PO BID Qty: 180 3RF metoprolol succinate [Toprol XL] 25 mg tablet extended release 24 hr 50 mg PO QAM Qty: 180 3RF amlodipine 5 mg tablet 5 mg PO DAILY Qty: 30 2RF ezetimibe [Zetia] 10 mg tablet 10 mg PO QAM Qty: 30 5RF Ozempic 1 mg/dose (4 mg/3 mL) pen injector 1 mg subcut WK Qty: 3 2RF Rx Instructions: TAKES ON THURSDAYS cholecalciferol (vitamin D3) 50 mcg (2,000 unit) tablet 2,000 units PO Q OTHER DAY Patient Comments: takes in the afternoon Rx Instructions: 2,000 units PO every other day; dextromethorphan-guaifenesin [Mucinex DM] 60-1,200 mg tablet extended release 12 hr 1 tab PO Q12H PRN (Reason: Congestion) mecobalamin (vitamin B12) 1,000 mcg tablet,chewable 1,000 mcg PO .qod (DME) True Metrix Glucose Test Strip Strip See Rx Instructions .Route Qty: 100 5RF Rx Instructions: As directed to test blood surgar daily (DME) blood-glucose meter [True Metrix Glucose Meter] Misc See Rx Instructions .Route Qty: 1 0RF Rx Instructions: As directed to test blood sugar daily aspirin 81 mg Tablet,Delayed Release (Dr/Ec) 81 mg PO QAM Probiotic Colon Care 1.5 billion cell Capsule 1 cap PO QAM ascorbic acid (vitamin C) [Vitamin C] 500 mg tablet 500 mg PO Q OTHER DAY Patient Comments: takes in the afternoon Rx Instructions: 500 mg PO every other day; Discharge Orders: Discharge Order (Routine); Ordered 03/02/25 Ordered By: Vitor Fan Admission Data Admit Date/Time: 02/27/25 14:42 Attending Provider: Vitor Fan Admit Provider: Vitor Fan Primary Care Provider: Alta Valencia Other Providers: Vitor Fan Hospital Stay Data Consultations 02/27/25 14:08 ED Decision to Admit Stat Pending Results Patient Have Any Pending Studies at Discharge: No Discharge Instructions Given to Patient (Per Discharging Provider) You have been hospitalized for an acute medical problem. During your stay at [facility], we have made an effort to correct the problem that brought you to the hospital while keeping you as comfortable as possible. Medications were used to bring your condition under control and your discharge instructions will include directions for any medications you should take after leaving the hospital. Please make sure you see your Primary Care Provider as part of your follow up plan. Recommend followup with PCP in 1-2 weeks. Coding Diagnoses Infection due to parainfluenza virus 4 B34.8 Acute hypokalemia E87.6 Hypoxia R09.02 Acute exacerbation of chronic obstructive pulmonary disease J44.1 Type 2 diabetes mellitus E11.9 Hypertension I10
== END 2025-03-02 13:08 | disposition home or self-care (01) | DRG 192 ==
LOC: SUATTDRO → ED 10:28 → 2W 14:42
DX: F32.A Depression, unspecified; Z79.02 Long term (current) use of antithrombotics/antiplatelets; J44.1 Chronic obstructive pulmonary disease with (acute) exacerbation; Z83.3 Family history of diabetes mellitus; B34.8 Other viral infections of unspecified site; R09.02 Hypoxemia; E78.5 Hyperlipidemia, unspecified; Z79.85 Long-term (current) use of injectable non-insulin antidiabetic drugs; I10 Essential (primary) hypertension; I25.10 Atherosclerotic heart disease of native coronary artery without angina pectoris; Z95.5 Presence of coronary angioplasty implant and graft; E87.6 Hypokalemia; F17.210 Nicotine dependence, cigarettes, uncomplicated; E11.9 Type 2 diabetes mellitus without complications; Z79.82 Long term (current) use of aspirin

== ENCOUNTER 2025-04-20 05:56 | Observation (INO) ==
--- NOTE | 2025-04-10 14:18 | Anesthesiology Consultation ---
Date of Service April 10, 2025 Assessment & Plan (1) Encounter for pre-operative examination: Chart Review Chart Review: Acceptable Risk for Surgery and Patient NOT seen in Pre Admission Testing -Workload note was sent to Cardio from Surgeon's office asking if pt may hold plavix for procedure. Cardio response: "Patient is considered low risk for the planned procedure. Also, it has been well over a year since her stent implantation so holding Plavix for elective procedures is considered low risk." Infectious Disease screening: Per PAT nursing assessment on 04/10/25, No known infectious disease contacts in past 10 days or current infectious disease sy mptoms. No recent travel outside the country. History Surgery Operation Date: 04/20/25 07:30 Proposed Procedures p Robotic Navigational Bronchoscopy - Bob Flores MD s Endobronchial Ultrasound - Bob Flores MD Height/Weight Height: 5 ft 3 in Weight: 58.06 kg Allergies Allergy/AdvReac Type Severity Reaction Status Date / Time No Known Allergies Allergy Verified 04/10/25 13:29 Medications Home Medications Medication Instructions Recorded Confirmed Last Taken Lactobacills gasseri-Bifidobac 1 cap PO QAM 12/11/18 04/10/25 09/14/23 bifidum,longum 1.5 billion cell capsule (Probiotic Colon Care) aspirin 81 mg tablet,delayed 81 mg PO QAM 12/11/18 04/10/25 09/14/23 release ascorbic acid (vitamin C) 500 mg 500 mg PO Q2D 07/29/19 04/10/25 09/14/23 tablet (Vitamin C) cholecalciferol (vitamin D3) 50 2,000 units PO Q2D 07/29/19 04/10/25 09/14/23 mcg (2,000 unit) tablet dextromethorphan-guaifenesin ER 60 1 tab PO Q12H PRN Congestion 09/17/23 04/10/25 Unknown mg-1,200 mg tab,extend release,12hr (Mucinex DM) lancets 33 gauge #100 ea 01/02/24 03/30/25 Unknown lancing device with lancets kit #1 ea 01/02/24 03/30/25 Unknown (OneTouch Delica Plus Lancing Device kit) albuterol sulfate 90 mcg/actuation 1 inh inhalation QID PRN shortness 04/14/24 04/10/25 Unknown aerosol inhaler of breath or wheezing #18 grams rosuvastatin 40 mg tablet (Crestor) 40 mg PO QPM #90 tabs 07/26/24 04/10/25 Unknown metformin 500 mg tablet,extended 1,000 mg (2 x 500 mg) PO BID #360 07/31/24 04/10/25 Unknown release 24 hr tabs umeclidinium 62.5 mcg-vilanterol 1 inh inhalation QAM #180 ea 08/01/24 04/10/25 Unknown 25 mcg/actuation powdr for inhalation (Anoro Ellipta) clopidogrel 75 mg tablet (Plavix) 75 mg PO QAM #90 tabs 08/06/24 04/10/25 Unknown pantoprazole 40 mg tablet,delayed 40 mg PO BID heartburn #180 tabs 10/06/24 04/10/25 Unknown release mecobalamin (vitamin B12) 1,000 1,000 mcg PO Q2D 10/14/24 04/10/25 Unknown mcg chewable tablet ezetimibe 10 mg tablet (Zetia) 10 mg PO QAM #30 tabs 12/16/24 04/10/25 Unknown blood-glucose meter (True Metrix #1 ea 02/02/25 03/30/25 Unknown Glucose Meter) albuterol sulfate 2.5 mg/3 mL 2.5 mg (3 mL) inhalation QID PRN 03/09/25 04/10/25 Unknown (0.083 %) solution for nebulization shortness of breath or wheezing #75 mL blood sugar diagnostic (True #100 ea 03/09/25 03/30/25 Unknown Metrix Glucose Test Strip) ipratropium bromide 0.02 % 2.5 ml inhalation QID PRN 03/09/25 04/10/25 Unknown solution for inhalation shortness of breath or wheezing #62.5 mL CPAP Supplies #1 ea 03/18/25 03/30/25 Unknown nebulizer accessories #1 ea 03/18/25 03/30/25 Unknown azithromycin 500 mg tablet 500 mg PO MONWEDFRI 12 months #12 03/23/25 04/10/25 Unknown tabs losartan 100 mg tablet 100 mg PO QAM #90 tabs 03/23/25 04/10/25 Unknown amlodipine 5 mg tablet 5 mg PO QAM 04/10/25 04/10/25 Unknown metoprolol succinate 25 mg 50 mg PO QAM 04/10/25 04/10/25 Unknown tablet,extended release 24 hr (Toprol XL) semaglutide 1 mg/dose (4 mg/3 mL) 1 mg subcut Q7D 04/10/25 04/10/25 Unknown subcutaneous pen injector (Ozempic) Past Medical History Medical History (Updated 04/14/25 @ 10:15 by Blanca Skinner PA-C) Acute hypoxemic respiratory failure 02/27-03/02 admission [facility]; hypoxia 2/2 COPD exacerbation (2/2 parainfluenza 4 virus); weaned from O2 prior to D/C Anxiety and depression Atherosclerosis of aorta found incidentally on imaging Atherosclerosis of arteries of extremities found incidentally on imaging CAD (coronary artery disease) x2 overlapping stents in diagnonal 08/2023; follows with [facility] [place] Magdaleno Cigarette smoker Constipation ongoing COPD (chronic obstructive pulmonary disease) inhalers daily/prn, nebulizer prn--states uses nebulizer a couple times of month on average Degenerative joint disease Diabetes mellitus, type 2 NIDDM Diverticulitis of colon hx Dyspnea "ongoing," per pt > one of the reasons for upcoming procedure 04/20/25 GERD (gastroesophageal reflux disease) Hiatal hernia History of anesthesia reaction Slow to wake per pt History of bronchitis last winter 2018 History of colon polyps History of COVID-19 x2--last 2021--per pt all symptoms resolved History of fall 06/2023--pt states she fell and broke her nose and did not have it fixed History of vitamin D deficiency HLD (hyperlipidemia) atherogenic dyslipidemia HTN (hypertension) Hypercholesteremia Hypoxia hx; recently admitted to [facility] 02/27/25, also dx with parainfluenza virus 4; "reason for upcoming procedure 04/20/25 w/ dr. flores" Iron deficiency anemia Low back pain Lumbar radiculopathy Microscopic hematuria Multiple pulmonary nodules following with Dr. Smith Obstructive sleep apnea cpap "uses occasionally"; per 03/13/25 pulm note: pt awaiting new supplies On anticoagulant therapy plavix d/t 2 CHI placed 08/2023 Osteoarthritis Piriformis syndrome Pneumonia due to COVID-19 virus Admitted [facility] 06/2021. No chronic symptoms or radiographic sequela Productive cough Pulmonary emphysema Restless legs Sensorineural hearing loss (SNHL) of both ears Spinal stenosis Trochanteric bursitis of right hip Urge and stress incontinence Past Family History Family History Mother Family hx of colon cancer Family history of diabetes mellitus Hyperlipemia Hypertension Diabetes Colorectal cancer Family history of CABG Myocardial infarction Brother Family hx of colon cancer 2 Liver cancer Colorectal cancer Father No problems noted. Other Breast cancer Lung cancer No family history of adverse response to anesthesia Prostate cancer Denies family history of Ovarian cancer Past Surgical History Surgical History History of bilateral tubal ligation History of cardiac cath 09/14/23 @ [facility] with 2 CHI in diagonal placed by Dr. Dolan--on plavix daily History of carpal tunnel release of both wrists History of section x2 History of colonoscopy History of dilatation and curettage History of esophagogastroduodenoscopy (EGD) History of heart artery stent 09/14/23 2 CHI placed in diagonal by Dr. Dolan History of open reduction and internal fixation (ORIF) procedure left wrist--hardware removed History of phacoemulsification of cataract of both eyes with intraocular lens implantation History of tooth extraction all upper teeth removed History of vocal cord polypectomy x2 Social History Smoking Status: Current every day smoker tobacco type: cigarettes Smoking cigarettes per day: 10 Do You Dip or Chew Tobacco: No Hx Alcohol Use: No Hx Substance Use: No substance use type: does not use Lab Results Anesthesia Preop Results Results Anesthesia Widget: WBC 6.84 K/ul (4.8-10.8) 04/01/25 Hgb 13.6 g/dl (12.0-16.0) 04/01/25 Hct 39.9 % (37.0-47.0) 04/01/25 Plt 212 K/uL (130-400) 04/01/25 Na 140 mmol/L (136-145) 04/01/25 K 3.8 mmol/L (3.5-5.1) 04/01/25 Cl 106 mmol/L (98-107) 04/01/25 CO2 28 mmol/L (21-32) 04/01/25 BUN 18 mg/dl (6-23) 04/01/25 Creat 0.61 mg/dl (0.6-1.2) 04/01/25 Glucose Level 101 mg/dl (70-99(Fasting)) H 04/01/25 POC Glucose 179 mg/dl (70-99) H 03/02/25 PT 10.3 Seconds (9.0-12.0) 04/01/25 PTT 26 Seconds (21-31) 04/01/25 INR 1.0 (0.9-1.1) 04/01/25 Urine Color Dark Yellow 03/09/25 Urine Appearance Slightly Cloudy 03/30/25 Urine pH 6.5 (4.5-7.5) 03/09/25 Urine Specific [place] 1.021 (1.000-1.030) 03/09/25 Urine Protein Negative (Negative) 03/09/25 Urine Glucose (UA) Negative (Negative) 03/09/25 Urine Ketones Trace (Negative) H 03/09/25 Urine Blood Negative (Negative) 03/09/25 Urine Nitrite Negative (Negative) 03/09/25 Urine Bilirubin Negative (Negative) 03/09/25 Urine Urobilinogen Negative (Negative) 03/09/25 Urine Leukocyte Esterase Trace (Negative) H 03/09/25 Urine WBC (Auto) 0-5 /hpf (0-5) 03/09/25 Urine RBC (Auto) 6-10 /hpf (0-2) H 03/09/25 Urine Hyaline Casts (Auto) 0-2 /lpf (0-2) 03/09/25 Urine Epithelial Cells (Auto) 0-2 /hpf (0-2) 03/09/25 Urine Bacteria (Auto) None Seen (None Seen) 03/09/25 Coronavirus OC43 (PCR) Not Detected (NotDetected) 02/27/25 Coronavirus HKU1 (PCR) Not Detected (NotDetected) 02/27/25 Coronavirus 229E (PCR) Not Detected (NotDetected) 02/27/25 COVID-19 PCR Not Detected (NotDetected) 02/27/25 Coronavirus NL63 (PCR) Not Detected (NotDetected) 02/27/25 Testing Laboratory Results 03/30/25 urine culture: Three types of organisms present, all low counts probable skin og. No further identifications or sensitivities to follow. Electrocardiogram Date: 03/23/25 SR with marked sinus arrhythmia with 1st degree AVB, Rate: 74bpm low voltage QRS cannot r/o anteroseptal infarct, age undetermined. Chest X-Ray Date: 02/27/25 Findings: + NAD Stable moderate cardiomegaly without pulmonary vascular congestion. No consolidation or pleural effusion seen. No pneumothorax. Stable large hiatal hernia Echocardiogram Date: 09/15/23 EF: 60-65% LV Function: normal RWMA: + none mod cLVH. mild-mod RVH. aortic valve sclerosis is mild without significant . Stress Test Date: 11/19/24 Type: DSE Findings: + WNL Negative DSE for myocardial ischemia at 93% MHPR. Negative dobutamine stress EKG for ischemia at 93% MPHR. Pt had nl BP response to dobutamine infusion. Resting ECHO: EF 60-65%, mod cLVH, LA borderline dilated, mild TR, no RWMA. Other Testing CT Abd/Pelvis 04/03/25: FINDINGS: Grossly stable partially visualized large hiatal hernia. ABDOMEN: There is a small cyst at the upper spleen. Liver, gallbladder, pancreas, and adrenal glands are unremarkable. There are a few tiny cysts of the kidneys. There is no hydronephrosis bilaterally. There are a few small calcifications in the kidneys which are likely vascular. No definite renal calculi seen. No ureteral calculi seen. There are scattered atherosclerotic calcifications. No abdominal aortic aneurysm. Contrast progresses normally to the renal collecting systems, ureters, and urinary bladder on the delayed postcontrast imaging. Pelvis: Urinary bladder is decompressed and not well evaluated. Uterus is absent. No adnexal mass seen. There is extensive sigmoid diverticulosis. No acute diverticulitis. No bowel inflammation or obstruction. No free fluid or free air. No enlarged adenopathy. Osseous structures: There are mild degenerative changes of the lumbar spine with grade 1 anterolisthesis L4 on 5. There are degenerative changes at the hips, severe on the right and moderate on the left. IMPRESSION: 1. No acute findings. 2. No hydronephrosis or ureteral calculi. 3. Otherwise as described. Low Dose CT Lung 03/09/25: IMPRESSION: Increased size of a right upper lobe groundglass opacity and increased size of a mixed groundglass and solid nodule right lower lobe.
[2025-04-20] MEDS: LR 15ML/HR IV SCH (06:46)
[2025-04-20] MEDS ORDERED: ONDANSETRON INJ 2 MG/ML 2 ML VIAL IV PRN ×2 (06:52→12:07)
[2025-04-20] MEDS ORDERED: ATROPINE SULFATE 0.1 MG/ML 10ML SYR IV PRN (06:52)
[2025-04-20] MEDS ORDERED: MIDAZOLAM HCL 1 MG/ML 2ML VIAL ONE (06:54)
[2025-04-20] MEDS ORDERED: DEXAMETHASONE SOD INJ 4 MG/ML VIAL ONE (06:54)
[2025-04-20] MEDS ORDERED: ROCURONIUM BROMIDE 10 MG/ML 5 ML VIAL IV ONE (06:54)
[2025-04-20] MEDS ORDERED: ONDANSETRON INJ 2 MG/ML 2 ML VIAL ONE (06:54)
[2025-04-20] MEDS ORDERED: PROPOFOL IV EMULSION 10 MG/ML 20 ML VIAL IV ONE (06:54)
[2025-04-20] MEDS ORDERED: LIDOCAINE 2% 2 ML VIAL/AMP(20MG/ML) INFIL ONE (06:54)
[2025-04-20] MEDS ORDERED: SUCCINYLCHOLINE CHLORIDE 20 MG/ML 10 ML VIAL IV ONE (06:54)
[2025-04-20] MEDS: ALBUT/IPRATROP 3MG/0.5MG NEB 3 ML VIAL NEB STA (06:55)
--- NOTE | 2025-04-20 07:06 | History & Physical Bridge Note ---
Date of Service April 20, 2025 History & Physical Bridge Note I have examined the patient, reviewed the History & Physical and in the interval since the performance of the History & Physical I have noted the following changes of clinical significance: no changes noted
[2025-04-20] MEDS ORDERED: SUGAMMADEX SODIUM 200 MG/2 ML VIAL IV ONE (07:48)
--- NOTE | 2025-04-20 09:12 | Procedure Note ---
Procedure Note Date of Service April 20, 2025 Robotic navigational bronchoscopy and EBUS Right consent obtained from the patient immediately prior to the procedure. Timeout performed immediately prior to procedure. Patient was intubated and sedated per anesthesia staff. Inspection bronchoscopy was performed with diagnostic bronchoscope. Mucoid secretions noted in the left upper lobe and superior segment of the right lower lobe. These were suctioned free. Culture sent from the left upper lobe. Diagnostic scope was removed the robotic scope was docked. The scope was calibrated. The scope was advanced to the superior segment lung nodule with the use of navigation and fluoroscopy. Tomographic spin was performed when approximately 30 mm away from the right lower lobe superior segment lesion. Lesion was identified using fluoroscopy and a concentric view was obtained via radial EBUS. FNA and forcep biopsies were performed of this region. Washings were also performed. There was some bleeding and cold saline was used for hemostasis which was successful. After biopsies were performed, the scope was undocked and the robot was undocked. Diagnostic scope was then reinserted and inspection of the airways were performed. Blood clot was suctioned free from the right lower lobe. Cold saline was used to achieve hemostasis. Hemostasis was achieved and then the EBUS scope was inserted. Sequential survey of the hilar mediastinal lymph nodes was performed with no significant adenopathy. The EBUS scope was withdrawn and the patient was extubated per anesthesia protocol. The right lower lobe superior segment nodule measuring 1.1 cm was biopsied with a Louis view needle and forceps. Biopsy results are pending. Rapid onsite evaluation revealed potential low-grade tissue. BAL was performed of this region. BAL was also performed of the left upper lobe for culture analysis. Follow-up chest x-ray and follow-up final pathology. [facility] [place] Procedure Codes (Charges) Pulmonary/Thoracic Procedure 1: Pulmonary and Thoracic: 14256 Navigational Bronchoscopy Procedure 2: Pulmonary and Thoracic: 52873 Bronchoscopy w/ needle bx Procedure 3: Pulmonary and Thoracic: 06395 Bronchoscopy w/ transbronchial lung bx Procedure 4: Pulmonary and Thoracic: 17638 Dx bronchoscopy/wash Procedure 5: Pulmonary and Thoracic: 08498 Bronchoscopy, w/EBUS add on Coding CPT Codes Pulmonary/Thoracic - Pulmonary and Thoracic: 43416 Navigational Bronchoscopy ([id number]) Pulmonary/Thoracic - Pulmonary and Thoracic: 62662 Bronchoscopy w/ needle bx ([id number]) Pulmonary/Thoracic - Pulmonary and Thoracic: 44356 Bronchoscopy w/ transbronchial lung bx ([id number]) Pulmonary/Thoracic - Pulmonary and Thoracic: 54527 Dx bronchoscopy/wash ([id number]) Pulmonary/Thoracic - Pulmonary and Thoracic: 06168 Bronchoscopy, w/EBUS add on ([id number]) Additional Codes Date of Service (PG.[email or web address])
--- NOTE | 2025-04-20 09:38 | XRay Report ---
XR chest 1V portable CLINICAL HISTORY: s/p rll sup segment bronch bx COMPARISON STUDY: 02/27/2025 FINDINGS: There is interval dense consolidation at the right mid and lower lung. There is a large rig ht pneumothorax with 7 cm pleural separation at the right apex. There is mild stranding at the left l zita base. No pneumothorax on the left. IMPRESSION: 1. Large right pneumothorax. 2. Dense consolidation at the right mid and lower lung. ACT 112: Negative or not required by law. Electronically signed by: Luis A Eller M.D. 04/20/2025 9:36 AM
--- NOTE | 2025-04-20 10:05 | XRay Report ---
XR chest 1V portable CLINICAL HISTORY: s/p chest tube COMPARISON STUDY: 04/20/2025 FINDINGS: There is interval upper right chest tube. There is a trace right apical pneumothorax, signi ficantly improved. There is mild stranding opacity at the right mid and lower lung, improved. No othe r consolidation or pleural effusion. IMPRESSION: Trace right apical pneumothorax, significantly improved. ACT 112: Negative or not required by law. Electronically signed by: Luis A Eller M.D. 04/20/2025 10:04 AM
--- NOTE | 2025-04-20 10:08 | Pulmonary Consultation ---
Date of Consultation April 20, 2025 Assessment & Plan (1) Postprocedural pneumothorax: 8.5 [place] chest tube placed at bedside with resolution of pneumothorax. She is currently waterseal and nursing instructed to clamp the chest tube at 4 PM if she remains asymptomatic and there is no significant air leak noted in the Varsha chest tube drainage system. Repeat chest x-ray tomorrow morning and if no pneumothorax is identified, would remove chest tube. (2) S/P bronchoscopy with biopsy: FNA biopsies and forcep biopsies performed of the right lower lobe 1.1 cm subsolid nodule which has been increasing in size. This area is highly concerning for bronchogenic malignancy. She also has a new 2 cm ground glass opacity in the right upper lobe, but we elected not to pursue biopsy of this given some bleeding encountered after the right lower lobe nodule biopsy. This can be assessed on follow-up imaging and can be a manifestation of smoking- related ILD such as RB ILD. (3) Tobacco abuse counseling: Smoking cessation strongly encouraged given the patient's coronary artery disease, potential lung cancer and underlying emphysema. History of Present Illness Reason for Consultation: Pneumothorax Attending Physician: Bob Flores MD History of Present Illness 79-year-old female who is an active smoker and has a history of multiple lung nodules and coronary artery disease presenting to the hospital electively to undergo navigational bronchoscopy of a superior segment right lower lobe nodule which has been increasing in size and now measures about 1.1 cm. I was able to successfully navigate the lesion and perform biopsies with results that are pending. Also performed washings of the left upper lobe as there were mucoid secretions present. Patient continues to smoke but 1 pack a day. Prior PFTs 03/13/2024 revealed nonobstructive findings with an FEV1 of 82% and no significant postbronchodilator response. Mild air trapping was noted with an RV of 132% predicted. DLCO 78%. Post procedure she underwent a chest x-ray which revealed a large right-sided pneumothorax. I placed a pneumothorax catheter at bedside in the second intercostal space with resolution of the pneumothorax. Patient is now relatively asymptomatic and is on low-flow oxygen. Allergies Allergy/AdvReac Type Severity Reaction Status Date / Time No Known Allergies Allergy Verified 04/20/25 06:00 Home Medications Medication Instructions Recorded Confirmed Type Lactobacills gasseri-Bifidobac 1 cap PO QAM 12/11/18 04/20/25 History bifidum,longum 1.5 billion cell capsule (Probiotic Colon Care) aspirin 81 mg tablet,delayed 81 mg PO QAM 12/11/18 04/20/25 History release ascorbic acid (vitamin C) 500 mg 500 mg PO Q2D 07/29/19 04/20/25 History tablet (Vitamin C) cholecalciferol (vitamin D3) 50 2,000 units PO Q2D 07/29/19 04/20/25 History mcg (2,000 unit) tablet dextromethorphan-guaifenesin ER 60 1 tab PO Q12H PRN Congestion 09/17/23 04/20/25 History mg-1,200 mg tab,extend release,12hr (Mucinex DM) lancets 33 gauge #100 ea 01/02/24 03/30/25 Rx lancing device with lancets kit #1 ea 01/02/24 03/30/25 Rx (OneTouch Delica Plus Lancing Device kit) albuterol sulfate 90 mcg/actuation 1 inh inhalation QID PRN shortness 04/14/24 04/20/25 Rx aerosol inhaler of breath or wheezing #18 grams rosuvastatin 40 mg tablet (Crestor) 40 mg PO QPM #90 tabs 07/26/24 04/20/25 Rx metformin 500 mg tablet,extended 1,000 mg (2 x 500 mg) PO BID #360 07/31/24 04/20/25 Rx release 24 hr tabs umeclidinium 62.5 mcg-vilanterol 1 inh inhalation QAM #180 ea 08/01/24 04/20/25 Rx 25 mcg/actuation powdr for inhalation (Anoro Ellipta) clopidogrel 75 mg tablet (Plavix) 75 mg PO QAM #90 tabs 08/06/24 04/20/25 Rx pantoprazole 40 mg tablet,delayed 40 mg PO BID heartburn #180 tabs 10/06/24 04/20/25 Rx release mecobalamin (vitamin B12) 1,000 1,000 mcg PO Q2D 10/14/24 04/20/25 History mcg chewable tablet ezetimibe 10 mg tablet (Zetia) 10 mg PO QAM #30 tabs 12/16/24 04/20/25 Rx blood-glucose meter (True Metrix #1 ea 02/02/25 03/30/25 Rx Glucose Meter) albuterol sulfate 2.5 mg/3 mL 2.5 mg (3 mL) inhalation QID PRN 03/09/25 04/20/25 Rx (0.083 %) solution for nebulization shortness of breath or wheezing #75 mL blood sugar diagnostic (True #100 ea 03/09/25 03/30/25 Rx Metrix Glucose Test Strip) ipratropium bromide 0.02 % 2.5 ml inhalation QID PRN 03/09/25 04/20/25 Rx solution for inhalation shortness of breath or wheezing #62.5 mL CPAP Supplies #1 ea 03/18/25 03/30/25 Rx nebulizer accessories #1 ea 03/18/25 03/30/25 Rx azithromycin 500 mg tablet 500 mg PO MONWEDFRI 12 months #12 03/23/25 04/20/25 Rx tabs losartan 100 mg tablet 100 mg PO QAM #90 tabs 03/23/25 04/20/25 Rx amlodipine 5 mg tablet 5 mg PO QAM 04/10/25 04/20/25 History metoprolol succinate 25 mg 50 mg PO QAM 04/10/25 04/20/25 History tablet,extended release 24 hr (Toprol XL) semaglutide 1 mg/dose (4 mg/3 mL) 1 mg subcut Q7D 04/10/25 04/20/25 History subcutaneous pen injector (Ozempic) Patient History Medical History Cigarette smoker Hypoxia hx; recently admitted to [facility] 02/27/25, also dx with parainfluenza virus 4; "reason for upcoming procedure 04/20/25 w/ dr. flores" HLD (hyperlipidemia) atherogenic dyslipidemia HTN (hypertension) Diabetes mellitus, type 2 NIDDM Microscopic hematuria Acute hypoxemic respiratory failure 02/27-03/02 admission [facility]; hypoxia 2/2 COPD exacerbation (2/2 parainfluenza 4 virus); weaned from O2 prior to D/C Piriformis syndrome Anxiety and depression History of COVID-19 x2--last 2021--per pt all symptoms resolved History of fall 06/2023--pt states she fell and broke her nose and did not have it fixed On anticoagulant therapy plavix d/t 2 CHI placed 08/2023 History of vitamin D deficiency Urge and stress incontinence Trochanteric bursitis of right hip Pulmonary emphysema Multiple pulmonary nodules following with Dr. Smith Spinal stenosis Lumbar radiculopathy Low back pain Iron deficiency anemia Dyspnea "ongoing," per pt > one of the reasons for upcoming procedure 04/20/25 Degenerative joint disease COPD (chronic obstructive pulmonary disease) inhalers daily/prn, nebulizer prn--states uses nebulizer a couple times of month on average Constipation ongoing Productive cough Obstructive sleep apnea cpap "uses occasionally"; per 03/13/25 pulm note: pt awaiting new supplies CAD (coronary artery disease) x2 overlapping stents in diagnonal 08/2023; follows with GIGI Dolan Pneumonia due to COVID-19 virus Admitted [facility] 06/2021. No chronic symptoms or radiographic sequela Atherosclerosis of aorta found incidentally on imaging Atherosclerosis of arteries of extremities found incidentally on imaging Diverticulitis of colon hx Restless legs Sensorineural hearing loss (SNHL) of both ears History of bronchitis last winter 2018 Hypercholesteremia History of colon polyps History of anesthesia reaction Slow to wake per pt Hiatal hernia Osteoarthritis GERD (gastroesophageal reflux disease) Surgical History History of heart artery stent 09/14/23 2 CHI placed in diagonal by Dr. Dolan History of cardiac cath 09/14/23 @ [facility] with 2 CHI in diagonal placed by Dr. Dolan--on plavix daily History of dilatation and curettage History of bilateral tubal ligation History of open reduction and internal fixation (ORIF) procedure left wrist--hardware removed History of vocal cord polypectomy x2 History of carpal tunnel release of both wrists History of section x2 History of colonoscopy History of esophagogastroduodenoscopy (EGD) History of tooth extraction all upper teeth removed History of phacoemulsification of cataract of both eyes with intraocular lens implantation Family History (Updated 04/20/25 @ 11:39 by Frank Mckeon MD) Mother , age 74 Family hx of colon cancer Family history of diabetes mellitus Hyperlipemia Hypertension Diabetes Family history of CABG Myocardial infarction Colorectal cancer Brother Family hx of colon cancer 2 Liver cancer Colorectal cancer Father , age 85 Abdominal aortic aneurysm Other Breast cancer Lung cancer No family history of adverse response to anesthesia Prostate cancer Denies family history of Ovarian cancer Social History (Updated 04/20/25 @ 11:40 by Frank Mckeon MD) Smoking Status: Current every day smoker Tobacco Type: Cigarettes Age Started Using Tobacco: 17; packs per day: 0.5; Cigarettes Per Day: 10; Second Hand Exposure: No; Do You Dip or Chew Tobacco: No; Tobacco Cessation Education Requested by Patient: No Hx Alcohol Use: No Hx Substance Use: No Preferred Language: [place] Citizen Communication Ability: Effective Visual Impairment: No Limitations Hearing Ability: Normal Airline Operations Agent Required: No Beliefs That Will Affect Care: None marital status: Current Living Situation: Family Current Living Situation Comment: Home with son in [place] current occupational status: retired 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 WEIGHT/BMI reviewed. GEN: Pleasant, well-developed, NAD. PSYCH: Good Judgment. AOx3. Normal memory, mood, and affect. HEENT -Head: NC/AT; -Eyes: PERRL, EOMI. No discharge or redn ess; -Ears: External ears are normal. -Nose: Normal nares. NECK: Supple, with no masses. CV: RRR, no m/r/g. LUNGS: CTAB, no w/r/c. ABD: N/A : N/A SKIN: Warm, well perfused. No skin rashes or abnormal lesions. MSK: No deformities, Normal gait. EXT: No clubbing, cyanosis, or edema. NEURO: Ambulating with no limitations. Normal muscle strength and tone. No focal deficits. Results & Data Results & Data Vital Signs (Past 12 Hours) Vital Signs Temp Pulse Resp BP Pulse Ox O2 Del Method O2 Flow Rate 04/20/25 10:00 75 16 138/72 97 Oxymask 3 04/20/25 09:50 73 18 130/70 100 Oxymask 5 04/20/25 09:40 75 14 124/70 96 Oxymask 5 04/20/25 09:30 80 16 130/72 97 Oxymask 5 04/20/25 09:20 82 16 116/62 96 Oxymask 10 04/20/25 09:13 36.1 C L 76 14 128/61 94 Oxymask 10 04/20/25 06:59 68 16 93 Room Air 04/20/25 06:14 Nasal CPAP 04/20/25 06:14 36.7 C 73 18 163/80 H 98 Room Air PG Care Time/CCT Total # of Minutes Spent Total Time Spent with Patient: Total time spent is greater than 50% in coordination of care (as documented) at patient's floor/unit and/or counseling patient: Coding Level of Care Code 82679 INT INP/OBS CARE 40MIN Diagnoses Postprocedural pneumothorax J95.811 S/P bronchoscopy with biopsy Z98.890 Tobacco abuse counseling Z71.6
--- NOTE | 2025-04-20 10:11 | Procedure Note ---
Procedure Note Date of Service April 20, 2025 Supervising Physician Co-Signing Physician Notes PIGTAIL CATHETER PLACEMENT NOTE: Procedure: Pneumothorax catheter 8.5 La[place] Indication: Pneumothorax Anesthesia: 8 ml Lidocaine 1% Written consent was obtained and placed on the chart. Timeout was done prior to the procedure. Procedure with aseptic technique. Ultrasound was used to visualize the lung point. Prior to procedure, chest x-ray films were reviewed by myself and demonstrated a large right-sided apical pneumothorax. A time-out was completed verifying correct patient, procedure, site, positioning, and implant(s) or special equipment if applicable. Utilizing bedside ultrasound, chest wall was evaluated for location for optimal chest tube placement. Location between the 2nd and 3rd and ribs were marked on the skin using gentle pressure. The right sided chest wall was prepped with chlorhexidine and draped in the typical sterile fashion. 8 mL of 1% Lidocaine without epinephrine was used to anesthetize the skin down to the dorsal surface of the third rib. Air return confirmed entry into the pleural space. Lidocaine was injected into the pleural space for increased anesthetization. Catheter of the needle apparatus was inserted into the pleural space with ease. Postprocedure chest x-ray demonstrated adequate placement. Tube was sutured into place. Occlusive bandage placed inside [facility] Procedure Codes (Charges) Pulmonary/Thoracic Procedure 1: Pulmonary and Thoracic: 73957 Tube thoracostomy Coding CPT Codes Pulmonary/Thoracic - Pulmonary and Thoracic: 92665 Tube thoracostomy ([id number]) Additional Codes Date of Service (PG.SURGERY)
--- NOTE | 2025-04-20 10:24 | Anesthesiology Progress Note ---
Date of Service April 20, 2025 Anesthesia Post Procedure Vital Signs Vital Signs: Temp Pulse Resp BP Pulse Ox O2 Del Method O2 Flow Rate 04/20/25 10:15 75 14 122/69 99 Oxymask 3 04/20/25 10:00 75 16 138/72 97 Oxymask 3 04/20/25 09:50 73 18 130/70 100 Oxymask 5 04/20/25 09:40 75 14 124/70 96 Oxymask 5 04/20/25 09:30 80 16 130/72 97 Oxymask 5 04/20/25 09:20 82 16 116/62 96 Oxymask 10 04/20/25 09:13 36.1 C L 76 14 128/61 94 Oxymask 10 04/20/25 06:59 68 16 93 Room Air 04/20/25 06:14 Nasal CPAP 04/20/25 06:14 36.7 C 73 18 163/80 H 98 Room Air Pain Intensity Back: Pain Intensity: 6 Transfer of Care Handoff Completed per policy Notes Mental Status: alert / awake / arousable Patient Amnestic to Procedure: Yes Nausea / Vomiting: adequately controlled Pain: adequately controlled Airway Patency, RR, SpO2: stable & adequate BP & HR: stable & adequate Hydration State: stable & adequate Anesthetic Complications: no major complications apparent and Pt Satisfied with anesthetic care Notes: patient diagnosed with pneumothorax on post op CXR s/p chest tube placement in pacu. Patient remained stable throughout recovery course without hypotension or hypoxia. Will admit to PCU
--- NOTE | 2025-04-20 11:14 | History & Physical Report ---
Date of Service April 20, 2025 Assessment & Plan (1) Postprocedural pneumothorax: (2) S/P bronchoscopy with biopsy: (3) Pulmonary nodule 1 cm or greater in diameter: (4) Diabetes mellitus, type 2: (5) HTN (hypertension): (6) HLD (hyperlipidemia): (7) COPD (chronic obstructive pulmonary disease): (8) Obstructive sleep apnea: (9) CAD (coronary artery disease): (10) Tobacco dependence: (11) Thoracic back pain: Plan Pleasant 79yo female with history of chronic tobacco dependence, hospital admission in 02/2025 for parainfluenza infection, HTN, T2DM, COPD, CAD s/p stent, chronic back pain and right hip pain, and a RLL pulmonary nodule. She had presented today for an outpatient elective robotic navigational bronchoscopy and EBUS with the goal of obtaining biopsy of the RLL nodule. Post-bronchoscopy chest x-ray revealed a large right-sided pneumothorax. A pigtail chest tube to evacuate the pneumothorax was placed by Dr Seth Flores, [facility] [place] [facility]. Post-chest tube insertion the pneumothorax was nearly resolved with only residual trace pneumothorax. #s/p robotic navigational bronchoscopy with EBUS, biopsy of RLL nodule - -performed by Dr Flores -prelim bx report with likely malignancy; await final path -right-sided pneumothorax - see below -per Dr Flores hold plavix -defer chest tube management to Dr Flores -cxr in am tomorrow #post-procedural right-sided pneumothorax s/p chest tube placement - -pneumothorax is much improved following pigtail CT placement -to be placed to waterseal this afternoon, then will attempt to clamp the tube -NC O2 as needed -pain meds prn -cxr in am -defer chest tube management to Dr Flores #COPD - -cont home inhalers -no exacerbation at this time -NC O2 as needed -await cultures from bronch -defer on steroids or abx at this time #CAD - -hold plavix s/p chest tube placement and RLL nodule biopsy -cont asa -cont statin -cont meto succ -no ischemic symptoms at this time #tobacco dependence - -long-standing, dating back to her teenage years -offered nicoderm patch - declined #T2DM - -check Hba1c -add novolog SSI -BSGs ac/hs -DM diet -hold metformin #HTN - -cont meto succ -cont amlodipine -hold losartan for now #hyperlipidemia - -cont statin #DVT Proph - -defer on chemical means at this time -if she stays beyond tomorrow then add heparin or lovenox SC at that time I updated the pt's son by phone this evening, 04/20 place on observation status History of Present Illness Chief Complaint: right-sided pneumothorax s/p bronchoscopy Primary Care Provider: KAIT Grimm Pleasant 79yo female with history of chronic tobacco dependence, hospital admission in 02/2025 for parainfluenza infection, HTN, T2DM, COPD, CAD s/p stent, chronic back pain and right hip pain, and a RLL pulmonary nodule. She had presented today for an outpatient elective robotic navigational bronchos copy and EBUS with the goal of obtaining biopsy of the RLL nodule. The bronchoscopy was performed by Dr Seth Flores, [facility] [place] [facility]. The procedure went well, biopsies of the RLL nodule were taken, and there were no obvious immediate complications. However, post-bronchoscopy chest x-ray revealed a large right-sided pneumothorax. Subsequently Dr Flores placed a pigtail chest tube to evacuate the pneumothorax. Following chest tube insertion the pneumothorax has nearly resolved with only residual trace apical pneumothorax seen on imaging. I performed my admission assessment while she was still in PACU. She reported pain over the right lower chest near the mid-axillary line. Denied pain over the chest tube site itself. She otherwise denied central or substernal chest pain or dyspnea. She reports a chronic cough productive of white mucous. She had been feeling well up until her procedure today. No recent fevers or chills. Appetite had been normal. She has lost about 5 pounds of weight recently. Allergies Allergy/AdvReac Type Severity Reaction Status Date / Time No Known Allergies Allergy Verified 04/20/25 06:00 Home Medications Medication Instructions Recorded Confirmed Type Lactobacills gasseri-Bifidobac 1 cap PO QAM 12/11/18 04/20/25 History bifidum,longum 1.5 billion cell capsule (Probiotic Colon Care) aspirin 81 mg tablet,delayed 81 mg PO QAM 12/11/18 04/20/25 History release ascorbic acid (vitamin C) 500 mg 500 mg PO Q2D 07/29/19 04/20/25 History tablet (Vitamin C) cholecalciferol (vitamin D3) 50 2,000 units PO Q2D 07/29/19 04/20/25 History mcg (2,000 unit) tablet dextromethorphan-guaifenesin ER 60 1 tab PO Q12H PRN Congestion 09/17/23 04/20/25 History mg-1,200 mg tab,extend release,12hr (Mucinex DM) lancets 33 gauge #100 ea 01/02/24 03/30/25 Rx lancing device with lancets kit #1 ea 01/02/24 03/30/25 Rx (OneTouch Delica Plus Lancing Device kit) albuterol sulfate 90 mcg/actuation 1 inh inhalation QID PRN shortness 04/14/24 04/20/25 Rx aerosol inhaler of breath or wheezing #18 grams rosuvastatin 40 mg tablet (Crestor) 40 mg PO QPM #90 tabs 07/26/24 04/20/25 Rx metformin 500 mg tablet,extended 1,000 mg (2 x 500 mg) PO BID #360 07/31/24 Rx release 24 hr tabs umeclidinium 62.5 mcg-vilanterol 1 inh inhalation QAM #180 ea 08/01/24 04/20/25 Rx 25 mcg/actuation powdr for inhalation (Anoro Ellipta) clopidogrel 75 mg tablet (Plavix) 75 mg PO QAM #90 tabs 08/06/24 04/20/25 Rx pantoprazole 40 mg tablet,delayed 40 mg PO BID heartburn #180 tabs 10/06/24 04/20/25 Rx release mecobalamin (vitamin B12) 1,000 1,000 mcg PO Q2D 10/14/24 04/20/25 History mcg chewable tablet ezetimibe 10 mg tablet (Zetia) 10 mg PO QAM #30 tabs 12/16/24 04/20/25 Rx blood-glucose meter (True Metrix #1 ea 02/02/25 03/30/25 Rx Glucose Meter) albuterol sulfate 2.5 mg/3 mL 2.5 mg (3 mL) inhalation QID PRN 03/09/25 04/20/25 Rx (0.083 %) solution for nebulization shortness of breath or wheezing #75 mL blood sugar diagnostic (True #100 ea 03/09/25 03/30/25 Rx Metrix Glucose Test Strip) ipratropium bromide 0.02 % 2.5 ml inhalation QID PRN 03/09/25 04/20/25 Rx solution for inhalation shortness of breath or wheezing #62.5 mL CPAP Supplies #1 ea 03/18/25 03/30/25 Rx nebulizer accessories #1 ea 03/18/25 03/30/25 Rx azithromycin 500 mg tablet 500 mg PO MONWEDFRI 12 months #12 03/23/25 04/20/25 Rx tabs losartan 100 mg tablet 100 mg PO QAM #90 tabs 03/23/25 04/20/25 Rx amlodipine 5 mg tablet 5 mg PO QAM 04/10/25 04/20/25 History metoprolol succinate 25 mg 50 mg PO QAM 04/10/25 04/20/25 History tablet,extended release 24 hr (Toprol XL) semaglutide 1 mg/dose (4 mg/3 mL) 1 mg subcut Q7D 04/10/25 04/20/25 History subcutaneous pen injector (Ozempic) Past Med/Surg History Problem List (Updated 04/20/25 @ 15:50 by Bob Flores MD) Tobacco abuse counseling Tobacco dependence Pulmonary nodule 1 cm or greater in diameter S/P bronchoscopy with biopsy Postprocedural pneumothorax Flank pain (Acute) following with [facility] [place] urology QT prolongation hx of; not present on most recent 03/23/25 EKG Acute hypokalemia (Acute) 02/2025 [facility] admission; repleted/reolved prior to D/C Infection due to parainfluenza virus 4 (Acute) Hypoxia (Acute) 02/27-03/02 admission [facility]; hypoxia 2/2 COPD exacerbation (2/2 parainfluenza 4 virus); weaned from O2 prior to D/C Acute dyspnea (Acute) 02/2025 [facility] admission Frequent UTI (Chronic) following with [facility] [place] u[place] Vitamin B12 deficiency Sacroiliitis Abnormal chest CT pulm following CAD (coronary artery disease) Status post coronary artery stent placement Dyspnea (Acute) 2023 Thoracic back pain Atherogenic dyslipidemia Constipation Fall 06/2023 Piriformis syndrome Tobacco abuse > 50 pack year hx. Everyday smoker 10/2022 Lumbar radiculopathy Low back pain Right knee DJD Trochanteric bursitis of right hip Degenerative joint disease of right hip COPD (chronic obstructive pulmonary disease) PFTs 2019 with FEV1 70% Frequent PVCs Controlled type 2 diabetes mellitus with microalbuminuria Cough Insomnia History of colon polyps Encounter for pre-operative examination Iron deficiency anemia Tubular adenoma of colon (Acute 07/2016) Urge and stress incontinence (Acute) Vitamin D deficiency (Acute) Anxiety and depression Multiple pulmonary nodules Pulmonary emphysema Obstructive sleep apnea of adult cpap Ground glass opacity present on imaging of lung Depression Hypertension HTN (hypertension) (Chronic) Medical History Cigarette smoker Hypoxia hx; recently admitted to [facility] 02/27/25, also dx with parainfluenza virus 4; "r harshad for upcoming procedure 04/20/25 w/ dr. flores" HLD (hyperlipidemia) atherogenic dyslipidemia HTN (hypertension) Diabetes mellitus, type 2 NIDDM Microscopic hematuria Acute hypoxemic respiratory failure 02/27-03/02 admission [facility]; hypoxia 2/2 COPD exacerbation (2/2 parainfluenza 4 virus); weaned from O2 prior to D/C Piriformis syndrome Anxiety and depression History of COVID-19 x2--last 2021--per pt all symptoms resolved History of fall 06/2023--pt states she fell and broke her nose and did not have it fixed On anticoagulant therapy plavix d/t 2 CHI placed 08/2023 History of vitamin D deficiency Urge and stress incontinence Trochanteric bursitis of right hip Pulmonary emphysema Multiple pulmonary nodules following with Dr. Smith Spinal stenosis Lumbar radiculopathy Low back pain Iron deficiency anemia Dyspnea "ongoing," per pt > one of the reasons for upcoming procedure 04/20/25 Degenerative joint disease COPD (chronic obstructive pulmonary disease) inhalers daily/prn, nebulizer prn--states uses nebulizer a couple times of month on average Constipation ongoing Productive cough Obstructive sleep apnea cpap "uses occasionally"; per 03/13/25 pulm note: pt awaiting new supplies CAD (coronary artery disease) x2 overlapping stents in diagnonal 08/2023; follows with [facility] Pneumonia due to COVID-19 virus Admitted [facility] 06/2021. No chronic symptoms or radiographic sequela Atherosclerosis of aorta found incidentally on imaging Atherosclerosis of arteries of extremities found incidentally on imaging Diverticulitis of colon hx Restless legs Sensorineural hearing loss (SNHL) of both ears History of bronchitis last winter 2018 Hypercholesteremia History of colon polyps History of anesthesia reaction Slow to wake per pt Hiatal hernia Osteoarthritis GERD (gastroesophageal reflux disease) Surgical History History of heart artery stent 09/14/23 2 CHI placed in diagonal by Dr. Dolan History of cardiac cath 09/14/23 @ [facility] with 2 CHI in diagonal placed by Dr. Dolan--on plavix daily History of dilatation and curettage History of bilateral tubal ligation History of open reduction and internal fixation (ORIF) procedure left wrist--hardware removed History of vocal cord polypectomy x2 History of carpal tunnel release of both wrists History of section x2 History of colonoscopy History of esophagogastroduodenoscopy (EGD) History of tooth extraction all upper teeth removed History of phacoemulsification of cataract of both eyes with intraocular lens implantation Family History (Updated 04/20/25 @ 11:39 by Frank Mckeon MD) Mother , age 74 Family hx of colon cancer Family history of diabetes mellitus Hyperlipemia Hypertension Diabetes Family history of CABG Myocardial infarction Colorectal cancer Brother Family hx of colon cancer 2 Liver cancer Colorectal cancer Father , age 85 Abdominal aortic aneurysm Other Breast cancer Lung cancer No family history of adverse response to anesthesia Prostate cancer Denies family history of Ovarian cancer Social History (Updated 04/20/25 @ 11:40 by Frank Mckeon MD) Smoking Status: Current every day smoker Tobacco Type: Cigarettes Age Started Using Tobacco: 17; packs per day: 0.5; Cigarettes Per Day: 10; Second Hand Exposure: No; Do You Dip or Chew Tobacco: No; Tobacco Cessation Education Requested by Patient: No Hx Alcohol Use: No Hx Substance Use: No Preferred Language: Nicaraguan Communication Ability: Effective Visual Impairment: No Limitations Hearing Ability: Normal Economic Adviser Required: No Beliefs That Will Affect Care: None marital status: Current Living Situation: Family Current Living Situation Comment: Home with son in [place] current occupational status: retired current occupation: retired from career with [employer]; also was nurse How many Children do You have: 2 Other Information That Helps Us Care for You: No Feels Safe at Home: Yes Safety Concerns: Feels Safe At This Time Childhood Exposure to Second-Hand Smoke: Yes Diet: regular caffeine: Yes Dental Care, Regularly: No Physical Activity Frequency: 1-2 Times per Week Seatbelt Use: always Sunscreen Use: No Assistive Devices: CPAP and Denture - Upper Review of Systems Review of Systems: gen - no recent fevers or chills; +weight loss, ~5 pounds eyes - no ocular changes HENT - no recent URI symptoms CV - pain over right chest, none on left or substernal pulm - no dyspnea, mild pain with taking deep breaths, chronic cough, chronic sputum production GI - no abd pain or N/V; no blood in stool - no dysuria musculo - chronic back pain, chronic R hip pain endo - BSGs have been excellent at home; <150 neuro - no headaches, no motor weakness skin - no rash Physical Exam Physical Exam: gen - lying in bed, sleepy but able to answer questions, no distress eyes - PERRL HENT - MMM, no lesions or thrush neck - no JVD, no lymph nodes CV - RRR, s1 s2, no murmur lungs - decreased BS R base with rales, no rales on left, no wheezes, no increased work of breathing chest - chest tube in place on right anterior chest abd - soft NT ND BS+ ext - no edema, pulses 2+ b/l neuro - strength 5/5 x 4 exts psych - a/o x 3 skin - no rash Results & Data Results & Data Vital Signs (Past 12 Hours) Vital Signs Temp Pulse Resp BP Pulse Ox O2 Del Method O2 Flow Rate 04/20/25 11:00 78 18 131/70 97 Oxymask 3 04/20/25 10:45 77 16 111/78 95 Oxyhood 3 04/20/25 10:35 75 18 144/72 H 98 Oxymask 3 04/20/25 10:25 73 16 133/69 99 Oxymask 3 04/20/25 10:23 Mechanical Vent 04/20/25 10:15 75 14 122/69 99 Oxymask 3 04/20/25 10:00 75 16 138/72 97 Oxymask 3 04/20/25 09:50 73 18 130/70 100 Oxymask 5 04/20/25 09:40 75 14 124/70 96 Oxymask 5 04/20/25 09:30 80 16 130/72 97 Oxymask 5 04/20/25 09:20 82 16 116/62 96 Oxymask 10 04/20/25 09:13 36.1 C L 76 14 128/61 94 Oxymask 10 04/20/25 06:59 68 16 93 Room Air 04/20/25 06:14 Nasal CPAP 04/20/25 06:14 36.7 C 73 18 163/80 H 98 Room Air Laboratory Results Chest X-Ray 04/20/25 09:03 XR chest 1V portable CLINICAL HISTORY: s/p rll sup segment bronch bx COMPARISON STUDY: 02/27/2025 FINDINGS: There is interval dense consolidation at the right mid and lower lung. There is a large right pneumothorax with 7 cm pleural separation at the right apex. There is mild stranding at the left lung base. No pneumothorax on the left. IMPRESSION: 1. Large right pneumothorax. 2. Dense consolidation at the right mid and lower lung. ACT 112: Negative or not required by law. Electronically signed by: Luis A Eller M.D. 04/20/2025 9:36 AM Chest X-Ray 04/20/25 09:49 XR chest 1V portable CLINICAL HISTORY: s/p chest tube COMPARISON STUDY: 04/20/2025 FINDINGS: There is interval upper right chest tube. There is a trace right apical pneumothorax, significantly improved. There is mild stranding opacity at the right mid and lower lung, improved. No other consolidation or pleural effusion. IMPRESSION: Trace right apical pneumothorax, significantly improved. ACT 112: Negative or not required by law. Electronically signed by: Luis A Eller M.D. 04/20/2025 10:04 AM Code Status & VTE Plan Code Status full code PG Care Time/CCT Total # of Minutes Spent Total Time Spent with Patient: Total time spent is greater than 50% in coordination of care (as documented) at patient's floor/unit and/or counseling patient: Coding Level of Care Code 09613 INT INP/OBS CARE 2/55MIN Diagnoses Postprocedural pneumothorax J95.811 S/P bronchoscopy with biopsy Z98.890 Pulmonary nodule 1 cm or greater in diameter R91.1 Diabetes mellitus, type 2 E11.9 HTN (hypertension) I10 HLD (hyperlipidemia) E78.5 COPD (chronic obstructive pulmonary disease) J44.9 Obstructive sleep apnea G47.33 CAD (coronary artery disease) I25.10 Tobacco dependence F17.200 Midline thoracic back pain, unspecified chronicity M54.6 Back pain laterality: midline Chronicity: unspecified (11) Thoracic back pain Back pain laterality: midline Chronicity: unspecified Qualified Code(s): M54.6 - Pain in thoracic spine
[2025-04-20] MEDS ORDERED: HYDROCODONE/ACETAMOPHEN 5/325MG TAB PO PRN (12:07)
[2025-04-20] MEDS ORDERED: ACETAMINOPHEN 500 MG TAB PO PRN (12:07)
[2025-04-20] MEDS ORDERED: MELATONIN 3 MG TAB PO PRN (12:07)
[2025-04-20] MEDS ORDERED: NITROGLYCERIN SL 0.4 MG/TAB TAB SL PRN (12:07)
[2025-04-20] MEDS: MoRPHine SULFATE 2 MG/ML CARP IV PRN (12:28)
[2025-04-20 14:38] LABS: Hematocrit (blood only) 39.7 % (37.0-47.0); Hemoglobin 13.2 g/dL (12.0-16.0); Mean Corpuscular Hemoglobin 31.4 pg (25.0-34.0); Mean Corpuscular Volume 94.5 fL (80.0-100.0); Platelet Count 166 K/uL (130-400); RDW Standard Deviation 43.9 fL (36.4-46.3); Red Blood Count 4.20 M/uL (4.20-5.40); White Blood Count 9.38 K/ul (4.8-10.8)
[2025-04-20 14:52] LABS: Anion Gap 6.0 (3-11); Blood Urea Nitrogen 12.0 mg/dl (6-23); Calcium 8.6 mg/dl (8.6-10.3); Carbon Dioxide 27.0 mmol/L (21-32); Chloride 107.0 mmol/L (98-107); Creatinine Clr Calc Pharmacy 72.2 ml/min; Glucose 145.0 mg/dl (70-99(Fasting)); Magnesium 1.9 mg/dl (1.7-2.4); Potassium 3.8 mmol/L (3.5-5.1); Sodium 140.0 mmol/L (136-145)
[2025-04-20] MEDS: FAMOTIDINE/PF 20 MG/2 ML VIAL IV ONE (14:54)
[2025-04-20 14:55] LABS: Hemoglobin A1C 6.2 % (4.5-5.6)
[2025-04-20] MEDS: INSULIN ASPART PER UNIT CHARGE SC SCH ×2 (14:55→21:03)
[2025-04-20] MEDS: UMECLIDINIUM/VILANTEROL 62.5/25MCG 7 PUFFS/INHALER INH SCH (15:04)
[2025-04-20] MEDS: LIDOCAINE 5% 1 PATCH TD SCH (15:04)
[2025-04-20] MEDS: CYANOCOBALAMIN (B-12) 500 MCG TABLET PO SCH (15:05)
[2025-04-20] MEDS: CHOLECALCIFEROL 25 MCG (1000 UNITS) TAB PO SCH (15:05)
[2025-04-20] MEDS: guaiFENesin 600 MG TABCR PO SCH (15:05)
--- NOTE | 2025-04-20 19:11 | XRay Report ---
Technique: A frontal view of the chest was obtained Comparison is made to the prior examination dated 02/27/2025 Findings: There is a small right apical pneumothorax with a right-sided chest tube in place. The heart is mildly enlarged. There is suspected mild pulmonary edema No fracture is noted. There is a large hiatal hernia Impression: 1. Small right pneumothorax with a right-sided chest tube in place 2. Cardiomegaly and mild pulmonary edema 3. Large hiatal hernia ACT 112: Positive. There are findings on this exam that require communication between the performing entity and the patient following Patient Test Result Information Act ([place] ACT 112) guidelines. Electronically signed by Casey Bermudez 04-20-2025 7:11 PM
[2025-04-20] MEDS: KETOROLAC TROMETHAMINE 15 MG/ML VIAL IV SCH (21:02)
[2025-04-20] MEDS: REMOVE LIDODERM PATCH SCH (22:23)
[2025-04-20] MEDS: ROSUVASTATIN CALCIUM 20 MG TAB PO SCH (22:23)
[2025-04-21] MEDS ORDERED: KETOROLAC TROMETHAMINE 15 MG/ML VIAL IV SCH (06:45)
[2025-04-21] MEDS: ADVANCED PROBIOTIC 625 MG CAPSULE PO SCH (08:27)
--- NOTE | 2025-04-21 08:27 | XRay Report ---
EXAM: XR chest 1V portable CLINICAL HISTORY: Chest tube clamped. TECHNIQUE: An X-ray image of the chest is obtained in AP portable projection. COMPARISON: Compared to the previous study done at 04/20/2025. FINDINGS: Pulmonary Parenchyma: Right sided chest tube is still seen. Suspected rim of right apical pneumothorax is still noted, however unchanged Bilateral prominent bronchovascular markings are still seen, could be representing pulmonary edema. No evidence of consolidation, collapse, or focal opacities. No pulmonary nodules are identified. No evidence of pleural effusion. Heart and Mediastinum: Cardiomegaly. No mediastinal widening or masses. No hilar or mediastinal lymphadenopathy. Hiatus hernia. Bony Thorax: The bony thorax appears intact without fractures or deformities. Osteoarthritic changes of the acromioclavicular joints on both sides. Soft Tissues: Soft tissues overlying the chest wall are unremarkable. IMPRESSION: 1. No acute cardiopulmonary abnormalities are identified. 2. No significant changes detected compared to the previous study. 3. Minimal right apical pneumothorax. 4. Bilateral prominent bronchovascular markings, could be representing pulmonary edema. 5. Cardiomegaly. 6. Hiatus hernia. Electronically signed by Sandro Barnard 04-21-2025 08:27 AM
[2025-04-21] MEDS: METOPROLOL SUCC 50MG EXT REL TAB PO SCH (08:28)
[2025-04-21] MEDS: ASCORBIC ACID 500 MG TAB PO SCH (08:29)
[2025-04-21] MEDS: ASPIRIN 81 MG ECTAB PO SCH (08:29)
[2025-04-21] MEDS: EZETIMIBE 10 MG TAB PO SCH (08:30)
[2025-04-21 11:07] VITALS: RESP 20; TEMP 98.2; O2SAT 98
--- NOTE | 2025-04-21 11:08 | Pulmonology Progress Note ---
Date of Service April 21, 2025 Assessment & Plan (1) S/P bronchoscopy with biopsy: (2) Postprocedural pneumothorax: (3) Tobacco abuse: Plan 79-year-old female who is an active smoker and has a history of multiple lung nodules and coronary artery disease presenting to the hospital electively to undergo navigational bronchoscopy of a superior segment right lower lobe nodule which has been increasing in size and now measures about 1.1 cm. I was able to successfully navigate the lesion and perform biopsies with results that are pending. Patient noted to have post procedure right pneumothorax requiring small bore chest tube. 1) Postprocedural pneumothorax: 8.5 Algerian chest tube placed at bedside with resolution of pneumothorax. She is currently clamped, Prior chest x-ray showed resolution of right PTX and there was no significant air leak noted in the Varsha chest tube drainage system. Chest x-ray this am showed minimal apical PTX. Chest tube removed this am. Patient okay to be discharged from pulmonary standpoint with outpatient follow up. (2) S/P bronchoscopy with biopsy: FNA biopsies and forcep biopsies performed of the right lower lobe 1.1 cm subsolid nodule which has been increasing in size. This area is highly concerning for bronchogenic malignancy. She also has a new 2 cm ground glass opacity in the right upper lobe. A biopsy of the right lower lobe nodule was performed. The right upper lobe lesion can be assessed on follow-up imaging and can be a manifestation of smoking-related ILD such as RB ILD. Path pending on RLL biopsy. (3) Tobacco abuse counseling: Smoking cessation strongly encouraged given the patient's coronary artery disease, potential lung cancer and underlying emphysema. 38 minutes is the time spent reviewing the chart, obtaining history, performing the physical exam, and coordinating with the care teams and bedside nurse. Admission and Anticipated Discharge Date Admission Date: April 20, 2025 Subjective CXR this am showed minimal right apical PTX. Chest tube was clamped overnight. Chest tube discontinued this am. Okay to discharge from pulmonary standpoint with outpatient pulm follow up. Review of Systems 2 Review of Systems: All systems reviewed & are unremarkable except as noted in HPI & below Physical Exam 2 Physical Exam: VITALS: Reviewed. WEIGHT/BMI reviewed. GEN: Healthy appearing, well-developed, NAD. PSYCH: Good Judgment. AOx3. Normal memory, mood, and affect. HEENT -Head: NC/AT; -Eyes: PERRL, EOMI. No discharge or redn ess; -Ears: External ears are normal. -Nose: Normal nares. -Mouth and throat: MMM. Normal gums, muc brgiht, palate,. Good dentition. NECK: Supple, with no masses. CV: RRR, no m/r/g. LUNGS: CTAB, no w/r/c. ABD: Soft, NT/ND, NBS, no masses or organomegaly. : N/A SKIN: Warm, well perfused. No skin rashes or abnormal lesions. MSK: No deformities, Normal gait. EXT: No clubbing, cyanosis, or edema. NEURO: Ambulating with no limitations. Normal muscle strength and tone. No focal deficits. Results & Data Results & Data Vital Signs (Past 12 Hours) Vital Signs Temp Pulse Resp BP BP Pulse Ox O2 Del Method 04/21/25 08:18 36.7 C 70 28 H 141/75 H 90 Nasal Cannula 04/21/25 03:19 36.6 C 58 L 18 142/74 H 97 Nasal Cannula 04/21/25 00:38 36.7 C 72 17 121/71 94 Room Air O2 Flow Rate 04/21/25 08:18 2 04/21/25 03:19 2 04/21/25 00:38 Laboratory Results 04/20/25 14:18 04/20/25 14:18 Abnormal Lab Results 04/20/25 04/20/25 04/20/25 13:58 14:18 16:06 WBC 9.38 RBC 4.20 Hgb 13.2 Hct 39.7 MCV 94.5 MCH 31.4 MCHC 33.2 RDW Std Deviation 43.9 RDW Coeff of Robert 12.8 Plt Count 166 MPV 9.7 Sodium 140 Potassium 3.8 Chloride 107 Carbon Dioxide 27 Anion Gap 6 BUN 12 Creatinine 0.54 L Est Cr Clr Drug Dosing 72.2 eGFR 94.77 BUN/Creatinine Ratio 22.2 H Glucose 145 H POC Glucose 128 H 207 H Estimat Average Glucose 131 Hemoglobin A1c 6.2 H Calcium 8.6 Magnesium 1.9 04/20/25 04/21/25 20:53 07:31 WBC RBC Hgb Hct MCV MCH MCHC RDW Std Deviation RDW Coeff of Robert Plt Count MPV Sodium Potassium Chloride Carbon Dioxide Anion Gap BUN Creatinine Est Cr Clr Drug Dosing eGFR BUN/Creatinine Ratio Glucose POC Glucose 147 H 93 Estimat Average Glucose Hemoglobin A1c Calcium Magnesium Diagnostic Findings Chest X-Ray 04/20/25 17:50 Technique: A frontal view of the chest was obtained Comparison is made to the prior examination dated 02/27/2025 Findings: There is a small right apical pneumothorax with a right-sided chest tube in place. The heart is mildly enlarged. There is suspected mild pulmonary edema No fracture is noted. There is a large hiatal hernia Impression: 1. Small right pneumothorax with a right-sided chest tube in place 2. Cardiomegaly and mild pulmonary edema 3. Large hiatal hernia ACT 112: Positive. There are findings on this exam that require communication between the performing entity and the patient following Patient Test Result Information Act ([place] ACT 112) guidelines. Electronically signed by Casey Bermudez 04-20-2025 7:11 PM Chest X-Ray 04/21/25 07:00 EXAM: XR chest 1V portable CLINICAL HISTORY: Chest tube clamped. TECHNIQUE: An X-ray image of the chest is obtained in AP portable projection. COMPARISON: Compared to the previous study done at 04/20/2025. FINDINGS: Pulmonary Parenchyma: Right sided chest tube is still seen. Suspected rim of right apical pneumothorax is still noted, however unchanged Bilateral prominent bronchovascular markings are still seen, could be representing pulmonary edema. No evidence of consolidation, collapse, or focal opacities. No pulmonary nodules are identified. No evidence of pleural effusion. Heart and Mediastinum: Cardiomegaly. No mediastinal widening or masses. No hilar or mediastinal lymphadenopathy. Hiatus hernia. Bony Thorax: The bony thorax appears intact without fractures or deformities. Osteoarthritic changes of the acromioclavicular joints on both sides. Soft Tissues: Soft tissues overlying the chest wall are unremarkable. IMPRESSION: 1. No acute cardiopulmonary abnormalities are identified. 2. No significant changes detected compared to the previous study. 3. Minimal right apical pneumothorax. 4. Bilateral prominent bronchovascular markings, could be representing pulmonary edema. 5. Cardiomegaly. 6. Hiatus hernia. Electronically signed by Sandro Barnard 04-21-2025 08:27 AM PG Care Time/CCT Total # of Minutes Spent Total Time Spent with Patient: Total time spent is greater than 50% in coordination of care (as documented) at patient's floor/unit and/or counseling patient: Coding Level of Care Code 08246 SUB INP/OBS CARE 2/35MIN Diagnoses S/P bronchoscopy with biopsy Z98.890 Postprocedural pneumothorax J95.811 Tobacco abuse Z72.0
[2025-04-21] MEDS: Nursing to Pharmacy Communication SCH (11:27)
--- NOTE | 2025-04-21 11:27 | XRay Report ---
XR chest 1V portable CLINICAL HISTORY: Evaluate after chest tube clamp COMPARISON STUDY: 04/21/2025 FINDINGS: The prior right chest tube has been removed. There is a trace right apical pneumothorax, st able. Stable mild stranding opacity in the lung bases. IMPRESSION: Stable trace right pneumothorax. ACT 112: Negative or not required by law. Electronically signed by: Luis A Eller M.D. 04/21/2025 11:26 AM
[2025-04-21 15:11] VITALS: BP 142/74; PULSE 62
--- NOTE | 2025-04-21 15:16 | Discharge Summary ---
Discharge Summary Date of Service date of admission - April 20, 2025 date of discharge - April 21, 2025 Principal Dx & Hospital Course #1 = Principal Diagnosis (1) Postprocedural pneumothorax: (2) S/P bronchoscopy with biopsy: (3) Pulmonary nodule 1 cm or greater in diameter: (4) Diabetes mellitus, type 2: (5) HTN (hypertension): (6) HLD (hyperlipidemia): (7) COPD (chronic obstructive pulmonary disease): (8) Obstructive sleep apnea: (9) CAD (coronary artery disease): (10) Tobacco dependence: (11) Thoracic back pain: Plan Pleasant 79yo female with history of chronic tobacco dependence, hospital admission in 02/2025 for parainfluenza infection, HTN, T2DM, COPD, CAD s/p stent, chronic back pain and right hip pain, and a RLL pulmonary nodule. She had presented today for an outpatient elective robotic navigational bronchoscopy and EBUS with the goal of obtaining biopsy of the RLL nodule. Post-bronchoscopy chest x-ray revealed a large right-sided pneumothorax. A pigtail chest tube to evacuate the pneumothorax was [place] by Dr Seth Real, [facility] Post-chest tube insertion the pneumothorax was nearly resolved with only residual trace pneumothorax. #s/p robotic navigational bronchoscopy with EBUS, biopsy of RLL nodule - -performed by Dr Real -prelim bx report with likely malignancy; final pathology report was pending at time of discharge -right-sided pneumothorax - see below -plavix placed on hold while hospitalized due to the chest tube placement #post-procedural right-sided pneumothorax s/p chest tube placement - -pneumothorax much improved following pigtail CT placement -the afternoon after placement of the chest tube it was placed to waterseal, then the tube was ultimately clamped -tube remained clamped until the AM of 04/21 -chest x-ray AM of 04/21 showed minimal pneumothorax -thus, chest tube removed AM of 04/21 -day of discharge her O2 sats in room air were within normal limits #COPD - -cont home inhalers -no exacerbation while hospitalized -cultures from bronchoscopy were negative while here -did not require systemic steroids or antibiotics #CAD - -held plavix s/p chest tube placement and RLL nodule biopsy -can resume plavix on 04/22 if no bleeding (no hemoptysis, no bleeding from chest tube site, etc) -cont asa -cont statin -cont meto succ -no ischemic symptoms during her brief stay #tobacco dependence - -long-standing, dating back to her teenage years #T2DM - -Hba1c 6.2% -resume metformin at discharge #HTN - -cont meto succ -cont amlodipine -cont losartan #hyperlipidemia - -cont statin Notes For Next Care Provider 1. f/u PCP 1 week 2. f/u [facility] 1-2 weeks to discuss biopsy results Medication Changes From Visit norco 5's prn - 7 tabs prescribed - for any chest wall pain Admission HPI Per Admitting Provider Pleasant 79yo female with history of chronic tobacco dependence, hospital admission in 02/2025 for parainfluenza infection, HTN, T2DM, COPD, CAD s/p stent, chronic back pain and right hip pain, and a RLL pulmonary nodule. She had presented today for an outpatient elective robotic navigational bronchoscopy and EBUS with the goal of obtaining biopsy of the RLL nodule. The bronchoscopy was performed by Dr Seth Real, [facility]. The procedure went well, biopsies of the RLL nodule were taken, and there were no obvious immediate complications. However, post-bronchoscopy chest x-ray revealed a large right-sided pneumothorax. Subsequently Dr Real placed a pigtail chest tube to evacuate the pneumothorax. Following chest tube insertion the pneumothorax has nearly resolved with only residual trace apical pneumothorax seen on imaging. I performed my admission assessment while she was still in PACU. She reported pain over the right lower chest near the mid-axillary line. Denied pain over the chest tube site itself. She otherwise denied central or substernal chest pain or dyspnea. She reports a chronic cough productive of white mucous. She had been feeling well up until her procedure today. No recent fevers or chills. Appetite had been normal. She has lost about 5 pounds of weight recently. Discharge Exam gen - lying in bed, looks well today HENT - MMM, no lesions or thrush neck - no JVD CV - RRR, s1 s2, no murmur lungs - basilar rales on right much improved, otherwise CTA b/l; no wheezes; no increased work of breathing chest - chest tube site right anterior chest clean and covered with dressing abd - soft NT ND BS+ ext - no edema, pulses 2+ b/l psych - a/o x 3 Discharge Plan Discharge Items Patient Disposition: Home - Self-Care Reason For Visit: RIGHT-SIDED PNEUMOTHORAX Discharge Diagnosis: 1. Right lower lobe lung nodule measuring 1.1 cm - bronchoscopy with biopsy performed 04/20/25 2. Right-sided pneumothorax with need for chest tube placement - almost fully resolved 3. COPD 4. Diabetes Activity: Per Instructions section Bathing Comment: May shower starting 04/22, but keep the chest tube site COVERED & DRY Non-emergency contact: Primary Care Provider and [employer] Call non-emergency contact if: you have any medication questions, your symptoms worsen, your pain is not controlled, your pain is worsening, your pain is unusual for you, your pain is concerning for you, you have a fever, your wound has increased redness, your wound has increased drainage and your wound pain has increased Follow-up/Referrals: Alta Valencia CRNP [Primary Care Provider] - 04/29/25 2:00 pm (PCP follow up: 04/29 @ 2pm ) Bob Real MD [Physician] - 05/05/25 3:30 pm (Pulmonology follow up: Dr Parmar 05/05 @ 3:30pm) Diet: Carb Consistent or DM2 Addtl Attending Provider Instructions: Please wait to restart Plavix until Sunday. If you are not coughing up any blood on Sunday, then you can go ahead and restart the Plavix. You can restart Ozempic later in the week if you are feeling well. Self-Care at Home * Be sure to rest the day after the procedure. Arrange for help with work, attendant child activity, or other tasks. Aftereffects of anesthesia may make you drowsy or sluggish for 24 hours, sometimes longer (rare). * If your provider gives you pain medicines, take them as prescribed. Don't take [id number]-[id number] medicines without consulting your provider. * Eat soft foods such as soup, yogurt, Jell-O, and pudding for a day or two. Drink plenty of fluids to stay hydrated unless you have been instructed not to have them. * Your throat may be scratchy for several days after the test. Ask your provider which medicines or home therapy can help relieve the discomfort. * Ask your provider before resuming your regular medicines. * Follow up with your provider for the test results. If your bronchoscopy has been done for a biopsy, it may take longer to get the test results. Meanwhile, if your symptoms are getting worse, contact your provider. When to Call the Doctor Bronchoscopy is usually a safe procedure. Side effects such as bleeding in the airways or lung infection are very rare. Contact your provider right away if you have any of these symptoms after bronchoscopy: * Hoarseness or a sore throat that doesn't go away * Pain when swallowing * Cough with blood * Trouble breathing * Chest pain * Fever that lasts more than 24 hours Addtl Corporate Training Manager Provider Instructions: I have prescribed a pain killer medicine called hydrocodone-acetaminophen. This pain killer is narcotic. It also contains Tylenol (acetaminophen). You can take 1 tablet every 6 hours as needed for pain. Do not drive if you are taking this medicine as this medicine can make you sleepy, impair your senses, etc. This medicine can also cause constipation. If you take this medicine please do not take any extra [id number] Tylenol. This medicine is for any chest discomfort near the area where the chest tube entered the chest. If the right-sided chest pains worsen, persist, or are not relieved by the pain killer medicine please seek medical attention right away. Former chest tube site care: * Bandage:Keep the bandage dry and clean. Please leave this bandage on for about 48 hours before removing it. * Dressing changes:Change the bandage if it becomes soiled or wet. A new, clean bandage should be applied. * Cleaning:In 48 hours you can let the chest tube site get wet directly. Gently wash the incision site with soap and water. You can apply a small bandage to the site for another 2-3 days after that until the site has fully healed. You can shower starting tomorrow, 04/22/25, but keep the bandage/former chest tube site clean/dry. I would avoid tub baths/immersion for about 1 week. It was our pleasure caring for you! Have a nice Thanksgiving, Frank Mckeon, hospitalist Pending Studies at Discharge: Yes (Lung nodule biopsy results; cultures from the lung ) Stand-Alone Forms: My [facility] [email or web address], Smoking Cessation Medications and DC Order Prescriptions: New hydrocodone-acetaminophen 5-325 mg tablet 1 tab PO Q6H PRN (Reason: pain) Qty: 7 0RF Continued (DME) lancing device with lancets [OneTouch Delica Plus Lanc Dev] Kit See Rx Instructions .Route Qty: 1 1RF Rx Instructions: use to test blood sugar as directed (DME) lancets 33 gauge [facility] [place] See Rx Instructions .ROUTE .MEDSUPPLY Qty: 100 3RF Rx Instructions: use to test blood sugar QD albuterol sulfate 90 mcg/actuation HFA aerosol inhaler 1 inh INH QID PRN (Reason: shortness of breath or wheezing) Qty: 18 11RF rosuvastatin [Crestor] 40 mg tablet 40 mg PO QPM Qty: 90 3RF metformin 500 mg tablet extended release 24 hr 1,000 mg PO BID Qty: 360 3RF Hold Instructions: Resume on 09/17/23. begin am dose Anoro Ellipta 62.5-25 mcg/actuation blister with device 1 inh inhalation QAM Qty: 180 2RF pantoprazole 40 mg tablet,delayed release (DR/EC) 40 mg PO BID Qty: 180 3RF ezetimibe [Zetia] 10 mg tablet 10 mg PO QAM Qty: 30 5RF (DME) True Metrix Glucose Test Strip Strip See Rx Instructions .Route Qty: 100 5RF Rx Instructions: As directed to test blood surgar daily (DME) CPAP Supplies [facility] [place] See Rx Instructions .Route Qty: 1 0RF Rx Instructions: CPAP mask please try nasal [id number]: CAMRYN J47.33 (DME) nebulizer accessories Kit See Rx Instructions .Route Qty: 1 11RF Rx Instructions: nebulizer tubing losartan 100 mg tablet 100 mg PO QAM Qty: 90 3RF cholecalciferol (vitamin D3) 50 mcg (2,000 unit) tablet 2,000 units PO Q2D Patient Comments: takes in the afternoon Rx Instructions: 2,000 units PO every other day; dextromethorphan-guaifenesin [Mucinex DM] 60-1,200 mg tablet extended release 12 hr 1 tab PO Q12H PRN (Reason: Congestion) azithromycin 500 mg tablet 500 mg PO MONWEDFRI 360 Days Qty: 12 3RF mecobalamin (vitamin B12) 1,000 mcg tablet,chewable 1,000 mcg PO Q2D (DME) blood-glucose meter [True Metrix Glucose Meter] [facility] See Rx Instructions .Route Qty: 1 0RF Rx Instructions: As directed to test blood sugar daily albuterol sulfate 2.5 mg /3 mL (0.083 %) solution for nebulization 2.5 mg inhalation QID PRN (Reason: shortness of breath or wheezing) Qty: 75 5RF Rx Instructions: mix with ipratropium ipratropium bromide 0.02 % solution 2.5 ml inhalation QID PRN (Reason: shortness of breath or wheezing) Qty: 62.5 3RF Rx Instructions: mix with albuterol aspirin 81 mg Tablet,Delayed Release (Dr/Ec) 81 mg PO QAM Probiotic Colon Care 1.5 billion cell Capsule 1 cap PO QAM ascorbic acid (vitamin C) [Vitamin C] 500 mg tablet 500 mg PO Q2D Patient Comments: takes in the afternoon Rx Instructions: 500 mg PO every other day; amlodipine 5 mg tablet 5 mg PO QAM metoprolol succinate [Toprol XL] 25 mg tablet extended release 24 hr 50 mg PO QAM Ozempic 1 mg/dose (4 mg/3 mL) pen injector 1 mg subcut Q7D Rx Instructions: TAKES ON THURSDAYS Held clopidogrel [Plavix] 75 mg tablet 75 mg PO QAM Qty: 90 3RF Hold Instructions: Resume on 04/22/25. may resume if NO BLEEDING in your spit Discharge Orders: Discharge Order (Routine); Ordered 04/21/25 Ordered By: Frank Adrian/Other Patient Handouts: COPD: Coping with Mucus, Managing Type 2 Diabetes Admission Data Admit Date/Time: 04/20/25 11:26 Attending Provider: Frank Mckeon Admit Provider: Frank Mckeon Primary Care Provider: Alta Valencia Other Interventions: Discharge Summary Assessment (RN) Last Done: 04/21/25 15:10 Hospital Stay Data Consultations Pulmonology Procedures Performed 1. Operation Date: 04/20/25 07:30 Actual Procedures p Robotic-Assisted Navigational Bronchoscopy,Transbronchial Needle Aspiration, Transbronchial Biopsy with Fluoroscopy(Not Applicable) - Bob Real MD s Endobronchial Ultrasound(Not Applicable) - Bob Real MD 2. right-sided pigtail chest tube placement - Dr Seth Real Diagnostic Imagining Performed Chest X-Ray 04/20/25 09:03 XR chest 1V portable CLINICAL HISTORY: s/p rll sup segment bronch bx COMPARISON STUDY: 02/27/2025 FINDINGS: There is interval dense consolidation at the right mid and lower lung. There is a large right pneumothorax with 7 cm pleural separation at the right apex. There is mild stranding at the left lung base. No pneumothorax on the left. IMPRESSION: 1. Large right pneumothorax. 2. Dense consolidation at the right mid and lower lung. ACT 112: Negative or not required by law. Electronically signed by: Luis A Eller M.D. 04/20/2025 9:36 AM Chest X-Ray 04/20/25 09:49 XR chest 1V portable CLINICAL HISTORY: s/p chest tube COMPARISON STUDY: 04/20/2025 FINDINGS: There is interval upper right chest tube. There is a trace right apical pneumothorax, significantly improved. There is mild stranding opacity at the right mid and lower lung, improved. No other consolidation or pleural effusion. IMPRESSION: Trace right apical pneumothorax, significantly improved. ACT 112: Negative or not required by law. Electronically signed by: Luis A Eller M.D. 04/20/2025 10:04 AM Chest X-Ray 04/20/25 17:50 Technique: A frontal view of the chest was obtained Comparison is made to the prior examination dated 02/27/2025 Findings: There is a small right apical pneumothorax with a right-sided chest tube in place. The heart is mildly enlarged. There is suspected mild pulmonary edema No fracture is noted. There is a large hiatal hernia Impression: 1. Small right pneumothorax with a right-sided chest tube in place 2. Cardiomegaly and mild pulmonary edema 3. Large hiatal hernia ACT 112: Positive. There are findings on this exam that require communication between the performing entity and the patient following Patient Test Result Information Act ([place] ACT 112) guidelines. Electronically signed by Casey Bermudez 04-20-2025 7:11 PM Chest X-Ray 04/21/25 07:00 EXAM: XR chest 1V portable CLINICAL HISTORY: Chest tube clamped. TECHNIQUE: An X-ray image of the chest is obtained in AP portable projection. COMPARISON: Compared to the previous study done at 04/20/2025. FINDINGS: Pulmonary Parenchyma: Right sided chest tube is still seen. Suspected rim of right apical pneumothorax is still noted, however unchanged Bilateral prominent bronchovascular markings are still seen, could be representing pulmonary edema. No evidence of consolidation, collapse, or focal opacities. No pulmonary nodules are identified. No evidence of pleural effusion. Heart and Mediastinum: Cardiomegaly. No mediastinal widening or masses. No hilar or mediastinal lymphadenopathy. Hiatus hernia. Bony Thorax: The bony thorax appears intact without fractures or deformities. Osteoarthritic changes of the acromioclavicular joints on both sides. Soft Tissues: Soft tissues overlying the chest wall are unremarkable. IMPRESSION: 1. No acute cardiopulmonary abnormalities are identified. 2. No significant changes detected compared to the previous study. 3. Minimal right apical pneumothorax. 4. Bilateral prominent bronchovascular markings, could be representing pulmonary edema. 5. Cardiomegaly. 6. Hiatus hernia. Electronically signed by Sandro Barnard 04-21-2025 08:27 AM Chest X-Ray 04/21/25 11:00 XR chest 1V portable CLINICAL HISTORY: Evaluate after chest tube clamp COMPARISON STUDY: 04/21/2025 FINDINGS: The prior right chest tube has been removed. There is a trace right apical pneumothorax, stable. Stable mild stranding opacity in the lung bases. IMPRESSION: Stable trace right pneumothorax. ACT 112: Negative or not required by law. Electronically signed by: Luis A Eller M.D. 04/21/2025 11:26 AM Pending Results Patient Have Any Pending Studies at Discharge: Yes (Lung nodule biopsy results; cultures from the lung ) Discharge Instructions Given to Patient (Per Discharging Provider) Please wait to restart Plavix until Sunday. If you are not coughing up any blood on Sunday, then you can go ahead and restart the Plavix. You can restart Ozempic later in the week if you are feeling well. Self-Care at Home * Be sure to rest the day after the procedure. Arrange for help with work, attendant child activity, or other tasks. Aftereffects of anesthesia may make you drowsy or sluggish for 24 hours, sometimes longer (rare). * If your provider gives you pain medicines, take them as prescribed. Don't take [id number] medicines without consulting your provider. * Eat soft foods such as soup, yogurt, Jell-O, and pudding for a day or two. Drink plenty of fluids to stay hydrated unless you have been instructed not to have them. * Your throat may be scratchy for several days after the test. Ask your provider which medicines or home therapy can help relieve the discomfort. * Ask your provider before resuming your regular medicines. * Follow up with your provider for the test results. If your bronchoscopy has been done for a biopsy, it may take longer to get the test results. Meanwhile, if your symptoms are getting worse, contact your provider. When to Call the Doctor Bronchoscopy is usually a safe procedure. Side effects such as bleeding in the airways or lung infection are very rare. Contact your provider right away if you have any of these symptoms after bronchoscopy: * Hoarseness or a sore throat that doesn't go away * Pain when swallowing * Cough with blood * Trouble breathing * Chest pain * Fever that lasts more than 24 hours Total Time Total Time Spent Total Time Spent (In Minutes): 35 Total Time Includes: Examination of the Patient, Discharge Planning, Medication Reconciliation and Communication With Other Providers Coding Level of Care Code 17064 INP/OBS DISCH >30 MIN Diagnoses Postprocedural pneumothorax J95.811 S/P bronchoscopy with biopsy Z98.890 Pulmonary nodule 1 cm or greater in diameter R91.1 Diabetes mellitus, type 2 E11.9 HTN (hypertension) I10 HLD (hyperlipidemia) E78.5 COPD (chronic obstructive pulmonary disease) J44.9 Obstructive sleep apnea G47.33 CAD (coronary artery disease) I25.10 Tobacco dependence F17.200 Midline thoracic back pain, unspecified chronicity M54.6 Back pain laterality: midline Chronicity: unspecified
[2025-04-22] MEDS ORDERED: AZITHROMYCIN 250 MG TAB PO SCH (09:00)
== END 2025-04-21 15:38 | disposition home or self-care (01) ==
LOC: ASU 05:56 → PACUINP 05:56 → SUATTDRO 11:26 → 2E 13:53
DX: Z98.890 Other specified postprocedural states; G47.33 Obstructive sleep apnea (adult) (pediatric); M54.6 Pain in thoracic spine; Z79.02 Long term (current) use of antithrombotics/antiplatelets; E11.9 Type 2 diabetes mellitus without complications; Z79.85 Long-term (current) use of injectable non-insulin antidiabetic drugs; Z79.84 Long term (current) use of oral hypoglycemic drugs; Z79.82 Long term (current) use of aspirin; I25.10 Atherosclerotic heart disease of native coronary artery without angina pectoris; Z79.899 Other long term (current) drug therapy; E78.5 Hyperlipidemia, unspecified; C34.31 Malignant neoplasm of lower lobe, right bronchus or lung; J95.811 Postprocedural pneumothorax; F17.210 Nicotine dependence, cigarettes, uncomplicated; I10 Essential (primary) hypertension; J44.9 Chronic obstructive pulmonary disease, unspecified